=== PATIENT | female | born 1955 | race Caucasian/White ===

== ENCOUNTER → 2019-11-25 13:03 | Outpatient (BNVA) | payer MEDICARE, MEDICAID, SELFPAY | PROVIDERS: PCP Family Medicine; Visit Provider Nurse Practitioner | DX: F20.9 Schizophrenia, unspecified (principal) | CPT/HCPCS: 99214 ==

== ENCOUNTER → 2019-12-22 11:47 | Outpatient (BNVA) | payer MEDICARE, MEDICAID, SELFPAY | PROVIDERS: PCP Family Medicine; Visit Provider Nurse Practitioner | DX: F20.9 Schizophrenia, unspecified (principal) | CPT/HCPCS: 99214 ==

== ENCOUNTER → 2020-05-04 07:47 | Outpatient (BNVA) | payer MEDICARE, MEDICAID, SELFPAY | PROVIDERS: PCP Family Medicine; Visit Provider Psychiatry & Neurology Psychiatry | DX: F20.9 Schizophrenia, unspecified (principal); F43.12 Post-traumatic stress disorder, chronic | CPT/HCPCS: 96372; 99214 ==

== ENCOUNTER → 2020-06-23 14:30 | Outpatient (BNVA) | payer MEDICARE, MEDICAID, SELFPAY | PROVIDERS: PCP Family Medicine; Visit Provider Psychiatry & Neurology Psychiatry | DX: F20.9 Schizophrenia, unspecified (principal) | CPT/HCPCS: 99213 ==

== ENCOUNTER → 2020-08-15 14:02 | Outpatient (BNVA) | payer MEDICARE, MEDICAID, SELFPAY | PROVIDERS: PCP Family Medicine; Visit Provider Nurse Practitioner Psychiatric/Mental Health | DX: F20.9 Schizophrenia, unspecified (principal) | CPT/HCPCS: 99212 ==

== ENCOUNTER → 2020-09-21 11:12 | Outpatient (BNVA) | payer MEDICARE, MEDICAID, SELFPAY | PROVIDERS: PCP Family Medicine; Visit Provider Nurse Practitioner Psychiatric/Mental Health | DX: F20.9 Schizophrenia, unspecified (principal) | CPT/HCPCS: 99213 ==

== ENCOUNTER → 2020-10-23 10:49 | Outpatient (BNVA) | payer MEDICARE, MEDICAID, SELFPAY | PROVIDERS: PCP Family Medicine; Visit Provider Nurse Practitioner Psychiatric/Mental Health | DX: F20.9 Schizophrenia, unspecified (principal) | CPT/HCPCS: 99213 ==

== ENCOUNTER 2020-10-23 12:21 | Inpatient (IN) | payer MEDICARE, MEDICAID, SELFPAY ==
[2020-10-23 12:27] VITALS: RESP 20
--- NOTE | 2020-10-23 12:33 | ECG_ITS ---
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
[2020-10-23] MEDS: haloperidol inj 5 mg/mL INJ 1 mL IM (12:42)
[2020-10-23 12:53] VITALS: BP 130/85; PULSE 86; RESP 16; O2SAT 96
--- NOTE | 2020-10-23 13:01 | PC.PHAR ---
Addendum entered by Kirsten Jeffries 10/23/20 17:42: pts caregiver states the pt takes the medications entered Original Note: pt unable to verify medications-medications entered are meds that show up on ext med history and medications from previous entered med list
[2020-10-23] MEDS: diphenhydrAMINE 50 mg/mL SDV 1mL IM (13:20)
--- NOTE | 2020-10-23 13:49 | PC.NURSE ---
Patient states that she has no worth in this world. Patient states that she has friends that care about her and they make her feel bad that they want her to live. Patient also states that she does not want to be here, and that she rather be at her friends house.
[2020-10-23 17:03] LABS: Basophils % 0.6 %; Eosinophils # 0.1 10^3/uL (0.0-0.8); Eosinophils % 1.2 %; Hematocrit 38.5 % (37.0-47.0); Hemoglobin 12.3 g/dL (11.5-15.3); Lymphocytes # 1.2 10^3/uL (0.8-4.8); Lymphocytes % 23.2 %; Mean Corpuscular HGB Conc 31.9 g/dL (30.0-36.0); Mean Corpuscular Hemoglobin 28.3 pg (28.0-34.0); Mean Corpuscular Volume 88.5 fL (81-99); Mean Platelet Volume 10.2 fL (7.4-10.4); Monocytes # 0.6 10^3/uL (0.2-0.9); Monocytes % 11.4 %; Neutrophils # 3.19 10^3/uL (1.8-7.7); Neutrophils % 62.8 %; Nucleated Red Blood Cells % 0 %; Platelet Count 140 10^3/cmm (130-400); Red Blood Count 4.35 10^6/uL (4.1-5.3); Red Cell Distribution Width 13.1 % (12.1-15.1); White Blood Count 5.1 10^3/uL (4.0-10.0)
[2020-10-23 17:14] LABS: Add Urine Microscopic? NO
[2020-10-23 17:17] LABS: Bilirubin Urine Neg (Negative); Blood Urine Neg (Negative); Glucose Urine UA Norm (Normal); Ketones Urine Negative (Negative); Leukocyte Esterase Urine Negative (Negative); Nitrate Urine Negative (Negative); Protein Urine Neg (Negative); Urine Appearance Clear (CLEAR); Urine Color Yellow (Yellow); Urobilinogen Urine Norm (Negative); pH Urine 6.5 (5-7)
[2020-10-23 17:25] LABS: Amphetamines Screen Urine Negative (Negative); Barbiturates Screen Urine Negative (Negative); Benzodiazepines Screen Urine Negative (Negative); Cocaine Screen Urine Negative (Negative); Opiate Screen Urine Negative (Negative); PCP Screen Urine Negative (Negative); THC Screen Urine Negative (Negative)
[2020-10-23 17:38] LABS: Troponin(5th) Baseline 9 ng/L (0-10)
--- NOTE | 2020-10-23 17:42 | ED_ITS ---
HPI - Psych General: Chief Complaint: Psychiatric Symptoms Stated Complaint: SI / SCHIZO / SELF HARM Time Seen by Provider: 10/23/20 12:32 History of Present Illness: HPI Narrative: The patient is a 64-year-old female with chronic schizophrenia who comes to the ER brought with a 96-hour hold paperwork after admitting suicidal ideations. In the ER she is very depressed and agitated also admitting that she is suicidal and that if she had a gun she would kill herself. She keeps saying that no one cares for her and that she is ready to end her life. She asks if the mental health symptoms will be better if she is and that may be she is better off that way. MD complaint: suicidal ideation and feels depressed Duration: constant History of same: Yes Associated psychiatric symptoms: depression and suicidal ideation Associated symptoms: Reports suicidal ideation Review of Systems General: Reports: 10 or more systems reviewed and unremarkable except in HPI and below Const: Denies: fatigue Eyes: Denies: change in vision, blurry vision or eye redness ENMT: Denies: throat pain, swelling of lips/tongue, ear or mastoid pain or nasal congestion Card: Denies: chest pain, palpitations, irregular heart rhythm, edema, dyspnea on exertion or orthopnea Resp: Denies: dyspnea, productive cough or non-productive cough GI: Denies: abdominal pain, diarrhea or GI cramping : Denies: flank pain, difficulty voiding, urinary frequency or urinary urgency Musc: Denies: neck pain, back pain, extremity pain, joint pain, joint redness, limited range of motion or muscle weakness Skin/Breast: Denies: rash, pruritus, erythema, skin pain or skin tenderness Neuro: Denies: headache(s), numbness in extremities, weakness in extremities, sensory changes, difficulty walking, dizziness, confusion or Slurred speech present Psych: Reports: suicidal ideation Endo: Denies: polyuria All/Imm: Denies: urticaria, throat swelling or tongue swelling PFSH ED PFSH: Medical History Schizophrenia, chronic condition Social History Smoking and tobacco status: former smoker Second hand smoke exposure: No Physical Exam Const: COMMON NORMALS: no acute distress, average body habitus, patient oriented x3, no limitations, healthy appearing, alert and well nourished GENERAL APPEARANCE: cooperative, comfortable, well kempt and well developed ORIENTATION/CONSCIOUSNESS: Yes awake, Yes oriented to person, Yes oriented to place and Yes oriented to time HENMT: COMMON NORMALS: normocephalic, external ears normal and Normal external nose present HEAD & SCALP: normal to inspection and normocephalic NOSE: Normal external nose present EXTERNAL EAR: Yes external ears normal MOUTH: Normal oral and palatal mucosa present THROAT: posterior oropharynx normal Eye: COMMON NORMALS: Equal, round and reactive pupils present and EOMs intact bilaterally GENERAL EYE: appearance normal, both eyes and all related structures PUPIL: Yes Equal, round and reactive pupils present Neck/C-Spine: COMMON NORMALS: full ROM, no lymphadenopathy, no meningeal signs and no JVD GENERAL: Yes normal visual inspection Lymph: LYMPHATIC: no lymphadenopathy noted Chest: COMMONS NORMALS: normal inspection of the chest and normal palpation of entire chest wall Resp: COMMON NORMALS: normal respiratory effort, No retractions, No use of accessory muscles, clear to auscultation bilaterally and percussion normal EFFORT & INSPECTION: Yes able to speak in complete sentences AUSCULTATION: clear to auscultation bilaterally PERCUSSION: percussion normal Cardio: COMMON NORMALS: no JVD, regular rate, regular rhythm, S1 normal heart sound present, S2 normal heart sound present and Peripheral pulses 2+ throughout RATE: regular rate RHYTHM: regular rhythm HEART SOUNDS: S1 normal heart sound present and S2 normal heart sound present PERIPHERAL PULSES: Peripheral pulses 2+ throughout GI: COMMON NORMALS: Normal to inspection, nondistended, normoactive bowel sounds present, Soft to palpation, non-tender and no masses INSPECTION: Yes normal to inspection PALPATION: Yes Soft to palpation : COMMON NORMALS: Yes no CVA tenderness BLADDER/KIDNEY EXAM: Yes no CVA tenderness Back/Pelvis: COMMON NORMALS: no CVA tenderness, thoracic and lumbar spine normal to inspection, no thoracic nor lumbar tenderness and thoraco-lumbar ROM normal Extremity: COMMON NORMALS: normal to inspection, full ROM, capillary refill normal, no joint enlargement and no pedal edema GENERAL: Yes normal exam except as noted Neuro: COMMON NORMALS: patient oriented x3, CN's II-XII intact bilaterally, moves all extremities, no focal motor deficits, no sensory deficits noted and gait normal SENSORIUM/ORIENTATION: Yes alert, Yes oriented to person, Yes oriented to place and Yes oriented to time MENINGEAL SIGNS: Yes no meningeal signs Psych: COMMON NORMALS: mental status grossly normal, Normal thought process present, cooperative, normal affect and speech normal APPEARANCE: Yes well kempt ATTITUDE: Yes calm SPEECH: Yes normal speech THOUGHT PROCESS: Normal thought process present Skin: COMMON NORMALS: no rashes or lesions noted GENERAL SKIN EXAM: no rashes or lesions noted MDM - Psych Lab Data: Labs: Lab Results 10/23/20 10/23/20 10/23/20 Range/Units 16:42 16:42 16:42 WBC 5.1 (4.0-10.0) 10^3/ uL RBC 4.35 (4.1-5.3) 10^6/u L Hgb 12.3 (11.5-15.3) g/dL Hct 38.5 (37.0-47.0) % MCV 88.5 (81-99) fL MCH 28.3 (28.0-34.0) pg MCHC 31.9 (30.0-36.0) g/dL RDW 13.1 (12.1-15.1) % Plt Count 140 (130-400) 10^3/c mm MPV 10.2 (7.4-10.4) fL Neut % (Auto) 62.8 % Lymph % (Auto) 23.2 % Campbell % (Auto) 11.4 % Eos % (Auto) 1.2 % Baso % (Auto) 0.6 % Neut # (Auto) 3.19 (1.8-7.7) 10^3/u L Lymph # (Auto) 1.2 (0.8-4.8) 10^3/u L Campbell # (Auto) 0.6 (0.2-0.9) 10^3/u L Eos # (Auto) 0.1 (0.0-0.8) 10^3/u L Baso # (Auto) 0.0 (0.0-0.1) 10^3/u L Nucleated RBC % (a uto) 0 % Nucleated RBCs # 0.0 /100WBC Sodium 132 L (136-145) mmol/L Potassium 4.8 (3.5-5.1) mmol/L Chloride 95 L (98-107) mmol/L Carbon Dioxide 28 (22-29) mmol/L Anion Gap 13.8 (5-19) BUN 12 (8-23) mg/dL Creatinine 0.5 (0.5-0.9) mg/dL GFR Calculation 125.0 (90-130) mL/min Glucose 118 H (65-115) mg/dL Calculated Osmolal ity 275 L (285-295) mOsm/k g Calcium 8.8 (8.5-10.5) mg/dL Total Bilirubin 0.5 (0.15-1.2) mg/dL AST 19 (0-32) U/L ALT 14 (0-33) U/L Alkaline Phosphata se 71 (35-105) IU/L Troponin T Baselin e 9 (0-10) ng/L Total Protein 5.7 L (6.6-8.7) g/dL Albumin 3.6 (3.5-5.2) g/dL Globulin 2.1 (1.3-4.6) g/dL TSH 2.02 (0.27-4.20) uIU/ mL Urine Color (Yellow) Urine Appearance (CLEAR) Urine pH (5-7) Ur Specific Gravit y (1.005-1.030) Urine Protein (Negative) Urine Glucose (UA) (Normal) Urine Ketones (Negative) Urine Blood (Negative) Urine Nitrate (Negative) Urine Bilirubin (Negative) Urine Urobilinogen (Negative) mg/dL Ur Leukocyte Shani ase (Negative) Salicylates < 0.3 L (3-10) mg/dL Urine Opiates Scre en (Negative) ng/mL Acetaminophen < 5.0 L (10-30) ug/mL Ur Barbiturates Sc reen (Negative) ng/mL Valproic Acid (50-100) ug/mL Ur Phencyclidine S crn (Negative) ng/mL Ur Amphetamines Sc reen (Negative) ng/mL U Benzodiazepines Scrn (Negative) ng/mL Urine Cocaine Scre en (Negative) ng/mL U Marijuana (THC) Screen (Negative) ng/mL Ethyl Alcohol < 10 (0-10) mg/dL 10/23/20 10/23/20 10/23/20 Range/Units 16:48 16:48 17:49 WBC (4.0-10.0) 10^3/ uL RBC (4.1-5.3) 10^6/u L Hgb (11.5-15.3) g/dL Hct (37.0-47.0) % MCV (81-99) fL MCH (28.0-34.0) pg MCHC (30.0-36.0) g/dL RDW (12.1-15.1) % Plt Count (130-400) 10^3/c mm MPV (7.4-10.4) fL Neut % (Auto) % Lymph % (Auto) % Campbell % (Auto) % Eos % (Auto) % Baso % (Auto) % Neut # (Auto) (1.8-7.7) 10^3/u L Lymph # (Auto) (0.8-4.8) 10^3/u L Campbell # (Auto) (0.2-0.9) 10^3/u L Eos # (Auto) (0.0-0.8) 10^3/u L Baso # (Auto) (0.0-0.1) 10^3/u L Nucleated RBC % (a uto) % Nucleated RBCs # /100WBC Sodium (136-145) mmol/L Potassium (3.5-5.1) mmol/L Chloride (98-107) mmol/L Carbon Dioxide (22-29) mmol/L Anion Gap (5-19) BUN (8-23) mg/dL Creatinine (0.5-0.9) mg/dL GFR Calculation (90-130) mL/min Glucose (65-115) mg/dL Calculated Osmolal ity (285-295) mOsm/k g Calcium (8.5-10.5) mg/dL Total Bilirubin (0.15-1.2) mg/dL AST (0-32) U/L ALT (0-33) U/L Alkaline Phosphata se (35-105) IU/L Troponin T Baselin e (0-10) ng/L Total Protein (6.6-8.7) g/dL Albumin (3.5-5.2) g/dL Globulin (1.3-4.6) g/dL TSH (0.27-4.20) uIU/ mL Urine Color Yellow (Yellow) Urine Appearance Clear (CLEAR) Urine pH 6.5 (5-7) Ur Specific Gravit y 1.010 (1.005-1.030) Urine Protein Neg (Negative) Urine Glucose (UA) Norm (Normal) Urine Ketones Negative (Negative) Urine Blood Neg (Negative) Urine Nitrate Negative (Negative) Urine Bilirubin Neg (Negative) Urine Urobilinogen Norm (Negative) mg/dL Ur Leukocyte Shani ase Negative (Negative) Salicylates (3-10) mg/dL Urine Opiates Scre en Negative (Negative) ng/mL Acetaminophen (10-30) ug/mL Ur Barbiturates Sc reen Negative (Negative) ng/mL Valproic Acid 43.3 L (50-100) ug/mL Ur Phencyclidine S crn Negative (Negative) ng/mL Ur Amphetamines Sc reen Negative (Negative) ng/mL U Benzodiazepines Scrn Negative (Negative) ng/mL Urine Cocaine Scre en Negative (Negative) ng/mL U Marijuana (THC) Screen Negative (Negative) ng/mL Ethyl Alcohol (0-10) mg/dL Discharge Plan Discharge Patient Disposition: Admitted As Inpatient Admit Provider: Edgar Che Condition: Stable Coding Level of Care Code ED Kettle Girl for Germang Fwd Exam Comprehensive
[2020-10-23 17:47] LABS: Alanine Aminotransferase 14 U/L (0-33); Albumin Level 3.6 g/dL (3.5-5.2); Alkaline Phosphatase 71 IU/L (35-105); Blood Urea Nitrogen 12 mg/dL (8-23); Calcium 8.8 mg/dL (8.5-10.5); Carbon Dioxide 28 mmol/L (22-29); Chloride 95 mmol/L (98-107); Globulin 2.1 g/dL (1.3-4.6); Glucose 118 mg/dL (65-115); Osmolality Calculated 275 mOsm/kg (285-295); Sodium 132 mmol/L (136-145); Thyroid Stimulating Hormone 2.02 uIU/mL (0.27-4.20); Total Bilirubin 0.5 mg/dL (0.15-1.2); Total Protein 5.7 g/dL (6.6-8.7)
[2020-10-23 17:53] LABS: Acetaminophen < 5.0 ug/mL (10-30); Alcohol Level < 10 mg/dL (0-10); Salicylate < 0.3 mg/dL (3-10)
[2020-10-23 17:54] LABS: Anion Gap 13.8 (5-19); Aspartate Amino Transferase 19 U/L (0-32); Potassium 4.8 mmol/L (3.5-5.1)
[2020-10-23 18:25] LABS: Valproic Acid Level 43.3 ug/mL (50-100)
--- NOTE | 2020-10-23 18:37 | ECG_ITS ---
[facility] Test Date: 2020-10-23 Pat Name: Erica Buckner Department: Room: 150 Gender: Female Layer Up: : 1955 Requested By: Jose G Dodd Order Number: [id number] Petey MD: Sascha Vaughan M.D. Measurements Intervals [place] Rate: 72 P: PA: QRS: 79 QRSD: 94 T: 59 QT: 373 QTc: 409 Interpretive Statements SINUS RHYTHM WITH PREMATURE VENTRICULAR CONTRACTION LOW QRS VOLTAGE IN PRECORDIAL LEADS [QRS DEFLECTION < 1.0 mV IN CHEST LEADS] NONSPECIFIC T-WAVE ABNORMALITY Compared to ECG 06/25/2019 12:51:55 Low QRS voltage now present T-wave abnormality now present Electronically Signed On 10-25-2020 18:12:03 KENNEL STAFF MEMBER by Sascha Vaughan M.D. [id number]
[2020-10-23 21:37] VITALS: BP 111/75; PULSE 82; RESP 18; TEMP 36.3; O2SAT 92
[2020-10-23 21:57] VITALS: RESP 16
[2020-10-23 22:00] VITALS: RESP 16
[2020-10-23] MEDS: trazodone 50 mg Tablet PO (22:22)
[2020-10-23] MEDS: hyDROXYzine 25 mg Capsule 50 MG PO (22:22)
[2020-10-24] MEDS: LORazepam 0.5 mg Tablet PO ×2 (03:43→23:55)
--- NOTE | 2020-10-24 04:06 | PC.NURSE ---
UP AND DOWN SINCE ARRIVAL TO FLOOR. RAMBLES WITH TALK, SAYS THERE ARE PEOPLE WATCHING HER CAN'T YOU SEE THEM? APPEARS VERY PARANOID, UNABLE TO REDIRECT, SAYS SHE HOPES NO ONE LOCKS HER IN HER ROOM, TRIED TO REASSURE THAT NO ONE WOULD LOCK HER IN. WAS GIVEN ATIVAN 0.5 MG PO PRN TO HELP HER WITH REST. DENIES ANY PAIN.
[2020-10-24 06:22] VITALS: BP 120/63; PULSE 67; RESP 18; TEMP 36.6; O2SAT 95
[2020-10-24] MEDS: paliperidone ER 3 mg Tablet PO (07:31)
[2020-10-24] MEDS: fluoxetine 20 mg Capsule 40 MG PO (07:31)
[2020-10-24] MEDS: divalproex DR 250 mg Tablet PO ×2 (07:31→17:14)
[2020-10-24] MEDS: atenolol 50 mg Tablet PO (07:31)
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
--- NOTE | 2020-10-24 12:20 | PC.NURSE ---
PATIENT REFUSED BLOOD TO BE DRAWN FOR CHEM 7. RELAYED TO PHYSICIAN
[2020-10-24 14:00] VITALS: BP 121/71; PULSE 79; RESP 18; TEMP 36.5; O2SAT 94
[2020-10-24] MEDS: hyDROXYzine 25 mg Capsule 50 MG PO (14:23)
[2020-10-24] MEDS: lisinopril 10 mg Tablet PO (17:14)
[2020-10-24] MEDS: trazodone 150 mg Tablet PO (20:33)
[2020-10-24 20:43] VITALS: BP 98/60; PULSE 81; RESP 16; TEMP 36.6; O2SAT 97
[2020-10-25 06:00] VITALS: BP 110/79; PULSE 67; RESP 15; TEMP 36.6; O2SAT 98
[2020-10-25] MEDS: divalproex DR 250 mg Tablet PO ×2 (08:42→17:16)
[2020-10-25] MEDS: fluoxetine 20 mg Capsule 40 MG PO (08:42)
[2020-10-25] MEDS: paliperidone ER 3 mg Tablet PO (08:42)
[2020-10-25] MEDS: atenolol 50 mg Tablet PO (08:43)
--- NOTE | 2020-10-25 09:37 | PC.NURSE ---
Patient is anxious at this time asking to see physician and case assistant. She was educated on physician rounding and Denilson and case management was notified and patient re-directed. She remains anxious. Offered paper to color, draw or make notes and/or a book. Patient refused. When asked what would help she states push-ups . Encouraged patient to try doing them in her room. Patient calmed and went to room. Will continue to closely monitor. ABRIL, CORBIN
--- NOTE | 2020-10-25 11:06 | PC.NURSE ---
Agitation: Patient is in room hollaring out for the girls to stop talking. When i approached patient she was lying in bed and sat up stating that she heard some girls saying she should just . I informed patient that there is no one here that is saying those things. I also eased patient by stating she was in a safe place and across from the nurses station. I offered patient a medication to help ease her nerves and make her less anxious and she agreed. I will administer med as ordered. ABRIL, CORBIN
--- NOTE | 2020-10-25 11:31 | PM.NPN ---
Subjective NPU Subjective: Interval history: Patient continues to report depressive symptoms, I feel hopeless, I think the only way out is ending my life... I want to in the snow like a woman I heard about in a movie. Continues to be delusional, paranoid Denies any auditory hallucinations, denies any visual hallucinations Reports being compliant with the medication although she currently states that she does not feel like she will follow-up with outpatient medication management appointments No reports of any behavioral disturbances but reportedly appears to be confused often asking the same question multiple times at the nurse station Mental Status Exam MSE Comments: Appropriately groomed and dressed sitting on her bed in her room, calm, cooperative occasionally anxious appearing, fair eye contact Psychomotor activity is neither increased nor decreased, no agitation Speech is normal rate and volume, fair articulation, not pressured I feel depressed, congruent affect, not labile Pleasantly confused, oriented to person, type of place Memory and concentration appear to be fair at best per interview Thought process, occasional delays, circumstantial at times requiring redirection, no flight of ideas, some looseness of association Thought content, delusions, does not appear to be attending to any internal stimuli, passive suicidal ideation with no active intent or plan, no homicidal ideation Insight and judgment appear to be fair at best Vitals/I&O/Wt Last Vital Signs Temp 97.8 F 10/25/20 06:00 Pulse 67 10/25/20 06:00 Resp 15 10/25/20 06:00 BP 110/79 10/25/20 06:00 Pulse Ox 98 10/25/20 06:00 Data NPU : 10/23/20 16:42 10/23/20 16:42 A&P Assessment and plan (1) Suicidal ideation: Status: Acute (2) Depressive disorder: Status: Acute (3) Schizophrenia, chronic condition: Status: Chronic Additional A&P Information Continues to be psychotic, depressed, reports feeling hopeless with ongoing suicidal ideation DISCONTINUE oral Invega START olanzapine 5 mg at bedtime targeting psychotic symptoms, mood CONTINUE other medication, continue to monitor Continue to encourage patient to participate in unit milieu Involuntary Hold Information 96 Hour Hold: 96 Hour Involuntary Admission: Yes 96 Hour Hold Ending Date: 10/30/20 96 Hour Hold Ending Time: 14:15 Attestations NPU Medical Necessity Statement*: Continues require psychiatric hospitalization with ongoing suicidal ideation and need for medication stabilization Coding Level of Care Code Acute Wire Inspector for Chg Fwd Diagnoses Suicidal ideation R45.851 Depressive disorder F32.9 Schizophrenia, chronic condition F20.9
[2020-10-25] MEDS: hyDROXYzine 25 mg Capsule 50 MG PO (11:40)
[2020-10-25 13:36] VITALS: BP 97/72; PULSE 82; RESP 18; TEMP 36.6; O2SAT 93
[2020-10-25] MEDS: ondansetron 4 MG Tablet PO (15:44)
[2020-10-25] MEDS: LORazepam 0.5 mg Tablet PO (17:16)
[2020-10-25] MEDS: lisinopril 10 mg Tablet PO (17:16)
--- NOTE | 2020-10-25 18:07 | PC.NURSE ---
1715: Patient is requesting a medication that will calm her mouth . She is pacing in her room. Offered patient a book or paper and crayons. Patient refused and will administer anxiety medication as ordered PRN. ABRIL, CORBIN
[2020-10-25 19:37] VITALS: BP 93/51; PULSE 82; RESP 16; TEMP 36.6; O2SAT 98
[2020-10-25] MEDS: OLANZapine 5 mg TABLET PO (20:00)
[2020-10-25] MEDS: trazodone 150 mg Tablet PO (20:00)
[2020-10-26 06:00] VITALS: BP 109/71; PULSE 72; RESP 18; TEMP 36.4; O2SAT 95
[2020-10-26] MEDS: fluoxetine 20 mg Capsule 40 MG PO (07:34)
[2020-10-26] MEDS: atenolol 50 mg Tablet PO (07:34)
[2020-10-26] MEDS: divalproex DR 250 mg Tablet PO ×2 (07:34→20:28)
[2020-10-26] MEDS: LORazepam 0.5 mg Tablet PO ×2 (07:35→19:23)
--- NOTE | 2020-10-26 12:17 | P.PN_ITS ---
Subjective NPU Subjective: Interval history: Reports intermittent depressive symptoms, denies any suicidal ideation Patient continues to report delusions that people are saying mean things to her while driving by the road near where she stays Denies any visual hallucinations Reports that her appetite is been good Reports that her sleep is been fair Reports being compliant with her medication, denies any medication side effects Mental Status Exam MSE Comments: Appropriately groomed and dressed sitting on her bed in her room, irritable but cooperative, fair eye contact Psychomotor activity is neither increased nor decreased, no agitation Speech is normal rate and volume, fair articulation, not pressured I'm upset, irritable, congruent affect, not labile Pleasantly confused, oriented to person, type of place Memory and concentration appear to be fair at best per interview Thought process, occasional delays, circumstantial at times requiring redirection, no flight of ideas, some looseness of association Thought content, delusions, does not appear to be attending to any internal stimuli, passive suicidal ideation with no active intent or plan, no homicidal ideation Insight and judgment appear to be fair Vitals/I&O/Wt Last Vital Signs Temp 97.6 F 10/26/20 06:00 Pulse 72 10/26/20 06:00 Resp 18 10/26/20 06:00 BP 109/71 10/26/20 06:00 Pulse Ox 95 10/26/20 06:00 Data NPU : 10/23/20 16:42 10/23/20 16:42 A&P Assessment and plan (1) Suicidal ideation: Status: Acute (2) Depressive disorder: Status: Acute (3) Schizophrenia, chronic condition: Status: Chronic Additional A&P Information Patient continues to report intermittent depressive symptoms, denies any fatimah cidal ideation today, continues to be irritable secondary to delusion that people are making fun of her and calling her names CONTINUE current medication, continue to monitor Involuntary Hold Information 96 Hour Hold: 96 Hour Involuntary Admission: Yes 96 Hour Hold Ending Date: 10/30/20 96 Hour Hold Ending Time: 14:15 Attestations NPU Medical Necessity Statement*: Continues to demonstrate disorganization of behavior, delusions require psychiatric medication stabilization Coding Level of Care Code Acute Identification Printing Machine Setter for German Fwconnor Diagnoses Suicidal ideation R45.851 Depressive disorder F32.9 Schizophrenia, chronic condition F20.9
[2020-10-26 14:00] VITALS: BP 116/73; PULSE 80; RESP 18; TEMP 36.2; O2SAT 96
[2020-10-26] MEDS: ondansetron 4 MG Tablet PO (19:31)
[2020-10-26] MEDS: trazodone 150 mg Tablet PO (20:28)
[2020-10-26] MEDS: OLANZapine 5 mg TABLET PO (20:28)
[2020-10-26] MEDS: hyDROXYzine 25 mg Capsule 50 MG PO (20:29)
[2020-10-26] MEDS: lisinopril 10 mg Tablet PO (20:30)
[2020-10-26] MEDS: alum-mag-hydroxide-sime 30 mL UDC PO (21:21)
[2020-10-26] MEDS: OLANZapine 5 mg ODT PO (21:21)
--- NOTE | 2020-10-26 21:30 | PC.NURSE ---
Patient began the shift very anxious and particularly dis-trustful of males. Patient requested medication for anxiety and was given 0.5mg Ativan at 1923. Patient was given her scheduled medication at 20:28. Shortly there after she was up at the nurses station accusing male Nurse of stealing Her Thoughts . As she began to become increasingly agitated at male staff presents. The decision was made to give her an additional 5mg Zyprexa zydis at 21:21 in hopes of avoiding further escalation. Patient returned to room. However, continues to PEEK out her door looking for mail staff.
[2020-10-26 22:00] VITALS: RESP 18
--- NOTE | 2020-10-26 22:14 | PC.NURSE ---
PM assessment Pt refused to allow DEEP SUBMERGENCE VEHICLE CREWMEMBER to obtain v/s. Pt is irritable, guarded, does not like male staff, she is acting bazaar at the moment. She walks to the door of the room, peeks out, comes back to the bed, and asked, where is that copy chaser at that has been on the unit? He is stealing my thoughts. Pt allowed nurse to listen to her heart and lungs, both are WNL. Pt is anxious, guarded, tearful, and at times verbally profane. Pt is anxious and continues to pace the tsang between the dayroom and her room. Pt came to the nurses desk requesting medication because voices are telling her to become a prostitute, that she is financially to far down to pull out. Pt is very upset at this voice saying, it ain't right to think like this. Pt confirms AH/VH but denies SI/HI at this time. Pt has received PRN medications to help with increased anxiety level. She has received Ativan 0.5mg PO, Visteril 50mg PO, zyprexa zydis 5mg PO, and Mylanta. pt returns to her room and continually closes her door. Staff has educated pt regarding unit expectation of open door. Will continue to monitor patients behavior.
[2020-10-27] MEDS: haloperidol 5 mg Tablet PO (01:55)
--- NOTE | 2020-10-27 01:56 | PC.NURSE ---
Patient continues to be very anxious and agitated. Pacing hallway back and forth from day room, to nurses station , to room then back again. Has been insistent that security can let her go, even after multiple attempts to redirect and explain 96 hour hold protocol.
--- NOTE | 2020-10-27 05:04 | PC.NURSE ---
Behavior Pt is experiencing Auditory hallucinations and acting on what she is hearing. She comes to her doorway, peeks out, and comes to the nurses station asking if staff has changed shifts.She is increasingly confused. Pt is angry and said to staff, you hate me, you think Im retarded, I hear you all talking and saying I am a whore. Just let me in the white snow, Cant you give me something to put me out of my misery? Pt called nurse a bitch because she could not have her headphones out of her belongings. She believes the senior information security consultant is a gyroscope technician and he is going to steal her raj thoughts Pt is evasive and triggered at the site of male staff on the unit. She says, men can not be trusted. They just are mean and use you. Pt defies unit rules, she continues to shut her door, and says we are mistreating her and being mean to her. Pt mumbles profanity under her breath and paces up and down the halls. pt is increasingly irritable, agitated, and evasive.
[2020-10-27 06:00] VITALS: RESP 16
[2020-10-27] MEDS: ondansetron 4 MG Tablet PO (06:41)
[2020-10-27] MEDS: fluoxetine 20 mg Capsule 40 MG PO (07:25)
[2020-10-27] MEDS: divalproex DR 250 mg Tablet PO ×2 (07:26→20:33)
[2020-10-27] MEDS: atenolol 50 mg Tablet PO (07:26)
--- NOTE | 2020-10-27 09:25 | PM.NPTHER ---
NPU Therapy Progress Note Therapy Progress Note Date: 10/27/20 Symptoms Reported: [id number] Mood: dsfgdfg Progress Note: adfgsdfg Intervention: dfgdfg Reported Goals Before Discharge: fgdfg
--- NOTE | 2020-10-27 11:16 | PM.NPTHER ---
NPU Therapy Progress Note Therapy Progress Note Date: 10/25/20 Time In: 17:30 Time Out: 17:55 Symptoms Reported: depression, anger Mood: Began as paranoid, mildly agitated, and suspicious; however, at the end of conversation Erica smiles and is able to be redirected, although momentarily. Progress Note: VOLLEYBALL COMMENTATOR met with Erica who presents with obvious delusions and mild agitated behavior. She tells VOLLEYBALL COMMENTATOR she has been suicidal and has at different times tried to kill herself due to people talking bad about me . SID attempted to educate on positive ways of coping with the belief people are talking bad about her. She was redirected to talk about things she enjoys, which include Eleonora Anuj mystery novels and lifting weights. Her demeanor softens and her mood seems to elevate when redirected. She was encouraged to practice finding positives throughout her day adn VOLLEYBALL COMMENTATOR would be checking on her tomorrow. Intervention: Redirecting, education Reported Goals Before Discharge: find someplace to go
--- NOTE | 2020-10-27 11:29 | P.PN_ITS ---
NPU Therapy Progress Note Therapy Progress Note Date: 10/26/19 Time In: 17:45 Time Out: 18:00 Symptoms Reported: depressed Mood: frustration, mild agitation Progress Note: It was noted that while speaking with another patient, Erica paced back and forth behind [facility]. When OUTPATIENT PROGRAM COORDINATOR was finished speaking, Erica approached [facility] and wanted to talk. When asked if she remembered OUTPATIENT PROGRAM COORDINATOR from conversation yesterday, she reports she does. Erica continues to speak from a delusional/psychotic state; however, is able to be redirected without much agitated response. She reiterated the paranoid delusion that people are speaking bad things about her; however, when redirected to positive conversation, she is able to do this. She discusses in more detail why she enjoys lifting weights and asks [facility] if it is appropriate if she shows OUTPATIENT PROGRAM COORDINATOR an exercise move she enjoys. She does and it is appropriate. [facility] encourages Erica take time to do these small exercises as [facility] reflects to her there is a positive change in her mood when she talks about it. Erica was challenged to name positives throughout her day and she tells [facility] she enjoyed a cheese soup she had at some point in the day. Although she continues to have psychotic and delusional sx, the conversation ended in a positive fashion, with Erica thanking [facility] for speaking with her. Intervention: redirection/education/challenging Reported Goals Before Discharge: find a place to go
--- NOTE | 2020-10-27 11:29 | PM.NPTHER ---
NPU Therapy Progress Note Therapy Progress Note Date: 10/26/19 Time In: 17:45 Time Out: 18:00 Symptoms Reported: depressed Mood: frustration, mild agitation Progress Note: It was noted that while speaking with another patient, Erica paced back and forth behind [facility]. When MANNEQUIN MOLDER was finished speaking, Erica approached [facility] and wanted to talk. When asked if she remembered MANNEQUIN MOLDER from conversation yesterday, she reports she does. Erica continues to speak from a delusional/psychotic state; however, is able to be redirected without much agitated response. She reiterated the paranoid delusion that people are speaking bad things about her; however, when redirected to positive conversation, she is able to do this. She discusses in more detail why she enjoys lifting weights and asks [facility] if it is appropriate if she shows MANNEQUIN MOLDER an exercise move she enjoys. She does and it is appropriate. [facility] encourages Erica take time to do these small exercises as [facility] reflects to her there is a positive change in her mood when she talks about it. Erica was challenged to name positives throughout her day and she tells [facility] she enjoyed a cheese soup she had at some point in the day. Although she continues to have psychotic and delusional sx, the conversation ended in a positive fashion, with Erica thanking [facility] for speaking with her. Intervention: redirection/education/challenging Reported Goals Before Discharge: find a place to go
[2020-10-27] MEDS: OLANZapine 5 mg ODT PO (13:23)
--- NOTE | 2020-10-27 13:23 | PC.NURSE ---
Addendum entered by Olga Blancas LPN 10/27/20 14:51: prn med somewhat effective pt is pacing unit, mood seems more calm Original Note: PRN ZYPREXA ZYDIS 5 MG GIVEN PO PER PT C/O AGITATION. PT YELLING AT THE NURSES STATION, PUSHED A PHONE THROUGH ONTO THE DESK AT THE NURSES STATION. YELLED AT STAFF TOLD STAFF STOP CALLING ME A RETARD! STAFF ATTEMPTS TO EDUCATE PT THAT WE WERE NOT TALKING ABOUT HER, PHYSICIAN STEPPED OUT INTO HALLWAY TO SPEAK WITH PATIENT. PT TOLD PHYSICIAN WHY DON'T YOU JUST PUT ME OUT OF MY MISERY! PRN MED OFFERED & PT AGREED TO TAKE IT.
--- NOTE | 2020-10-27 13:25 | P.PN_ITS ---
Subjective NPU Subjective: Interval history: Continues to report persecutory delusions as well as auditory hallucinations causing significant irritability and occasional behavioral disturbances on the unit with 1 incident of pushing the phone off of the nursing station counter. Continues to report intermittent depressive symptoms, denies any suicidal ideation but reports passive thoughts Patient states that she cannot go back to where she was staying because people are saying mean things about her as they passed by on the road reporting that the only place she could go as a house in the middle of the field where no one else comes around Mental Status Exam MSE Comments: Appears older than stated age, pacing the hallways, irritable, upset, fair eye contact, appropriately dressed Psychomotor activity is somewhat restless, verbal agitation Speech is normal rate and volume, rambling at times, not pressured I am upset, congruent affect, somewhat labile Confused at times, oriented to person, place Memory is fair, concentration is fair at best per interview Thought process, circumstantial, requires redirection, some flight of ideas, no looseness of associations Thought content, paranoid delusions, does not appear to be attending to any internal stimuli but reports hallucinations, passive suicidal thoughts, no active intent or plan, no homicidal ideation Insight and judgment are fair Vitals/I&O/Wt Last Vital Signs Temp 97.1 F L 10/26/20 14:00 Pulse 80 10/26/20 14:00 Resp 16 10/27/20 06:00 BP 116/73 10/26/20 14:00 Pulse Ox 96 10/26/20 14:00 Data NPU : 10/23/20 16:42 10/23/20 16:42 A&P Assessment and plan (1) Suicidal ideation: Status: Acute (2) Schizophrenia, chronic condition: Status: Chronic (3) Depressive disorder: Status: Acute Additional A&P Information Continues to be psychotic, passive suicidal thoughts, paranoid delusions, occasional physical and verbal agitation Continue involuntary INCREASED to Zyprexa Zydis 5 mg twice daily targeting psychotic symptoms CONTINUE other medication Continue to provide behavioral redirection Involuntary Hold Information 96 Hour Hold: 96 Hour Involuntary Admission: Yes 96 Hour Hold Ending Date: 10/30/20 96 Hour Hold Ending Time: 14:15 Attestations NPU Medical Necessity Statement*: Continues to require psychiatric hospitalization for medication stabilization, continues to be psychotic Coding Level of Care Code Acute Rotary Surface Grinder for Chg Fwd Diagnoses Suicidal ideation R45.851 Schizophrenia, chronic condition F20.9 Depressive disorder F32.9
[2020-10-27 14:00] VITALS: BP 98/66; PULSE 74; RESP 18; TEMP 36.7; O2SAT 95
--- NOTE | 2020-10-27 18:23 | P.PN_ITS ---
NPU Therapy Progress Note Therapy Progress Note Date: 10/27/20 Time In: 17:35 Time Out: 18:05 Symptoms Reported: Depressed Mood: continues to be paranoid and delusional; however, as in the other sessions, brightens by the end of the conversation Progress Note: KEYSEATER OPERATOR approached Erica's door and notes that she is sitting on her bed, staring at the floor. SID asks if she would like to talk and initially Erica does not remember KEYSEATER OPERATOR; however, after she does, she brightens and is very eager to speak with SID. She agrees to walk to the dayroom and talk there. She begins, as in other sessions, reporting a paranoid delusion about a man telling her that her lips are ugly. SID is quickly able to redirect the conversation and asks Erica if she remembers the topic of our previous conversations. She admits she easily forgets things but upon being reminded, she tells KEYSEATER OPERATOR she has used some positive coping skills of push-ups in her room (she did 7) and has drawn some pictures. KEYSEATER OPERATOR asks her what she enjoys about herself and Erica is able say she believes she is a good artist and is good at sewing, also she is good at odds and ends jobs but is unable to be more specific. She identifies a positive person in her life who is a leather tacker and who would never believe the negative things she is hearing spoke about her. Erica was encouraged to remind herself of her positive self worth, p articularly when she is concerned people are speaking badly of her. Erica request to draw a picture of this SID, and she does so with a crayon. SID praised Erica and reinforced this as a positive characteristic of her self worth. Erica reports plans to take a hot shower and get a good night's rest. Intervention: Reflective listening, empathy, positive self regard, encouragement Reported Goals Before Discharge: find a place to stay , positive coping skills
[2020-10-27] MEDS: lisinopril 10 mg Tablet PO (20:30)
[2020-10-27] MEDS: OLANZapine 5 mg TABLET 10 MG PO (20:31)
[2020-10-27] MEDS: hyDROXYzine 25 mg Capsule 50 MG PO (20:34)
[2020-10-27] MEDS: trazodone 150 mg Tablet PO (20:34)
--- NOTE | 2020-10-27 20:35 | PC.NURSE ---
PM assessment Pt V/S are normal. Pt accepted a snack and requested a shower. Pt is irritable but cooperative with staff. Pt allowed nurse to listen to her heart and lungs, both are WNL. Pt is anxious, Pt confirms AH saying You are stupid and retarded. Pt denies SI/HI at this time. Pt is pacing between her room and the dayroom with occasional requests from the nurses station for various needs. She is very anxious at this time. Pt has requested medication to help with her increasing AH and agitation. Med nurse notified.
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
[2020-10-27 21:23] VITALS: BP 117/71; PULSE 84; RESP 16; TEMP 36.2; O2SAT 94
[2020-10-28] MEDS: OLANZapine 5 mg ODT PO (01:55)
[2020-10-28] MEDS: trazodone 50 mg Tablet PO (01:55)
--- NOTE | 2020-10-28 01:56 | PC.NURSE ---
Patient at nurses station agitated and anxious, hearing voices again. Asking medication to help go back to sleep. Second Trazodone 50mg and 5mg Zyprexa zydus given.
[2020-10-28] MEDS: haloperidol 5 mg Tablet PO (03:53)
[2020-10-28] MEDS: alum-mag-hydroxide-sime 30 mL UDC PO (03:53)
--- NOTE | 2020-10-28 04:02 | PC.NURSE ---
contacted Dr. Che early in the shift to discuss patients behavior that was reported by day shift and her behavior last night. Doctor ordered an increase in her HS Zyprexa to 10mg and said not to exceed 40 mg ( with PRN's ) in 24hours. Patient has been coming out of her room screaming, make them Stop , I can't stand it , Tell them to shut up . Patient condition has continued to escalate the last two hours. Contacted Dr. Che a second time to advise him of patients escalating condition/behavior. advised to give patient 5mg Haldol. requested that we keep track of the effectiveness of the Haldol for possible medication adjustments.
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
--- NOTE | 2020-10-28 05:48 | PC.NURSE ---
At approximately 0430 ( 35 minutes after administration of Haldol 5mg ) patient came to the nurses station stating that she was feeling better. She was redirected and she went to her room, rested for about 45 minutes, got up and requested medication for upset stomach from med nurse. Pt did not wait and went to the dayroom, on her return from the dayroom nearing the nurses station, pt was tearful and visibly upset. Med Nurse tried to get patient to return to bed and rest but patient is already becoming anxious and increasing in her level of agitation. Pt is quiet and less tearful at the present time but she is pacing inside her room in dark. Will continue to monitor patient behavior, changes to affect, and response to prn medications already administered.
[2020-10-28 06:00] VITALS: RESP 17
[2020-10-28] MEDS: atenolol 50 mg Tablet PO (08:05)
[2020-10-28] MEDS: OLANZapine 5 mg TABLET PO (08:06)
[2020-10-28] MEDS: divalproex DR 250 mg Tablet PO ×2 (08:06→21:55)
[2020-10-28] MEDS: fluoxetine 20 mg Capsule 40 MG PO (08:06)
--- NOTE | 2020-10-28 13:08 | P.PN_ITS ---
Subjective NPU Subjective: Interval history: Continues to report paranoid delusions. States that police outside of her room or calling her names and saying that she is ugly. She also believes that some patients are also calling her names and some staff members are also participating in calling her things too. Patient reports depressive symptoms related to her paranoid delusions, states she has intermittent passive suicidal thoughts but denies any active intent or plan. Additionally, she states that she would tell someone if she was going to hurt herself while in the hospital Reports that her appetite is been good Reports that her sleep has been fair although Per nurse report, patient has not been sleeping well and continues to have intermittent behavioral disturbances through the night related to her delusions. Patient reports being compliant with her medication and denies any medication side effects. Mental Status Exam MSE Comments: Appropriately dressed, sitting on her bed, fair eye contact, appropriately dressed Psychomotor activity is somewhat restless, verbal agitation Speech is normal rate and volume, rambling at times, not pressured Everyone is calling me names, irritable, angry affect, somewhat labile Confused at times, oriented to person, place Memory is fair, concentration is fair at best per interview Thought process, circumstantial, requires redirection, some flight of ideas, no looseness of associations Thought content, paranoid delusions, does not appear to be attending to any internal stimuli but reports hallucinations, passive suicidal thoughts, no active intent or plan, no homicidal ideation Insight and judgment are fair Vitals/I&O/Wt Last Vital Signs Temp 97.1 F L 10/27/20 21:23 Pulse 84 10/27/20 21:23 Resp 17 10/28/20 06:00 BP 117/71 10/27/20 21:23 Pulse Ox 94 10/27/20 21:23 Weight last 48 hrs Weight 74.928 kg Data NPU : 10/23/20 16:42 10/23/20 16:42 A&P Assessment and plan (1) Suicidal ideation: Status: Acute (2) Depressive disorder: Status: Acute (3) Schizophrenia, chronic condition: Status: Chronic Additional A&P Information Continues to have paranoid delusions, reports ongoing depressive symptoms, intermittent suicidal ideation, continues to have behavioral disturbances related to delusions. INCREASE to olanzapine 10 mg twice daily Continue to monitor Involuntary Hold Information 96 Hour Hold: 96 Hour Involuntary Admission: Yes 96 Hour Hold Ending Date: 10/30/20 96 Hour Hold Ending Time: 14:15 Attestations NPU Medical Necessity Statement*: Continues require psychiatric hospitalization, ongoing psychosis, paranoid delusions, behavioral disturbances, requires medication stabilization Coding Level of Care Code Acute Provider Engagement Executive for Shobha Huynh Diagnoses Suicidal ideation R45.851 Depressive disorder F32.9 Schizophrenia, chronic condition F20.9
[2020-10-28 14:00] VITALS: BP 117/80; PULSE 78; RESP 20; TEMP 36.3; O2SAT 94
--- NOTE | 2020-10-28 20:29 | PC.NURSE ---
PM Assessment Pt denies pain, Pt denies SI/HI. Pt confirms AH telling her to choke herself but says that's not right to think like that, is it? Pt told nurse she believed that dayshift nurses are talking about her and says that she is stupid, and ugly. She then said, I don't think they like me at all. Overall, pt is much calmer tonight compared to last night. She asks questions and is answering questions appropriately. She does require redirection often and seems to be forgetful at times of what she is supposed to be doing. Pt v/s are WNL, Heart sounds are WNL, and Lung sounds are clear throughout all aden. Will continue to monitor patient behavior for any s/s of emotional distress and progress.
[2020-10-28 21:01] VITALS: BP 114/77; PULSE 87; RESP 16; TEMP 36.4; O2SAT 97
[2020-10-28] MEDS: OLANZapine 5 mg TABLET 10 MG PO (21:54)
[2020-10-28] MEDS: lisinopril 10 mg Tablet PO (21:55)
[2020-10-28] MEDS: trazodone 150 mg Tablet PO (21:55)
[2020-10-29] MEDS: alum-mag-hydroxide-sime 30 mL UDC PO ×2 (02:04→07:10)
--- NOTE | 2020-10-29 03:56 | PC.NURSE ---
Behavior Pt slept for several hours this evening. She woke up around 0100 this morning. She is irritable, intrusive, and demanding staff to fix her glasses. When staff could not repair them, she became agitated and began name calling. Pt was redirected and de-escalated verbally. Pt requested a snack which was provided. She wanted medication she calls that liquid medication for stomach upset.(Maalox) Pt believes this medication alters her mood regardless of staff education regarding this medication. Her response to taking it is to go lay down and her mood changes as result. Pt is up and down at this point. She is pacing between patient room and dayroom. Pt asks nursing staff to speak to medical personnel, a doctor or nurse. she does not see the staff on this shift as nurses. Pt seems upset by the indication that both of the staff she is working with are registered nursing staff members this evening. Pt was informed that the physician will be back to see patients in the morning. She repeated several times, I want off this [facility]. cant any of you people let me go. Pt is not happy about being in this facility and wants to go home. Yet, she remains psychotic and responsive to the AH she is experiencing. Her explosiveness yesterday is much less today. She is easier to talk to and redirect. Her sleep is much improved. Overall, I see positive changes happening with her behavior. Whether it is the patient accepting her placement on unit or medication adjustments beginning to help, is unclear at this time. Nursing staff will continue to monitor pt progress and behavioral changes.
--- NOTE | 2020-10-29 04:49 | PC.NURSE ---
Yelling/Slamming door Pt is upset, just walked down the tsang from the dayroom. She yelled, Let me out of here. This is stupid. As she entered her room, she yelled, I am not supposed to be here. I'm sick of this shit. She slammed the door. Patient's mood is rapidly cycling between calm/respectful to glaring/yelling in a matter of moments. Patient is in need of medication to decrease agitation. Med nurse notified. Pt being given zyprexa zydis 5mg PO. Will continue to monitor patients behavior for indications of medication effectiveness
[2020-10-29] MEDS: OLANZapine 5 mg ODT PO (05:01)
--- NOTE | 2020-10-29 05:01 | PC.NURSE ---
Zyprexa zydus 5mg given for escalating anger / agitation.
--- NOTE | 2020-10-29 05:09 | PC.NURSE ---
Observation Pt is very childlike in her behavior. Simple communication with minimal choices seem best with her. When patient is belligerent, if staff firmly redirects pt with clear expectations of her behavior and limits are placed on what is acceptable in exchanges, the patient becomes compliant. When she doesn't agree, she storms off but calms quickly. Pt becomes apologetic and then seeks to make up. Pt self-image is badly damaged. She constantly programs her anger with negative self-talk. Response with positive answers or unexpected instant reward seems to temporarily deflect intrusive/hostile behavior. Pt needs constant interaction and benefits from explanation, making it easier to reason with her.
--- NOTE | 2020-10-29 05:16 | PC.NURSE ---
Need Depakote Level? Pt had last valproic acid level on 10/23/20. At that time, it was low at 43.3. Pt refused to have blood drawn on 10/24/20. However, it could be beneficial to have another set of labs on this patient. Patient is currently receiving 250mg po BID.
[2020-10-29 05:33] VITALS: BMI 26.6
[2020-10-29 05:34] VITALS: BP 100/71; PULSE 85; RESP 19; TEMP 37.1; O2SAT 97
--- NOTE | 2020-10-29 05:40 | PC.NURSE ---
Behavior/Zyprexa follow up Pt received Zyprexa Zydis 5 mg PO at 0501. Pt is still agitated and verbally aggressive. She is frustrated, keeps coming out to look at the wall clock, and wants to talk to the doctor right away. She states, I have to get out of the all of this foolishness. I have to get off this unit, the police keep bothering me. They are saying .. look at her ugly face, they are harassing me all the time. Pt is still experiencing auditory hallucinations. Staff asked the patient where the supervisor grips were that were harassing her. Pt responded, right out there, they never leave. Pointing out the window. There is no one outside at this time. Pt is experiencing some visual/ persecutory auditory hallucinations. Medication has lessened her level of agitation and aggression but it has not stopped the hallucinations she is experiencing at this time. Pt consistently states, I have to , it's my only option. Med nurse notified of findings, nursing staff considering additional prn anti-psychotic medications at this time. Staff will continue to monitor patients behavior for progress or decline.
--- NOTE | 2020-10-29 06:07 | PC.NURSE ---
Resting Pt went back to bed. She is resting and staff did not need to administer any additional PRN's at this time
--- NOTE | 2020-10-29 06:21 | PC.NURSE ---
Outburst Pt yelling, stated, Im gonna kill myself right now. She quickly went into her room slamming the door. Nursing staff and security entered the pt room, pt was de-escalated verbally. Med Nurse administered Haldol 5mg PO to decrease agitation. Pt said, I want off this mehta, the voices are telling me I am gruesome. Im ugly and I want to , I am going to kill myself. Pt is pacing the hallway talking to herself at this time. pt instructed to leave her room open for observation of her safety. Pt is fixated on under seal operator harassing her, men saying hateful things to her about her looks, especially her face. Pt is very angry, she wants to feel better. States the doctor feels she is hopeless, he is a smart mansi, I am hopeless, I should just . Pt keeps saying she wants to kill herself. She is frowning, glaring, eyes darting, narrowed, she is pacing, and increasingly irritated. Pt will go sit on her bed, jump up, yell, take a walk down to the dayroom, go the the exit door by the nurses station, look out the window, push the locked door, come back to the nurses station, and say when is the doctor coming, I want out of here, Pt came to the nurses station. Pt asked nursing staff, what would happen if I wrapped my hands around my throat and choked myself, would I ? Would I worry about it? Bad people are everywhere, and I can't get away from them, they are everywhere. Where can I go that they will treat me good? She answered her own question with no where, they are everywhere and we can not make them treat me good. I should just . I need to just kill myself. Pt is sitting on her bed, head propped on her hands, tearful now. Patient is torment by these AH.
[2020-10-29] MEDS: haloperidol 5 mg Tablet PO ×2 (06:26→18:34)
--- NOTE | 2020-10-29 06:29 | PC.NURSE ---
Patient extremely manic stating I'm going to kill myself as she rushed into her room slamming the door closed behind her. Staff immediately followed patient into room for her safety. Patient became more aggressive and agitated. 5mg PO Haldol was given. will continue to monitor patient.
--- NOTE | 2020-10-29 09:28 | PM.NPN ---
Subjective NPU Subjective: Interval history: Continues to be confused at times but cooperative with interview, difficulty recalling recent events but is able to report that she has been here for about 6 days. She denies any depressive symptoms today but states that her depressive symptoms are secondary to this delusion that people are calling her names from the road where she stays, denies any suicidal ideation Reports fair appetite, states they do not want to serve me.... Sometimes I just give me a meat Reports being compliant with her medication, denies any medication side effects Mental Status Exam MSE Comments: Sitting on her bed, calm, cooperative, good eye contact, appropriately dressed Psychomotor activity is somewhat restless, verbal agitation Speech is normal rate and volume, rambling at times, not pressured I feel okay, constricted, not labile Confused at times, oriented to person, place Memory is fair, concentration is fair at best per interview Thought process, circumstantial, requires redirection, some flight of ideas, no looseness of associations Thought content, paranoid delusions, does not appear to be attending to any internal stimuli but reports hallucinations, passive suicidal thoughts, no active intent or plan, no homicidal ideation Insight and judgment are fair Vitals/I&O/Wt Last Vital Signs Temp 98.7 F 10/29/20 05:34 Pulse 85 10/29/20 05:34 Resp 19 H 10/29/20 05:34 BP 100/71 10/29/20 05:34 Pulse Ox 97 10/29/20 05:34 Weight last 48 hrs Weight 74.928 kg Weight 74.928 kg Data NPU : 10/23/20 16:42 10/23/20 16:42 A&P Assessment and plan (1) Suicidal ideation: Status: Acute (2) Depressive disorder: Status: Acute (3) Schizophrenia, chronic condition: Status: Chronic Additional A&P Information Continues to have some confusion but able to communicate her understanding of why she is in the hospital reporting her delusion of believing that people are saying mean things about her, denies any current depressive symptoms, denies any suicidal ideation. CONTINUE current medication, continue to monitor 96-hour hold ends tomorrow Involuntary Hold Information 96 Hour Hold: 96 Hour Involuntary Admission: Yes 96 Hour Hold Ending Date: 10/30/20 96 Hour Hold Ending Time: 14:15 Attestations NPU Medical Necessity Statement*: Continues to require medication stabilization as well as coordination for safe discharge Coding Level of Care Code Acute Web Press Roll Tender for g Fwd Diagnoses Suicidal ideation R45.851 Depressive disorder F32.9 Schizophrenia, chronic condition F20.9
[2020-10-29] MEDS: OLANZapine 5 mg TABLET 10 MG PO ×2 (10:00→19:41)
[2020-10-29] MEDS: fluoxetine 20 mg Capsule 40 MG PO (10:00)
[2020-10-29] MEDS: atenolol 50 mg Tablet PO (10:00)
[2020-10-29] MEDS: divalproex DR 250 mg Tablet PO ×2 (10:00→19:44)
[2020-10-29 14:00] VITALS: RESP 22
--- NOTE | 2020-10-29 14:57 | PC.NURSE ---
PT REFUSED 1400 VITALS
--- NOTE | 2020-10-29 18:35 | PC.NURSE ---
HALDOL PT CAME OUT OF HER ROOM VERY UPSET. PT IN THE HALLWAY YELLING AT A MAN TO LEAVE HER ALONE. AFTER TRYING TO REASSURE PATIENT THAT NOBODY WAS IN HER ROOM OR NEAR HER. ADMINISTERED HALDOL 5MG PO. WILL MONITOR FOR MEDICATION EFFECTIVENESS.
[2020-10-29 19:22] VITALS: BP 149/74; PULSE 81; RESP 17; TEMP 36.6; O2SAT 96
--- NOTE | 2020-10-29 19:34 | PC.NURSE ---
PATIENT SITTING ON EDGE OF BED WITH HEAD PROPPED IN HANDS, LOOKS AT ME AND SAYS AM I RETARDED? PEOPLE SAYS I AM , BUT I DON,T KNOW. BACK AND FORTH TO DAY ROOM FOR SNACKS, SAD APPEARANCE.
[2020-10-29] MEDS: lisinopril 10 mg Tablet PO (19:42)
[2020-10-29] MEDS: trazodone 150 mg Tablet PO (19:43)
[2020-10-30] MEDS: blistex lip oint 7 gm Tube 1 APPLIC TOPICAL ×2 (01:54→17:53)
--- NOTE | 2020-10-30 02:08 | PC.NURSE ---
HAS BEEN AWAKE OFF AND ON, WALKING IN BEST, HAS BEEN OKAY. ALL OF SUDDEN RUN TOWARDS NURSES STATION FROM HER ROOM YELLING YOU ARE A BITCH, JUST A BITCH '. HITTING FIST ON GLASS AROUND NURSES STATION, HAD WILD LOOK ON HER FACE. WAS REDIRECTED BY STAFF, SAYS EVERY ONE IS JUST CRUEL REDIRECTED TO ROOM, APOLOGIZED TO STAFF FOR HER BEHAVIOR. WALKED TO DAY ROOM, SITTING AT TABLE.
[2020-10-30] MEDS: haloperidol 5 mg Tablet PO ×2 (02:24→19:47)
--- NOTE | 2020-10-30 02:27 | PC.NURSE ---
HAD ANOTHER OUTBURST, YELLING ABOUT POLICE IN HER ROOM, REDIRECTED THAT NO ONE IS IN HER ROOM, AGREED WITH THAT. HALDOL 5 MG PO GIVEN FOR AGITATION AND HALLUCINATIONS. COME BACK OUT OF ROOM AGAIN AND STATED THAT [employer] IS NOT THE ONLY BOOKS SHE LIKES TO READ.
[2020-10-30 06:00] VITALS: BP 114/78; PULSE 92; RESP 18; TEMP 36.5; O2SAT 95
[2020-10-30] MEDS: atenolol 50 mg Tablet PO (07:24)
[2020-10-30] MEDS: OLANZapine 5 mg TABLET 10 MG PO ×2 (07:24→19:47)
[2020-10-30] MEDS: fluoxetine 20 mg Capsule 40 MG PO (07:24)
[2020-10-30] MEDS: divalproex DR 250 mg Tablet PO ×2 (07:24→19:46)
--- NOTE | 2020-10-30 12:51 | PM.NPN ---
Subjective NPU Subjective: Interval history: Continues to report delusions that people are making fun of her and her being mean to her. Patient continues to report auditory hallucinations, denies any visual hallucinations Patient reports ongoing irritability and anger secondary to auditory hallucinations but is able to be redirected Patient is compliant with medication, denies any medication side effects Mental Status Exam MSE Comments: Sitting on her bed, irritable but cooperative, good eye contact, appropriately dressed Psychomotor activity is somewhat restless, impulsive actions at times, intermittent verbal agitation requiring redirection Speech is normal rate and volume, rambling at times, not pressured They are still being mean to me, constricted, not labile Confused at times, oriented to person, place Memory is fair, concentration is fair at best per interview Thought process, circumstantial, requires redirection, some flight of ideas, no looseness of associations Thought content, paranoid delusions, does not appear to be attending to any internal stimuli but reports hallucinations, passive suicidal thoughts, no active intent or plan, no homicidal ideation Insight and judgment are fair Vitals/I&O/Wt Last Vital Signs Temp 97.7 F 10/30/20 06:00 Pulse 92 10/30/20 06:00 Resp 18 10/30/20 06:00 BP 114/78 10/30/20 06:00 Pulse Ox 95 10/30/20 06:00 Weight last 48 hrs Weight 74.928 kg Data NPU : 10/23/20 16:42 10/23/20 16:42 A&P Assessment and plan (1) Suicidal ideation: Status: Acute (2) Depressive disorder: Status: Acute (3) Schizophrenia, chronic condition: Status: Chronic Additional A&P Information Continues to report ongoing delusions of persecution with intermittent impulsive actions related to her delusions that people are saying mean things to her, intermittent suicidal ideation as a result of her delusions. Ongoing concerns with regards to safety for herself and others given continued behavior of acting on delusions. CONTINUE involuntary hold, 21-day hold paperwork completed CMP, CBC, valproic acid level INCREASED to Depakote 250 mg daily and 750 mg at bedtime CONTINUE other medication Involuntary Hold Information 96 Hour Hold: 96 Hour Involuntary Admission: Yes 96 Hour Hold Ending Date: 10/30/20 96 Hour Hold Ending Time: 14:15 Attestations NPU Medical Necessity Statement*: Patient continues to require psychiatric hospitalization for medication stabilization, ongoing impulsivity and actions related to delusions concerning for safety Coding Level of Care Code Acute Crystal Flat Grinder for [facility] Fwd Diagnoses Suicidal ideation R45.851 Depressive disorder F32.9 Schizophrenia, chronic condition F20.9
[2020-10-30 13:29] LABS: Basophils % 0.5 %; Eosinophils # 0.1 10^3/uL (0.0-0.8); Eosinophils % 1.4 %; Hematocrit 40.6 % (37.0-47.0); Hemoglobin 12.6 g/dL (11.5-15.3); Lymphocytes # 1.3 10^3/uL (0.8-4.8); Lymphocytes % 21.7 %; Mean Corpuscular Hemoglobin 28.6 pg (28.0-34.0); Mean Corpuscular Volume 92.1 fL (81-99); Mean Platelet Volume 10.4 fL (7.4-10.4); Monocytes # 0.6 10^3/uL (0.2-0.9); Monocytes % 11.1 %; Neutrophils # 3.68 10^3/uL (1.8-7.7); Neutrophils % 63.9 %; Nucleated Red Blood Cells % 0 %; Platelet Count 149 10^3/cmm (130-400); Red Blood Count 4.41 10^6/uL (4.1-5.3); Red Cell Distribution Width 13.2 % (12.1-15.1); White Blood Count 5.8 10^3/uL (4.0-10.0)
[2020-10-30 14:00] VITALS: BP 114/67; PULSE 88; RESP 18; TEMP 36.5; O2SAT 98
[2020-10-30 14:10] LABS: Alanine Aminotransferase 17 U/L (0-33); Albumin Level 3.6 g/dL (3.5-5.2); Alkaline Phosphatase 87 IU/L (35-105); Anion Gap 15.6 (5-19); Aspartate Amino Transferase 14 U/L (0-32); Blood Urea Nitrogen 17 mg/dL (8-23); Calcium 9.1 mg/dL (8.5-10.5); Carbon Dioxide 25 mmol/L (22-29); Chloride 97 mmol/L (98-107); Globulin 2.3 g/dL (1.3-4.6); Glucose 125 mg/dL (65-115); Osmolality Calculated 279 mOsm/kg (285-295); Potassium 4.6 mmol/L (3.5-5.1); Sodium 133 mmol/L (136-145); Total Bilirubin 0.4 mg/dL (0.15-1.2); Total Protein 5.9 g/dL (6.6-8.7)
[2020-10-30 14:11] LABS: Valproic Acid Level 36.4 ug/mL (50-100)
[2020-10-30] MEDS: divalproex DR 250 mg Tablet 500 MG PO (19:46)
[2020-10-30] MEDS: lisinopril 10 mg Tablet PO (19:47)
[2020-10-30] MEDS: trazodone 150 mg Tablet PO (19:48)
[2020-10-30 19:55] VITALS: BP 115/73; PULSE 86; RESP 16; TEMP 36.6; O2SAT 94
[2020-10-30 20:18] VITALS: BP 115/73; PULSE 86; RESP 16; TEMP 36.6; O2SAT 94
[2020-10-31 06:00] VITALS: BP 129/86; PULSE 88; RESP 18; TEMP 37.1; O2SAT 97
[2020-10-31] MEDS: atenolol 50 mg Tablet PO (07:42)
[2020-10-31] MEDS: divalproex DR 250 mg Tablet PO ×2 (07:42→20:45)
[2020-10-31] MEDS: fluoxetine 20 mg Capsule 40 MG PO (07:43)
[2020-10-31] MEDS: OLANZapine 5 mg TABLET 10 MG PO ×2 (07:43→20:46)
[2020-10-31 14:00] VITALS: BP 129/77; PULSE 86; RESP 18; TEMP 36.5; O2SAT 98
--- NOTE | 2020-10-31 14:54 | P.PN_ITS ---
Subjective NPU Subjective: Interval history: Continues to report paranoid delusions Denies any current depressive symptoms, denies any suicidal ideation Reports being compliant with medication, denies any medication side effects Reports having a good appetite Reports that she slept well Per staff report occasional behavioral disturbances which are easily redirected Mental Status Exam MSE Comments: Irritable but cooperative with interview, good eye contact, appropriately dressed Psychomotor activity is neither increased nor decreased, no agitation Speech is normal rate and volume, rambling at times, not pressured I am fine, constricted, not labile Confused at times, oriented to person, place Memory is fair, concentration is fair at best per interview Thought process, circumstantial, requires redirection, some flight of ideas, no looseness of associations Thought content, paranoid delusions, does not appear to be attending to any internal stimuli but reports hallucinations, passive suicidal thoughts, no active intent or plan, no homicidal ideation Insight and judgment are fair Vitals/I&O/Wt Last Vital Signs Temp 97.7 F 10/31/20 14:00 Pulse 86 10/31/20 14:00 Resp 18 10/31/20 14:00 BP 129/77 10/31/20 14:00 Pulse Ox 98 10/31/20 14:00 Data NPU : 10/30/20 12:40 10/30/20 12:40 A&P Assessment and plan (1) Suicidal ideation: Status: Acute (2) Depressive disorder: Status: Acute (3) Schizophrenia, chronic condition: Status: Chronic Additional A&P Information Patient with some stabilization with regards to behavioral disturbances, continues to report paranoid delusions, denies any depressed symptoms, denies any suicidal ideation CONTINUE current medication, continue to monitor Requested that her caregiver visit to gauge current baseline Involuntary Hold Information 96 Hour Hold: 96 Hour Involuntary Admission: Yes 96 Hour Hold Ending Date: 10/30/20 96 Hour Hold Ending Time: 14:15 Attestations NPU Medical Necessity Statement*: Continues to require psychiatric hospitalization for medication stabilization Coding Level of Care Code Acute Equipment Mechanic for Shobha Huynh Diagnoses Suicidal ideation R45.851 Depressive disorder F32.9 Schizophrenia, chronic condition F20.9
[2020-10-31 19:50] VITALS: BP 134/83; PULSE 75; RESP 17; TEMP 36.8; O2SAT 97
--- NOTE | 2020-10-31 20:44 | PC.NURSE ---
PM Assessment Pt is calm and cooperative despite being served her [address] paperwork this evening. Pt accepted the form from the officer and returned to her room. Pt heart/lung sounds are normal, vital signs normal, pt is quieter than usual. Due to the nature of pt delusions regarding police, staff will monitor patient for any s/s od distress.
[2020-10-31] MEDS: lisinopril 10 mg Tablet PO (20:47)
[2020-10-31] MEDS: trazodone 150 mg Tablet PO (20:47)
[2020-10-31] MEDS: divalproex DR 250 mg Tablet 500 MG PO (20:49)
[2020-11-01] MEDS: haloperidol 5 mg Tablet PO (02:13)
[2020-11-01 06:00] VITALS: BP 133/72; PULSE 86; RESP 16; TEMP 36.6; O2SAT 98
[2020-11-01] MEDS: atenolol 50 mg Tablet PO (08:13)
[2020-11-01] MEDS: fluoxetine 20 mg Capsule 40 MG PO (08:13)
[2020-11-01] MEDS: OLANZapine 5 mg TABLET 10 MG PO (08:13)
[2020-11-01] MEDS: divalproex DR 250 mg Tablet PO (08:13)
--- NOTE | 2020-11-01 09:50 | PM.NDC ---
Diagnoses at Discharge Discharge Diagnosis (1) Suicidal ideation: Status: Acute (2) Depressive disorder: Status: Acute (3) Schizophrenia, chronic condition: Status: Chronic Reason for Visit Reason for Visit: Suicidal ideation, auditory hallucinations Hospital Course Hospital Course 64 year old female with longstanding history of schizoaffective disorder presented to [facility] with worsening auditory hallucinations that are mood congruent as well as paranoid delusions. Patient states she hears voices saying mean things to her. Patient also reports ongoing suicidal ideation although she states no active intent or plan to harm herself but does have a history of past self-harm behavior. At patient's outpatient appointment, there were concerns for worsening disorganization as well as passive suicidal thoughts of just wanting to secondary to her worsening auditory hallucinations. Patient continued to have worsening auditory hallucinations that people outside of the hospital and near where she was staying were saying mean things about her. Despite being on Invega Sustenna monthly injection, olanzapine was started and titrated up to olanzapine 10 mg twice daily targeting her disorganized speech and behavior and auditory hallucinations with some improvement although patient continues to have some auditory hallucinations and paranoia. Patient also demonstrated occasional disruptive behavior, impulsively pushing items off the nurse station surface and yelling obscenities at times. Patient's behavior improved and became much more easily redirected. Patient's caregiver visited and reported that she appeared to be at baseline and stated that he would like to have her return home and resume outpatient follow-up. Patient was not suicidal but continued to have some paranoid delusions at the time of discharge. Per above, patient has continued to have refractory psychotic symptoms despite being on maximal dosage of 1 antipsychotic and has required additional antipsychotic treatment. Low to moderate risk of harm to self and others given no current suicidal ideation although patient's risk may be elevated if she is noncompliant with her medication, medication management follow-up leading to unexpected, worsening psychotic behavior. Risk mitigation included psychiatric hospitalization with medication stabilization and coordination for post discharge psychiatric follow-up. Patient had difficulty acknowledging recommendations but understands that she needs to be compliant with her medication medication follow-up in order to further mitigate her risk of harm to self and others. Involuntary Hold Information 96 Hour Hold: 96 Hour Involuntary Admission: Yes 96 Hour Hold Ending Date: 10/30/20 96 Hour Hold Ending Time: 14:15 Mental Status Exam MSE Comments: Sitting on her bed, appropriately groomed and dressed, calm, cooperative, and eye contact Psychomotor activity is neither increased nor decreased, no agitation Speech is normal rate and volume, rambling at times, not pressured I am okay, constricted, not labile Confused at times, oriented to person, place Memory is fair, concentration is fair at best per interview Thought process, circumstantial, requires redirection, some flight of ideas, no looseness of associations Thought content, paranoid delusions, does not appear to be attending to any internal stimuli but reports hallucinations, passive suicidal thoughts, no active intent or plan, no homicidal ideation Insight and judgment are fair Discharge Data Vitals: Last Vital Signs Temp 97.9 F 11/01/20 06:00 Pulse 86 11/01/20 06:00 Resp 16 11/01/20 06:00 BP 133/72 11/01/20 06:00 Pulse Ox 98 11/01/20 06:00 Discharge Plan Discharge Patient Disposition: Home Condition: Stable Prescriptions: New divalproex 250 mg Tablet,Delayed Release (Dr/Ec) 250 mg PO 00,2099 Qty: 60 RF: 0 olanzapine 5 mg Tablet 10 mg PO 0900,2099 Qty: 60 RF: 0 Continued lisinopril 10 mg tablet 10 mg PO QPM RF: 0 atenolol 50 mg tablet 50 mg PO QAM RF: 0 Invega Sustenna 234 mg/1.5 mL syringe 234 mg IM Q30D Qty: 1.5 RF: 2 fluoxetine 40 mg capsule 40 mg PO QAM Qty: 30 RF: 0 lorazepam 0.5 mg tablet 0.5 mg PO BID PRN (Reason: anxiety) Qty: 60 RF: 1 divalproex 250 mg tablet,delayed release (DR/EC) 500 mg PO BEDTIME RF: 0 trazodone 150 mg tablet 150 mg PO BEDTIME RF: 0 Discontinued paliperidone [Invega] 3 mg tablet extended release 24hr 3 mg PO QAM Qty: 30 RF: 0 Discharge Orders: Discharge Order (Routine); Ordered 11/01/20 Ordered By: Edagr Che Referrals: [facility] [[facility]] - 11/02/20 10:30 am (for monthly Invega Sustenna injection) Radha Constantino APRN [Nurse Practitioner] - 02/18/21 10:45 am () Discharge Diet: Usual diet Discharge Activity: Resume usual activity Discharge Attestations NPU Time Spent in Discharge Care*: greater than 30 min Status at Discharge: Cognitive status at discharge: mildly impaired cognition, Behavioral status at discharge: cooperative, Functional status at discharge: independent ambulation Overall status at discharge: patient is back to baseline Coding Level of Care Code Acute Auto Club Travel Counselor for Shobha Fwd Diagnoses Suicidal ideation R45.851 Depressive disorder F32.9 Schizophrenia, chronic condition F20.9
[2020-11-01 14:00] VITALS: BP 134/89; PULSE 84; RESP 18; TEMP 36; O2SAT 95
--- NOTE | 2020-11-01 14:14 | PC.SOCIAL ---
Important Medicare Message Reviewed updated Important Medicare Message with patient. Verbalized understanding. Provided updated copy to patient and in chart. Will review with caregiver Dejon when he calls or comes to pick her up. He is aware from past conversations as he has appealed in the past at [facility].
[2020-11-01 17:10] VITALS: BP 134/89; PULSE 84; RESP 18; TEMP 36; O2SAT 95
== END 2020-11-01 18:16 | disposition home or self-care (01) | DRG 885 ==
LOC: ER 20:35 → NP 20:57
PROVIDERS: Admitting Provider Psychiatry & Neurology Psychiatry; Emergency Provider Family Medicine; PCP Family Medicine; Visit Provider Psychiatry & Neurology Psychiatry
DX: F25.1 Schizoaffective disorder, depressive type (principal); R45.851 Suicidal ideations; F43.12 Post-traumatic stress disorder, chronic; Z62.810 Personal history of physical and sexual abuse in childhood; Z87.891 Personal history of nicotine dependence
CPT/HCPCS: 12345; 36415; 80053; 80164; 80306; 80307; 81003; 84443; 84484; 85025; 93005; 96372; 99213; 99284; J1200; J1630; Q0162

== ENCOUNTER 2020-11-06 00:24 | Inpatient (IN) | payer MEDICARE, MEDICAID, SELFPAY ==
[2020-11-06] VITALS (12 sets, daily range): BP systolic 89–172; BP diastolic 57–87; PULSE 8–102; RESP 16–22; TEMP 36.8–36.9; O2SAT 93–96; BMI 25.8
--- NOTE | 2020-11-06 01:01 | ECG_ITS ---
[facility] Test Date: 2020-11-06 Pat Name: Erica Buckner Department: Room: Gender: Female Log Chipper: : 1955 Requested By: Aaron Alvarez Order Number: [id number] Petey MD: Sascha Vaughan M.D. Measurements Intervals [place] Rate: 94 P: 60 SD: 168 QRS: 82 QRSD: 102 T: 5 QT: 378 QTc: 475 Interpretive Statements SINUS RHYTHM NONSPECIFIC T-WAVE ABNORMALITY Compared to ECG 10/23/2020 20:09:35 Ventricular premature complex(es) no longer present T-wave abnormality still present Electronically Signed On 11-06-2020 17:09:19 INFORMATION SYSTEMS SECURITY MANAGER by Sascha Vaughan M.D. [email or web address]
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
[2020-11-06 01:15] LABS: Add Urine Microscopic? NO
[2020-11-06 01:19] LABS: Basophils % 0.5 %; Eosinophils # 0.1 10^3/uL (0.0-0.8); Hematocrit 41.5 % (37.0-47.0); Hemoglobin 13.3 g/dL (11.5-15.3); Lymphocytes # 2.1 10^3/uL (0.8-4.8); Lymphocytes % 33.4 %; Mean Corpuscular Hemoglobin 28.2 pg (28.0-34.0); Mean Corpuscular Volume 87.9 fL (81-99); Mean Platelet Volume 10.1 fL (7.4-10.4); Monocytes # 0.9 10^3/uL (0.2-0.9); Monocytes % 14.1 %; Neutrophils # 3.14 10^3/uL (1.8-7.7); Neutrophils % 49.2 %; Nucleated Red Blood Cells % 0 %; Platelet Count 181 10^3/cmm (130-400); Red Blood Count 4.72 10^6/uL (4.1-5.3); Red Cell Distribution Width 13.2 % (12.1-15.1); White Blood Count 6.4 10^3/uL (4.0-10.0)
[2020-11-06 01:33] LABS: Bilirubin Urine Neg (Negative); Blood Urine Neg (Negative); Glucose Urine UA Norm (Normal); Ketones Urine Negative (Negative); Leukocyte Esterase Urine Negative (Negative); Nitrate Urine Negative (Negative); Protein Urine Neg (Negative); Specific Gravity, Urine 1.005 (1.005-1.030); Urine Appearance Clear (CLEAR); Urine Color Yellow (Yellow); Urobilinogen Urine Norm (Negative); pH Urine 7 (5-7)
[2020-11-06 01:35] LABS: Amphetamines Screen Urine Negative (Negative); Barbiturates Screen Urine Negative (Negative); Benzodiazepines Screen Urine Negative (Negative); Cocaine Screen Urine Negative (Negative); Opiate Screen Urine Negative (Negative); PCP Screen Urine Negative (Negative); THC Screen Urine Negative (Negative)
[2020-11-06] MEDS: ziprasidone 20 mg/mL SDV IM ×2 (01:54→03:50)
[2020-11-06 01:55] LABS: Alanine Aminotransferase 19 U/L (0-33); Alkaline Phosphatase 91 IU/L (35-105); Aspartate Amino Transferase 15 U/L (0-32); Blood Urea Nitrogen 13 mg/dL (8-23); Calcium 8.9 mg/dL (8.5-10.5); Carbon Dioxide 25 mmol/L (22-29); Chloride 96 mmol/L (98-107); Creatinine Clr Calc Pharmacy 148.7376; Globulin 2.4 g/dL (1.3-4.6); Glomerular Filtration Rate 161.7 mL/min (90-130); Glucose 119 mg/dL (65-115); Osmolality Calculated 277 mOsm/kg (285-295); Sodium 133 mmol/L (136-145); Thyroid Stimulating Hormone 3.04 uIU/mL (0.27-4.20); Total Bilirubin 0.5 mg/dL (0.15-1.2); Total Protein 6.4 g/dL (6.6-8.7)
[2020-11-06 01:59] LABS: Valproic Acid Level 33.3 ug/mL (50-100)
[2020-11-06 02:13] LABS: Acetaminophen < 5.0 ug/mL (10-30); Alcohol Level < 10 mg/dL (0-10); Salicylate < 0.3 mg/dL (3-10)
--- NOTE | 2020-11-06 02:35 | PC.NURSE ---
pt removed from wrist restraints @ 224. notified
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
[2020-11-06] MEDS: blistex lip oint 7 gm Tube 1 APPLIC TOPICAL (05:00)
[2020-11-06] MEDS: atenolol 50 mg Tablet PO (05:28)
[2020-11-06] MEDS: fluoxetine 20 mg Capsule 40 MG PO (05:29)
[2020-11-06] MEDS: OLANZapine 5 mg ODT PO ×2 (05:51→16:24)
[2020-11-06] MEDS: OLANZapine 5 mg TABLET 10 MG PO ×2 (08:19→20:01)
[2020-11-06] MEDS: divalproex DR 250 mg Tablet PO ×2 (08:19→20:01)
[2020-11-06] MEDS: hyDROXYzine 25 mg Capsule 50 MG PO ×2 (08:25→20:01)
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
[2020-11-06] MEDS: lisinopril 10 mg Tablet PO (17:16)
[2020-11-06] MEDS: trazodone 150 mg Tablet PO (20:01)
[2020-11-07] MEDS: haloperidol 5 mg Tablet PO (01:07)
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
[2020-11-07] MEDS: fluoxetine 20 mg Capsule 40 MG PO (05:53)
[2020-11-07] MEDS: atenolol 50 mg Tablet PO (05:53)
[2020-11-07 06:00] VITALS: BP 103/60; PULSE 76; RESP 17; TEMP 36.7; O2SAT 96
[2020-11-07] MEDS: OLANZapine 5 mg TABLET 10 MG PO (07:42)
[2020-11-07] MEDS: divalproex DR 250 mg Tablet PO (07:43)
[2020-11-07] MEDS: hyDROXYzine 25 mg Capsule 50 MG PO (07:45)
--- NOTE | 2020-11-07 10:12 | PC.NURSE ---
AGITATION: Patient at the nurses station this am cursing and demanding to be seen by doctor and to be released from this unit. Gave patient medications and patient threw the cup of medications on the floor. Spoke with patient to help ease patient and she reluctantly took medications. Medication for agitation was offered and patient took it. Will closely monitor. ABRIL, CORBIN
[2020-11-07 11:33] VITALS: BP 103/60; PULSE 76; RESP 17; TEMP 36.7; O2SAT 96
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
== END 2020-11-07 12:22 | disposition home or self-care (01) | DRG 885 ==
LOC: ER 02:50 → NP 06:30
PROVIDERS: Admitting Provider Psychiatry & Neurology Psychiatry; Emergency Provider Emergency Medicine; PCP Family Medicine; Visit Provider Psychiatry & Neurology Psychiatry
DX: F23 Brief psychotic disorder (principal); F20.9 Schizophrenia, unspecified; Z87.891 Personal history of nicotine dependence; F32.9 Major depressive disorder, single episode, unspecified; R41.89 Other symptoms and signs involving cognitive functions and awareness
CPT/HCPCS: 12345; 80053; 80164; 80306; 80307; 81003; 84443; 85025; 93005; 96372; 99285; J3486; J3490

== ENCOUNTER 2020-11-12 02:10 | Emergency (ER) | payer MEDICARE, MEDICAID, SELFPAY ==
[2020-11-12 02:14] VITALS: PULSE 81; RESP 16; TEMP 36.8; O2SAT 98; BMI 26.6
--- NOTE | 2020-11-12 02:22 | XRR_ITS ---
PROCEDURE INFORMATION: Exam: XR Chest, 1 View Exam date and time: 11/12/2020 2:26 AM Age: 64 years old Clinical indication: Dyspnea; Additional info: Clearance TECHNIQUE: Imaging protocol: XR of the chest Views: 1 view. COMPARISON: CR Chest 1 [place] [id number] 06/25/2019 12:45 PM FINDINGS: Lungs: No CHF/pulmonary edema. Poor inspiration somewhat limits evaluation, especially of the lung bases. Mild left lower lung opacities, similar to the prior exam. This may represent atelectasis/parenchymal scarring. Subtle pneumonitis not excluded. Visible lungs otherwise appear essentially clear. Pleural spaces: No visible pneumothorax. No definite pleural fluid. Heart/Mediastinum: Heart size is within normal limits. Bones/joints: No significant acute finding. XR/XR chest 1V portable [id number] IMPRESSION: 1. Mild left lower lung opacities, similar to the prior exam. This may represent atelectasis/parenchymal scarring. Subtle pneumonitis not excluded. 2. Other findings discussed above.
[2020-11-12 02:30] LABS: Basophils % 0.6 %; Eosinophils # 0.1 10^3/uL (0.0-0.8); Eosinophils % 1.6 %; Hematocrit 45.6 % (37.0-47.0); Hemoglobin 14.2 g/dL (11.5-15.3); Lymphocytes # 1.7 10^3/uL (0.8-4.8); Lymphocytes % 33.7 %; Mean Corpuscular HGB Conc 31.1 g/dL (30.0-36.0); Mean Corpuscular Hemoglobin 28.3 pg (28.0-34.0); Mean Platelet Volume 9.9 fL (7.4-10.4); Monocytes # 0.9 10^3/uL (0.2-0.9); Monocytes % 17.2 %; Neutrophils # 2.27 10^3/uL (1.8-7.7); Neutrophils % 45.9 %; Nucleated Red Blood Cells % 0 %; Platelet Count 189 10^3/cmm (130-400); Red Blood Count 5.01 10^6/uL (4.1-5.3); Red Cell Distribution Width 13.6 % (12.1-15.1)
[2020-11-12 02:38] VITALS: BP 135/84
[2020-11-12] MEDS: LORazepam 2 mg/mL INJ 1 mL IM (02:47)
[2020-11-12] MEDS: ziprasidone 20 mg/mL SDV IM (02:47)
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
[2020-11-12 02:49] LABS: Valproic Acid Level 30.4 ug/mL (50-100)
[2020-11-12 03:01] LABS: Alanine Aminotransferase 20 U/L (0-33); Albumin Level 4.2 g/dL (3.5-5.2); Alkaline Phosphatase 98 IU/L (35-105); Anion Gap 15.5 (5-19); Aspartate Amino Transferase 18 U/L (0-32); Blood Urea Nitrogen 15 mg/dL (8-23); Carbon Dioxide 26 mmol/L (22-29); Chloride 100 mmol/L (98-107); Globulin 2.7 g/dL (1.3-4.6); Glucose 101 mg/dL (65-115); Osmolality Calculated 285 mOsm/kg (285-295); Potassium 4.5 mmol/L (3.5-5.1); Sodium 137 mmol/L (136-145); Thyroid Stimulating Hormone 4.39 uIU/mL (0.27-4.20); Total Bilirubin 0.4 mg/dL (0.15-1.2); Total Protein 6.9 g/dL (6.6-8.7)
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
[2020-11-12 03:10] LABS: Acetaminophen < 5.0 ug/mL (10-30); Alcohol Level < 10 mg/dL (0-10); Salicylate < 0.3 mg/dL (3-10)
--- NOTE | 2020-11-12 03:20 | PC.NURSE ---
Patient brought into facility by [facility] in handcuffs
[2020-11-12 03:32] LABS: Add Urine Microscopic? NO
[2020-11-12 03:43] LABS: Amphetamines Screen Urine Negative (Negative); Barbiturates Screen Urine Negative (Negative); Benzodiazepines Screen Urine Negative (Negative); Cocaine Screen Urine Negative (Negative); Opiate Screen Urine Negative (Negative); PCP Screen Urine Negative (Negative); THC Screen Urine Negative (Negative)
[2020-11-12 03:47] LABS: Bilirubin Urine Neg (Negative); Blood Urine Neg (Negative); Glucose Urine UA Norm (Normal); Ketones Urine Negative (Negative); Leukocyte Esterase Urine Negative (Negative); Nitrate Urine Negative (Negative); Protein Urine Neg (Negative); Sulfosalicylic Acid Urine Negative (Negative); Urine Appearance Clear (CLEAR); Urine Color Yellow (Yellow); Urobilinogen Urine Norm (Negative); pH Urine 8 (5-7)
[2020-11-12 05:12] VITALS: PULSE 64; RESP 18; O2SAT 96
[2020-11-12 05:33] LABS: SARS Covid-2 Antigen Negative (Negative)
[2020-11-12 05:37] LABS: Free T4 Free Thyroxine 1.31 ng/dL (0.82-1.77); Thyroid Stimulating Hormone 4.41 uIU/mL (0.27-4.20)
--- NOTE | 2020-11-12 06:46 | PC.NURSE ---
This nurse received report from previous nurse. Patient resting in bed sitter at bedside.
--- NOTE | 2020-11-12 10:45 | CTR_ITS ---
PROCEDURE INFORMATION: Exam: CT Head Without Contrast Exam date and time: 11/12/2020 10:53 AM Age: 64 years old Clinical indication: Other: Psychosis TECHNIQUE: Imaging protocol: Computed tomography of the head without contrast. Radiation optimization: All CT scans at this facility use at least one of these dose optimization techniques: automated exposure control; mA and/or kV adjustment per patient size (includes targeted exams where dose is matched to clinical indication); or iterative reconstruction. COMPARISON: CT head wo con* [id number] 06/25/2019 2:41 PM RADIATION DOSE METRICS: Total DLP (mGy-cm): 833.97 FINDINGS: Brain: Mild to moderate cerebral atrophy and ischemic leukoencephalopathy. Mildly prominent optic nerve sheaths measuring up to the 6.3 mm in diameter suggesting possible intracranial hypertension. Cerebral ventricles: No ventriculomegaly. Bones/joints: Unremarkable. No acute fracture. Paranasal sinuses: Visualized sinuses are unremarkable. No fluid levels. Mastoid air cells: Visualized mastoid air cells are well aerated. Vasculature: Moderate calcified intracranial atherosclerotic vessel disease. Soft tissues: Unremarkable. Submandibular/Parotid glands: The sella is again largely filled with CSF and the pituitary gland is flattened against the inferior wall of the sella consistent with stable empty sella syndrome. This nonacute finding is usually asymptomatic, although it can be associated with idiopathic intracranial hypertension. CT/CT head wo con* [id number] IMPRESSION: 1. The sella is again largely filled with CSF and the pituitary gland is flattened against the inferior wall of the sella consistent with stable empty sella syndrome. This nonacute finding is usually asymptomatic, although it can be associated with idiopathic intracranial hypertension. 2. Mildly prominent optic nerve sheaths measuring up to the 6.3 mm in diameter suggesting possible intracranial hypertension. Radiation Dose CTDIVOL = (mGy): DLP = 833.97 (mGy-cm)
[2020-11-12 12:00] VITALS: BP 103/75; PULSE 76; RESP 18; O2SAT 94
[2020-11-12 13:35] VITALS: BP 112/80; PULSE 87; RESP 18; TEMP 37.1; O2SAT 98
[2020-11-12] MEDS: ziprasidone 20 mg/mL SDV 10 MG IM (14:18)
== END 2020-11-12 14:18 | disposition other institution (70) ==
PROVIDERS: Emergency Provider Emergency Medicine; PCP Family Medicine
DX: R45.851 Suicidal ideations (principal); F20.9 Schizophrenia, unspecified; Z87.891 Personal history of nicotine dependence; Z79.899 Other long term (current) drug therapy
CPT/HCPCS: 12345; 70450; 71045; 80053; 80164; 80306; 80307; 81003; 84439; 84443; 85025; 87426; 96372; 99284; 99285; J2060; J3486; J3490

== ENCOUNTER → 2021-02-06 11:01 | Outpatient (BNVA) | payer MEDICARE, MEDICAID, SELFPAY | PROVIDERS: PCP Family Medicine; Visit Provider Psychiatry & Neurology Psychiatry | DX: Z03.89 Encounter for observation for other suspected diseases and conditions ruled out (principal); Z79.899 Other long term (current) drug therapy | CPT/HCPCS: 80053; 80164; 99214 ==

== ENCOUNTER → 2021-03-29 10:52 | Outpatient (BNVA) | payer MEDICARE, MEDICAID, SELFPAY | PROVIDERS: PCP Family Medicine; Visit Provider Psychiatry & Neurology Psychiatry | DX: F20.9 Schizophrenia, unspecified (principal); Z79.899 Other long term (current) drug therapy | CPT/HCPCS: 99214; 84439; 84443 ==

== ENCOUNTER → 2021-05-28 10:45 | Outpatient (BNVA) | payer MEDICARE, MEDICAID, SELFPAY | PROVIDERS: PCP Family Medicine; Visit Provider Psychiatry & Neurology Psychiatry | DX: F20.9 Schizophrenia, unspecified (principal); R29.818 Other symptoms and signs involving the nervous system; R41.89 Other symptoms and signs involving cognitive functions and awareness; Z79.899 Other long term (current) drug therapy | CPT/HCPCS: 99214 ==

== ENCOUNTER → 2021-10-25 14:10 | Outpatient (BNVA) | payer MEDICARE, MEDICAID, SELFPAY | PROVIDERS: PCP Family Medicine; Visit Provider Psychiatry & Neurology Psychiatry | DX: F32.9 Major depressive disorder, single episode, unspecified (principal); F20.9 Schizophrenia, unspecified; R29.818 Other symptoms and signs involving the nervous system; R41.89 Other symptoms and signs involving cognitive functions and awareness; Z79.899 Other long term (current) drug therapy; Z03.89 Encounter for observation for other suspected diseases and conditions ruled out | CPT/HCPCS: 80053; 80061; 80164; 83036; 84443; 85025; 99214 ==

== ENCOUNTER 2021-12-25 11:21 | Inpatient (IN) | payer MEDICARE, MEDICAID, SELFPAY ==
[2021-12-25 11:26] VITALS: BP 135/76; PULSE 86; RESP 18; TEMP 36.6; O2SAT 96; BMI 30.2
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
--- NOTE | 2021-12-25 11:27 | ECG_ITS ---
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 Measurements Intervals [place] Rate: 82 P: 65 [place]: 183 QRS: 82 QRSD: 93 T: 84 QT: 359 QTc: 422 Interpretive Statements SINUS RHYTHM MODERATE T-WAVE ABNORMALITY, CONSIDER ANTEROLATERAL ISCHEMIA MODERATE T-WAVE ABNORMALITY, CONSIDER INFERIOR ISCHEMIA Compared to ECG 11/12/2020 02:35:49 Possible ischemia now present T-wave abnormality still present Electronically Signed On 12-25-2021 16:40:23 CDT by Candice Brunson M.D. [id number]
--- NOTE | 2021-12-25 11:45 | XRR_ITS ---
PROCEDURE INFORMATION: Exam: XR Chest Exam date and time: 12/25/2021 10:57 AM Age: 66 years old Clinical indication: Cough TECHNIQUE: Imaging protocol: XR of the chest. Views: 1 view. COMPARISON: CR XR chest 1V portable [id number] 11/12/2020 4:03 AM FINDINGS: Lungs: No pulmonary consolidation. Pleural spaces: No pleural effusion. No pneumothorax. Heart/Mediastinum: The cardiac silhouette is grossly unchanged given differences in patient positioning. No gross evidence of pneumomediastinum. Bones/joints: No gross fracture. XR/XR chest 1V portable [id number] IMPRESSION: No acute cardiopulmonary abnormality identified.
[2021-12-25 12:09] LABS: Basophils % 0.5 %; Eosinophils # 0.1 10^3/uL (0.0-0.8); Hematocrit 42.6 % (37.0-47.0); Hemoglobin 14.2 g/dL (11.5-15.3); Lymphocytes # 2.5 10^3/uL (0.8-4.8); Lymphocytes % 40.3 %; Mean Corpuscular HGB Conc 33.3 g/dL (30.0-36.0); Mean Corpuscular Hemoglobin 28.5 pg (28.0-34.0); Mean Corpuscular Volume 85.4 fl (81-99); Mean Platelet Volume 10.3 fL (7.4-10.4); Monocytes # 0.7 10^3/uL (0.2-0.9); Monocytes % 10.9 %; Neutrophils # 2.95 10^3/uL (1.8-7.7); Neutrophils % 46.7 %; Nucleated Red Blood Cells % 0 %; Platelet Count 202 10^3/cmm (130-400); Red Blood Count 4.99 10^6/uL (4.1-5.3); Red Cell Distribution Width 13.7 % (12.1-15.1); White Blood Count 6.3 10^3/uL (4.0-10.0)
[2021-12-25 12:53] LABS: Alanine Aminotransferase 17 U/L (0-33); Albumin Level 4.3 g/dL (3.5-5.2); Alcohol Level 13 mg/dL (0-10); Alkaline Phosphatase 79 IU/L (35-105); Aspartate Amino Transferase 17 U/L (0-32); Blood Urea Nitrogen 10 mg/dL (8-23); Calcium 9.4 mg/dL (8.5-10.5); Carbon Dioxide 23 mmol/L (22-29); Chloride 98 mmol/L (98-107); Globulin 2.7 g/dL (1.3-4.6); Glomerular Filtration Rate 124.2 mL/min (90-130); Glucose 143 mg/dL (65-115); Osmolality Calculated 284 mOsm/kg (285-295); Salicylate < 0.3 mg/dL (3-10); Sodium 136 mmol/L (136-145); Total Bilirubin 0.6 mg/dL (0.15-1.2)
[2021-12-25 12:54] LABS: Acetaminophen < 5.0 ug/mL (10-30)
[2021-12-25 13:02] LABS: Troponin(5th) Baseline 10 ng/L (0-10)
[2021-12-25 13:24] LABS: Add Urine Culture? No; Add Urine Microscopic? YES; Amphetamines Screen Urine Negative (Negative); Bacteria Urine 1+ /hpf; Barbiturates Screen Urine Negative (Negative); Benzodiazepines Screen Urine Negative (Negative); Bilirubin Urine Neg (Negative); Blood Urine Neg (Negative); Cocaine Screen Urine Negative (Negative); Glucose Urine UA Norm (Normal); Ketones Urine 1+ (Negative); Leukocyte Esterase Urine 1+ (Negative); Mucus Urine TRACE /hpf; Nitrate Urine Negative (Negative); Opiate Screen Urine Negative (Negative); PCP Screen Urine Negative (Negative); Protein Urine Neg (Negative); THC Screen Urine Negative (Negative); Urine Appearance Clear (CLEAR); Urine Color Yellow (Yellow); Urobilinogen Urine Norm (Negative); WBC Urine 0-4 /hpf (0-5); pH Urine 7 (5-7)
[2021-12-25] MEDS: LORazepam 2 mg/mL INJ 1 mL IM (14:11)
--- NOTE | 2021-12-25 14:23 | ECG_ITS ---
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 Measurements Intervals [place] Rate: 84 P: 56 [place]: 183 QRS: 71 QRSD: 102 T: -23 QT: 351 QTc: 417 Interpretive Statements SINUS RHYTHM MODERATE T-WAVE ABNORMALITY, CONSIDER ANTEROLATERAL ISCHEMIA MODERATE T-WAVE ABNORMALITY, CONSIDER INFERIOR ISCHEMIA Compared to ECG 12/25/2021 11:38:03 No significant changes Electronically Signed On 12-25-2021 16:44:56 CDT by Candice Brunson M.D. [id number]
[2021-12-25 15:01] VITALS: BP 130/71; PULSE 74; RESP 14; O2SAT 95
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
[2021-12-25 16:04] VITALS: BP 127/73; PULSE 73; RESP 16; TEMP 36.6; O2SAT 95
[2021-12-25 22:00] VITALS: BP 127/73; PULSE 73; RESP 16; TEMP 36.6; O2SAT 95
[2021-12-25] MEDS: nicotine 2 mg Gum BUCCAL (22:12)
[2021-12-25] MEDS: OLANZapine 5 mg ODT PO (22:34)
[2021-12-26] MEDS: nicotine 2 mg Gum BUCCAL ×5 (03:23→17:44)
[2021-12-26] MEDS: hyDROXYzine 25 mg Capsule 50 MG PO ×2 (03:59→20:26)
--- NOTE | 2021-12-26 04:09 | PC.NURSE ---
0359 c/o anxiety vistaril given po
[2021-12-26 06:00] VITALS: RESP 18
[2021-12-26] MEDS: fluoxetine 20 mg Capsule 40 MG PO (09:10)
--- NOTE | 2021-12-26 11:42 | NPU.GN ---
[facility] Unit Group Topic:Positive Thoughts/ Negative Thoughts General Mood of Group: Erica did not attend group.
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
[2021-12-26 14:00] VITALS: BP 137/76; PULSE 100; RESP 18; TEMP 36.3; O2SAT 96
[2021-12-26] MEDS: haloperidol 5 mg Tablet 15 MG PO (20:25)
[2021-12-26] MEDS: divalproex ER 500 mg Tablet (24H) 1000 MG PO (20:26)
[2021-12-26] MEDS: trazodone 50 mg Tablet PO ×2 (20:26→22:55)
[2021-12-26 21:37] VITALS: BP 150/79; PULSE 74; RESP 18; TEMP 36.8; O2SAT 98
[2021-12-26] MEDS: OLANZapine 5 mg ODT PO (22:55)
[2021-12-27] MEDS: nicotine 2 mg Gum BUCCAL ×2 (00:43→09:09)
[2021-12-27] MEDS: LORazepam 2 mg/mL INJ 1 mL IM (02:34)
[2021-12-27] MEDS: diphenhydrAMINE 50 mg/mL SDV 1mL IM (02:34)
[2021-12-27 06:00] VITALS: RESP 20
[2021-12-27] MEDS: fluoxetine 20 mg Capsule 40 MG PO (09:09)
[2021-12-27] MEDS: fluoxetine 20 mg Capsule PO (09:09)
[2021-12-27] MEDS: atenolol 50 mg Tablet PO (09:09)
--- NOTE | 2021-12-27 12:14 | NPU.GN ---
[facility] Unit Group Topic:Whine Barrel Activity General Mood of Group: Erica did not attend group today.
[2021-12-27 14:00] VITALS: BP 139/81; PULSE 84; RESP 17; TEMP 36.4; O2SAT 96
--- NOTE | 2021-12-27 15:45 | W.PM.NPUPNS ---
Subjective NPU Subjective: Patient known to this production underwriter from previous hospitalization though it seemed more recent. She presented with similar circumstances of some level of limited functional ability but depending on a significant other of questionable reliably. Treatment team is working with the possibility of an alternative living arrangement given her limited independence and concern for recidivism. Mental Status Exam MSE Comments: This is a well-nourished, well-developed white female looking older than her stated age with hospital scrubs on with limited grooming and eye contact.? No abnormal movements except for mild psychomotor retardation.? Cooperative with exam in mild distress.? Speech was normal rate and volume.? Mood described as a little anxious, affect flat.? Thought process organized at times but disorganized at others.? Thought content: Patient denied any suicidal or homicidal ideations, there were no delusions reported, but she does have some persecutory thinking, she denied auditory or visual hallucinations and did not appear to be attending to internal stimuli.? Attention and concentration was intact and memory was mostly reliable but none were formally tested.? She is alert and oriented x3.? Insight and judgment are limited and impulse control is limited. Vitals/I&O/Wt Last Vital Signs Temp 97.5 F L 12/27/21 14:00 Pulse 84 12/27/21 14:00 Resp 17 12/27/21 14:00 BP 139/81 12/27/21 14:00 Pulse Ox 96 12/27/21 14:00 Data NPU : 12/25/21 11:55 12/25/21 11:55 A&P Assessment and plan (1) Acute psychosis: Status: Acute (2) Schizophrenia, chronic condition: Status: Chronic (3) Neurocognitive deficits: Status: Acute (4) Depressive disorder: Status: Acute Plan This is a 66-year-old female with a diagnosis of schizophrenia with increased auditory and visual hallucinations as well as some bizarre activities. Plan:s 1.Continue current medication.? Increased Haldol to 15 mg QHS. 2.? Continue every 15 minute checks for safety. 3.? Encourage individual, group and milieu therapies. 4.? Encourage sober living treatment after discharge at the highest level of care to which he is willing to commit.. Involuntary Hold Information 96 Hour Hold: 96 Hour Involuntary Admission: No Attestations NPU Medical Necessity Statement*: Inpatient hospitalization is medically necessary and the clinically appropriate intervention at this time.? We will monitor medications and make changes as indicated.? Likely length of stay 1-4 days. Coding Level of Care Code Acute Wire Wrapper Machine Operator for Chg Fwd Diagnoses Acute psychosis F23 Schizophrenia, chronic condition F20.9 Neurocognitive deficits R29.818; R41.89 Depressive disorder F32.9
[2021-12-27] MEDS: trazodone 50 mg Tablet PO (20:16)
[2021-12-27] MEDS: haloperidol 5 mg Tablet 15 MG PO (20:16)
[2021-12-27] MEDS: OLANZapine 5 mg ODT PO (20:16)
[2021-12-27] MEDS: hyDROXYzine 25 mg Capsule 50 MG PO (20:16)
[2021-12-27] MEDS: divalproex ER 500 mg Tablet (24H) 1000 MG PO (20:16)
[2021-12-27 20:30] VITALS: BP 148/83; PULSE 83; RESP 17; O2SAT 98
[2021-12-28] MEDS: haloperidol 5 mg Tablet PO (01:52)
--- NOTE | 2021-12-28 03:40 | PC.NURSE ---
patient came to nurses station, asked for two shots she got last night for anxiety, agitation, and sleep
[2021-12-28] MEDS: diphenhydrAMINE 50 mg/mL SDV 1mL IM (03:44)
[2021-12-28] MEDS: LORazepam 2 mg/mL INJ 1 mL IM (03:44)
[2021-12-28 08:22] VITALS: BP 136/85; PULSE 104; RESP 22; TEMP 36.6; O2SAT 96
[2021-12-28] MEDS: fluoxetine 20 mg Capsule 40 MG PO (09:40)
[2021-12-28] MEDS: fluoxetine 20 mg Capsule PO (09:40)
[2021-12-28] MEDS: atenolol 50 mg Tablet PO (09:41)
[2021-12-28 14:00] VITALS: BP 102/68; PULSE 76; RESP 18; TEMP 36.8; O2SAT 96
--- NOTE | 2021-12-28 16:17 | P.NPUPN_ITS ---
Subjective NPU Subjective: Patient presents today reporting that she did talk to the child welfare social worker and is hopeful that there is going to be a program for her based on some of the returns today received. She reports that she does realize that it would be helpful for her to be in that setting versus what has been the case for the last several years which has been anxiety provoking and unstable at least from an emotional standpoint and has made her give up a lot of her control. She reports that she is eating and sleeping okay and reports that she is fine with the plan of hopefully getting out of here at the beginning of the week. Mental Status Exam MSE Comments: This is a well-nourished, well-developed white female looking older than her stated age with hospital scrubs on with limited grooming and eye contact.? No abnormal movements except for mild psychomotor retardation.? Cooperative with exam in mild distress.? Speech was normal rate and volume.? Mood described as ok, affect flat.? Thought process organized at times but disorganized at others.? Thought content: Patient denied any suicidal or homicidal ideations, there were no delusions reported, but she does have some persecutory thinking, she denied auditory or visual hallucinations and did not appear to be attending to internal stimuli.? Attention and concentration was intact and memory was mostly reliable but none were formally tested.? She is alert and oriented x3.? Insight and judgment are limited and impulse control is limited. Vitals/I&O/Wt Last Vital Signs Temp 98.3 F 12/28/21 14:00 Pulse 76 12/28/21 14:00 Resp 18 12/28/21 14:00 BP 102/68 12/28/21 14:00 Pulse Ox 96 12/28/21 14:00 Data NPU : 12/25/21 11:55 12/25/21 11:55 A&P Assessment and plan (1) Schizophrenia, chronic condition: Status: Chronic (2) Hallucinations: Status: Acute (3) Violent behavior: Status: Acute (4) Disturbance of sleep: Status: Acute (5) Other nursing home (current) drug therapy: Status: Acute (6) Neurocognitive deficits: Status: Acute (7) Schizophrenia in partial remission with history of multiple episodes: Status: Acute (8) Acute psychosis: Status: Acute (9) Depressive disorder: Status: Acute Plan This is a 66-year-old female with a diagnosis of schizophrenia with increased auditory and visual hallucinations as well as some bizarre activities. Plan:s 1.Continue current medication.? Increased Haldol to 15 mg QHS. 2.? Continue every 15 minute checks for safety. 3.? Encourage individual, group and milieu therapies. 4.? Encourage sober living treatment after discharge at the highest level of care to which he is willing to commit. Involuntary Hold Information 96 Hour Hold: 96 Hour Involuntary Admission: No Attestations NPU Medical Necessity Statement*: Inpatient hospitalization is medically necessary and the clinically appropriate intervention at this time.? We will monitor med ications and make changes as indicated.? Likely length of stay 2-4 days. Coding Level of Care Code Acute Steward/Stewardess for Shobha Huynh Diagnoses Schizophrenia, chronic condition F20.9 Hallucinations R44.3 Violent behavior R45.6 Disturbance of sleep G47.9 Other nursing home (current) drug therapy Z79.899 Neurocognitive deficits R29.818; R41.89 Schizophrenia in partial remission with history of multiple episodes F20.9 Acute psychosis F23 Depressive disorder F32.9
[2021-12-28] MEDS: docusate sodium 100 mg Capsule PO (20:34)
[2021-12-28] MEDS: trazodone 50 mg Tablet PO ×2 (20:34→21:37)
[2021-12-28] MEDS: haloperidol 5 mg Tablet 15 MG PO (20:34)
[2021-12-28] MEDS: divalproex ER 500 mg Tablet (24H) 1000 MG PO (20:34)
[2021-12-28 20:49] VITALS: BP 116/76; PULSE 85; RESP 17; TEMP 36.6; O2SAT 95
[2021-12-28] MEDS: OLANZapine 5 mg ODT PO (21:37)
[2021-12-28] MEDS: nicotine 2 mg Gum BUCCAL (22:10)
--- NOTE | 2021-12-28 23:58 | PC.NURSE ---
2133 Patient received her scheduled meds, Haldol 15 mg and Trazadone 50mg, at 2031. At 2133 the patient still could not sleep. She requested 2 shots like she received last night. This nurse on assessment saw no agitation, only anxiety and insomnia. Another Trazadone 50mg and Zyprexa 5 mg were administered. The patient layed down around 2214 and slept until this note at 0001. She is now reading in the dayroom, calm and cooperative.
--- NOTE | 2021-12-29 01:16 | PC.NURSE ---
0100 Patient is in bed resting quietly at this time.
[2021-12-29 06:00] VITALS: BP 120/78; PULSE 76; RESP 15; TEMP 36.7; O2SAT 92
[2021-12-29] MEDS: atenolol 50 mg Tablet PO (09:32)
[2021-12-29] MEDS: fluoxetine 20 mg Capsule 40 MG PO (09:32)
[2021-12-29] MEDS: fluoxetine 20 mg Capsule PO (09:34)
--- NOTE | 2021-12-29 12:47 | W.PM.NPUPNS ---
Subjective NPU Subjective: Patient presents today still with some confusion but stabilizing. She still demonstrates the need for assistance from someone when she is discharged and we have had limited success when she has returned to the living arrangement with her significant other. She endorses a willingness to go to the program that we have identified and is excited about that and we discussed the fact that we would speak to the medical staff services coordinator for that program on Friday and have a greater sense of what is going to occur and she understood and agreed to proceed in that fashion. Mental Status Exam MSE Comments: This is a well-nourished, well-developed white female looking older than her stated age with hospital scrubs on with limited grooming and eye contact.? No abnormal movements except for mild psychomotor retardation.? Cooperative with exam in no acute distress.? Speech was normal rate and volume.? Mood described as all right, affect flat.? Thought process organized at times but disorganized at others.? Thought content: Patient denied any suicidal or homicidal ideations, there were no delusions reported, but she does have some persecutory thinking, she denied auditory or visual hallucinations and did not appear to be attending to internal stimuli.? Attention and concentration was intact and memory was mostly reliable but none were formally tested.? She is alert and oriented x3.? Insight and judgment are limited and impulse control is limited. Vitals/I&O/Wt Last Vital Signs Temp 98.0 F 12/29/21 06:00 Pulse 76 12/29/21 06:00 Resp 15 12/29/21 06:00 BP 120/78 12/29/21 06:00 Pulse Ox 92 12/29/21 06:00 Data NPU : 12/25/21 11:55 12/25/21 11:55 A&P Assessment and plan (1) Schizophrenia, chronic condition: Status: Chronic (2) Hallucinations: Status: Acute (3) Disturbance of sleep: Status: Acute (4) Other exterminator termite (current) drug therapy: Status: Acute (5) Neurocognitive deficits: Status: Acute (6) Acute psychosis: Status: Acute (7) Depressive disorder: Status: Acute Plan This is a 66-year-old female with a diagnosis of schizophrenia with increased auditory and visual hallucinations as well as some bizarre activities. Plan: 1.Continue current medication.? Increased Haldol to 15 mg QHS. 2.? Continue every 15 minute checks for safety. 3.? Encourage individual, group and milieu therapies. 4.? Encourage sober living treatment after discharge at the highest level of care to which he is willing to commit. Involuntary Hold Information 96 Hour Hold: 96 Hour Involuntary Admission: No Attestations NPU Medical Necessity Statement*: Inpatient hospitalization is medically necessary and the clinically appropriate intervention at this time.? We will monitor medications and make changes as indicated.? Likely length of stay 2-4 days. Coding Level of Care Code Acute Consumer Loan Specialist for Shobha Huynh Diagnoses Schizophrenia, chronic condition F20.9 Hallucinations R44.3 Disturbance of sleep G47.9 Other exterminator termite (current) drug therapy Z79.899 Neurocognitive deficits R29.818; R41.89 Acute psychosis F23 Depressive disorder F32.9
[2021-12-29 14:00] VITALS: BP 109/71; PULSE 75; RESP 18; TEMP 36.4; O2SAT 96
[2021-12-29] MEDS: nicotine 2 mg Gum BUCCAL (19:09)
[2021-12-29] MEDS: haloperidol 5 mg Tablet 15 MG PO (20:31)
[2021-12-29] MEDS: divalproex ER 500 mg Tablet (24H) 1000 MG PO (20:31)
[2021-12-29] MEDS: trazodone 50 mg Tablet PO (20:31)
[2021-12-29 22:00] VITALS: BP 120/77; PULSE 79; RESP 18; TEMP 36.8; O2SAT 96
[2021-12-30] MEDS: trazodone 50 mg Tablet PO ×2 (00:10→20:23)
[2021-12-30] MEDS: OLANZapine 5 mg ODT PO ×2 (00:10→18:33)
[2021-12-30 06:00] VITALS: BP 151/89; PULSE 92; RESP 18; TEMP 36.6; O2SAT 97; BMI 31.2
[2021-12-30] MEDS: atenolol 50 mg Tablet PO (08:49)
[2021-12-30] MEDS: fluoxetine 20 mg Capsule 40 MG PO (08:49)
[2021-12-30] MEDS: fluoxetine 20 mg Capsule PO (08:50)
--- NOTE | 2021-12-30 09:16 | P.NPUPN_ITS ---
Subjective NPU Subjective: Patient presents today starting to get a little antsy with being here. Most of her questions were surrounding discharge and where she might go. She had talked about going back where she was before we discussed we have the feelers out and have one location that is likely but the person to make a decision would not be there to Friday morning we discussed that we would get her out soon because we could and that information will make a big difference as to the timeline. Otherwise she denies any issues. Mental Status Exam MSE Comments: This is a well-nourished, well-developed white female looking older than her stated age with hospital scrubs on with limited grooming and eye contact.? No abnormal movements except for mild psychomotor retardation.? Cooperative with exam in no acute distress.? Speech was normal rate and volume.? Mood described as all right, affect flat.? Thought process organized at times but disorganized at others.? Thought content: Patient denied any suicidal or homicidal ideations, there were no delusions reported, but she does have some persecutory thinking, she denied auditory or visual hallucinations and did not appear to be attending to internal stimuli.? Attention and concentration was intact and memory was mostly reliable but none were formally tested.? She is alert and oriented x3.? Insight and judgment are limited and impulse control is limited. Vitals/I&O/Wt Last Vital Signs Temp 97.8 F 12/30/21 06:00 Pulse 92 12/30/21 06:00 Resp 18 12/30/21 06:00 BP 151/89 12/30/21 06:00 Pulse Ox 97 12/30/21 06:00 Weight last 48 hrs Weight 87.906 kg Data NPU : 12/25/21 11:55 12/25/21 11:55 A&P Assessment and plan (1) Schizophrenia, chronic condition: Status: Chronic (2) Hallucinations: Status: Acute (3) Disturbance of sleep: Status: Acute (4) Other half-way (current) drug therapy: Status: Acute (5) Neurocognitive deficits: Status: Acute (6) Acute psychosis: Status: Acute (7) Depressive disorder: Status: Acute Plan This is a 66-year-old female with a diagnosis of schizophrenia with increased auditory and visual hallucinations as well as some bizarre activities. Plan: 1.Continue current medication.? Increased Haldol to 15 mg QHS. 2.? Continue every 15 minute checks for safety. 3.? Encourage individual, group and milieu therapies. 4.? Encourage sober living treatment after discharge at the highest level of care to which he is willing to commit. Involuntary Hold Information 96 Hour Hold: 96 Hour Involuntary Admission: No Attestations NPU Medical Necessity Statement*: Inpatient hospitalization is medically necessary and the clinically appropriate intervention at this time.? We will monitor medications and make changes as indicated.? Likely length of stay 1-3 days. Coding Level of Care Code Acute Litigation Docket Manager for g Fwd Diagnoses Schizophrenia, chronic condition F20.9 Hallucinations R44.3 Disturbance of sleep G47.9 Other longshore equipment operator (current) drug therapy Z79.899 Neurocognitive deficits R29.818; R41.89 Acute psychosis F23 Depressive disorder F32.9
--- NOTE | 2021-12-30 11:29 | PC.NURSE ---
Denies pain. Smoke myself to . Smoke too many cigarettes and get lung cancer. Thank God I'm in here and can't smoke. Pt states she has been smoking since she was 18.
[2021-12-30 14:00] VITALS: BP 110/75; PULSE 79; RESP 20; TEMP 36.6; O2SAT 97
[2021-12-30] MEDS: nicotine 2 mg Gum BUCCAL (14:22)
[2021-12-30] MEDS: hyDROXYzine 25 mg Capsule 50 MG PO (18:34)
--- NOTE | 2021-12-30 18:34 | PC.NURSE ---
PRN VISTARIL & ZYPREXA ZYDIS VISTARIL 50 MG GIVEN PO WITH ZYPREXA ZYDIS 5 MG PO PER PT C/O ANXIETY/PSYCHOSIS. PT TOLD DOCTOR SHE FEELS LIKE PEOPLE ARE OUTSIDE HER ROOM WATCHING HER AND THAT PEOPLE ARE ALL LAUGHING AT HER. TOOK MEDS WILLINGLY
[2021-12-30 20:23] VITALS: RESP 18
[2021-12-30] MEDS: divalproex ER 500 mg Tablet (24H) 1000 MG PO (20:23)
[2021-12-30] MEDS: haloperidol 5 mg Tablet 15 MG PO (20:24)
[2021-12-31] MEDS: calcium carbonate 500 mg Chew Tablet 1000 MG PO (05:03)
[2021-12-31 06:00] VITALS: RESP 18
[2021-12-31] MEDS: fluoxetine 20 mg Capsule 40 MG PO (08:32)
[2021-12-31] MEDS: fluoxetine 20 mg Capsule PO (08:32)
[2021-12-31] MEDS: atenolol 50 mg Tablet PO (08:32)
[2021-12-31] MEDS: OLANZapine 5 mg ODT PO (10:32)
--- NOTE | 2021-12-31 10:32 | PC.NURSE ---
PRN ZYPREXA ZYDIS 5 MG GIVEN PO PER PT C/O PSYCHOSIS. PT PARANOID, THINKING PEOPLE ARE LAUGHING AND TALKING ABOUT HER
[2021-12-31 13:56] VITALS: BP 122/79; PULSE 69; RESP 16; TEMP 36.6; O2SAT 97
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
[2021-12-31 20:25] VITALS: BP 107/71; PULSE 78; RESP 18; TEMP 36.7; O2SAT 95
[2021-12-31] MEDS: divalproex ER 500 mg Tablet (24H) 1000 MG PO (20:30)
[2021-12-31] MEDS: haloperidol 5 mg Tablet 15 MG PO (20:31)
[2022-01-01] MEDS: trazodone 50 mg Tablet PO ×2 (00:19→21:26)
--- NOTE | 2022-01-01 00:30 | PC.NURSE ---
Pt sitting in dayroom reading. States she can't sleep. Trazodone 50mg given around 0015.
[2022-01-01 06:00] VITALS: BP 111/75; PULSE 70; RESP 18; TEMP 36.8; O2SAT 95
[2022-01-01] MEDS: atenolol 50 mg Tablet PO (08:36)
[2022-01-01] MEDS: fluoxetine 20 mg Capsule PO (08:37)
[2022-01-01] MEDS: fluoxetine 20 mg Capsule 40 MG PO (08:37)
[2022-01-01 14:00] VITALS: BP 115/76; PULSE 77; RESP 18; TEMP 36.3; O2SAT 97
[2022-01-01] MEDS: diphenhydrAMINE 50 mg/mL SDV 1mL IM (17:04)
[2022-01-01] MEDS: LORazepam 2 mg/mL INJ 1 mL IM (17:04)
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
[2022-01-01] MEDS: divalproex ER 500 mg Tablet (24H) 1000 MG PO (21:25)
[2022-01-01] MEDS: haloperidol 5 mg Tablet 15 MG PO (21:26)
[2022-01-01] MEDS: hyDROXYzine 25 mg Capsule 50 MG PO (21:26)
[2022-01-01] MEDS: OLANZapine 5 mg ODT PO (21:26)
[2022-01-01 22:00] VITALS: BP 122/76; PULSE 79; RESP 18; TEMP 36.4; O2SAT 97
[2022-01-02 06:00] VITALS: BP 103/70; PULSE 74; RESP 16; TEMP 36.5; O2SAT 94
[2022-01-02] MEDS: atenolol 50 mg Tablet PO (09:15)
[2022-01-02] MEDS: nicotine 2 mg Gum BUCCAL (09:15)
[2022-01-02] MEDS: acetaminophen 325 mg Tablet 650 MG PO (09:15)
[2022-01-02] MEDS: fluoxetine 20 mg Capsule PO (09:16)
[2022-01-02] MEDS: fluoxetine 20 mg Capsule 40 MG PO (09:16)
--- NOTE | 2022-01-02 11:46 | NPU.GN ---
[facility] Topic:Jose Huang General Mood of Group: Patient did not attend group today.
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
[2022-01-02 14:00] VITALS: BP 137/74; PULSE 84; RESP 16; TEMP 36.4; O2SAT 94
[2022-01-02] MEDS: hyDROXYzine 25 mg Capsule 50 MG PO (15:28)
[2022-01-02] MEDS: OLANZapine 5 mg ODT PO (15:28)
--- NOTE | 2022-01-02 15:31 | PC.NURSE ---
Patient at nurses station tearful and anxious affect. Patient request for medication. States that voices are telling her she is retarded. Zyprexia 5 mg sl and hydroxyzine 50 mg po given for this.
[2022-01-02 19:29] VITALS: BP 115/71; PULSE 77; RESP 18; O2SAT 96
[2022-01-02] MEDS: divalproex ER 500 mg Tablet (24H) 1000 MG PO (21:26)
[2022-01-02] MEDS: trazodone 50 mg Tablet PO (21:26)
[2022-01-02] MEDS: haloperidol 5 mg Tablet 15 MG PO (21:26)
[2022-01-03] MEDS: hyDROXYzine 25 mg Capsule 50 MG PO (04:05)
[2022-01-03 05:01] VITALS: BP 131/82; PULSE 78; RESP 17; TEMP 36.3; O2SAT 95
--- NOTE | 2022-01-03 08:31 | PC.NURSE ---
PT UP THIS MORNING. DID EAT BREAKFAST. DIFFICULT TO DETERMINE MENTAL STATE DUE TO DISORGANIZED THOUGHT PROCESS. WHEN ASKED ABOUT AVH DENIES BUT THEN STATES BAD THOUGHTS, THAT USED TO BE MEAN BUT NOW ARE BAD. STATES THAT SHE SEES THEM WHEN SHE CLOSES HER EYES. WOULD NOT ELABORATE FURTHER WHAT THEY WERE ABOUT. WHEN ASKED ABOUT SI OR HI STATES NO BUT THEN STATES THAT SHE ENJOYS BEING OUTSIDE AWAY FROM OTHERS AND COULD WALK IN THE WOOD AND JUST FREEZE TO . PT THEN WALKED AWAY AND STARTED SPEAKING TO OTHER STAFF. STAFF TO CONTINUE MONITOR.
[2022-01-03] MEDS: docusate sodium 100 mg Capsule PO (08:50)
[2022-01-03] MEDS: fluoxetine 20 mg Capsule PO (08:50)
[2022-01-03] MEDS: fluoxetine 20 mg Capsule 40 MG PO (08:50)
[2022-01-03] MEDS: atenolol 50 mg Tablet PO (08:50)
--- NOTE | 2022-01-03 12:38 | NPU.GN ---
[facility] Group Topic:Dice Breaker General Mood of Group Patient did not attend group today. Patient was sleeping.
[2022-01-03 14:00] VITALS: BP 114/75; PULSE 76; RESP 18; TEMP 36.3; O2SAT 97
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
--- NOTE | 2022-01-03 14:30 | DCPLANNER ---
IMM completed with pt on 01/03/22 @ 6108. Pt was given a copy of her rights.
[2022-01-03 14:40] VITALS: BP 114/75; PULSE 76; RESP 18; TEMP 36.3; O2SAT 97
== END 2022-01-03 15:15 | disposition home or self-care (01) | DRG 885 ==
LOC: ER 14:05 → NP 15:41
PROVIDERS: Admitting Provider Psychiatry & Neurology Psychiatry; Emergency Provider Emergency Medicine; PCP Family Medicine; Visit Provider Psychiatry & Neurology Psychiatry
DX: F20.9 Schizophrenia, unspecified (principal); G47.9 Sleep disorder, unspecified; R41.9 Unspecified symptoms and signs involving cognitive functions and awareness
CPT/HCPCS: 71045; 80053; 80306; 80307; 81001; 84443; 84484; 85025; 93005; 96372; 97150; 99285; J1200; J2060

== ENCOUNTER 2022-04-12 15:46 | Inpatient (IN) | payer MEDICARE, MEDICAID, SELFPAY ==
[2022-04-12 16:01] VITALS: BP 122/82; PULSE 73; RESP 14; TEMP 36.6; O2SAT 97; BMI 30.7
--- NOTE | 2022-04-12 16:19 | ED.C_ITS ---
HPI - Psych General: Chief Complaint: Psychiatric Symptoms Stated Complaint: MHE Time Seen by Provider: 04/12/22 15:52 Source: patient Mode of arrival: ambulatory Limitations: no limitations History of Present Illness: 66-year-old female presents emergency room via EMS from local clinic. She is at the clinic and began becoming agitated. She made several comments about harming herself. On arrival here she is quite agitated but able to redirect her without using any medications. Talking to her she admits to having paranoid who auditory hallucinations she thinks everybody is calling her names when she is out in public. She has other various random psychotic like thoughts about and how other people perceive her. She also did admit to me she was considering harming herself due to all of the symptoms. She did not have a specific plan. Initially on arrival she denied any suicidal ideation MD complaint: suicidal ideation Onset (ago): minute(s) Duration: constant History of same: Yes Relieving factors: none Exacerbating factors: none Associated psychiatric symptoms: none Treatments prior to arrival: none Review of Systems Const: Denies: fever(s), chills, body aches, change in appetite, fatigue or malaise ENMT: Denies: throat pain, ear or mastoid pain, nasal discharge or nasal congestion Card: Reports: palpitations; Denies: chest pain, edema, dyspnea on exertion or orthopnea Resp: Denies: dyspnea, productive cough or non-productive cough GI: Reports: melena; Denies: abdominal pain, nausea, vomiting, diarrhea or constipation : Denies: flank pain, difficulty voiding, dysuria, urinary frequency or urinary urgency Skin/Breast: Denies: rash or pruritus [facility] PFSH: Medical History 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 Psychiatric care Schizophrenia, chronic condition Violent behavior Family History Denies family history of Colon cancer Ovarian cancer Diabetes Heart disease Hypercholesteremia Breast cancer Hypertension Uterine cancer Thyroid disease Stroke Physical Exam Const: GENERAL APPEARANCE: cooperative and comfortable ORIENTATION/CONSCIOUSNESS: Yes awake HENMT: COMMON NORMALS: normocephalic, atraumatic and hearing grossly normal bilaterally HEAD & SCALP: normocephalic and atraumatic Lymph: LYMPHATIC: no lymphadenopathy noted and no lymphedema noted Resp: COMMON NORMALS: normal respiratory effort, No retractions, No use of accessory muscles and clear to auscultation bilaterally AUSCULTATION: clear to auscultation bilaterally Cardio: COMMON NORMALS: regular rate, regular rhythm and No murmurs present (Cardio) RATE: regular rate RHYTHM: regular rhythm GI: COMMON NORMALS: Soft to palpation and No hepatosplenomegaly present AUSCULTATION: Yes normoactive bowel sounds PALPATION: Yes Soft to palpation, No Tenderness to palpation present (GI), No Guarding due to palpation present (GI) and Yes No hepatosplenomegaly present Extremity: COMMON NORMALS: normal to inspection, capillary refill normal, no clubbing, cyanosis or edema, no calf tenderness and no pedal edema Psych: APPEARANCE: Yes disheveled ATTITUDE: Yes paranoid, Yes evasive and Yes agitated ACTIVITY/MOTOR BEHAVIOR: Yes fidgeting and Yes Avoids eye contact (attititude/behavior) MOOD & AFFECT: Yes anxious THOUGHT PROCESS: Flight of ideas present and Illogical thought process present THOUGHT CONTENT: Yes Suicidality present and Yes Hallucination(s) present auditory and visual Skin: COMMON NORMALS: no rashes or lesions noted GENERAL SKIN EXAM: no rashes or lesions noted Course Vital Signs: Vital signs: Vital Signs Temperature 97.9 F 04/13/22 06:00 Pulse Rate 93 04/13/22 06:00 Respiratory Rate 18 04/13/22 06:00 Blood Pressure 126/83 04/13/22 06:00 Pulse Oximetry 95 04/13/22 06:00 [facility] - Psych Medical Decision Making Acute psychosis with auditory and visual hallucinations paranoia as well. Patient placed on 48-hour hold discussed with psychiatry orders written Medical Records I reviewed the patient's medical records. Lab Data I reviewed the patient's lab results. : 04/12/22 17:17 04/12/22 17:17 Laboratory Results WBC 7.7 10^3/uL (4.0-10.0) 04/12/22 17:17 RBC 5.16 10^6/uL (4.1-5.3) 04/12/22 17:17 Hgb 14.3 g/dL (11.5-15.3) 04/12/22 17:17 Hct 46.7 % (37.0-47.0) 04/12/22 17:17 MCV 90.5 fl (81-99) 04/12/22 17:17 MCH 27.7 pg (28.0-34.0) L 04/12/22 17:17 MCHC 30.6 g/dL (30.0-36.0) 04/12/22 17:17 RDW 14.7 % (12.1-15.1) 04/12/22 17:17 Plt Count 226 10^3/cmm (130-400) 04/12/22 17:17 MPV 10.1 fL (7.4-10.4) 04/12/22 17:17 Neut % (Auto) 56.9 % 04/12/22 17:17 Lymph % (Auto) 28.9 % 04/12/22 17:17 [place] % (Auto) 11.8 % 04/12/22 17:17 Eos % (Auto) 0.9 % 04/12/22 17:17 Baso % (Auto) 0.5 % 04/12/22 17:17 Neut # (Auto) 4.40 10^3/uL (1.8-7.7) 04/12/22 17:17 Lymph # (Auto) 2.2 10^3/uL (0.8-4.8) 04/12/22 17:17 [place] # (Auto) 0.9 10^3/uL (0.2-0.9) 04/12/22 17:17 Eos # (Auto) 0.1 10^3/uL (0.0-0.8) 04/12/22 17:17 Baso # (Auto) 0.0 10^3/uL (0.0-0.1) 04/12/22 17:17 Nucleated RBC % (auto) 0 % 04/12/22 17:17 Nucleated RBCs # 0.0 /100WBC 04/12/22 17:17 Sodium 137 mmol/L (136-145) 04/12/22 17:17 Potassium 4.1 mmol/L (3.5-5.1) 04/12/22 17:17 Chloride 98 mmol/L (98-107) 04/12/22 17:17 Carbon Dioxide 24 mmol/L (22-29) 04/12/22 17:17 Anion Gap 19.1 (5-19) H 04/12/22 17:17 BUN 10 mg/dL (8-23) 04/12/22 17:17 Creatinine 0.4 mg/dL (0.5-0.9) L 04/12/22 17:17 GFR Calculation 160.7 mL/min (90-130) H 04/12/22 17:17 Glucose 98 mg/dL (65-115) 04/12/22 17:17 Calculated Osmolality 283 mOsm/kg (285-295) L 04/12/22 17:17 Calcium 9.7 mg/dL (8.5-10.5) 04/12/22 17:17 Total Bilirubin 0.6 mg/dL (0.15-1.2) 04/12/22 17:17 AST 19 U/L (0-32) 04/12/22 17:17 ALT 19 U/L (0-33) 04/12/22 17:17 Alkaline Phosphatase 101 IU/L (35-105) 04/12/22 17:17 Total Protein 7.1 g/dL (6.6-8.7) 04/12/22 17:17 Albumin 4.6 g/dL (3.5-5.2) 04/12/22 17:17 Globulin 2.5 g/dL (1.3-4.6) 04/12/22 17:17 Urine Color Yellow (Yellow) 04/12/22 16:10 Urine Appearance Clear (CLEAR) 04/12/22 16:10 Urine pH 7 (5-7) 04/12/22 16:10 Ur Specific [place] 1.005 (1.005-1.030) 04/12/22 16:10 Urine Protein Neg (Negative) 04/12/22 16:10 Urine Glucose (UA) Norm (Normal) 04/12/22 16:10 Urine Ketones Negative (Negative) 04/12/22 16:10 Urine Blood Neg (Negative) 04/12/22 16:10 Urine Nitrate Negative (Negative) 04/12/22 16:10 Urine Bilirubin Neg (Negative) 04/12/22 16:10 Urine Urobilinogen Norm mg/dL (Negative) 04/12/22 16:10 Ur Leukocyte Esterase Negative (Negative) 04/12/22 16:10 Salicylates < 0.3 mg/dL (3-10) L 04/12/22 17:17 Urine Opiates Screen Negative ng/mL (Negative) 04/12/22 16:10 Acetaminophen < 5.0 ug/mL (10-30) L 04/12/22 17:17 Ur Barbiturates Screen Negative ng/mL (Negative) 04/12/22 16:10 Ur Phencyclidine Scrn Negative ng/mL (Negative) 04/12/22 16:10 Ur Amphetamines Screen Negative ng/mL (Negative) 04/12/22 16:10 U Benzodiazepines Scrn Negative ng/mL (Negative) 04/12/22 16:10 Urine Cocaine Screen Negative ng/mL (Negative) 04/12/22 16:10 U Marijuana (THC) Screen Negative ng/mL (Negative) 04/12/22 16:10 Ethyl Alcohol < 10 mg/dL (0-10) 04/12/22 17:17 Discharge Plan Discharge Patient Disposition: Admitted As Inpatient Admit Provider: Darion Palomino Clinical Impression: Acute psychosis, Schizophrenia, chronic condition, Suicidal ideation Condition: Stable Coding Level of Care Code ED Wire Stockkeeper for Shobha Fwd Exam Comprehensive
[2022-04-12 16:27] LABS: Add Urine Microscopic? NO; Charge for UA Resulting for Rev
[2022-04-12 16:34] LABS: Bilirubin Urine Neg (Negative); Blood Urine Neg (Negative); Glucose Urine UA Norm (Normal); Ketones Urine Negative (Negative); Leukocyte Esterase Urine Negative (Negative); Nitrate Urine Negative (Negative); Protein Urine Neg (Negative); Specific Gravity, Urine 1.005 (1.005-1.030); Urine Appearance Clear (CLEAR); Urine Color Yellow (Yellow); Urobilinogen Urine Norm (Negative); pH Urine 7 (5-7)
[2022-04-12 16:59] LABS: Amphetamines Screen Urine Negative (Negative); Barbiturates Screen Urine Negative (Negative); Benzodiazepines Screen Urine Negative (Negative); Cocaine Screen Urine Negative (Negative); Opiate Screen Urine Negative (Negative); PCP Screen Urine Negative (Negative); THC Screen Urine Negative (Negative)
--- NOTE | 2022-04-12 17:01 | PC.PHAR ---
PT UNABLE TO VERIFY MEDICATIONS - MEDS VERIFIED BY CALLING [facility], AND [facility]- CONFIRMED THAT MEDICATIONS WERE FILLED AND MAILED OUT TO PT
[2022-04-12 17:22] LABS: Basophils % 0.5 %; Eosinophils # 0.1 10^3/uL (0.0-0.8); Eosinophils % 0.9 %; Hematocrit 46.7 % (37.0-47.0); Hemoglobin 14.3 g/dL (11.5-15.3); Lymphocytes # 2.2 10^3/uL (0.8-4.8); Lymphocytes % 28.9 %; Mean Corpuscular HGB Conc 30.6 g/dL (30.0-36.0); Mean Corpuscular Hemoglobin 27.7 pg (28.0-34.0); Mean Corpuscular Volume 90.5 fl (81-99); Mean Platelet Volume 10.1 fL (7.4-10.4); Monocytes # 0.9 10^3/uL (0.2-0.9); Monocytes % 11.8 %; Neutrophils % 56.9 %; Nucleated Red Blood Cells % 0 %; Platelet Count 226 10^3/cmm (130-400); Red Blood Count 5.16 10^6/uL (4.1-5.3); Red Cell Distribution Width 14.7 % (12.1-15.1); White Blood Count 7.7 10^3/uL (4.0-10.0)
[2022-04-12 17:34] LABS: Alanine Aminotransferase 19 U/L (0-33); Albumin Level 4.6 g/dL (3.5-5.2); Alkaline Phosphatase 101 IU/L (35-105); Anion Gap 19.1 (5-19); Aspartate Amino Transferase 19 U/L (0-32); Blood Urea Nitrogen 10 mg/dL (8-23); Calcium 9.7 mg/dL (8.5-10.5); Carbon Dioxide 24 mmol/L (22-29); Chloride 98 mmol/L (98-107); Creatinine Clr Calc Pharmacy 157.1332; Globulin 2.5 g/dL (1.3-4.6); Glomerular Filtration Rate 160.7 mL/min (90-130); Glucose 98 mg/dL (65-115); Osmolality Calculated 283 mOsm/kg (285-295); Potassium 4.1 mmol/L (3.5-5.1); Sodium 137 mmol/L (136-145); Total Bilirubin 0.6 mg/dL (0.15-1.2); Total Protein 7.1 g/dL (6.6-8.7)
[2022-04-12 17:38] LABS: Acetaminophen < 5.0 ug/mL (10-30); Alcohol Level < 10 mg/dL (0-10); Salicylate < 0.3 mg/dL (3-10)
[2022-04-12] MEDS: OLANZapine 10 mg TABLET PO (20:21)
[2022-04-12 22:00] VITALS: BP 110/72; PULSE 80; RESP 16; O2SAT 95
[2022-04-13 06:00] VITALS: BP 126/83; PULSE 93; RESP 18; TEMP 36.6; O2SAT 95
[2022-04-13] MEDS: atenolol 50 mg Tablet PO (08:55)
[2022-04-13] MEDS: lisinopril 10 mg Tablet PO (08:56)
[2022-04-13 13:09] VITALS: BP 120/78; PULSE 75; RESP 18; TEMP 36.8; O2SAT 95
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
[2022-04-13 19:26] VITALS: BP 113/72; PULSE 83; RESP 16; TEMP 36.6; O2SAT 96
[2022-04-13] MEDS: hyDROXYzine 25 mg Capsule 50 MG PO (20:47)
[2022-04-13] MEDS: trazodone 50 mg Tablet PO ×2 (20:47→23:43)
[2022-04-13] MEDS: OLANZapine 10 mg TABLET PO (20:47)
[2022-04-13] MEDS: nicotine 2 mg Gum BUCCAL (21:29)
--- NOTE | 2022-04-13 21:50 | NUR.SHIFT ---
Trazodone 50 mg PO and Vistaril 50 mg PO given for sleep and anxiety @ 22:47 with minimal results.
--- NOTE | 2022-04-13 23:49 | PC.NURSE ---
Patient at nurses station with request for medication to help her sleep. Trazadone 60 mg po given.
[2022-04-14 06:00] VITALS: RESP 16; BMI 30.7
[2022-04-14] MEDS: atenolol 50 mg Tablet PO (08:05)
[2022-04-14] MEDS: lisinopril 10 mg Tablet PO (08:05)
[2022-04-14] MEDS: calcium carbonate 500 mg Chew Tablet PO ×2 (11:04→16:08)
--- NOTE | 2022-04-14 11:04 | PC.NURSE ---
PRN TUMS 500 MG CHEWABLE TALBET GIVEN PO PER PT C/O HEARTBURN
[2022-04-14 14:00] VITALS: BP 113/70; PULSE 78; RESP 17; TEMP 36.6; O2SAT 95
--- NOTE | 2022-04-14 14:22 | P.NPUPN_ITS ---
Subjective NPU Subjective: Patient is 66 year old female with schizophrenia admitted on with disorganized behavior and suicidal ideation. The patient reports that she wishes to try a different medication to manage her thoughts. She reports that she has stopped medications to treat her schizophrenia due to side effects such as weight gain. She had reviewed the medications previously used with the public relations writer of this note today and reports that she would be agreeable to trying Latuda. The patient had reported some difficulties with falling asleep. She had used to struggle with completion of activities of daily living on the unit Mental Status Exam MSE Comments: She was seen outside of her room today. She had poor hygiene and a disheveled appearance poor eye contact mood was described as all right her affect appeared mood improved in congruent and blunted thought process appeared to show evidence of derailment and was nonlinear at times with evidence of thought broadcasting and thought insertion reported her attention appeared poor her insight appeared impaired judgment was poor. She did not actively appear to be responding to internal stimuli and clear delusions delusions were present Vitals/I&O/Wt Last Vital Signs Temp 97.8 F 04/14/22 14:00 Pulse 78 04/14/22 14:00 Resp 17 04/14/22 14:00 BP 113/70 04/14/22 14:00 Pulse Ox 95 04/14/22 14:00 Weight last 48 hrs Weight 86.183 kg Data NPU : 04/12/22 17:17 04/12/22 17:17 A&P Assessment and plan (1) Schizophrenia, chronic condition: Status: Chronic (2) Suicidal ideation: Status: Acute Plan 1. reduce zyprexa to 5mg at night and begin Latuda 40mg at night with food. Will attempt to simplify medication regimen due to hx of noncompliance with medication 2. Encourage individual, group and milieu therapy 3. Continue q-15 minute check for safety 4. Recommend sober living treatment at the highest level of care to which the patient is willing to commit. Involuntary Hold Information 96 Hour Hold: 96 Hour Involuntary Admission: Yes Attestations NPU Medical Necessity Statement*: Inpatient hospitalization is medically necessary and the clinically appropriate intervention at this time. Patient will be in the hospital for 6-8 days. Coding Level of Care Code Established Pt Acute Senior Python Developer for Shobha Fwconnor Patient Type Established History Problem Focused Exam Problem Focused Medical Decision Making Straight Forward Diagnoses Schizophrenia, chronic condition F20.9 Suicidal ideation R45.468
--- NOTE | 2022-04-14 16:09 | PC.NURSE ---
PRN TUMS 500 MG GIVEN PO PER PT C/O HEARTBURN
[2022-04-14] MEDS: lurasidone 80 mg Tablet 40 MG PO (20:41)
[2022-04-14] MEDS: OLANZapine 5 mg TABLET PO (20:41)
[2022-04-14 20:59] VITALS: BP 101/63; PULSE 82; RESP 16; TEMP 36.8; O2SAT 97
[2022-04-14] MEDS: OLANZapine 5 mg ODT PO (23:20)
[2022-04-15 06:00] VITALS: BP 94/62; PULSE 74; RESP 15; TEMP 36.6; O2SAT 92
[2022-04-15] MEDS: haloperidol 5 mg Tablet PO (08:02)
[2022-04-15] MEDS: atenolol 50 mg Tablet PO (08:02)
[2022-04-15] MEDS: lisinopril 10 mg Tablet PO (08:02)
[2022-04-15] MEDS: hyDROXYzine 25 mg Capsule 50 MG PO (08:03)
--- NOTE | 2022-04-15 08:06 | PC.NURSE ---
PRN VISTARIL AND HALDOL VISTARIL 50 MG GIVEN PO WITH HALDOL 5 MG PO PER PT C/O ANXIETY/AGITATION. PT PARANOID, YELLING AND CURSING AT OTHERS, SAYING PEOPLE CALLING HER [place]!
--- NOTE | 2022-04-15 10:00 | PC.NURSE ---
BEHAVIORS PT VERY UPSET THIS AM. APPEARS TO BE RESPONDING TO INTERNAL STIMULI. PT BELIEVES OTHERS ARE TALKING ABOUT HER AND STATES I'M GOING TO HIT SOMEONE NEXT TIME I HEAR SOMEONE CALLING ME A BITTY. THIS RN SAT WITH PT AND TALKED THROUGH HER THOUGHTS, FEELINGS AND PARANOIA. PT WAS CONTRACTED FOR SAFETY DUE TO HAVING PASSING SUICIDAL THOUGHTS AND WANTING TO HIT OTHERS. PT STATES SHE WILL COME AND SPEAK TO STAFF IF SHE FEELS MORE SUICIDAL OR IF SHE IS FEELING LIKE HITTING SOMEONE. PT BELIEVES ANYONE THAT IS AROUND IS HER IS TALKING ABOUT HER. WHEN SHE HEARS THIS SHE WILL HAVE LOUD SCREAMING OUTBURST AND THREATEN THOSE AROUND HER. PT IS ABLE TO BE VERBALLY REDIRECTED. MED NURSE ADMINISTERED PRN MEDICATIONS THIS AM. SEE MAR FOR DETAILS AND TIMES. ALL QUESTIONS ANSWERED AND SUPPORT VOICED.
--- NOTE | 2022-04-15 13:36 | P.NPUPN_ITS ---
Subjective NPU Subjective: Patient is 66 year old female with schizophrenia admitted on 96 hour hold with disorganized behavior and suicidal ideation.? The patient was seen on rounds this morning. She continues to behave bizarrely on the unit. She reports that she was walking on the streets and asked if she could go home soon although she admitted that the voices are still bothering her and distracting. She did not endorse thoughts of hurting herself or others. She reports that she has been noncompliant with antipsychotics before secondary to concern that she was gaining weight on the medications and they were too sedating for her. She expressed desire to continue latuda although she did report difficulties with sleep initiation with the zyprexa reduction. Mental Status Exam MSE Comments: she was lying in bed, She had poor hygiene, disheveled appearance, poor eye contact. mood described as good. Affect: blunted, mood incongruent. Her thought process showed looseness of associations. There was also evidence of derailment. Furthermore there was evidence of thought blocking. Thought process showed evidence of somatic delusions along with overvalued ideas. She did at times appear to be responding to internal stimuli, Her attention was poor, Her insight and judgment remained impaired. She denies si/hi today. Vitals/I&O/Wt Last Vital Signs Temp 98 F 04/15/22 06:00 Pulse 74 04/15/22 06:00 Resp 15 04/15/22 06:00 BP 94/62 04/15/22 06:00 Pulse Ox 92 04/15/22 06:00 Weight last 48 hrs Weight 86.183 kg Data NPU : 04/12/22 17:17 04/12/22 17:17 A&P Assessment and plan (1) Schizophrenia, chronic condition: Status: Chronic (2) Disturbance of sleep: Status: Acute (3) Suicidal ideation: Status: Acute (4) Acute psychosis: Status: Acute Plan Plan 1. reduce zyprexa to 2.5mg at night and continue Latuda 40mg at night with food to target schizophrenia. 2. Encourage individual, group and milieu therapy 3. Continue q-15 minute check for safety 4. Recommend sober living treatment at the highest level of care to which the patient is willing to commit. 5. Consider clozaril?, consider abilify? Involuntary Hold Information 96 Hour Hold: 96 Hour Involuntary Admission: Yes Attestations NPU Medical Necessity Statement*: Inpatient hospitalization is medically necessary and the clinically appropriate intervention at this time. Patient will be in the hospital for? 6-8 days. Coding Level of Care Code Established Pt Acute Ultimate Hoops Trainer for Chg Fwd Patient Type Established History Problem Focused Exam Problem Focused Medical Decision Making Straight Forward Diagnoses Schizophrenia, chronic condition F20.9 Disturbance of sleep G47.9 Suicidal ideation R45.851 Acute psychosis F23
[2022-04-15 14:00] VITALS: BP 139/73; PULSE 81; RESP 17; TEMP 36.4; O2SAT 94
[2022-04-15 20:14] VITALS: BP 120/78; PULSE 110; RESP 18; O2SAT 97
[2022-04-15] MEDS: lurasidone 80 mg Tablet 40 MG PO (20:37)
[2022-04-15] MEDS: OLANZapine 5 mg TABLET 2.5 MG PO (20:37)
[2022-04-16 06:00] VITALS: BP 110/65; PULSE 93; RESP 17; TEMP 36.8; O2SAT 92
[2022-04-16] MEDS: atenolol 50 mg Tablet PO (08:33)
[2022-04-16] MEDS: lisinopril 10 mg Tablet PO (08:33)
--- NOTE | 2022-04-16 10:46 | PC.NURSE ---
IN ROOM. PT SPEAKING ABOUT UFO'S AND BUDDHISM. PT DENIES SI/HI AND AVH AT THIS TIME. DENIES PAIN. PT IS CALMER THIS AM AND IS NOT WANTING TO HURT OTHERS TODAY. SUPPORT VOICED.
[2022-04-16] MEDS: nicotine 2 mg Gum BUCCAL (12:06)
[2022-04-16 14:00] VITALS: BP 143/100; PULSE 117; RESP 20; TEMP 37.1; O2SAT 95
--- NOTE | 2022-04-16 14:24 | W.PM.NPUPNS ---
Subjective NPU Subjective: jemal is 66 year old female with schizophrenia admitted on 96 hour hold? with disorganized behavior and suicidal ideation.? The patient was seen on rounds this morning.? She continues to behave bizarrely on the unit.? 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 She continues to endorse auditory hallucinations and reports that she wishes to try a different medicine to help with her she reported no current side effects from the Latuda. She reported no feelings of hopelessness. She reports that she will not go walking on the road for miles next time. She continue to minimize the seriousness of her actions and continued to report feeling trapped while being in here. Mental Status Exam MSE Comments: she was sitting up in bed. , She had poor hygiene, disheveled appearance, poor eye contact. ? mood described as okay.? Affect: blunted, mood incongruent. ? Her thought process showed looseness of associations and derailment. ? ? Furthermore there was evidence of thought blocking with broad delusions noted on interview. ? She did at times appear to be responding to internal stimuli, Her attention was poor; Her insight and judgment remained impaired.? She denies si/hi today. ? Vitals/I&O/Wt Last Vital Signs Temp 98.7 F 04/16/22 14:00 Pulse 117 H 04/16/22 14:00 Resp 20 H 04/16/22 14:00 BP 143/100 04/16/22 14:00 Pulse Ox 95 04/16/22 14:00 Data NPU : 04/12/22 17:17 04/12/22 17:17 A&P Assessment and plan (1) Suicidal ideation: Plan 1. discontinue zyprexa with planned titration of Latuda 40mg at night with food to target schizophrenia. ? 2. Encourage individual, group and milieu therapy 3. Continue q-15 minute check for safety 4. Recommend sober living treatment at the highest level of care to which the patient is willing to commit. 5.? Consider clozaril?, consider abilify? Status: Acute (2) Schizophrenia, chronic condition: Status: Chronic (3) Disturbance of sleep: Status: Acute (4) Psychiatric care: Status: Acute (5) Other prison (current) drug therapy: Status: Acute (6) Neurocognitive deficits: Status: Acute (7) Acute psychosis: Status: Acute (8) Depressive disorder: Status: Acute Involuntary Hold Information 96 Hour Hold: 96 Hour Involuntary Admission: Yes Attestations NPU Medical Necessity Statement*: Inpatient hospitalization is medically necessary and the clinically appropriate intervention at this time. Patient will be in the hospital for? 3-5 days. Coding Level of Care Code Established Pt Acute Round Cutter Operator for Shobha Huynh Patient Type Established History Problem Focused Exam Problem Focused Medical Decision Making Straight Forward Diagnoses Suicidal ideation R45.851 Schizophrenia, chronic condition F20.9 Disturbance of sleep G47.9 Psychiatric care Other watcher automat long goods (current) drug therapy Z79.899 Neurocognitive deficits R29.818; R41.89 Acute psychosis F23 Depressive disorder F32.9
[2022-04-16 19:50] VITALS: BP 97/67; PULSE 83; RESP 22; TEMP 37.1; O2SAT 96
[2022-04-16] MEDS: lurasidone 80 mg Tablet 40 MG PO (21:03)
[2022-04-17 06:00] VITALS: BP 112/72; PULSE 81; RESP 17; TEMP 36.6; O2SAT 97
[2022-04-17] MEDS: nicotine 2 mg Gum BUCCAL ×2 (09:01→19:42)
[2022-04-17] MEDS: lisinopril 10 mg Tablet PO (09:02)
[2022-04-17] MEDS: atenolol 50 mg Tablet PO (09:02)
--- NOTE | 2022-04-17 10:41 | P.NPUPN_ITS ---
Subjective NPU Subjective: Patient is 66 year old female with schizophrenia admitted on voluntarily with disorganized behavior and suicidal ideation.? The patient was seen on rounds this morning.? She continues to behave bizarrely on the unit.? She reports that she is ready to go home stating that she needs to go home to black pickler a CD of the [employer] music. She reports that she has learned not to go on any walks during the daytime in the heat. Staff reports patient continues to appear confused on the unit. She reports no side effects from latuda. She reports feeling like a trapped sardine in a can while at NPU. She reports adequate sleep. She reports no depressed mood at this time. Mental Status Exam MSE Comments: She was sitting up in bed.? , She had poor hygiene, disheveled appearance, poor eye contact. ? mood described as okay. .? Affect: blunted, mood incongruent. ? Her thought process showed looseness of associations and derailment. Odd delusional thinking noted. ? ? ? Furthermore there was evidence of thought blocking on interview. ? ? She did at times appear to be responding to internal stimuli, Her attention was poor; Her insight and judgment remained impaired.? She denies si/hi today. ? Vitals/I&O/Wt Last Vital Signs Temp 97.5 F L 04/17/22 14:00 Pulse 75 04/17/22 14:00 Resp 20 H 04/17/22 14:00 BP 113/74 04/17/22 14:00 Pulse Ox 94 04/17/22 14:00 Data NPU : 04/12/22 17:17 04/12/22 17:17 A&P Assessment and plan (1) Suicidal ideation: Status: Acute (2) Schizophrenia, chronic condition: Status: Chronic (3) Disturbance of sleep: Status: Acute (4) Psychiatric care: Status: Acute (5) Acute psychosis: Status: Acute Plan 1. increase latuda to 60mg? at night with food to target schizophrenia. ? 2. Encourage individual, group and milieu therapy 3. Continue q-15 minute check for safety 4. Recommend sober living treatment at the highest level of care to which the patient is willing to commit. 5.? Consider clozaril? Guardianship? Involuntary Hold Information 96 Hour Hold: 96 Hour Involuntary Admission: Yes Attestations NPU Medical Necessity Statement*: Inpatient hospitalization is medically necessary and the clinically appropriate intervention at this time. Patient will be in the hospital for? 3-5 days. Coding Level of Care Code Established Pt Acute Retail Merchandising Coordinator for Germang Fwd Patient Type Established History Problem Focused Exam Problem Focused Medical Decision Making Straight Forward Diagnoses Suicidal ideation R45.851 Schizophrenia, chronic condition F20.9 Disturbance of sleep G47.9 Psychiatric care Acute psychosis F23
[2022-04-17 14:00] VITALS: BP 113/74; PULSE 75; RESP 20; TEMP 36.4; O2SAT 94
[2022-04-17] MEDS: trazodone 100 mg Tablet PO (19:42)
[2022-04-17] MEDS: lurasidone 20 mg Tablet 60 MG PO (19:43)
[2022-04-17 20:27] VITALS: BP 109/72; PULSE 74; RESP 18; TEMP 36.4; O2SAT 99
[2022-04-17] MEDS: OLANZapine 5 mg ODT PO (23:02)
[2022-04-18] MEDS: haloperidol 5 mg Tablet PO (00:15)
[2022-04-18 06:00] VITALS: BP 122/73; PULSE 85; RESP 18; TEMP 36.9; O2SAT 97
[2022-04-18] MEDS: atenolol 50 mg Tablet PO (08:40)
[2022-04-18] MEDS: nicotine 2 mg Gum BUCCAL (08:40)
[2022-04-18] MEDS: lisinopril 10 mg Tablet PO (08:40)
--- NOTE | 2022-04-18 11:37 | DCPLANNER ---
Imm was given to pt and a copy placed in her file.
[2022-04-18 14:00] VITALS: BP 105/70; PULSE 73; RESP 20; TEMP 36.6; O2SAT 97
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
[2022-04-18 15:24] VITALS: BP 105/70; PULSE 73; RESP 20; TEMP 36.6; O2SAT 97
--- NOTE | 2022-04-18 15:47 | PC.NURSE ---
A 3 day supply of patient's new discharge medication was called into [facility] at [facility] in [place], [place]
--- NOTE | 2022-04-22 10:33 | PC.NURSE ---
Rhett (Erica's caregiver) called to inform us that they have not received her newly prescribed medications in the mail. He requested a call back at [phone] with an update as she is now out of the 3-day supply she was sent home with. I called [facility] ( ) & spoke with Enedelia & Cristy. The trazadone should arrived between Friday & Friday of this week. They said that insurance denied the Latuda since they will only fill one Latuda pill a day, so the script was not filled. The e-script they received was for (3) 20mg pills 3xday. I verbally transmitted the correct order of 60 mg Latuda orally once a day at 2100 to Imtiaz. He said it was now approved by insurance and that it would be sent morin delivery. The patient can expect the order to arrive in 3-5 business days. I had requested that he then transfer the order to [facility] per the patient's request. Imtiaz said he was unable to transfer the prescription and suggested that we submit a 7-day order to the local pharmacy.
--- NOTE | 2022-04-22 13:20 | PC.NURSE ---
Phoned patient with news that the insurance problem with the Latuda has been taken care of. It will be filled & morin delivered later this week. In the meantime a few days supply was phoned into [facility].
== END 2022-04-18 16:56 | disposition home or self-care (01) | DRG 885 ==
LOC: ER 17:17 → NP 17:25
PROVIDERS: Admitting Provider Psychiatry & Neurology Psychiatry; Emergency Provider Family Medicine; PCP Family Medicine; Visit Provider Psychiatry & Neurology Psychiatry
DX: F20.9 Schizophrenia, unspecified (principal); R45.851 Suicidal ideations; F17.210 Nicotine dependence, cigarettes, uncomplicated; G47.9 Sleep disorder, unspecified
CPT/HCPCS: 80053; 80306; 80307; 81003; 85025; 97150; 97165; 99285

== ENCOUNTER 2022-06-07 13:24 | Inpatient (IN) | payer MEDICARE, MEDICAID, SELFPAY ==
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
[2022-06-07 13:29] VITALS: BP 137/75; PULSE 83; RESP 18; TEMP 36.8; O2SAT 97; BMI 29.2
[2022-06-07 13:50] LABS: Basophils # 0.1 10^3/uL (0.0-0.1); Basophils % 0.5 %; Eosinophils # 0.1 10^3/uL (0.0-0.8); Eosinophils % 0.8 %; Hematocrit 45.9 % (37.0-47.0); Hemoglobin 15.1 g/dL (11.5-15.3); Lymphocytes # 2.3 10^3/uL (0.8-4.8); Lymphocytes % 19.5 %; Mean Corpuscular HGB Conc 32.9 g/dL (30.0-36.0); Mean Corpuscular Hemoglobin 27.2 pg (28.0-34.0); Mean Corpuscular Volume 82.6 fl (81-99); Mean Platelet Volume 10.2 fL (7.4-10.4); Monocytes # 1.1 10^3/uL (0.2-0.9); Neutrophils # 8.33 10^3/uL (1.8-7.7); Neutrophils % 69.8 %; Nucleated Red Blood Cells % 0 %; Platelet Count 243 10^3/cmm (130-400); Red Blood Count 5.56 10^6/uL (4.1-5.3); Red Cell Distribution Width 13.4 % (12.1-15.1); White Blood Count 11.9 10^3/uL (4.0-10.0)
[2022-06-07 14:06] LABS: Amphetamines Screen Urine Negative (Negative); Barbiturates Screen Urine Negative (Negative); Benzodiazepines Screen Urine Negative (Negative); Cocaine Screen Urine Negative (Negative); Opiate Screen Urine Negative (Negative); PCP Screen Urine Negative (Negative); THC Screen Urine Negative (Negative)
[2022-06-07 14:28] LABS: Alanine Aminotransferase 26 U/L (0-33); Albumin Level 4.5 g/dL (3.5-5.2); Alkaline Phosphatase 109 U/L (35-105); Anion Gap 18.9 (5-19); Aspartate Amino Transferase 40 U/L (0-32); Blood Urea Nitrogen 13 mg/dL (8-23); Calcium 9.3 mg/dL (8.5-10.5); Carbon Dioxide 22 mmol/L (22-29); Chloride 98 mmol/L (98-107); Creatinine Clr Calc Pharmacy 95.2019; Globulin 2.5 g/dL (1.3-4.6); Glomerular Filtration Rate 100.6 mL/min (90-130); Glucose 129 mg/dL (65-115); Osmolality Calculated 282 mOsm/kg (285-295); Potassium 3.9 mmol/L (3.5-5.1); Sodium 135 mmol/L (136-145); Thyroid Stimulating Hormone 1.65 uIU/mL (0.27-4.20); Total Bilirubin 0.7 mg/dL (0.15-1.2)
[2022-06-07 14:32] LABS: Acetaminophen < 5.0 ug/mL (10-30); Alcohol Level < 10 mg/dL (0-10); Salicylate < 0.3 mg/dL (3-10)
--- NOTE | 2022-06-07 14:40 | PC.PHAR ---
PT UNABLE TO VERIFY MEDS DO TO AMS- VERIFIED USING EXTERNAL MED LIST AND LAST FILLED- PT HAS SCRIPTS FOR FLUOXETINE 20MG AND 40MG NOT SURE IF PT IS TAKING ONE OR BOTH
[2022-06-07] MEDS: LORazepam 1 mg Tablet PO (15:23)
[2022-06-07] MEDS: haloperidol inj 5 mg/mL INJ 1 mL IM (15:23)
[2022-06-07 15:36] VITALS: BP 136/78; PULSE 77; RESP 18; TEMP 36.7; O2SAT 95
--- NOTE | 2022-06-07 15:39 | PC.NURSE ---
Report called to Rosalie on NPU, patient adm inpatient to 152.1, patient has scrub top on but no bottoms in the ED, per Rosalie she will place in bottoms on arrival
[2022-06-07 15:46] VITALS: BP 144/71; PULSE 85; RESP 17; O2SAT 92
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
--- NOTE | 2022-06-07 17:18 | PC.NURSE ---
Medications reconciled and home meds started. See MAR for details.
[2022-06-07] MEDS: OLANZapine 5 mg ODT PO (18:31)
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
[2022-06-07 20:22] VITALS: BP 118/75; PULSE 81; RESP 17; O2SAT 95
[2022-06-07] MEDS: lurasidone 20 mg Tablet 60 MG PO (20:46)
[2022-06-07] MEDS: guaiFENesin-dextromethorphan UDC 10 mL PO (22:35)
[2022-06-07] MEDS: trazodone 100 mg Tablet PO (23:15)
[2022-06-08] MEDS: OLANZapine 5 mg ODT PO (01:40)
[2022-06-08 06:00] VITALS: BP 155/89; PULSE 113; RESP 18; O2SAT 98
[2022-06-08] MEDS: guaiFENesin-dextromethorphan UDC 10 mL PO (06:36)
[2022-06-08] MEDS: fluoxetine 20 mg Capsule 40 MG PO (08:47)
[2022-06-08] MEDS: atenolol 50 mg Tablet PO (08:47)
[2022-06-08] MEDS: haloperidol 5 mg Tablet 10 MG PO (08:47)
[2022-06-08] MEDS: lisinopril 10 mg Tablet PO (08:47)
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
[2022-06-08] MEDS: haloperidol 5 mg Tablet PO ×2 (14:06→21:23)
--- NOTE | 2022-06-08 14:45 | PC.NURSE ---
PRN Medication and Behavior Patient yelling at staff that we don't care about what happens to her, states why don't you let me go and . Patient states the voices are mocking her and are loud. Haldol 5mg given at 1403. At 1440, patient somewhat calmer, no longer yelling; but still hearing voices. Will continue to monitor.
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
[2022-06-08] MEDS: ziprasidone 20 mg/mL SDV IM (17:58)
--- NOTE | 2022-06-08 18:04 | PC.NURSE ---
PRN Follow Up Patient lying in bed with eyes closed.
[2022-06-08 19:50] VITALS: BP 166/87; PULSE 99; RESP 17; TEMP 36.9; O2SAT 96
[2022-06-08] MEDS: lurasidone 80 mg Tablet PO (20:59)
[2022-06-08] MEDS: trazodone 100 mg Tablet PO (21:23)
[2022-06-08] MEDS: hyDROXYzine 25 mg Capsule 50 MG PO (22:44)
[2022-06-08] MEDS: trazodone 50 mg Tablet PO (22:44)
--- NOTE | 2022-06-09 00:26 | PC.NURSE ---
PT VERY UPSET WITH THE FACT THAT SHE DOES NOT KNOW WHERE HER PURSE IS. PT INSISTENT THAT SHE HAD IT AT THE POLICE STATION. PURSE IS NOT IN PATIENT BELONGINGS AND WHEN THIS NURSE CALLED [facility] TO FIND OUT WHERE IT WAS, OFFICE HAD NOT BEEN ABLE TO FIND IT AND SAID TO CALL BACK AND SPEAK WITH DEPUTY PHILIPPE ON FRIDAY. PT FIXED UPON THE SITUATION. THIS NURSE TOLD HER WE COULD FOLLOWUP WITHE DEPUTY PHILIPPE ON FRIDAY.
[2022-06-09] MEDS: haloperidol inj 5 mg/mL INJ 1 mL IM ×2 (02:53→11:35)
[2022-06-09] MEDS: LORazepam 2 mg/mL INJ 1 mL IM ×2 (02:54→11:35)
[2022-06-09] MEDS: diphenhydrAMINE 50 mg/mL SDV 1mL IM ×2 (02:55→11:35)
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
[2022-06-09 06:00] VITALS: BP 124/79; PULSE 104; RESP 16; TEMP 36.8; O2SAT 97
[2022-06-09] MEDS: lisinopril 10 mg Tablet PO (08:47)
[2022-06-09] MEDS: fluoxetine 20 mg Capsule PO (08:47)
[2022-06-09] MEDS: atenolol 50 mg Tablet PO (08:47)
[2022-06-09] MEDS: haloperidol 5 mg Tablet PO (08:47)
[2022-06-09] MEDS: OLANZapine 5 mg ODT PO (10:40)
--- NOTE | 2022-06-09 10:51 | PC.NURSE ---
PT REQUESTED MEDICATION TO HELP HER CALM DOWN. PT RECEIVED OLANZAPINE.
[2022-06-09] MEDS: guaiFENesin-dextromethorphan UDC 10 mL PO (11:09)
--- NOTE | 2022-06-09 11:09 | PC.NURSE ---
PT CAME TO NURSES STATION REQUESTING COUGH MEDICINE. RANDAL DM WAS GIVEN.
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
[2022-06-09 13:42] VITALS: BP 122/72; PULSE 76; RESP 18; TEMP 36.8; O2SAT 96
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
[2022-06-09 20:15] VITALS: RESP 18
[2022-06-09] MEDS: trazodone 100 mg Tablet PO (20:47)
[2022-06-09] MEDS: hyDROXYzine 25 mg Capsule 50 MG PO (20:47)
[2022-06-09] MEDS: lurasidone 80 mg Tablet PO (20:47)
[2022-06-09] MEDS: trazodone 50 mg Tablet PO (22:13)
[2022-06-10] MEDS: guaiFENesin-dextromethorphan UDC 10 mL PO ×3 (01:39→14:59)
[2022-06-10] MEDS: haloperidol 5 mg Tablet PO ×3 (01:48→18:03)
--- NOTE | 2022-06-10 01:49 | PC.NURSE ---
PT CAME TO NURSING STATION AND STATED I'M HEARING VOICES AND DELUSIONS WHEN THIS NURSE ASKED WHAT THE VOICES WERE SAYING PT STATED, I'D RATHER NOT SAY, I GUESS I JUST WON'T TAKE ANYTHING FOR IT. THIS NURSE ADMINISTERED HALDOL FOR SYMPTOM RELIEF.
--- NOTE | 2022-06-10 05:54 | PC.NURSE ---
STAFF HAS BEEN KEEPING AN EYE ON PATIENT BECAUSE SHE HAS NOT SLEPT. IT WAS NOTED THAT SHE WALKED INTO THE DAYROOM. STAFF WATCHED SHE LAID ON THE FLOOR. STAFF WALKED AND CHECKED ON PT TO MAKE SURE SHE WAS OK. PT TOLD STAFF DON'T WORRY ABOUT IT. STAFF STATED, I WANTED TO MAKE SURE YOU WERE OK AND DIDN'T FALL. PT RESPONDED, YES, i'M COMFORTABLE. PT REMAINED ON DAYROOM FLOOR AND SEEN RESPONDING TO INTERNAL STIMULI. Q15 MIN ROUNDS CONTINUED WITHIN MILIEU.
--- NOTE | 2022-06-10 06:28 | PC.NURSE ---
REFUSED VITALS THIS AM
--- NOTE | 2022-06-10 07:44 | PC.NURSE ---
called [facility] office at [phone] and spoke with officer Sol. There is no purse at the [facility]. pt only had her clothing and a whistle which are what is in her belongings already. notified pt of this information. pt calm and cooperative although sad it was not there.
[2022-06-10] MEDS: atenolol 50 mg Tablet PO (07:56)
[2022-06-10] MEDS: lisinopril 10 mg Tablet PO (07:56)
[2022-06-10] MEDS: cetylpyridinium Lozenge 1 EACH MUCOUS MEM ×2 (10:32→15:02)
[2022-06-10 14:00] VITALS: BP 107/70; PULSE 85; RESP 16; TEMP 36.7; O2SAT 95
--- NOTE | 2022-06-10 15:28 | PC.OT ---
OT attempted to evaluate pt. for groups. Pt. states, You don't need to be asking me questions. Evaluation to be attempted at another time when/if pt. is appropriate and willing to be evaluated.
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
[2022-06-10] MEDS: haloperidol inj 5 mg/mL INJ 1 mL IM (18:45)
[2022-06-10] MEDS: diphenhydrAMINE 50 mg/mL SDV 1mL IM (18:45)
[2022-06-10] MEDS: LORazepam 2 mg/mL INJ 1 mL IM (18:45)
[2022-06-10] MEDS: trazodone 100 mg Tablet PO (20:52)
[2022-06-10] MEDS: lurasidone 80 mg Tablet PO (20:52)
[2022-06-10 22:00] VITALS: RESP 18
--- NOTE | 2022-06-10 22:05 | NUR.SHIFT ---
UPON INITIAL ASSESSMENT AT BEDSIDE, PT WAS VERY GROGGY. DENIED ALL GOMEZ OF PSYCH. ASKED WHAT TIME IT WAS THEN WENT BACK TO BED. PT THEN CAME UP TO THE NURSING STATION AT APPX 2130 AND ASKED IF SHE COULD HAVE COFFEE. EXPLAINED THAT IT WAS STILL NIGHT TIME AND WE WOULDN'T HAVE COFFEE UNTIL 0600. PT SAID OK AND WENT BACK TO BED.
--- NOTE | 2022-06-11 06:30 | PC.NURSE ---
pt refused vitals this am
[2022-06-11 06:36] VITALS: RESP 20
[2022-06-11] MEDS: lisinopril 10 mg Tablet PO (08:33)
[2022-06-11] MEDS: atenolol 50 mg Tablet PO (08:33)
[2022-06-11] MEDS: haloperidol 5 mg Tablet PO ×2 (08:34→17:40)
[2022-06-11] MEDS: guaiFENesin-dextromethorphan UDC 10 mL PO ×4 (08:35→22:15)
[2022-06-11] MEDS: cetylpyridinium Lozenge 1 EACH MUCOUS MEM ×5 (08:35→23:55)
[2022-06-11] MEDS: OLANZapine 5 mg ODT PO (08:38)
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
[2022-06-11] MEDS: fluticasone nasal spray 16gm Btl 1 SPRAY NASAL ×2 (09:08→17:40)
[2022-06-11 13:48] VITALS: BP 108/75; PULSE 81; RESP 18; TEMP 36.6; O2SAT 96
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
[2022-06-11] MEDS: trazodone 100 mg Tablet PO (20:10)
[2022-06-11] MEDS: lurasidone 80 mg Tablet PO (20:10)
[2022-06-11 22:00] VITALS: RESP 18
[2022-06-11] MEDS: calcium carbonate 500 mg Chew Tablet PO (23:28)
[2022-06-12] MEDS: haloperidol 5 mg Tablet PO ×4 (01:28→18:19)
--- NOTE | 2022-06-12 01:29 | PC.NURSE ---
5mg Haldol PO given for anxiety, agitation, psychosis.
[2022-06-12] MEDS: guaiFENesin-dextromethorphan UDC 10 mL PO ×4 (02:38→15:47)
[2022-06-12] MEDS: ibuprofen 600 mg Tablet PO (02:38)
[2022-06-12] MEDS: cetylpyridinium Lozenge 1 EACH MUCOUS MEM ×6 (02:38→21:48)
[2022-06-12 06:00] VITALS: BP 119/77; PULSE 75; RESP 18; TEMP 36.4; O2SAT 95
[2022-06-12] MEDS: OLANZapine 5 mg ODT PO ×3 (06:26→21:46)
[2022-06-12] MEDS: hyDROXYzine 25 mg Capsule 50 MG PO (07:32)
[2022-06-12] MEDS: atenolol 50 mg Tablet PO (08:17)
[2022-06-12] MEDS: lisinopril 10 mg Tablet PO (08:17)
[2022-06-12] MEDS: fluticasone nasal spray 16gm Btl 1 SPRAY NASAL ×2 (08:18→18:20)
[2022-06-12] MEDS: benztropine 1 mg Tablet PO (10:06)
[2022-06-12 12:06] LABS: Adenovirus Not Detected (NOT DETECT); Chlamydia Pneumoniae Not Detected (NOT DETECT); Coronavirus 229E,HKU1,NL63,OC4 Not Detected (NOT DETECT); Human Metapneumovirus Not Detected (NOT DETECT); Human Rhinovirus/Enterovirus Not Detected (NOT DETECT); Influenza A Not Detected (NOT DETECT); Influenza A H1 Not Detected (NOT DETECT); Influenza A H1-2009 Not Detected (NOT DETECT); Influenza A H3 Not Detected (NOT DETECT); Influenza B Not Detected (NOT DETECT); Mycoplasma Pneumoniae Not Detected (NOT DETECT); Parainfluenza Virus Type 1 Not Detected (NOT DETECT); Parainfluenza Virus Type 2 Not Detected (NOT DETECT); Parainfluenza Virus Type 3 Not Detected (NOT DETECT); Parainfluenza Virus Type 4 Not Detected (NOT DETECT); Respiratory Syncytial Virus A Not Detected (NOT DETECT); Respiratory Syncytial Virus B Not Detected (NOT DETECT); SARS-COV-2 Not Detected (NOT DETECT)
[2022-06-12 14:00] VITALS: BP 160/82; PULSE 78; RESP 18; TEMP 36.7; O2SAT 96
[2022-06-12] MEDS: diphenhydrAMINE 50 mg Capsule PO (15:48)
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
[2022-06-12] MEDS: paliperidone ER 3 mg Tablet PO (18:19)
[2022-06-12] MEDS: trazodone 100 mg Tablet PO (21:46)
[2022-06-12 22:00] VITALS: RESP 18
[2022-06-13] MEDS: ibuprofen 600 mg Tablet PO (00:52)
[2022-06-13] MEDS: ziprasidone hcl 40 mg Capsule PO ×2 (00:53→20:07)
[2022-06-13] MEDS: OLANZapine 5 mg ODT PO ×2 (00:53→20:08)
[2022-06-13] MEDS: guaiFENesin-dextromethorphan UDC 10 mL PO ×2 (01:18→17:15)
[2022-06-13] MEDS: cetylpyridinium Lozenge 1 EACH MUCOUS MEM ×3 (04:10→20:08)
[2022-06-13 06:00] VITALS: PULSE 17
[2022-06-13] MEDS: ziprasidone 20 mg/mL SDV IM (08:04)
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
[2022-06-13] MEDS: fluticasone nasal spray 16gm Btl 1 SPRAY NASAL ×2 (08:07→18:21)
[2022-06-13] MEDS: lisinopril 10 mg Tablet PO (08:08)
[2022-06-13] MEDS: haloperidol 5 mg Tablet PO ×2 (08:08→17:15)
[2022-06-13] MEDS: atenolol 50 mg Tablet PO (08:08)
[2022-06-13] MEDS: calcium carbonate 500 mg Chew Tablet PO (08:08)
[2022-06-13] MEDS: benztropine 1 mg Tablet PO (08:08)
--- NOTE | 2022-06-13 08:09 | PC.NURSE ---
PRN TUMS 500 MG GIVEN PO PER PT C/O INDIGESTION
--- NOTE | 2022-06-13 11:20 | P.NPUPN_ITS ---
Subjective NPU Subjective: Patient is in today reporting that she is going to talk to this communications writer. When asked why she reported because she does not like black people. Then she asked what that was needed. This involves saying that. She has a desire to [address] We did discuss the guardianship concerns and however still there. Additionally we talked about some of her behaviors today that were elevated on the other people and they will continue to work on stabilizing her medications. Mental Status Exam MSE Comments: This is a well-nourished, well-developed white female looking older than her stated age with hospital scrubs on with disheveled appearance and poor eye contact. Her hygiene was poor. No abnormal movements except for mild psychomotor retardation noted. She was paranoid during the exam.? Speech was normal rate and volume.? Mood described as I do not want to talk to you, affect was irritable. ? Thought process nonlinear and at times disorganized. ? Thought content: Patient denied any suicidal ideation or homicidal ideation but appeared defensive and threatened. Clear ideas of reference noted. She did appear to be responding to internal stimuli. Attention and concentration was poor today. Recent and remote memory appeared at baseline. She is alert and oriented to person place and time, but not necessarily purpose. ? Insight and judgment are impaired and impulse control is poor. Vitals/I&O/Wt Last Vital Signs Temp 98.0 F 06/12/22 14:00 Pulse 17 L 06/13/22 06:00 Resp 18 06/12/22 22:00 BP 160/82 06/12/22 14:00 Pulse Ox 96 06/12/22 14:00 O2 Del Method 06/12/22 14:00 Data NPU : 06/07/22 13:45 06/07/22 13:45 A&P Assessment and plan (1) Schizophrenia, chronic condition: Status: Chronic (2) Suicidal ideation: Status: Resolved (3) Disturbance of sleep: Status: Acute (4) Psychiatric care: (5) Acute psychosis: Status: Acute Plan 66-year-old white female currently receiving intensive services through [facility] with continued problems with compliance of with medications admitted on a 96-hour hold with active psychotic symptoms. 1. Discontinue latuda at night, simply not effective at all. Started invega 3mg at night with plan for IM monthly. Continue haldol as prescribed. ? 2. Encourage individual, group and milieu therapy 3. Continue q-15 minute check for safety 4. Recommend sober living treatment at the highest level of care to which the patient is willing to commit. 5.? Applied for guardianship with Residential home placement. Involuntary Hold Information 96 Hour Hold: 96 Hour Involuntary Admission: Yes 96 Hour Hold Ending Date: 06/14/22 96 Hour Hold Ending Time: 15:36 Attestations NPU Medical Necessity Statement*: Inpatient hospitalization is medically necessary and the clinically appropriate intervention at this time. We will evaluate medications and make changes as indicated. Likely length of stay 7-10 days. Coding Level of Care Code Acute Health Information Technologist for g Fwd Diagnoses Schizophrenia, chronic condition F20.9 Suicidal ideation R45.851 Disturbance of sleep G47.9 Psychiatric care Acute psychosis F23
--- NOTE | 2022-06-13 11:49 | PC.NURSE ---
AM ASSESSMENT PT ENDORSES SUICIDAL THOUGHTS WITH NO PLAN. CONTRACTED FOR SAFETY. PT WAS VERY AGGRESSIVE THIS AM PER REPORT. MED NURSE DID GIVE GEODON 1M ORDERED. WHEN ASKED ABOUT VISUAL OR AUDITORY HALLUCINATION PT STATES I DON'T WANT TO TALK ABOUT IT PT CONTINUES TO COME TO NURSES STATION REQUESTING PENS, FLEXIE PEN WAS GIVEN, PT THREW IT BACK AT THIS RN AND STATES SHE WANTS A REAL PEN. EDUCATION GIVEN ON SAFETY. ALL QUESTIONS ANSWERED AND SUPPORT VOICED.
[2022-06-13 14:00] VITALS: BP 145/86; PULSE 76; RESP 18; TEMP 36.6; O2SAT 95
[2022-06-13] MEDS: paliperidone ER 3 mg Tablet PO (17:15)
[2022-06-13] MEDS: acetaminophen 325 mg Tablet 650 MG PO (18:15)
[2022-06-13] MEDS: trazodone 100 mg Tablet PO (20:08)
[2022-06-13 21:47] VITALS: BP 121/76; PULSE 76; RESP 18; TEMP 37; O2SAT 97
[2022-06-14 06:00] VITALS: RESP 18
[2022-06-14] MEDS: atenolol 50 mg Tablet PO (08:16)
[2022-06-14] MEDS: haloperidol 5 mg Tablet PO ×2 (08:16→17:45)
[2022-06-14] MEDS: lisinopril 10 mg Tablet PO (08:16)
--- NOTE | 2022-06-14 08:38 | PC.NURSE ---
Nursing Assessment Patient standing in bedroom pacing and when asked if she wanted to talk she said, just leave me alone. Attempted to assess a minute or so later and she was able to tell me she slept okay last night and wasn't in any pain. Patient stated she wasn't experiencing any auditory or visual hallucinations. Patient stated she had no suicidal ideations. She then stated she did have homicidal ideations, but when asked who they were directed towards/why she stated, leave me alone. I'm not talking to you. At this time patient began to be completely uncooperative saying, I'm not talking to you people, just go away, and would not answer any further questions. Will attempt to conversate with her at a later time.
[2022-06-14] MEDS: acetaminophen 325 mg Tablet 650 MG PO (09:02)
[2022-06-14 14:00] VITALS: BP 134/82; PULSE 86; RESP 20; TEMP 36.6; O2SAT 98
--- NOTE | 2022-06-14 16:24 | W.PM.NPUPNS ---
Subjective NPU Subjective: Patient presents today showing due to patient is of her daily presentation. In the morning she was cursing incessantly yelling at people calling them out of their names, and not wanting to speak to this clinical writer. Later she was very happy and pleasant and saying how much better things were. Reporting she was glad to be in the hospital so she had discontinued her smoking and saying that she was never going to smoke again. We discussed our plan to increase her Invega. Mental Status Exam MSE Comments: This is a well-nourished, well-developed white female looking older than her stated age with hospital scrubs on with disheveled appearance and poor eye contact. Her hygiene was poor. No abnormal movements except for mild psychomotor retardation noted while other times significant psychomotor agitation. She was paranoid during the exam.? Speech was normal rate and volume.? Mood described as happy, affect was congruent at that time that his other times irritable. ? Thought process nonlinear and at times disorganized. ? Thought content: Patient denied any suicidal ideation or homicidal ideation but appeared defensive and threatened. Clear ideas of reference noted. She did appear to be responding to internal stimuli. Attention and concentration was poor today. Recent and remote memory appeared at baseline. She is alert and oriented to person place and time, but not necessarily purpose. ? Insight and judgment are impaired and impulse control is poor. Vitals/I&O/Wt Last Vital Signs Temp 98 F 06/14/22 14:00 Pulse 86 06/14/22 14:00 Resp 20 H 06/14/22 14:00 BP 134/82 06/14/22 14:00 Pulse Ox 98 06/14/22 14:00 O2 Del Method 06/13/22 21:47 Data NPU : 06/07/22 13:45 06/07/22 13:45 A&P Assessment and plan (1) Schizophrenia, chronic condition: Status: Chronic (2) Suicidal ideation: Status: Resolved (3) Disturbance of sleep: Status: Acute (4) Psychiatric care: (5) Acute psychosis: Status: Acute Plan 66-year-old white female currently receiving intensive services through [facility] with continued problems with compliance of with medications admitted on a 96-hour hold with active psychotic symptoms. 1. Discontinued latuda at night, simply not effective at all. Started invega 3mg at night, will increase to 6 mg with plan for IM monthly. Continue haldol as prescribed. ? 2. Encourage individual, group and milieu therapy 3. Continue q-15 minute check for safety 4. Recommend sober living treatment at the highest level of care to which the patient is willing to commit. 5.? Applied for guardianship with Residential home placement. Involuntary Hold Information 96 Hour Hold: 96 Hour Involuntary Admission: Yes 96 Hour Hold Ending Date: 06/14/22 96 Hour Hold Ending Time: 15:36 Attestations NPU Medical Necessity Statement*: Inpatient hospitalization is medically necessary and the clinically appropriate intervention at this time. We will evaluate medications and make changes as indicated. Likely length of stay 7-10 days. But will be mostly driven by guardianship process. Coding Level of Care Code Acute Director Project Management for Shobha Huynh Diagnoses Schizophrenia, chronic condition F20.9 Suicidal ideation R45.851 Disturbance of sleep G47.9 Psychiatric care Acute psychosis F23
[2022-06-14] MEDS: paliperidone ER 3 mg Tablet PO (17:45)
[2022-06-14] MEDS: fluticasone nasal spray 16gm Btl 1 SPRAY NASAL (17:45)
--- NOTE | 2022-06-14 18:35 | PC.NURSE ---
PRN MEDS Patient approached nursing station stating she hurt all over and rated her pain at a 7 on a 1-10 scale. Administered tylenol at 0902.
[2022-06-14] MEDS: guaiFENesin-dextromethorphan UDC 10 mL PO (18:58)
--- NOTE | 2022-06-14 19:01 | PC.NURSE ---
PRN MED Patient has a continuous cough and requested Robitussin. Administered 185.
[2022-06-14] MEDS: ziprasidone hcl 40 mg Capsule PO (22:34)
--- NOTE | 2022-06-14 22:36 | PC.NURSE ---
PRN MED PT GIVEN 40MG GEODON FOR INCREASING AGITATION WILL CONTINUE TO MONITOR.
[2022-06-15] MEDS: haloperidol 5 mg Tablet PO ×3 (01:24→16:57)
[2022-06-15] MEDS: haloperidol inj 5 mg/mL INJ 1 mL IM (02:52)
[2022-06-15] MEDS: diphenhydrAMINE 50 mg/mL SDV 1mL IM (02:54)
[2022-06-15] MEDS: LORazepam 2 mg/mL INJ 1 mL IM (02:54)
--- NOTE | 2022-06-15 02:56 | PC.NURSE ---
Patient was very agitated, intrusive and aggressive, Yelling and screaming at patients and staff. Dr. Schmid was notified of behavior and ordered 5mg Haldol IM, 2mg Ativan IM and 50mg Benadryl IM. Patient was restive and ran from room 170 to the day room, trying to hide/escape. Patient was coerced into setting on the bench outside the nursing station where she was talked into taking the injections (02:45)without incident. supervisor hardboard as well as security were called to be at stand by if needed.
[2022-06-15] MEDS: lisinopril 10 mg Tablet PO (08:35)
[2022-06-15] MEDS: atenolol 50 mg Tablet PO (08:35)
[2022-06-15] MEDS: fluticasone nasal spray 16gm Btl 1 SPRAY NASAL (08:36)
--- NOTE | 2022-06-15 12:32 | P.NPUPN_ITS ---
Subjective NPU Subjective: Patient presents today still having very material activity. At times being calm but other times being quite volatile. When I met her in the group room today she nearly turned her head towards the window and would not leave a and said she did not want to talk to me. Shortly after that however while still facing her face to the window she picked up one her pictures and showed to this underwriter mortgage loan and asked if I thought it was a nice picture. We continue this conversation the whole time her never looking my direction with her neck fully twisted towards the window but holding up the picture in the opposite direction so that I could see it. Mental Status Exam MSE Comments: This is a well-nourished, well-developed white female looking older than her stated age with hospital scrubs on with disheveled appearance and poor eye contact. Her hygiene was poor. No abnormal movements except for mild psychomotor retardation noted while other times significant psychomotor agitation. She was paranoid during the exam.? Speech was normal rate and volume.? Mood described as okay, affect was odd at that time that his other times irritable. ? Thought process nonlinear and at times disorganized. ? Thought content: Patient denied any suicidal ideation or homicidal ideation but appeared defensive and threatened. Clear ideas of reference noted. She did appear to be responding to internal stimuli. Attention and concentration was poor today. Recent and remote memory appeared at baseline. She is alert and oriented to person place and time, but not necessarily purpose. ? Insight and judgment are impaired and impulse control is poor. Vitals/I&O/Wt Last Vital Signs Temp 98 F 06/14/22 14:00 Pulse 86 06/14/22 14:00 Resp 20 H 06/14/22 14:00 BP 134/82 06/14/22 14:00 Pulse Ox 98 06/14/22 14:00 O2 Del Method 06/13/22 21:47 Data NPU : 06/07/22 13:45 06/07/22 13:45 A&P Assessment and plan (1) Schizophrenia, chronic condition: Status: Chronic (2) Suicidal ideation: Status: Resolved (3) Disturbance of sleep: Status: Acute (4) Psychiatric care: (5) Acute psychosis: Status: Acute Plan 66-year-old white female currently receiving intensive services through [facility] with continued problems with compliance of with medications admitted on a 96-hour hold with active psychotic symptoms. 1. Discontinued latuda at night, simply not effective at all. Started invega 3mg at night, with current increase to 6 mg with plan for IM monthly. Continue haldol as prescribed. ? 2. Encourage individual, group and milieu therapy 3. Continue q-15 minute check for safety 4. Recommend sober living treatment at the highest level of care to which the patient is willing to commit. 5.? Applied for guardianship with Residential home placement. Involuntary Hold Information 96 Hour Hold: 96 Hour Involuntary Admission: Yes 96 Hour Hold Ending Date: 06/14/22 96 Hour Hold Ending Time: 15:36 Attestations NPU Medical Necessity Statement*: Inpatient hospitalization is medically necessary and the clinically appropriate intervention at this time. We will evaluate medications and make changes as indicated. Likely length of stay 7-10 days. But will be mostly driven by guardianship process. Coding Level of Care Code Acute Chassis Wirer for Shobha Fwd Diagnoses Schizophrenia, chronic condition F20.9 Suicidal ideation R45.851 Disturbance of sleep G47.9 Psychiatric care Acute psychosis F23
[2022-06-15 14:00] VITALS: BP 129/91; PULSE 94; RESP 18; TEMP 36.6; O2SAT 96
[2022-06-15] MEDS: calcium carbonate 500 mg Chew Tablet PO (15:00)
[2022-06-15] MEDS: paliperidone ER 3 mg Tablet 6 MG PO (16:56)
[2022-06-15 19:45] VITALS: BP 105/67; PULSE 90; RESP 16; TEMP 36.7; O2SAT 95
[2022-06-15] MEDS: ziprasidone hcl 40 mg Capsule PO (20:13)
[2022-06-15] MEDS: cetylpyridinium Lozenge 1 EACH MUCOUS MEM (21:30)
[2022-06-15 22:00] VITALS: BP 105/67; PULSE 90; RESP 16; TEMP 36.7; O2SAT 95
[2022-06-16] MEDS: cetylpyridinium Lozenge 1 EACH MUCOUS MEM ×3 (01:31→08:52)
[2022-06-16] MEDS: hyDROXYzine 25 mg Capsule 50 MG PO ×2 (02:32→04:22)
[2022-06-16] MEDS: haloperidol 5 mg Tablet PO ×3 (02:32→17:26)
[2022-06-16] MEDS: OLANZapine 5 mg ODT PO ×2 (04:22→23:10)
[2022-06-16 06:00] VITALS: BMI 28.8
[2022-06-16 06:08] VITALS: BP 105/71; PULSE 91; RESP 16; TEMP 36.6; O2SAT 96
--- NOTE | 2022-06-16 08:35 | PC.NURSE ---
PT IS VERY PARANOID AND ANXIOUS THIS AM. STATES SHE IS STILL HEARING VOICES NON COMMANDING BUT NEGATIVE IN NATURE. PT STATES THE VOICES ARE ALWAYS NEGATIVE AND TELLS HER SHE IS NOT GOOD ENOUGH AND SHE IS UGLY. POSITIVE REINFORCEMENT WAS GIVEN AND ENCOURAGEMENT. EDUCATED PT ON POSITIVE THINKING AND VOICING TO STAFF WHEN THE VOICES ARE NEGATIVE SO STAFF CAN ENCOURAGE HER IN POSITIVE WAYS. PT STATES SHE WILL LET STAFF KNOW. PT WOULD NOT ALLOW STUDENT TO COME IN FOR ASSESSMENT DUE TO PARANOIA AND BEING UNTRUSTING OF OTHERS. DENIES PAIN. DENIES SI/HI AND VH AT THIS TIME. PT WAS EDUCATED ON HER FREQUENT OUTBURSTS AND TO LET STAFF KNOW WHEN SHE IS GETTING ANGRY AND WHY SHE IS ANGRY. PT STATES SHE WILL TRY AND LET STAFF KNOW BUT MOST THE TIME SHE DOESNT KNOW WHY SHE IS MAD, SHE JUST GETS MAD . ALL QUESTIONS ANSWERED AND SUPPORT VOICED.
[2022-06-16] MEDS: lisinopril 10 mg Tablet PO (08:52)
[2022-06-16] MEDS: ondansetron 4 MG Tablet PO (08:52)
[2022-06-16] MEDS: ziprasidone hcl 40 mg Capsule PO (08:52)
[2022-06-16] MEDS: atenolol 50 mg Tablet PO (08:52)
--- NOTE | 2022-06-16 10:00 | PC.NURSE ---
PRN MEDICATION PT WAS VERY ANXIOUS AND HEARING VOICES THIS AM, YELLING AT STAFF AND BEING VERY DEMANDING. GEODON 40 MG WAS GIVEN ORDERED AND WAS EFFECTIVE. PT ALSO C/O STOMACH HURTING WITH MILD NAUSEA. ZOFRAN WAS GIVEN ORDERED.
[2022-06-16 14:00] VITALS: BP 138/67; PULSE 80; RESP 18; TEMP 36.3; O2SAT 94
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
[2022-06-16] MEDS: haloperidol inj 5 mg/mL INJ 1 mL IM (16:56)
[2022-06-16] MEDS: LORazepam 2 mg/mL INJ 1 mL IM (16:56)
[2022-06-16] MEDS: diphenhydrAMINE 50 mg/mL SDV 1mL IM (16:57)
--- NOTE | 2022-06-16 17:06 | PC.NURSE ---
BEHAVIOR RN WAS SITTING AT DESK COMPLETING PAPER WORK AT APPROXIMATELY 1635. RN OBSERVED PT WALKING UP THE BEST BRISKLY FROM ROOM/DAY AREA DIRECTION. PT THEN WAS OBSERVED TO GO INTO ANOTHER PTS ROOM. THIS RN GOT UP STARTED TELLING PT TO STOP GOING INTO THE ROOM, LOUDLY SO PT COULD HEAR. PT IGNORED VERBAL REDIRECTION. THIS RN RAN OUT OF NURSES STATION AND ARRIVED TO DOORWAY AND WITNESSED PTS HANDS AROUND ANOTHER PTS NECK MOVING THE OTHER PTS HEAD UP AND DOWN OFF THE BED TWICE. THIS RN YELLED STOP AND RAN TO THE OTHER PTS AID, PT ABRUPTLY STOPPED SAID OKAY AND WALKED OUT THE ROOM. PT WAS DIRECTED TO STAY AWAY FROM THE OTHER PTS ROOM. PT WALKED AROUND NURSES STATION AND SAT ON BENCH. PT WAS THEN MOVED TO THE OTHER SIDE OF THE UNIT AWAY FROM OTHER PT INTO ROOM 131/1. CLINICAL PRACTICE CONSULTANT AND THIS RN ADMINISTER HALDOL 5 MG, ATIVAN 2 MG AND BENADRYL 50 MG, SEE MAR FOR TIMES AND DETAILS. DR. MAYBERRY WAS NOTIFIED. NEW ORDERS RECEIVED AT [address] PT ON ONE TO ONE FOR SAFETY/AGGRESSION/IMPULSIVENESS. PT WAS CALM AND COOPERATIVE WHILE RECEIVING INJECTION AND LAID ON BED AND WAS RESTING WHEN THIS RN EXITED ROOM.
[2022-06-16] MEDS: paliperidone ER 3 mg Tablet 6 MG PO (17:26)
[2022-06-16] MEDS: fluticasone nasal spray 16gm Btl 1 SPRAY NASAL (17:28)
--- NOTE | 2022-06-16 18:37 | PC.NURSE ---
1656 administered B52 for pt experiencing outlandish behaviors.
[2022-06-16 20:08] VITALS: BP 122/74; PULSE 91; RESP 18; TEMP 36.7; O2SAT 97
[2022-06-16] MEDS: acetaminophen 325 mg Tablet 650 MG PO (23:10)
[2022-06-17] MEDS: hyDROXYzine 25 mg Capsule 50 MG PO ×2 (04:46→23:23)
--- NOTE | 2022-06-17 05:43 | PC.NURSE ---
PT CAME TO DESK REQUESTING HER HYGIENE BOX, PT WAS ASKED IF SHE NEEDED A TOOTH BRUSH AND TOOTHPASTE. PT GOT ANGRY AND STATED, JUST GIVE ME A TOOTH BRUSH AND SOAP AND SOME SHAMPOO. I DON'T WANT THE BOX. ATTEMPT MADE TO EXPLAIN TO PT THAT SHE CANNOT KEEP SAID ITEMS IN HER ROOM AND THAT HER BOX IS WHERE SAID ITEMS ARE KEPT WHILE NOT BEING USE. RN HANDED PT HER BOX AND PT DUMPED THE BOX AT THE NURSES STATION DOOR AND THREW THE BOX BACK AT THE RN.
[2022-06-17 06:00] VITALS: BP 128/85; PULSE 89; RESP 22; TEMP 36.8; O2SAT 94
[2022-06-17] MEDS: fluticasone nasal spray 16gm Btl 1 SPRAY NASAL (08:36)
[2022-06-17] MEDS: atenolol 50 mg Tablet PO (08:36)
[2022-06-17] MEDS: haloperidol 5 mg Tablet PO ×3 (08:36→21:59)
[2022-06-17] MEDS: lisinopril 10 mg Tablet PO (08:36)
--- NOTE | 2022-06-17 11:01 | W.PM.NPUPNS ---
Subjective NPU Subjective: Patient presents today continuing to focus on when she might be discharged. We discussed her clear and slow improvement. She continues on one-to-one given her aggression yesterday. However there is no other episodes she continues to show improvement in her spontaneous conversation and cognitive clarity. Mental Status Exam MSE Comments: This is a well-nourished, well-developed white female looking older than her stated age with hospital scrubs on with disheveled appearance and improving eye contact. Her hygiene was poor. No abnormal movements except for mild psychomotor retardation. She was less paranoid during the exam.? Speech was normal rate and volume.? Mood described as better, can I go home, affect was odd but less labile today. ? Thought process nonlinear and at times disorganized. ? Thought content: Patient denied any suicidal ideation or homicidal ideation but appeared defensive and threatened. Clear ideas of reference noted. She did appear to be responding to internal stimuli. Attention and concentration was improving today. Recent and remote memory appeared at baseline. She is alert and oriented to person place and time, but not necessarily purpose. ? Insight and judgment are impaired and impulse control is poor. Vitals/I&O/Wt Last Vital Signs Temp 98.3 F 06/17/22 06:00 Pulse 89 06/17/22 06:00 Resp 22 H 06/17/22 06:00 BP 128/85 06/17/22 06:00 Pulse Ox 94 06/17/22 06:00 O2 Del Method 06/17/22 06:00 Weight last 48 hrs Weight 76.294 kg Data NPU : 06/07/22 13:45 06/07/22 13:45 A&P Assessment and plan (1) Schizophrenia, chronic condition: Status: Chronic (2) Suicidal ideation: Status: Resolved (3) Disturbance of sleep: Status: Acute (4) Psychiatric care: (5) Acute psychosis: Status: Acute Plan 66-year-old white female currently receiving intensive services through [facility] with continued problems with compliance of with medications admitted on a 96-hour hold with active psychotic symptoms. 1. Discontinued latuda at night, simply not effective at all. Started invega 3mg at night, with current increase to 6 mg with plan for IM monthly. Continue haldol as prescribed. ? 2. Encourage individual, group and milieu therapy 3. Continue one-to-one for safety. 4. Recommend sober living treatment at the highest level of care to which the patient is willing to commit. 5.? Applied for guardianship with Residential home placement. Involuntary Hold Information 96 Hour Hold: 96 Hour Involuntary Admission: Yes 96 Hour Hold Ending Date: 06/14/22 96 Hour Hold Ending Time: 15:36 Attestations NPU Medical Necessity Statement*: Inpatient hospitalization is medically necessary and the clinically appropriate intervention at this time. We will evaluate medications and make changes as indicated. Likely length of stay 7-10 days. But will be mostly driven by guardianship process. Coding Level of Care Code Acute Doctor Of Naprapathy for Shobha Ramírezd Diagnoses Schizophrenia, chronic condition F20.9 Suicidal ideation R45.851 Disturbance of sleep G47.9 Psychiatric care Acute psychosis F23
[2022-06-17] MEDS: calcium carbonate 500 mg Chew Tablet PO (11:45)
--- NOTE | 2022-06-17 11:45 | PC.NURSE ---
PRN TUMS 500 MG GIVEN PO PER PT C/O INDIGESTION
[2022-06-17] MEDS: ziprasidone hcl 40 mg Capsule PO (12:19)
--- NOTE | 2022-06-17 12:19 | PC.NURSE ---
PRN GEODON 40 MG GIVEN PO PER PT C/O INCREASED ANXIETY/AGITATION. PT UPSET SHE HAS A SITTER FOLLOWING HER, VOICE RAMBLING AND PRESSURED. TOOK MED WILLINGLY BUT PT IS VERY COMPULSIVE WITH HER ACTIONS HERE...WILL CONT TO MONITOR
[2022-06-17 14:00] VITALS: BP 135/72; PULSE 93; RESP 18; TEMP 36.7; O2SAT 97
[2022-06-17] MEDS: ondansetron 4 MG Tablet PO (14:22)
--- NOTE | 2022-06-17 14:23 | PC.NURSE ---
PRN ZOFRAN 4 MG GIVEN PO PER PT C/O STATED NAUSEA WILL CONT TO MONITOR
[2022-06-17] MEDS: cetylpyridinium Lozenge 1 EACH MUCOUS MEM (15:14)
[2022-06-17] MEDS: paliperidone ER 3 mg Tablet 6 MG PO (17:50)
[2022-06-17] MEDS: nicotine 4 mg lozenge MUCOUS MEM (17:58)
[2022-06-17 20:12] VITALS: BP 138/81; PULSE 94; RESP 18; TEMP 36.6; O2SAT 96
[2022-06-17] MEDS: OLANZapine 5 mg ODT PO (21:22)
[2022-06-17] MEDS: trazodone 100 mg Tablet PO (21:59)
[2022-06-17] MEDS: diphenhydrAMINE 50 mg Capsule PO (23:23)
[2022-06-18] MEDS: haloperidol inj 5 mg/mL INJ 1 mL IM (01:10)
[2022-06-18] MEDS: diphenhydrAMINE 50 mg/mL SDV 1mL IM (01:11)
[2022-06-18] MEDS: LORazepam 2 mg/mL INJ 1 mL IM (01:11)
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
[2022-06-18 06:00] VITALS: BP 117/77; PULSE 94; RESP 18; O2SAT 96
[2022-06-18] MEDS: magnesium hydroxide 30 mL UDC PO (06:30)
[2022-06-18] MEDS: atenolol 50 mg Tablet PO (08:11)
[2022-06-18] MEDS: fluticasone nasal spray 16gm Btl 1 SPRAY NASAL ×2 (08:12→17:36)
[2022-06-18] MEDS: lisinopril 10 mg Tablet PO (08:12)
[2022-06-18] MEDS: haloperidol 5 mg Tablet PO ×2 (08:12→17:36)
[2022-06-18] MEDS: cetylpyridinium Lozenge 1 EACH MUCOUS MEM ×3 (10:45→18:04)
[2022-06-18 14:00] VITALS: BP 112/74; PULSE 90; RESP 18; TEMP 37; O2SAT 97
--- NOTE | 2022-06-18 15:51 | W.PM.NPUPNS ---
Subjective NPU Subjective: Patient presents today reporting that she is wanting to leave. We discussed the guardianship process and also the fact this continues to be on a one-to-one secondary to her recent aggression. We discussed that she would not be discharging until she was able to be off the one-to-one but also that her patterns over the past couple of years identify the need for a guardian. She forwarded her friend as a possible guardian and a desire to leave today. We discussed that she would not be leaving today or tomorrow and we would be following his guardianship process. We identified by family to the she will only read about how everyone on the unit was talking about her and calling her a whore even though she did not do any whorish things. Mental Status Exam MSE Comments: This is a well-nourished, well-developed white female looking older than her stated age with hospital scrubs on with disheveled but improving appearance and improving eye contact. Her hygiene was poor, but starting to improve. No abnormal movements except for mild psychomotor retardation. She was less paranoid during the exam.? Speech was normal rate and volume.? Mood described as better, can I go home, affect was odd but less labile today. ? Thought process nonlinear and at times disorganized. ? Thought content: Patient denied any suicidal ideation or homicidal ideation but appeared defensive and threatened. Clear ideas of reference noted. She did appear to be responding to internal stimuli. Attention and concentration was improving today. Recent and remote memory appeared at baseline. She is alert and oriented to person place and time, but not necessarily purpose. ? Insight and judgment are impaired and impulse control is poor. Vitals/I&O/Wt Last Vital Signs Temp 98.6 F 06/18/22 14:00 Pulse 90 06/18/22 14:00 Resp 18 06/18/22 14:00 BP 112/74 06/18/22 14:00 Pulse Ox 97 06/18/22 14:00 O2 Del Method 06/18/22 14:00 Data NPU : 06/07/22 13:45 06/07/22 13:45 A&P Assessment and plan (1) Schizophrenia, chronic condition: Status: Chronic (2) Suicidal ideation: Status: Resolved (3) Disturbance of sleep: Status: Acute (4) Psychiatric care: (5) Acute psychosis: Status: Acute Plan 66-year-old white female currently receiving intensive services through [facility] with continued problems with compliance of with medications admitted on a 96-hour hold with active psychotic symptoms. 1. Discontinued latuda at night, simply not effective at all. Started invega 3mg at night, and increase to 9 mg with plan for IM monthly. Continue haldol as prescribed. ? 2. Encourage individual, group and milieu therapy 3. Continue one-to-one for safety. 4. Recommend sober living treatment at the highest level of care to which the patient is willing to commit. 5.? Applied for guardianship with Residential home placement. Involuntary Hold Information 96 Hour Hold: 96 Hour Involuntary Admission: Yes 96 Hour Hold Ending Date: 06/14/22 96 Hour Hold Ending Time: 15:36 Attestations NPU Medical Necessity Statement*: Inpatient hospitalization is medically necessary and the clinically appropriate intervention at this time. We will evaluate medications and make changes as indicated. Likely length of stay 7-10 days. But will be mostly driven by guardianship process. Coding Level of Care Code Acute Entry Level Business Analyst for Shobha Huynh Diagnoses Schizophrenia, chronic condition F20.9 Suicidal ideation R45.851 Disturbance of sleep G47.9 Psychiatric care Acute psychosis F23
[2022-06-18] MEDS: paliperidone ER 3 mg Tablet 6 MG PO (17:34)
[2022-06-18 21:10] VITALS: BP 125/78; PULSE 98; RESP 22; O2SAT 97
[2022-06-18] MEDS: trazodone 100 mg Tablet PO (21:22)
[2022-06-18] MEDS: hyDROXYzine 25 mg Capsule 50 MG PO (21:22)
[2022-06-19] MEDS: acetaminophen 325 mg Tablet 650 MG PO ×2 (05:03→21:17)
[2022-06-19 06:00] VITALS: BP 122/62; PULSE 87; RESP 22; O2SAT 95
[2022-06-19] MEDS: fluticasone nasal spray 16gm Btl 1 SPRAY NASAL ×2 (08:02→17:43)
[2022-06-19] MEDS: haloperidol 5 mg Tablet PO ×3 (08:03→21:17)
[2022-06-19] MEDS: lisinopril 10 mg Tablet PO (08:03)
[2022-06-19] MEDS: atenolol 50 mg Tablet PO (08:03)
--- NOTE | 2022-06-19 08:12 | PC.NURSE ---
shift assessment pt denies SI/HI/AVH upon assessment, but states she thinks she might have colon cancer ....mood irritable, lack of judgment, cont to be 1:1 for patient safety
[2022-06-19] MEDS: diphenhydrAMINE 50 mg Capsule PO (08:48)
--- NOTE | 2022-06-19 08:48 | PC.NURSE ---
PRN BENADRYL 50 MG GIVEN PO PER PT C/O ALLERGIES/RUNNY NOSE.
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
[2022-06-19] MEDS: nicotine 4 mg lozenge MUCOUS MEM (09:41)
[2022-06-19] MEDS: calcium carbonate 500 mg Chew Tablet PO (11:13)
[2022-06-19 14:00] VITALS: BP 135/74; PULSE 88; RESP 18; TEMP 36.9; O2SAT 98
--- NOTE | 2022-06-19 15:54 | W.PM.NPUPNS ---
Subjective NPU Subjective: Patient presents today continuing to struggle with impulse control but at times seeming more like her regular self. She continues to focus on wanting to be discharged to her significant other who she refers to as her guardian. We discussed the need for her to manage her behaviors to get off the one-to-one. We discussed the guardianship process as well. Mental Status Exam MSE Comments: This is a well-nourished, well-developed white female looking older than her stated age with hospital scrubs on with disheveled but improving appearance and improving eye contact. Her hygiene was poor, but starting to improve. No abnormal movements except for mild psychomotor retardation. She was less paranoid during the exam.? Speech was normal rate and volume.? Mood described as I promised I would be good if you let me go home, affect was odd but less labile today. ? Thought process nonlinear and at times more organized. ? Thought content: Patient denied any suicidal ideation or homicidal ideation. Clear ideas of reference noted. She did appear to be responding to internal stimuli. Attention and concentration was improving today. Recent and remote memory appeared at baseline. She is alert and oriented to person place and time, but not necessarily purpose. ? Insight and judgment are impaired and impulse control is poor. Vitals/I&O/Wt Last Vital Signs Temp 98.6 F 06/19/22 22:00 Pulse 88 06/19/22 22:00 Resp 17 06/19/22 22:00 BP 115/78 06/19/22 22:00 Pulse Ox 97 06/19/22 22:00 O2 Del Method 06/19/22 22:00 Data NPU : 06/07/22 13:45 06/07/22 13:45 A&P Assessment and plan (1) Schizophrenia, chronic condition: Status: Chronic (2) Suicidal ideation: Status: Resolved (3) Disturbance of sleep: Status: Acute (4) Psychiatric care: (5) Acute psychosis: Status: Acute Plan 66-year-old white female currently receiving intensive services through [facility] with continued problems with compliance of with medications admitted on a 96-hour hold with active psychotic symptoms. 1. Discontinued latuda at night, simply not effective at all. Started invega 3mg at night, and increase to 9 mg with plan for IM monthly. Continue haldol as prescribed. ? 2. Encourage individual, group and milieu therapy 3. Continue one-to-one for safety. 4. Recommend sober living treatment at the highest level of care to which the patient is willing to commit. 5.? Applied for guardianship with Residential home placement. Involuntary Hold Information 96 Hour Hold: 96 Hour Involuntary Admission: Yes 96 Hour Hold Ending Date: 06/14/22 96 Hour Hold Ending Time: 15:36 Attestations NPU Medical Necessity Statement*: Inpatient hospitalization is medically necessary and the clinically appropriate intervention at this time. We will evaluate medications and make changes as indicated. Likely length of stay 7-10 days. But will be mostly driven by guardianship process. Coding Level of Care Code Acute Cream Dipper for Shohba Fwd Diagnoses Schizophrenia, chronic condition F20.9 Suicidal ideation R45.851 Disturbance of sleep G47.9 Psychiatric care Acute psychosis F23
[2022-06-19] MEDS: cetylpyridinium Lozenge 1 EACH MUCOUS MEM (16:13)
[2022-06-19] MEDS: paliperidone ER 3 mg Tablet 6 MG PO (17:43)
[2022-06-19] MEDS: trazodone 100 mg Tablet PO (20:24)
[2022-06-19] MEDS: ibuprofen 600 mg Tablet PO (20:24)
[2022-06-19] MEDS: hyDROXYzine 25 mg Capsule 50 MG PO (20:25)
[2022-06-19] MEDS: ziprasidone hcl 40 mg Capsule PO (20:25)
[2022-06-19 22:00] VITALS: BP 115/78; PULSE 88; RESP 17; TEMP 37; O2SAT 97
[2022-06-20] MEDS: cetylpyridinium Lozenge 1 EACH MUCOUS MEM ×4 (04:20→20:26)
[2022-06-20] MEDS: guaiFENesin-dextromethorphan UDC 10 mL PO (05:39)
[2022-06-20 06:00] VITALS: BP 135/86; PULSE 83; RESP 17; TEMP 36.7; O2SAT 94
--- NOTE | 2022-06-20 06:56 | PC.NURSE ---
PT HAD NO OUTBURSTS TOWARD ANYONE DURING GREENHOUSE ASSISTANT, BUT WAS NOTED BY ROBERT TO HAVE MOMENTS OF TALKING TO HERSELF SAYING, I'M GOING TO KILL THAT BITCH. STILL QUITE LABILE, BUT COOPERATIVE ALL SHIFT.
[2022-06-20] MEDS: haloperidol 5 mg Tablet PO ×3 (08:19→17:24)
[2022-06-20] MEDS: magnesium hydroxide 30 mL UDC PO (08:19)
[2022-06-20] MEDS: lisinopril 10 mg Tablet PO (08:19)
[2022-06-20] MEDS: fluticasone nasal spray 16gm Btl 1 SPRAY NASAL ×2 (08:19→17:46)
[2022-06-20] MEDS: OLANZapine 5 mg ODT PO (08:19)
[2022-06-20] MEDS: atenolol 50 mg Tablet PO (08:19)
[2022-06-20] MEDS: acetaminophen 325 mg Tablet 650 MG PO (10:13)
[2022-06-20] MEDS: hyDROXYzine 25 mg Capsule 50 MG PO ×2 (13:38→23:13)
[2022-06-20 14:00] VITALS: BP 103/65; PULSE 88; RESP 18; TEMP 36.6; O2SAT 95
--- NOTE | 2022-06-20 15:23 | W.PM.NPUPNS ---
Subjective NPU Subjective: Patient presents today continuing to struggle with the reality that she is staying in the hospital for some period of time. We continue to discuss the guardianship process and concerns about her current functioning. She continues to be more cogent and when she was first admitted to still having moments of volatility per reports. She continued to be on one-to-one and continue to discuss the process of getting off of one-to-one. Otherwise she denies any new issues and is taking medication as prescribed. She ultimately identified a willingness to stay and have us assist her in finding a suitable living arrangement but at times these agreements are mercurial. Mental Status Exam MSE Comments: This is a well-nourished, well-developed white female looking older than her stated age with hospital scrubs on with disheveled but improving appearance and improving eye contact. Her hygiene is starting to improve. No abnormal movements except for mild psychomotor retardation. She was less paranoid during the exam.? Speech was normal rate and volume.? Mood described as okay, affect was odd but less labile today. ? Thought process nonlinear and at times more organized. ? Thought content: Patient denied any suicidal ideation or homicidal ideation. Clear ideas of reference noted. She did not appear to be responding to internal stimuli. Attention and concentration was improving today. Recent and remote memory appeared at baseline. She is alert and oriented to person place and time, but not necessarily purpose. ? Insight and judgment are impaired and impulse control is poor. Vitals/I&O/Wt Last Vital Signs Temp 97.6 F 06/20/22 20:54 Pulse 88 06/20/22 20:54 Resp 16 06/20/22 20:54 BP 119/78 06/20/22 20:54 Pulse Ox 96 06/20/22 20:54 O2 Del Method 06/20/22 20:54 Data NPU : 06/07/22 13:45 06/07/22 13:45 A&P Assessment and plan (1) Schizophrenia, chronic condition: Status: Chronic (2) Suicidal ideation: Status: Resolved (3) Disturbance of sleep: Status: Acute (4) Psychiatric care: (5) Acute psychosis: Status: Acute Plan 66-year-old white female currently receiving intensive services through [facility] with continued problems with compliance of with medications admitted on a 96-hour hold with active psychotic symptoms. 1. Discontinued latuda at night, simply not effective at all. Started invega 3mg at night, and increased to 9 mg with plan for IM monthly. Continue haldol as prescribed. ? 2. Encourage individual, group and milieu therapy 3. Continue one-to-one for safety. 4. Recommend sober living treatment at the highest level of care to which the patient is willing to commit. 5.? Applied for guardianship with Residential home placement. Involuntary Hold Information 96 Hour Hold: 96 Hour Involuntary Admission: Yes 96 Hour Hold Ending Date: 06/14/22 96 Hour Hold Ending Time: 15:36 Attestations NPU Medical Necessity Statement*: Inpatient hospitalization is medically necessary and the clinically appropriate intervention at this time. We will evaluate medications and make changes as indicated. Likely length of stay 7-10 days. But will be mostly driven by guardianship process. Coding Level of Care Code Acute Meat And Seafood Clerk for Shobha Ramírezd Diagnoses Schizophrenia, chronic condition F20.9 Suicidal ideation R45.851 Disturbance of sleep G47.9 Psychiatric care Acute psychosis F23
[2022-06-20] MEDS: paliperidone ER 3 mg Tablet 6 MG PO (17:24)
[2022-06-20 20:54] VITALS: BP 119/78; PULSE 88; RESP 16; TEMP 36.4; O2SAT 96
[2022-06-20] MEDS: trazodone 100 mg Tablet PO (23:13)
[2022-06-21] MEDS: ziprasidone hcl 40 mg Capsule PO ×3 (00:12→18:19)
[2022-06-21] MEDS: cetylpyridinium Lozenge 1 EACH MUCOUS MEM ×3 (01:18→21:10)
[2022-06-21] MEDS: OLANZapine 5 mg ODT PO ×2 (03:17→13:21)
[2022-06-21] MEDS: nicotine 2 mg Gum BUCCAL (06:47)
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
[2022-06-21] MEDS: diphenhydrAMINE 50 mg/mL SDV 1mL IM (06:59)
[2022-06-21] MEDS: LORazepam 2 mg/mL INJ 1 mL IM (07:00)
[2022-06-21] MEDS: haloperidol inj 5 mg/mL INJ 1 mL IM (07:00)
[2022-06-21] MEDS: benztropine 1 mg Tablet PO (10:05)
[2022-06-21] MEDS: ibuprofen 600 mg Tablet PO (10:05)
[2022-06-21] MEDS: haloperidol 5 mg Tablet PO ×3 (10:05→17:30)
[2022-06-21] MEDS: atenolol 50 mg Tablet PO (10:06)
[2022-06-21] MEDS: lisinopril 10 mg Tablet PO (10:06)
[2022-06-21] MEDS: hyDROXYzine 25 mg Capsule 50 MG PO (13:21)
[2022-06-21] MEDS: ondansetron 4 MG Tablet PO (13:21)
--- NOTE | 2022-06-21 13:50 | W.PM.NPUPNS ---
Subjective NPU Subjective: Patient presents today denying anything other than some mild somatic complaints. He continues to be on the one-to-one without major concerns today. We discussed if she could continue avoiding trouble taking her off one-to-one possibly this weekend. She was not hyperfocused about discharge today. In general a fairly positive day. Mental Status Exam MSE Comments: This is a well-nourished, well-developed white female looking older than her stated age with hospital scrubs on with disheveled but improving appearance and improving eye contact. Her hygiene is starting to improve. No abnormal movements except for mild psychomotor retardation. She was less paranoid during the exam.? Speech was normal rate and volume.? Mood described as fine, affect was odd but less labile today. ? Thought process nonlinear and at times more organized. ? Thought content: Patient denied any suicidal ideation or homicidal ideation. Clear ideas of reference noted. She did not appear to be responding to internal stimuli. Attention and concentration was improving today. Recent and remote memory appeared at baseline. She is alert and oriented to person place and time, but not necessarily purpose. ? Insight and judgment are impaired and impulse control is poor. Intellectual ability limited Vitals/I&O/Wt Last Vital Signs Temp 97.6 F 06/20/22 20:54 Pulse 88 06/20/22 20:54 Resp 16 06/20/22 20:54 BP 119/78 06/20/22 20:54 Pulse Ox 96 06/20/22 20:54 O2 Del Method 06/20/22 20:54 Data NPU : 06/07/22 13:45 06/07/22 13:45 A&P Assessment and plan (1) Schizophrenia, chronic condition: Status: Chronic (2) Suicidal ideation: Status: Resolved (3) Disturbance of sleep: Status: Acute (4) Psychiatric care: (5) Acute psychosis: Status: Acute Plan 66-year-old white female currently receiving intensive services through [facility] with continued problems with compliance of with medications admitted on a 96-hour hold with active psychotic symptoms. 1. Discontinued latuda at night, simply not effective at all. Started invega 3mg at night, and increased to 9 mg with plan for IM monthly. Continue haldol as prescribed. ? 2. Encourage individual, group and milieu therapy 3. Continue one-to-one for safety. 4. Recommend sober living treatment at the highest level of care to which the patient is willing to commit. 5.? Applied for guardianship with Residential home placement. Involuntary Hold Information 96 Hour Hold: 96 Hour Involuntary Admission: Yes 96 Hour Hold Ending Date: 06/14/22 96 Hour Hold Ending Time: 15:36 Attestations NPU Medical Necessity Statement*: Inpatient hospitalization is medically necessary and the clinically appropriate intervention at this time. We will evaluate medications and make changes as indicated. Likely length of stay 7-10 days. But will be mostly driven by guardianship process. Coding Level of Care Code Acute Bat Carrier for Shobha Ramírezd Diagnoses Schizophrenia, chronic condition F20.9 Suicidal ideation R45.851 Disturbance of sleep G47.9 Psychiatric care Acute psychosis F23
[2022-06-21 14:00] VITALS: BP 98/60; PULSE 83; RESP 18; TEMP 36.6; O2SAT 96
[2022-06-21] MEDS: diphenhydrAMINE 50 mg Capsule PO (15:27)
[2022-06-21] MEDS: paliperidone ER 3 mg Tablet 6 MG PO (17:29)
[2022-06-21 19:59] VITALS: BP 109/74; PULSE 92; RESP 16; O2SAT 97
[2022-06-22] MEDS: cetylpyridinium Lozenge 1 EACH MUCOUS MEM ×3 (03:24→09:39)
[2022-06-22] MEDS: OLANZapine 5 mg ODT PO ×3 (03:45→21:02)
[2022-06-22] MEDS: hyDROXYzine 25 mg Capsule 50 MG PO ×2 (03:45→21:02)
[2022-06-22] MEDS: haloperidol 5 mg Tablet PO ×3 (09:07→17:02)
[2022-06-22] MEDS: atenolol 50 mg Tablet PO (09:07)
[2022-06-22] MEDS: lisinopril 10 mg Tablet PO (09:07)
[2022-06-22] MEDS: ziprasidone hcl 40 mg Capsule PO ×2 (09:07→20:18)
[2022-06-22] MEDS: magnesium hydroxide 30 mL UDC PO (10:16)
[2022-06-22] MEDS: calcium carbonate 500 mg Chew Tablet PO (11:30)
--- NOTE | 2022-06-22 15:42 | P.NPUPN_ITS ---
Subjective NPU Subjective: Patient presents denying any significant changes. We continue to discuss the behaviors necessary to take her off of one-to-one as well as increasing her Invega to 12 mg daily. Otherwise to be talked to her about the guardianship process from a time standpoint. Mental Status Exam MSE Comments: This is a well-nourished, well-developed white female looking older than her stated age with hospital scrubs on with disheveled but improving appearance and improving eye contact. Her hygiene is starting to improve. No abnormal movements except for mild psychomotor retardation. She was less paranoid during the exam.? Speech was normal rate and volume.? Mood described as fine, affect was odd. ? Thought process nonlinear and at times more organized. ? Thought content: Patient denied any suicidal ideation or homicidal ideation. Clear ideas of reference noted. She did not appear to be responding to internal stimuli. Attention and concentration was improving today. Recent and remote memory appeared at baseline. She is alert and oriented to person place and time, but not necessarily purpose. ? Insight and judgment are impaired and impulse control is poor. Intellectual ability limited Vitals/I&O/Wt Last Vital Signs Temp 98 F 06/21/22 14:00 Pulse 92 06/21/22 19:59 Resp 16 06/21/22 19:59 BP 109/74 06/21/22 19:59 Pulse Ox 97 06/21/22 19:59 O2 Del Method 06/21/22 19:59 Weight last 48 hrs Weight 76.294 kg Data NPU : 06/07/22 13:45 06/07/22 13:45 A&P Assessment and plan (1) Schizophrenia, chronic condition: Status: Chronic (2) Suicidal ideation: Status: Resolved (3) Disturbance of sleep: Status: Acute (4) Psychiatric care: (5) Acute psychosis: Status: Acute Plan 66-year-old white female currently receiving intensive services through [facility] with continued problems with compliance of with medications admitted on a 96-hour hold with active psychotic symptoms. 1. Discontinued latuda at night, simply not effective at all. Started invega 3mg at night, and increase to 12 mg with plan for IM monthly. Continue haldol as prescribed. ? 2. Encourage individual, group and milieu therapy 3. Continue one-to-one for safety. 4. Recommend sober living treatment at the highest level of care to which the patient is willing to commit. 5.? Applied for guardianship with Residential home placement. Involuntary Hold Information 96 Hour Hold: 96 Hour Involuntary Admission: Yes 96 Hour Hold Ending Date: 06/14/22 96 Hour Hold Ending Time: 15:36 Attestations NPU Medical Necessity Statement*: Inpatient hospitalization is medically necessary and the clinically appropriate intervention at this time. We will evaluate medications and make changes as indicated. Likely length of stay 6-9 days. But will be mostly driven by guardianship process. Coding Level of Care Code Acute Banquet Pilot for Shobha Fwd Diagnoses Schizophrenia, chronic condition F20.9 Suicidal ideation R45.851 Disturbance of sleep G47.9 Psychiatric care Acute psychosis F23
[2022-06-22] MEDS: paliperidone ER 3 mg Tablet 6 MG PO (17:02)
[2022-06-22] MEDS: trazodone 100 mg Tablet PO (21:02)
[2022-06-22] MEDS: nicotine 2 mg Gum BUCCAL (23:39)
[2022-06-23] MEDS: haloperidol 5 mg Tablet PO ×3 (00:41→17:00)
[2022-06-23] MEDS: OLANZapine 5 mg ODT PO (02:13)
[2022-06-23] MEDS: diphenhydrAMINE 50 mg Capsule PO ×2 (02:13→17:00)
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
[2022-06-23] MEDS: LORazepam 2 mg/mL INJ 1 mL IVP (02:30)
[2022-06-23] MEDS: haloperidol inj 5 mg/mL INJ 1 mL IM (02:30)
--- NOTE | 2022-06-23 04:45 | PC.NURSE ---
@0230 administered lorazepam 2mg Intermuscular injection in right deltoid.
[2022-06-23 06:00] VITALS: BMI 28.8
[2022-06-23] MEDS: benztropine 1 mg Tablet PO ×2 (08:11→17:01)
[2022-06-23] MEDS: lisinopril 10 mg Tablet PO (08:11)
[2022-06-23] MEDS: LORazepam 2 mg Tablet PO (08:11)
[2022-06-23] MEDS: ziprasidone hcl 40 mg Capsule PO (08:11)
[2022-06-23] MEDS: atenolol 50 mg Tablet PO (08:11)
[2022-06-23] MEDS: fluticasone nasal spray 16gm Btl 1 SPRAY NASAL ×2 (08:14→17:01)
[2022-06-23] MEDS: acetaminophen 325 mg Tablet 650 MG PO (08:21)
[2022-06-23] MEDS: nicotine 4 mg lozenge MUCOUS MEM ×2 (09:47→17:00)
[2022-06-23] MEDS: cetylpyridinium Lozenge 1 EACH MUCOUS MEM ×2 (11:27→17:23)
[2022-06-23] MEDS: guaiFENesin-dextromethorphan UDC 10 mL PO ×2 (11:27→17:23)
[2022-06-23 14:00] VITALS: RESP 16
--- NOTE | 2022-06-23 16:52 | P.NPUPN_ITS ---
Subjective NPU Subjective: Patient presents today reporting that she is going to leave. We discussed her episode of aggression. She had nothing to add to the conversation other than she will try not to do it in the future. We discussed making some changes including adding Depakote after we get the laboratory studies and she understood. Mental Status Exam MSE Comments: This is a well-nourished, well-developed white female looking older than her stated age with hospital scrubs on with disheveled but improving appearance and improving eye contact. Her hygiene is starting to improve. No abnormal movements except for mild psychomotor retardation. She was less paranoid during the exam.? Speech was normal rate and volume.? Mood described as okay, affect was odd and slightly subdued. ? Thought process nonlinear and at times more organized. ? Thought content: Patient denied any suicidal ideation or homicidal ideation. Clear ideas of reference noted. She did not appear to be responding to internal stimuli. Attention and concentration was improving today. Recent and remote memory appeared at baseline. She is alert and oriented to person place and time, but not necessarily purpose. ? Insight and judgment are impaired and impulse control is poor. Intellectual ability limited Vitals/I&O/Wt Last Vital Signs Temp 98 F 06/21/22 14:00 Pulse 92 06/21/22 19:59 Resp 16 06/23/22 14:00 BP 109/74 06/21/22 19:59 Pulse Ox 97 06/21/22 19:59 O2 Del Method 06/23/22 06:00 Weight last 48 hrs Weight 76.294 kg Data NPU : 06/07/22 13:45 06/07/22 13:45 A&P Assessment and plan (1) Schizophrenia, chronic condition: Status: Chronic (2) Suicidal ideation: Status: Resolved (3) Disturbance of sleep: Status: Acute (4) Psychiatric care: (5) Acute psychosis: Status: Acute Plan 66-year-old white female currently receiving intensive services through [facility] with continued problems with compliance of with medications admitted on a 96-hour hold with active psychotic symptoms. 1. Discontinued latuda at night, simply not effective at all. Started invega 3mg at night, and increase to 9 mg with plan for IM monthly. Continue haldol as prescribed. We will start Depakote ER 500 mg at night once labs are obtained 2. Encourage individual, group and milieu therapy 3. Continue one-to-one for safety. 4. Recommend sober living treatment at the highest level of care to which the patient is willing to commit. 5.? Applied for guardianship with Residential home placement. Involuntary Hold Information 96 Hour Hold: 96 Hour Involuntary Admission: Yes 96 Hour Hold Ending Date: 06/14/22 96 Hour Hold Ending Time: 15:36 Attestations NPU Medical Necessity Statement*: Inpatient hospitalization is medically necessary and the clinically appropriate intervention at this time. We will evaluate medications and make changes as indicated. Likely length of stay 6-9 days. But will be mostly driven by guardianship process. Coding Level of Care Code Acute Tutor Coordinator for Germang Fwd Diagnoses Schizophrenia, chronic condition F20.9 Suicidal ideation R45.851 Disturbance of sleep G47.9 Psychiatric care Acute psychosis F23
[2022-06-23] MEDS: paliperidone ER 3 mg Tablet 6 MG PO (17:01)
[2022-06-24] MEDS: ziprasidone hcl 40 mg Capsule PO ×2 (02:04→20:41)
--- NOTE | 2022-06-24 02:18 | PC.NURSE ---
PT IS NOTED UP IN HER ROOM WITH INCREASED ANXIETY. GEODON PO GIVEN.
[2022-06-24] MEDS: diphenhydrAMINE 50 mg Capsule PO ×3 (02:35→15:15)
[2022-06-24] MEDS: haloperidol 5 mg Tablet PO ×5 (02:35→16:55)
[2022-06-24] MEDS: LORazepam 2 mg Tablet PO ×3 (02:35→15:15)
--- NOTE | 2022-06-24 02:39 | PC.NURSE ---
PT CAME TO THE NURSES DESK STATING SHE WAS STARTING TO GET UPSET. PT REQUESTED A PILL , I'M GETTING UPSET . ORAL B52 GIVEN OF BENADRYL 50MG, HALDOL 5MG AND ATIVAN 2 MG.
[2022-06-24] MEDS: cetylpyridinium Lozenge 1 EACH MUCOUS MEM ×2 (03:27→15:15)
[2022-06-24 07:45] LABS: Basophils % 0.5 %; Eosinophils # 0.1 10^3/uL (0.0-0.8); Eosinophils % 1.2 %; Hematocrit 40.7 % (37.0-47.0); Hemoglobin 13.2 g/dL (11.5-15.3); Lymphocytes # 2.1 10^3/uL (0.8-4.8); Lymphocytes % 28.4 %; Mean Corpuscular HGB Conc 32.4 g/dL (30.0-36.0); Mean Corpuscular Hemoglobin 27.4 pg (28.0-34.0); Mean Corpuscular Volume 84.4 fl (81-99); Mean Platelet Volume 9.4 fL (7.4-10.4); Monocytes # 0.7 10^3/uL (0.2-0.9); Monocytes % 9.6 %; Neutrophils # 4.33 10^3/uL (1.8-7.7); Neutrophils % 58.9 %; Nucleated Red Blood Cells % 0 %; Platelet Count 201 10^3/cmm (130-400); Red Blood Count 4.82 10^6/uL (4.1-5.3); Red Cell Distribution Width 13.7 % (12.1-15.1); White Blood Count 7.4 10^3/uL (4.0-10.0)
[2022-06-24] MEDS: lisinopril 10 mg Tablet PO (08:05)
[2022-06-24] MEDS: OLANZapine 5 mg ODT PO (08:05)
[2022-06-24] MEDS: fluticasone nasal spray 16gm Btl 1 SPRAY NASAL ×2 (08:06→16:55)
[2022-06-24] MEDS: atenolol 50 mg Tablet PO (08:06)
[2022-06-24] MEDS: benztropine 1 mg Tablet PO ×2 (08:06→16:54)
[2022-06-24 08:11] LABS: Lithium < 0.1 mmol/L (0.6-1.2)
[2022-06-24 08:14] LABS: Alanine Aminotransferase 19 U/L (0-33); Albumin Level 3.8 g/dL (3.5-5.2); Alkaline Phosphatase 113 U/L (35-105); Anion Gap 14.3 (5-19); Aspartate Amino Transferase 16 U/L (0-32); Blood Urea Nitrogen 14 mg/dL (8-23); Carbon Dioxide 25 mmol/L (22-29); Chloride 94 mmol/L (98-107); Globulin 2.6 g/dL (1.3-4.6); Glomerular Filtration Rate 124.2 mL/min (90-130); Glucose 107 mg/dL (65-115); Osmolality Calculated 269 mOsm/kg (285-295); Potassium 4.3 mmol/L (3.5-5.1); Sodium 129 mmol/L (136-145); Thyroid Stimulating Hormone 2.55 uIU/mL (0.27-4.20); Total Bilirubin 0.7 mg/dL (0.15-1.2); Total Protein 6.4 g/dL (6.6-8.7)
[2022-06-24] MEDS: guaiFENesin-dextromethorphan UDC 10 mL PO (15:15)
--- NOTE | 2022-06-24 16:12 | W.PM.NPUPNS ---
Subjective NPU Subjective: Patient presents today continuing to have poor insight into her situation. She has not had any aggression since yesterday in the morning. We continue to discuss the process marriage seeking of one-to-one and hopefully after the guardianship process find a reasonable place to go. Otherwise she had no new concerns and denied any issues with medication changes. Mental Status Exam MSE Comments: This is a well-nourished, well-developed white female looking older than her stated age with hospital scrubs on with disheveled but improving appearance and improving eye contact. Her hygiene is starting to improve. No abnormal movements except for mild psychomotor retardation. She was less paranoid during the exam.? Speech was normal rate and volume.? Mood described as better, affect was odd and slightly subdued. ? Thought process nonlinear and at times more organized. ? Thought content: Patient denied any suicidal ideation or homicidal ideation. Clear ideas of reference noted. She did not appear to be responding to internal stimuli. Attention and concentration was intact. Recent and remote memory appeared at baseline. She is alert and oriented to person place and time, but not necessarily purpose. ? Insight and judgment are impaired and impulse control is poor. Intellectual ability limited Vitals/I&O/Wt Last Vital Signs Temp 98 F 06/21/22 14:00 Pulse 92 06/21/22 19:59 Resp 16 06/23/22 14:00 BP 109/74 06/21/22 19:59 Pulse Ox 97 06/21/22 19:59 O2 Del Method 06/23/22 06:00 Weight last 48 hrs Weight 76.294 kg Data NPU : 06/24/22 07:35 06/24/22 07:35 A&P Assessment and plan (1) Schizophrenia, chronic condition: Status: Chronic (2) Suicidal ideation: Status: Resolved (3) Disturbance of sleep: Status: Acute (4) Psychiatric care: (5) Acute psychosis: Status: Acute Plan 66-year-old white female currently receiving intensive services through [facility] with continued problems with compliance of with medications admitted on a 96-hour hold with active psychotic symptoms. 1. Discontinued latuda at night, simply not effective at all. Started invega 3mg at night, and increased to 9 mg with plan for IM monthly. Continue haldol as prescribed. We will start Depakote ER 500 mg at night once labs are obtained 2. Encourage individual, group and milieu therapy 3. Continue one-to-one for safety. 4. Recommend sober living treatment at the highest level of care to which the patient is willing to commit. 5.? Applied for guardianship with Residential home placement. Involuntary Hold Information 96 Hour Hold: 96 Hour Involuntary Admission: Yes 96 Hour Hold Ending Date: 06/14/22 96 Hour Hold Ending Time: 15:36 Attestations NPU Medical Necessity Statement*: Inpatient hospitalization is medically necessary and the clinically appropriate intervention at this time. We will evaluate medications and make changes as indicated. Likely length of stay 6-9 days. But will be mostly driven by guardianship process. Coding Level of Care Code Acute Applications Development Consultant for Shobha Huynh Diagnoses Schizophrenia, chronic condition F20.9 Suicidal ideation R45.851 Disturbance of sleep G47.9 Psychiatric care Acute psychosis F23
[2022-06-24] MEDS: paliperidone ER 3 mg Tablet 9 MG PO (16:55)
[2022-06-24] MEDS: divalproex ER 500 mg Tablet (24H) PO (20:11)
[2022-06-25] MEDS: trazodone 100 mg Tablet PO ×2 (01:19→20:35)
[2022-06-25] MEDS: diphenhydrAMINE 50 mg Capsule PO ×3 (03:23→13:52)
[2022-06-25] MEDS: LORazepam 2 mg Tablet PO ×4 (03:23→22:31)
[2022-06-25] MEDS: haloperidol 5 mg Tablet PO ×4 (03:23→17:00)
[2022-06-25] MEDS: cetylpyridinium Lozenge 1 EACH MUCOUS MEM ×3 (04:24→22:31)
[2022-06-25] MEDS: nicotine 4 mg lozenge MUCOUS MEM (07:53)
[2022-06-25] MEDS: benztropine 1 mg Tablet PO (07:53)
[2022-06-25] MEDS: lisinopril 10 mg Tablet PO (07:53)
[2022-06-25] MEDS: atenolol 50 mg Tablet PO (07:53)
[2022-06-25] MEDS: fluticasone nasal spray 16gm Btl 1 SPRAY NASAL (07:54)
[2022-06-25] MEDS: guaiFENesin-dextromethorphan UDC 10 mL PO (13:51)
[2022-06-25] MEDS: ondansetron 4 MG Tablet PO (13:52)
[2022-06-25 14:00] VITALS: BP 122/63; PULSE 102; RESP 18; TEMP 36.7; O2SAT 96
[2022-06-25] MEDS: paliperidone ER 3 mg Tablet 9 MG PO (16:59)
[2022-06-25] MEDS: calcium carbonate 500 mg Chew Tablet PO (17:07)
--- NOTE | 2022-06-25 18:19 | P.NPUPN_ITS ---
Subjective NPU Subjective: Patient presents today reporting that this is possible. We had multiple conversations throughout the day. Some conversation was focused on some somatic focus she has on possibly having cancer and . We described her age-appropriate follow-up and screening for colorectal cancer. Later though she was having some issues with struggling in the evening reporting that she is to this race and sports book writer if she was not discharged immediately. Otherwise she is taking her medication and tolerating the changes and increases without issue. Mental Status Exam MSE Comments: This is a well-nourished, well-developed white female looking older than her stated age with hospital scrubs on with adequate grooming and improving eye contact. No abnormal movements except for mild psychomotor retardation. She was less paranoid during the exam.? Speech was normal rate and volume.? Mood described as I do not understand why I cannot leave, affect was odd and slightly subdued. ? Thought process at times more organized. ? Thought content: Patient denied any suicidal ideation or homicidal ideation. Clear ideas of reference noted. She did not appear to be responding to internal stimuli. Attention and concentration was intact. Recent and remote memory appeared at baseline. She is alert and oriented to person place and time, but not necessarily purpose. ? Insight and judgment are impaired and impulse control is poor. Intellectual ability limited Vitals/I&O/Wt Last Vital Signs Temp 97.9 F 06/25/22 21:33 Pulse 100 06/25/22 21:33 Resp 22 H 06/25/22 21:33 BP 142/78 06/25/22 21:33 Pulse Ox 95 06/25/22 21:33 O2 Del Method 06/25/22 21:33 Data NPU : 06/24/22 07:35 06/24/22 07:35 A&P Assessment and plan (1) Schizophrenia, chronic condition: Status: Chronic (2) Suicidal ideation: Status: Resolved (3) Disturbance of sleep: Status: Acute (4) Psychiatric care: (5) Acute psychosis: Status: Acute Plan 66-year-old white female currently receiving intensive services through [facility] with continued problems with compliance of with medications admitted on a 96-hour hold with active psychotic symptoms. 1. Discontinued latuda at night, simply not effective at all. Started invega 3mg at night, and increased to 9 mg with plan for IM monthly. Continue haldol as prescribed. We will start Depakote ER 500 mg at night once labs are obtained 2. Encourage individual, group and milieu therapy 3. Continue one-to-one for safety. 4. Recommend sober living treatment at the highest level of care to which the patient is willing to commit. 5.? Applied for guardianship with Residential home placement. Involuntary Hold Information 96 Hour Hold: 96 Hour Involuntary Admission: Yes 96 Hour Hold Ending Date: 06/14/22 96 Hour Hold Ending Time: 15:36 Attestations NPU Medical Necessity Statement*: Inpatient hospitalization is medically necessary and the clinically appropriate intervention at this time. We will evaluate medications and make changes as indicated. Likely length of stay 6-9 days. B ut will be mostly driven by guardianship process. Coding Level of Care Code Acute Product Development Specialist for Shobha Huynh Diagnoses Schizophrenia, chronic condition F20.9 Suicidal ideation R45.851 Disturbance of sleep G47.9 Psychiatric care Acute psychosis F23
[2022-06-25] MEDS: hyDROXYzine 25 mg Capsule 50 MG PO (20:34)
[2022-06-25] MEDS: divalproex ER 500 mg Tablet (24H) PO (20:35)
[2022-06-25 21:33] VITALS: BP 142/78; PULSE 100; RESP 22; TEMP 36.6; O2SAT 95
[2022-06-25] MEDS: ziprasidone hcl 40 mg Capsule PO (22:31)
[2022-06-26] MEDS: LORazepam 2 mg Tablet PO ×2 (05:10→20:44)
[2022-06-26] MEDS: diphenhydrAMINE 50 mg Capsule PO ×2 (05:10→20:44)
[2022-06-26] MEDS: calcium carbonate 500 mg Chew Tablet PO (05:11)
[2022-06-26] MEDS: haloperidol 5 mg Tablet PO ×4 (05:11→20:45)
[2022-06-26 06:00] VITALS: PULSE 18
[2022-06-26] MEDS: atenolol 50 mg Tablet PO (09:25)
[2022-06-26] MEDS: lisinopril 10 mg Tablet PO (09:25)
[2022-06-26] MEDS: ibuprofen 600 mg Tablet PO ×2 (10:49→20:45)
[2022-06-26 14:00] VITALS: BP 102/78; PULSE 68; RESP 18; TEMP 36.6; O2SAT 97
[2022-06-26] MEDS: ziprasidone hcl 40 mg Capsule PO (14:26)
[2022-06-26] MEDS: OLANZapine 5 mg ODT PO (14:26)
[2022-06-26] MEDS: cetylpyridinium Lozenge 1 EACH MUCOUS MEM ×3 (14:26→18:28)
[2022-06-26] MEDS: ondansetron 4 MG Tablet PO (14:26)
--- NOTE | 2022-06-26 17:56 | P.NPUPN_ITS ---
Subjective NPU Subjective: Patient presents today reporting that she is doing okay. She has become somewhat focused and perseverating on the possibility that she could have cancer as well as the possibility that she has coronary. To continue to focus on what is needed she did and how long to take before she would . We discussed the appropriate screening for coronary versus colorectal which she interchanges and we will make sure she has appropriate medical follow-up so these types of physical conditions are evaluated for as appropriate. Otherwise she continues without one-to-one and has not had a physical aggressive behavior with Friday senior security analyst. We discussed that and encouraged her to continue ta susannah that choices. She denies any problems with the medication changes. Mental Status Exam MSE Comments: This is a well-nourished, well-developed white female looking older than her stated age with hospital scrubs on with adequate grooming and improving eye contact. No abnormal movements except for mild psychomotor retardation. She was less paranoid during the exam.? Speech was normal rate and occasionally slightly decreased volume.? Mood described as okay, affect was odd and slightly subdued. ? Thought process at times more organized. ? Thought content: Patient denied any suicidal ideation or homicidal ideation. Clear ideas of reference noted. She did not appear to be responding to internal stimuli. Attention and concentration was intact. Recent and remote memory appeared at baseline. She is alert and oriented to person place and time, but not necessarily purpose. ? Insight and judgment are impaired and impulse control is limited but improving. Intellectual ability limited Vitals/I&O/Wt Last Vital Signs Temp 98 F 06/26/22 14:00 Pulse 68 06/26/22 14:00 Resp 18 06/26/22 14:00 BP 102/78 06/26/22 14:00 Pulse Ox 97 06/26/22 14:00 O2 Del Method 06/26/22 14:00 Data NPU : 06/24/22 07:35 06/24/22 07:35 A&P Assessment and plan (1) Schizophrenia, chronic condition: Status: Chronic (2) Suicidal ideation: Status: Resolved (3) Disturbance of sleep: Status: Acute (4) Psychiatric care: (5) Acute psychosis: Status: Acute Plan 66-year-old white female currently receiving intensive services through [facility] with continued problems with compliance of with medications admitted on a 96-hour hold with active psychotic symptoms. 1. Discontinued latuda at night, simply not effective at all. Started invega 3mg at night, and increased to 9 mg with plan for IM monthly. Continue haldol as prescribed. We started Depakote ER 500 mg at night once labs are obtained 2. Encourage individual, group and milieu therapy 3. Continue every 15 minute checks for safety. Has been off of one-to-one effectively since yesterday morning 4. Recommend sober living treatment at the highest level of care to which the patient is willing to commit. 5.? Applied for guardianship with Residential home placement. Involuntary Hold Information 96 Hour Hold: 96 Hour Involuntary Admission: Yes 96 Hour Hold Ending Date: 06/14/22 96 Hour Hold Ending Time: 15:36 Attestations NPU Medical Necessity Statement*: Inpatient hospitalization is medically necessary and the clinically appropriate intervention at this time. We will evaluate medications and make changes as indicated. Likely length of stay 6-9 days. But will be mostly driven by guardianship process. Coding Level of Care Code Acute Cook House Laborer for Shobha Fwd Diagnoses Schizophrenia, chronic condition F20.9 Suicidal ideation R45.851 Disturbance of sleep G47.9 Psychiatric care Acute psychosis F23
[2022-06-26] MEDS: paliperidone ER 3 mg Tablet 9 MG PO (18:26)
[2022-06-26] MEDS: guaiFENesin-dextromethorphan UDC 10 mL PO (18:27)
[2022-06-26 20:25] VITALS: BP 101/66; PULSE 87; RESP 18; TEMP 36.6; O2SAT 94
[2022-06-26] MEDS: divalproex ER 500 mg Tablet (24H) PO (20:41)
[2022-06-26] MEDS: trazodone 100 mg Tablet PO (20:42)
[2022-06-27] MEDS: OLANZapine 5 mg ODT PO ×2 (00:13→20:23)
[2022-06-27] MEDS: LORazepam 2 mg Tablet PO ×2 (04:00→20:23)
[2022-06-27] MEDS: ziprasidone hcl 40 mg Capsule PO ×2 (04:00→14:59)
--- NOTE | 2022-06-27 04:13 | PC.NURSE ---
PT CAME TO NURSE'S STATION REQUESTING A TRAZODONE. THIS NURSE TOLD HER I COULDN'T GIVE HER ONE OF THOSE BECAUSE THEN SHE WOULD HAVE A HARD TIME STAYING UP IN THE DAYTIME BUT TOLD HER SHE COULD GET HER SOMETHING FOR HER SYMPTOMS. PT STATED, I KEEP HEARING THESE MEN TELL ME HOW I'M GRUESOME AND TALKING BAD ABOUT ME. THIS NURSE ASKED PT IF SHE WAS HEARING VOICES. PT STATED, NO, THEY TELL ME THIS ALL THE TIME EVERY MINUTE OF EVERY DAY. PT GIVEN PRN ATIVAN AND GEODON FOR SYMPTOM RELIEF.
[2022-06-27 06:00] VITALS: BP 131/81; PULSE 84; RESP 18; TEMP 36.4; O2SAT 94
[2022-06-27] MEDS: fluticasone nasal spray 16gm Btl 1 SPRAY NASAL (08:45)
[2022-06-27] MEDS: haloperidol 5 mg Tablet PO ×2 (08:46→17:44)
[2022-06-27] MEDS: lisinopril 10 mg Tablet PO (08:46)
[2022-06-27] MEDS: atenolol 50 mg Tablet PO (08:46)
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
[2022-06-27] MEDS: blistex lip oint 7 gm Tube 1 APPLIC TOPICAL (10:07)
[2022-06-27] MEDS: ibuprofen 600 mg Tablet PO ×2 (10:59→23:05)
[2022-06-27] MEDS: cetylpyridinium Lozenge 1 EACH MUCOUS MEM (11:21)
--- NOTE | 2022-06-27 11:54 | P.NPUPN_ITS ---
Subjective NPU Subjective: Patient presents today reporting that she is willing to go home. We explained that the guardianship hearing date has been set though I do not have the exact date to share with her. He continues to be somatically preoccupied but has now been 4 days without any physical aggression and has been off the one-to-one for a couple of days. She denies any specific side effects to medications. We discussed we continue to look for proper and appropriate placement. Mental Status Exam MSE Comments: This is a well-nourished, well-developed white female looking older than her stated age with hospital scrubs on with adequate grooming and improving eye contact. No abnormal movements except for mild psychomotor retardation. She was less paranoid during the exam.? Speech was normal rate and occasionally slightly decreased volume.? Mood described as okay, affect was odd and slightly subdued. ? Thought process at times more organized. ? Thought content: Patient denied any suicidal ideation or homicidal ideation. Clear ideas of reference noted. She did not appear to be responding to internal st imuli. Attention and concentration was intact. Recent and remote memory appeared at baseline. She is alert and oriented to person place and time, but not necessarily purpose. ? Insight and judgment are impaired and impulse control is limited but improving. Intellectual ability limited Vitals/I&O/Wt Last Vital Signs Temp 97.6 F 06/27/22 06:00 Pulse 84 06/27/22 06:00 Resp 18 06/27/22 06:00 BP 131/81 06/27/22 06:00 Pulse Ox 94 06/27/22 06:00 O2 Del Method 06/27/22 06:00 Data NPU : 06/24/22 07:35 06/24/22 07:35 A&P Assessment and plan (1) Schizophrenia, chronic condition: Status: Chronic (2) Suicidal ideation: Status: Resolved (3) Disturbance of sleep: Status: Acute (4) Psychiatric care: (5) Acute psychosis: Status: Acute Plan 66-year-old white female currently receiving intensive services through [facility] with continued problems with compliance of with medications admitted on a 96-hour hold with active psychotic symptoms. 1. Discontinued latuda at night, simply not effective at all. Started invega 3mg at night, and increased to 9 mg with plan for IM monthly. Continue haldol as prescribed. We started Depakote ER 500 mg at night. 2. Encourage individual, group and milieu therapy 3. Continue every 15 minute checks for safety. Has been off of one-to-one effectively since yesterday morning 4. Recommend sober living treatment at the highest level of care to which the patient is willing to commit. 5.? Guardianship hearing set and we will obtain a from [facility]. Continuing to identify possible residential settings for discharge. Involuntary Hold Information 96 Hour Hold: 96 Hour Involuntary Admission: Yes 96 Hour Hold Ending Date: 06/14/22 96 Hour Hold Ending Time: 15:36 Attestations NPU Medical Necessity Statement*: Inpatient hospitalization is medically necessary and the clinically appropriate intervention at this time. We will evaluate medications and make changes as indicated. Likely length of stay 6-8 days. But will be mostly driven by guardianship process. Coding Level of Care Code Acute Client Server Programmer for Shobha Fwd Diagnoses Schizophrenia, chronic condition F20.9 Suicidal ideation R45.851 Disturbance of sleep G47.9 Psychiatric care Acute psychosis F23
[2022-06-27 14:00] VITALS: RESP 18
[2022-06-27] MEDS: paliperidone ER 3 mg Tablet 9 MG PO (17:44)
[2022-06-27] MEDS: trazodone 100 mg Tablet PO (20:23)
[2022-06-27] MEDS: divalproex ER 500 mg Tablet (24H) PO (20:23)
[2022-06-27] MEDS: diphenhydrAMINE 50 mg Capsule PO (20:23)
[2022-06-27 20:45] VITALS: RESP 20
--- NOTE | 2022-06-27 22:24 | PC.NURSE ---
pt reporting painful bm stating, it's hard and round and won't come out. i need something. MOM given for symptom relief.
[2022-06-27] MEDS: magnesium hydroxide 30 mL UDC PO (22:26)
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
[2022-06-27] MEDS: hyDROXYzine 25 mg Capsule 50 MG PO (23:05)
[2022-06-28] MEDS: cetylpyridinium Lozenge 1 EACH MUCOUS MEM ×3 (05:19→17:21)
[2022-06-28 06:00] VITALS: TEMP 36.5
[2022-06-28] MEDS: atenolol 50 mg Tablet PO (08:23)
[2022-06-28] MEDS: hyDROXYzine 25 mg Capsule 50 MG PO ×2 (08:23→20:36)
[2022-06-28] MEDS: LORazepam 2 mg Tablet PO ×2 (08:24→17:21)
[2022-06-28] MEDS: nicotine 4 mg lozenge MUCOUS MEM (08:24)
[2022-06-28] MEDS: ziprasidone hcl 40 mg Capsule PO (08:24)
[2022-06-28] MEDS: diphenhydrAMINE 50 mg Capsule PO ×2 (08:24→17:21)
[2022-06-28] MEDS: lisinopril 10 mg Tablet PO (08:24)
[2022-06-28] MEDS: benztropine 1 mg Tablet PO (08:25)
[2022-06-28] MEDS: haloperidol 5 mg Tablet PO ×2 (08:25→17:21)
[2022-06-28] MEDS: magnesium hydroxide 30 mL UDC PO (08:59)
--- NOTE | 2022-06-28 09:28 | PC.NURSE ---
PRN MEDICATION PT IS OBSERVED TO BE VERY ANXIOUS AND DEMANDING THIS AM. PT IS PACING AND PARANOID, BELIEVING PEOPLE ARE TALKING ABOUT ME EDUCATED PT AND REASSURED THAT NO ONE WAS TALKING ABOUT HER. PT BECAME INCREASINGLY AGITATED, CUSSING AT STAFF AND ACTING LIKE SHE WAS GOING TO BEAT ON THE WINDOW. PT WAS GIVEN BENADRYL, GEODON AND ATIVAN ORDERED FOR ANXIETY AND AGITATION.
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
[2022-06-28] MEDS: nicotine 2 mg Gum BUCCAL ×2 (10:55→15:35)
[2022-06-28 14:00] VITALS: BP 116/76; PULSE 80; RESP 20; TEMP 36.6; O2SAT 95
--- NOTE | 2022-06-28 14:24 | W.PM.NPUPNS ---
Subjective NPU Subjective: Patient presents today continuing to be at what appears to be her new baseline. There continues to be perseveration over somatic concerns and repeat questioning about whether she go to this place or doing some other thing. But otherwise she is adjusted to medication changes without any problems or reports of side effects or observations of any problems with medication. There has been no aggression since Friday pharmaceutical detailer and she has been off one-to-one for days now. We discussed the likely changes over the weekend but that is beginning of the week we will be able to have a pattern that allows for re-referrals as well as the referral. We discussed her having her hearing into cue for guardianship but we are unaware of the date. Mental Status Exam MSE Comments: This is a well-nourished, well-developed white female looking older than her stated age with hospital scrubs on with adequate grooming and improving eye contact. No abnormal movements except for mild psychomotor retardation.? Speech was normal rate and occasionally slightly decreased volume.? Mood described as okay and I want to go home/leave here, affect was odd and slightly subdued. ? Thought process more organized. ? Thought content: Patient denied any suicidal ideation or homicidal ideation. No delusions reported and none noted except possibility for some somatic delusions of illness, she denied auditory or visual hallucinations and she did not appear to be responding to internal stimuli. Attention and concentration was intact. Recent and remote memory appeared at baseline. She is alert and oriented to person place and time, but not necessarily purpose. ? Insight and judgment are impaired and impulse control is improving. Intellectual ability limited Vitals/I&O/Wt Last Vital Signs Temp 98 F 06/28/22 14:00 Pulse 80 06/28/22 14:00 Resp 20 H 06/28/22 14:00 BP 116/76 06/28/22 14:00 Pulse Ox 95 06/28/22 14:00 O2 Del Method 06/28/22 14:00 Data NPU : 06/24/22 07:35 06/24/22 07:35 A&P Assessment and plan (1) Schizophrenia, chronic condition: (2) Suicidal ideation: (3) Disturbance of sleep: (4) Psychiatric care: (5) Acute psychosis: Plan 66-year-old white female currently receiving intensive services through [facility] with continued problems with compliance of with medications admitted on a 96-hour hold with active psychotic symptoms. 1. Discontinued latuda at night, simply not effective at all. Started invega 3mg at night, and increased to 9 mg with plan for IM monthly. Continue haldol as prescribed. We started Depakote ER 500 mg at night. 2. Encourage individual, group and milieu therapy 3. Continue every 15 minute checks for safety. Has been off of one-to-one effectively since yesterday morning 4. Recommend sober living treatment at the highest level of care to which the patient is willing to commit. 5.? Guardianship hearing set and we will obtain a date from [facility]. Continuing to identify possible residential settings for discharge. Involuntary Hold Information 96 Hour Hold: 96 Hour Involuntary Admission: Yes 96 Hour Hold Ending Date: 06/14/22 96 Hour Hold Ending Time: 15:36 Attestations U Medical Necessity Statement*: Inpatient hospitalization is medically necessary and the clinically appropriate intervention at this time. We will evaluate medications and make changes as indicated. Likely length of stay 6-8 days. But will be mostly driven by guardianship process. Coding Level of Care Code Acute Road Passenger Firer for Shobha Huynh Diagnoses Schizophrenia, chronic condition F20.9 Suicidal ideation R45.851 Disturbance of sleep G47.9 Psychiatric care Acute psychosis F23
[2022-06-28] MEDS: paliperidone ER 3 mg Tablet 9 MG PO (17:21)
[2022-06-28] MEDS: bisacodyl 5 mg Tablet PO (18:57)
[2022-06-28 19:35] VITALS: BP 115/76; PULSE 80; RESP 16; TEMP 36.6; O2SAT 95
[2022-06-28] MEDS: divalproex ER 500 mg Tablet (24H) PO (20:36)
[2022-06-29] MEDS: ibuprofen 600 mg Tablet PO (04:00)
[2022-06-29 06:00] VITALS: BP 120/70; PULSE 81; RESP 18; TEMP 36.5; O2SAT 94
[2022-06-29] MEDS: cetylpyridinium Lozenge 1 EACH MUCOUS MEM ×2 (07:56→22:33)
[2022-06-29] MEDS: hyDROXYzine 25 mg Capsule 50 MG PO (08:13)
[2022-06-29] MEDS: haloperidol 5 mg Tablet PO ×3 (08:13→17:49)
[2022-06-29] MEDS: ziprasidone hcl 40 mg Capsule PO (08:13)
[2022-06-29] MEDS: atenolol 50 mg Tablet PO (08:14)
[2022-06-29] MEDS: lisinopril 10 mg Tablet PO (08:14)
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
--- NOTE | 2022-06-29 10:00 | PC.NURSE ---
PRN CHIEF MEDICAL DIRECTOR Patient approached nurse's station telling everyone to be quiet and threatening to dump the trash in the floor if the ACQUISITIONS ANALYST didn't give her every book behind the nurse's station. Administered vistaril 50 mg for anxiety and geodon 40 mg for agitation at 0813.
[2022-06-29] MEDS: nicotine 2 mg Gum BUCCAL (10:16)
[2022-06-29] MEDS: calcium carbonate 500 mg Chew Tablet PO (11:56)
[2022-06-29] MEDS: diphenhydrAMINE 50 mg Capsule PO (13:02)
[2022-06-29] MEDS: LORazepam 2 mg Tablet PO (13:02)
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
[2022-06-29 14:00] VITALS: BP 146/78; PULSE 86; RESP 18; TEMP 36.3; O2SAT 97
--- NOTE | 2022-06-29 17:37 | PC.NURSE ---
PT HAS BEEN CALM AND COOPERATIVE SINCE 1344. PT HAS BEEN RESTING IN ROOM, READING AND WATCHING TV. PT HAS BEEN EASY TO REDIRECT VERBALLY. SUPPORT VOICED.
[2022-06-29] MEDS: paliperidone ER 3 mg Tablet 9 MG PO (17:49)
--- NOTE | 2022-06-29 18:21 | P.NPUPN_ITS ---
Subjective NPU Subjective: Patient was in today reporting that she does not really want talk to this typewriters functional tester. Ultimately was the first day since last Friday but she had in the issues of irritability or aggression. We discussed the risks, benefits and alternatives of increasing her Depakote at night and she reported that that was fine but she really did not want to talk. Mental Status Exam MSE Comments: This is a well-nourished, well-developed white female looking older than her stated age with hospital scrubs on with adequate grooming and improving eye contact. No abnormal movements except for mild psychomotor retar dation.? Speech was limited and normal rate but occasionally slightly decreased volume.? Mood described as okay but I do not really want to talk to you, affect was odd and slightly irritable. ? Thought process more organized. ? Thought content: Patient denied any suicidal ideation or homicidal ideation. No delusions reported and none noted except possibility for some somatic delusions of illness, she denied auditory or visual hallucinations and she did not appear to be responding to internal stimuli. Attention and concentration was intact. Recent and remote memory appeared at baseline. She is alert and oriented to person place and time, but not necessarily purpose. ? Insight and judgment are impaired and impulse control is improving. Intellectual ability limited Vitals/I&O/Wt Last Vital Signs Temp 97.9 F 06/29/22 19:56 Pulse 87 06/29/22 19:56 Resp 18 06/29/22 19:56 BP 109/77 06/29/22 19:56 Pulse Ox 97 06/29/22 19:56 O2 Del Method 06/29/22 19:56 Data NPU : 06/24/22 07:35 06/24/22 07:35 A&P Assessment and plan (1) Schizophrenia, chronic condition: (2) Suicidal ideation: (3) Disturbance of sleep: (4) Psychiatric care: (5) Acute psychosis: Plan 66-year-old white female currently receiving intensive services through [facility] with continued problems with compliance of with medications admitted on a 96-hour hold with active psychotic symptoms. 1. Discontinued latuda at night, simply not effective at all. Started invega 3mg at night, and increased to 9 mg with plan for IM monthly. Continue haldol as prescribed. We started Depakote ER 500 mg at night and will increase to 1000 mg at night. 2. Encourage individual, group and milieu therapy 3. Continue every 15 minute checks for safety. Has been off of one-to-one effectively since yesterday morning 4. Recommend sober living treatment at the highest level of care to which the patient is willing to commit. 5.? Guardianship hearing set and we will obtain a date from [facility] [place]. Continuing to identify possible residential settings for discharge. Involuntary Hold Information 96 Hour Hold: 96 Hour Involuntary Admission: Yes 96 Hour Hold Ending Date: 06/14/22 96 Hour Hold Ending Time: 15:36 Attestations NPU Medical Necessity Statement*: Inpatient hospitalization is medically necessary and the clinically appropriate intervention at this time. We will evaluate medications and make changes as indicated. Likely length of stay 6-8 days. But will be mostly driven by guardianship process. Coding Level of Care Code Acute Vocational Nursing Instructor for Shobha Ramírezd Diagnoses Schizophrenia, chronic condition F20.9 Suicidal ideation R45.851 Disturbance of sleep G47.9 Psychiatric care Acute psychosis F23
[2022-06-29 19:56] VITALS: BP 109/77; PULSE 87; RESP 18; TEMP 36.6; O2SAT 97
[2022-06-29] MEDS: divalproex ER 500 mg Tablet (24H) 1000 MG PO (23:10)
[2022-06-29] MEDS: OLANZapine 5 mg ODT PO (23:18)
[2022-06-29] MEDS: trazodone 100 mg Tablet PO (23:26)
[2022-06-30] MEDS: OLANZapine 5 mg ODT PO ×2 (03:06→23:49)
[2022-06-30] MEDS: hyDROXYzine 25 mg Capsule 50 MG PO ×2 (03:06→22:43)
[2022-06-30] MEDS: magnesium hydroxide 30 mL UDC PO (04:26)
[2022-06-30 06:00] VITALS: BP 120/74; PULSE 87; RESP 20; TEMP 36.5; O2SAT 93
--- NOTE | 2022-06-30 08:25 | W.PM.NPUPNS ---
Subjective NPU Subjective: Patient presents today reporting that things are going okay. We discussed that Dr. Palomino will be here tomorrow. She reports that she tolerated the increase of Depakote ER to 1000 mg p.o. nightly without any issues. She had no aggressive issues or difficulties in the last 24 hours. Mental Status Exam MSE Comments: This is a well-nourished, well-developed white female looking older than her stated age with hospital scrubs on with adequate grooming and improving eye contact. No abnormal movements except for mild psychomotor retardation.? Speech was limited and normal rate but occasionally slightly decreased volume.? Mood described as okay, affect was odd and less irritable. ? Thought process more organized. ? Thought content: Patient denied any suicidal ideation or homicidal ideation. No delusions reported and none noted except possibility for some somatic delusions of illness, she denied auditory or visual hallucinations and she did not appear to be responding to internal stimuli. Attention and concentration was intact. Recent and remote memory appeared at baseline. She is alert and oriented to person place and time, but not necessarily purpose. ? Insight and judgment are impaired and impulse control is improving. Intellectual ability limited Vitals/I&O/Wt Last Vital Signs Temp 97.9 F 06/29/22 19:56 Pulse 87 06/29/22 19:56 Resp 18 06/29/22 19:56 BP 109/77 06/29/22 19:56 Pulse Ox 97 06/29/22 19:56 O2 Del Method 06/29/22 19:56 Data NPU : 06/24/22 07:35 06/24/22 07:35 A&P Assessment and plan (1) Schizophrenia, chronic condition: (2) Suicidal ideation: (3) Disturbance of sleep: (4) Psychiatric care: (5) Acute psychosis: Plan 66-year-old white female currently receiving intensive services through [facility] with continued problems with compliance of with medications admitted on a 96-hour hold with active psychotic symptoms. 1. Discontinued latuda at night, simply not effective at all. Started invega 3mg at night, and increased to 9 mg with plan for IM monthly. Continue haldol as prescribed. We started Depakote ER 500 mg at night and will increased to 1000 mg at night. 2. Encourage individual, group and milieu therapy 3. Continue every 15 minute checks for safety. Has been off of one-to-one effectively since yesterday morning 4. Recommend sober living treatment at the highest level of care to which the patient is willing to commit. 5.? Guardianship hearing set and we will obtain a date from court [facility]. Continuing to identify possible residential settings for discharge. Involuntary Hold Information 96 Hour Hold: 96 Hour Involuntary Admission: Yes 96 Hour Hold Ending Date: 06/14/22 96 Hour Hold Ending Time: 15:36 Attestations NPU Medical Necessity Statement*: Inpatient hospitalization is medically necessary and the clinically appropriate intervention at this time. We will evaluate medications and make changes as indicated. Likely length of stay 6-8 days. But will be mostly driven by guardianship process. Coding Level of Care Code Acute Industrial Economics Teacher for Shobha Fwd Diagnoses Schizophrenia, chronic condition F20.9 Suicidal ideation R45.851 Disturbance of sleep G47.9 Psychiatric care Acute psychosis F23
[2022-06-30] MEDS: lisinopril 10 mg Tablet PO (08:44)
[2022-06-30] MEDS: atenolol 50 mg Tablet PO (08:44)
[2022-06-30] MEDS: nicotine 2 mg Gum BUCCAL (08:44)
[2022-06-30] MEDS: LORazepam 2 mg Tablet PO (08:44)
[2022-06-30] MEDS: haloperidol 5 mg Tablet PO ×2 (08:44→17:56)
[2022-06-30] MEDS: diphenhydrAMINE 50 mg Capsule PO (08:44)
[2022-06-30] MEDS: cetylpyridinium Lozenge 1 EACH MUCOUS MEM ×2 (08:46→21:57)
[2022-06-30] MEDS: calcium carbonate 500 mg Chew Tablet PO (09:50)
[2022-06-30 14:00] VITALS: BP 90/59; PULSE 82; RESP 15; TEMP 36.9; O2SAT 97
[2022-06-30] MEDS: paliperidone ER 3 mg Tablet 9 MG PO (17:56)
[2022-06-30] MEDS: divalproex ER 500 mg Tablet (24H) 1000 MG PO (20:51)
[2022-06-30] MEDS: trazodone 100 mg Tablet PO (22:43)
[2022-07-01] MEDS: cetylpyridinium Lozenge 1 EACH MUCOUS MEM ×3 (01:14→16:32)
[2022-07-01] MEDS: diphenhydrAMINE 50 mg Capsule PO ×2 (01:14→23:55)
[2022-07-01] MEDS: LORazepam 2 mg Tablet PO ×2 (01:15→23:55)
[2022-07-01 06:00] VITALS: BP 107/73; PULSE 97; RESP 17; TEMP 37; O2SAT 97
[2022-07-01] MEDS: OLANZapine 5 mg ODT PO ×2 (07:02→23:14)
[2022-07-01] MEDS: hyDROXYzine 25 mg Capsule 50 MG PO ×2 (07:02→23:14)
[2022-07-01] MEDS: fluticasone nasal spray 16gm Btl 1 SPRAY NASAL (08:52)
[2022-07-01] MEDS: haloperidol 5 mg Tablet PO ×3 (08:52→21:15)
[2022-07-01] MEDS: atenolol 50 mg Tablet PO (08:52)
[2022-07-01] MEDS: lisinopril 10 mg Tablet PO (08:52)
[2022-07-01 14:00] VITALS: BP 116/75; PULSE 86; RESP 16; TEMP 36.6; O2SAT 94
[2022-07-01] MEDS: nicotine 4 mg lozenge MUCOUS MEM (15:48)
[2022-07-01] MEDS: paliperidone ER 3 mg Tablet 9 MG PO (18:52)
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
[2022-07-01 20:28] VITALS: BP 113/72; PULSE 87; RESP 17; O2SAT 95
[2022-07-01] MEDS: divalproex ER 500 mg Tablet (24H) 1000 MG PO (21:15)
[2022-07-01] MEDS: trazodone 100 mg Tablet PO (21:16)
[2022-07-02] MEDS: haloperidol 5 mg Tablet PO ×4 (01:12→20:48)
[2022-07-02] MEDS: OLANZapine 5 mg ODT PO ×2 (05:55→11:42)
[2022-07-02 06:00] VITALS: BP 136/81; PULSE 94; RESP 18; O2SAT 97
[2022-07-02] MEDS: lisinopril 10 mg Tablet PO (07:39)
[2022-07-02] MEDS: diphenhydrAMINE 50 mg Capsule PO ×2 (07:39→20:48)
[2022-07-02] MEDS: LORazepam 2 mg Tablet PO ×2 (07:39→20:49)
[2022-07-02] MEDS: fluticasone nasal spray 16gm Btl 1 SPRAY NASAL (07:40)
[2022-07-02] MEDS: atenolol 50 mg Tablet PO (07:40)
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
[2022-07-02 14:00] VITALS: BP 118/78; PULSE 97; RESP 18; TEMP 36.6; O2SAT 98
[2022-07-02] MEDS: bisacodyl 5 mg Tablet PO (16:51)
[2022-07-02] MEDS: paliperidone ER 3 mg Tablet 9 MG PO (16:51)
[2022-07-02] MEDS: nicotine 2 mg Gum BUCCAL (18:29)
[2022-07-02] MEDS: hyDROXYzine 25 mg Capsule 50 MG PO (18:29)
--- NOTE | 2022-07-02 18:57 | W.PM.NPUPNS ---
Subjective NPU Subjective: Patient is a 66-year-old white female with chronic schizophrenia currently on Prozac, Haldol, Invega and Depakote. She continues to show evidence of disorganized thinking and disorganized behavior on the unit. She reports limited interest in self-care as she reports that she wishes to go home home to Joseph. Patient had no aggressive behavior towards staff members today. She continued to have minimal engagement on the milieu or in group therapy. Patient appeared at times confused and reported feeling sad that she may not be able to live with Mr. Ruiz currently. Mental Status Exam MSE Comments: Patient was alert and oriented to person and place but not date today. She had a disheveled appearance. her hygiene was poor. her hair was unkempt. Her thought process was superficial and at times disorganized. Her thought content showed evidence of active paranoia and delusional thinking. Her insight was poor. her judgment is poor. her impulse control appeared poor. her mood was described as okay Her affect was blunted and mood incongruent. Vitals/I&O/Wt Last Vital Signs Temp 97.8 F 07/02/22 14:00 Pulse 97 07/02/22 14:00 Resp 18 07/02/22 14:00 BP 118/78 07/02/22 14:00 Pulse Ox 98 07/02/22 14:00 O2 Del Method 07/01/22 06:00 Data NPU : 06/24/22 07:35 06/24/22 07:35 A&P Assessment and plan (1) Schizophrenia, chronic condition: (2) Suicidal ideation: (3) Disturbance of sleep: (4) Psychiatric care: (5) Acute psychosis: Plan 66-year-old white female currently receiving intensive services through [facility] with continued problems with compliance of with medications admitted on a 96-hour hold with active psychotic symptoms. 1. Continue Invega 9mg daily, continue haldol daily, and depakote er at 1000mg daily. 2. Encourage individual, group and milieu therapy 3. Continue every 15 minute checks for safety. Has been off of one-to-one effectively since yesterday morning 4. Recommend sober living treatment at the highest level of care to which the patient is willing to commit. 5.? Guardianship hearing set and we will obtain a date from [facility]. Continuing to identify possible residential settings for discharge. Involuntary Hold Information 96 Hour Hold: 96 Hour Involuntary Admission: Yes 96 Hour Hold Ending Date: 06/14/22 96 Hour Hold Ending Time: 15:36 Attestations NPU Medical Necessity Statement*: Inpatient hospitalization is medically necessary and the clinically appropriate intervention at this time. We will evaluate medications and make changes as indicated. Likely length of stay 6-8 days. But will be mostly driven by guardianship process. Coding Level of Care Code Established Pt Acute Charger Operator for Chg Fwd Patient Type Established History Problem Focused Exam Problem Focused Medical Decision Making Straight Forward Diagnoses Schizophrenia, chronic condition F20.9 Suicidal ideation R45.851 Disturbance of sleep G47.9 Psychiatric care Acute psychosis F23
[2022-07-02] MEDS: divalproex ER 500 mg Tablet (24H) 1000 MG PO (20:05)
[2022-07-02] MEDS: trazodone 100 mg Tablet PO (20:05)
[2022-07-02] MEDS: ziprasidone hcl 40 mg Capsule PO (20:05)
[2022-07-02 22:00] VITALS: RESP 18
[2022-07-03] MEDS: OLANZapine 5 mg ODT PO ×2 (02:41→06:56)
[2022-07-03] MEDS: ondansetron 4 MG Tablet PO (02:41)
[2022-07-03] MEDS: calcium carbonate 500 mg Chew Tablet PO (02:41)
[2022-07-03] MEDS: nicotine 2 mg Gum BUCCAL (03:13)
[2022-07-03] MEDS: cetylpyridinium Lozenge 1 EACH MUCOUS MEM (03:28)
[2022-07-03] MEDS: diphenhydrAMINE 50 mg Capsule PO ×4 (03:48→21:15)
[2022-07-03] MEDS: LORazepam 2 mg Tablet PO ×4 (03:48→21:14)
[2022-07-03 06:00] VITALS: RESP 18
[2022-07-03] MEDS: ziprasidone hcl 40 mg Capsule PO ×2 (06:56→20:12)
[2022-07-03] MEDS: atenolol 50 mg Tablet PO (07:46)
[2022-07-03] MEDS: lisinopril 10 mg Tablet PO (07:47)
[2022-07-03] MEDS: haloperidol 5 mg Tablet PO ×4 (08:41→21:14)
[2022-07-03] MEDS: guaiFENesin-codeine UDC 10 mL 5 ML PO ×2 (08:41→17:30)
[2022-07-03] MEDS: acetaminophen 325 mg Tablet PO (09:24)
[2022-07-03] MEDS: fluticasone nasal spray 16gm Btl 1 SPRAY NASAL (09:25)
[2022-07-03] MEDS: hyDROXYzine 25 mg Capsule 50 MG PO ×2 (09:25→17:30)
--- NOTE | 2022-07-03 09:46 | PC.NURSE ---
Pt is upset that the TV is on and has turned over a 200lb table in the dayroom area.
--- NOTE | 2022-07-03 09:47 | PC.NURSE ---
Pt turned over another table in the dayroom, pt is upset that the TV is on, the tv remote was broken and isn't working.
[2022-07-03] MEDS: benztropine 1 mg Tablet PO (13:33)
[2022-07-03 14:00] VITALS: BP 115/72; PULSE 117; RESP 18; TEMP 36.6; O2SAT 95
[2022-07-03] MEDS: paliperidone ER 3 mg Tablet 9 MG PO (17:30)
--- NOTE | 2022-07-03 18:44 | P.NPUPN_ITS ---
Subjective NPU Subjective: Patient is a 66-year-old white female with chronic schizophrenia currently on Prozac, Haldol, Invega and Depakote. Patient had appeared agitated earlier this morning and had turned over tables and continued to appear paranoid and appeared to be acutely paranoid of the intentions of certain people on the unit. She continued to state that she had been worried about what she was going to do with her medications when she dies. She had continue to struggle with completion of routine activities of daily living on the milieu. The patient's friend Joseph had visited her today and attempted to give forbidden objects to the patient on the unit. Patient had expressed being upset that she could not return to live with Mr. Ruiz despite her having previously accused thing Joseph's friends of ousting her from the home. Mental Status Exam MSE Comments: Patient was alert and oriented to person and place but not date, or day of week. She had a disheveled appearance. Her hygiene was poor. Her hair was unkempt. Her thought process was superficial and at times disorganized. Her thought content showed evidence of active paranoia and delusional thinking. Her insight was poor. Her judgment is poor. Her impulse control appeared poor. Her mood was described as okay. Her affect was blunted and mood incongruent. Vitals/I&O/Wt Last Vital Signs Temp 97.9 F 07/03/22 14:00 Pulse 117 H 07/03/22 14:00 Resp 18 07/03/22 14:00 BP 115/72 07/03/22 14:00 Pulse Ox 95 07/03/22 14:00 O2 Del Method 07/01/22 06:00 Data NPU : 06/24/22 07:35 06/24/22 07:35 A&P Assessment and plan (1) Schizophrenia, chronic condition: (2) Suicidal ideation: (3) Disturbance of sleep: (4) Psychiatric care: (5) Acute psychosis: Plan 66-year-old white female currently receiving intensive services through [facility] with continued problems with compliance of with medications admitted on a 96-hour hold with active psychotic symptoms. 1. Continue Invega 9mg daily, continue haldol daily, and depakote er at 1000mg daily. Will begin consideration of clozaril. 2. Encourage individual, group and milieu therapy 3. Continue every 15 minute checks for safety. Has been off of one-to-one effectively since yesterday morning 4. Recommend sober living treatment at the highest level of care to which the patient is willing to commit. 5.? Guardianship hearing set and we will obtain a date from [facility]. Continuing to identify possible residential settings for discharge. Involuntary Hold Information 96 Hour Hold: 96 Hour Involuntary Admission: Yes 96 Hour Hold Ending Date: 06/14/22 96 Hour Hold Ending Time: 15:36 Attestations NPU Medical Necessity Statement*: Inpatient hospitalization is medically necessary and the clinically appropriate intervention at this time. We will evaluate medications and make changes as indicated. Likely length of stay 6-8 days. But will be mostly driven by guardianship process. Coding Level of Care Code Established Pt Acute Landscape Architecture Professor for Shobha Huynh Patient Type Established History Problem Focused Exam Problem Focused Medical Decision Making Straight Forward Diagnoses Schizophrenia, chronic condition F20.9 Suicidal ideation R45.851 Disturbance of sleep G47.9 Psychiatric care Acute psychosis F23
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
[2022-07-03] MEDS: divalproex ER 500 mg Tablet (24H) 1000 MG PO (20:11)
[2022-07-03] MEDS: zolpidem 5 mg Tablet PO (20:12)
[2022-07-03] MEDS: trazodone 100 mg Tablet PO (20:12)
[2022-07-03 20:35] VITALS: BP 124/79; PULSE 110; RESP 16; TEMP 36.4; O2SAT 97
[2022-07-04 06:00] VITALS: BP 121/74; PULSE 101; RESP 18; O2SAT 94
[2022-07-04] MEDS: OLANZapine 5 mg ODT PO (06:11)
[2022-07-04] MEDS: guaiFENesin-codeine UDC 10 mL 5 ML PO (08:23)
[2022-07-04] MEDS: saline nasal spray 44mL Btl 1 SPRAY NASAL ×2 (08:24→17:58)
[2022-07-04] MEDS: haloperidol 5 mg Tablet PO ×3 (08:24→20:59)
[2022-07-04] MEDS: lisinopril 10 mg Tablet PO (08:24)
[2022-07-04] MEDS: hyDROXYzine 25 mg Capsule 50 MG PO ×2 (08:24→21:45)
[2022-07-04] MEDS: atenolol 50 mg Tablet PO (08:24)
[2022-07-04 14:00] VITALS: BP 107/70; PULSE 83; RESP 20; TEMP 36.6; O2SAT 96
[2022-07-04] MEDS: cetylpyridinium Lozenge 1 EACH MUCOUS MEM ×2 (16:55→20:59)
[2022-07-04] MEDS: LORazepam 2 mg Tablet PO ×2 (17:59→21:45)
[2022-07-04] MEDS: benztropine 1 mg Tablet PO (17:59)
[2022-07-04] MEDS: ziprasidone hcl 40 mg Capsule PO (17:59)
[2022-07-04] MEDS: paliperidone ER 3 mg Tablet 9 MG PO (17:59)
[2022-07-04] MEDS: diphenhydrAMINE 50 mg Capsule PO ×2 (18:00→21:45)
--- NOTE | 2022-07-04 18:06 | P.NPUPN_ITS ---
Subjective NPU Subjective: Patient is a 66-year-old white female with chronic schizophrenia currently on Prozac, Haldol, Invega and Depakote. Patient continues to appear agitated on the milieu. She reports that she wishes to live with Mr. Ruiz and does not wish to go to a care home. She continued to report active paranoia and remained somewhat isolative on the milieu. She required significant prompting for engagement in showering and other self-care. The patient had reported some concerns about what her fate will be when she leaves the hospital. Patient did require some redirection. She had endorsed having problems with engaging in relationships with other people stating that I do not trust anyone . Mental Status Exam MSE Comments: Patient was alert and oriented to person and place but not date, or day of week. She had a disheveled appearance. Her hygiene was poor. Her hair was unkempt. Her thought process was superficial and remained disorganized. Her thought content showed evidence of active paranoia and delusional thinking. Her insight was poor. Her judgment is poor. Her impulse control appeared poor. Her mood was described as allright. Her affect was blunted and mood incongruent. Vitals/I&O/Wt Last Vital Signs Temp 98 F 07/04/22 14:00 Pulse 83 07/04/22 14:00 Resp 20 H 07/04/22 14:00 BP 107/70 07/04/22 14:00 Pulse Ox 96 07/04/22 14:00 O2 Del Method 07/04/22 06:00 Data NPU : 06/24/22 07:35 06/24/22 07:35 A&P Assessment and plan (1) Schizophrenia, chronic condition: (2) Suicidal ideation: (3) Disturbance of sleep: (4) Psychiatric care: (5) Acute psychosis: Plan 66-year-old white female currently receiving intensive services through [facility] with continued problems with compliance of with medications admitted on a 96-hour hold with active psychotic symptoms. 1. Continue Invega 9mg daily, continue haldol daily, and increase depakote er to 1250mg daily. Will begin consideration of clozaril. Continue ambien 5mg at night for sleep. 2. Encourage individual, group and milieu therapy 3. Continue every 15 minute checks for safety. Has been off of one-to-one effectively since yesterday morning 4. Recommend sober living treatment at the highest level of care to which the patient is willing to commit. 5.? Guardianship hearing set and we will [facility] a [facility]. Continuing to identify possible residential settings for discharge. Involuntary Hold Information 96 Hour Hold: 96 Hour Involuntary Admission: Yes 96 Hour Hold Ending Date: 06/14/22 96 Hour Hold Ending Time: 15:36 Attestations NPU Medical Necessity Statement*: Inpatient hospitalization is medically necessary and the clinically appropriate intervention at this time. We will evaluate medications and make changes as indicated. Likely length of stay 6-8 days. But will be mostly driven by guardianship process. Coding Level of Care Code Established Pt Acute Chemical Etch Operator for Germang Fwd Patient Type Established History Problem Focused Exam Problem Focused Medical Decision Making Straight Forward Diagnoses Schizophrenia, chronic condition F20.9 Suicidal ideation R45.851 Disturbance of sleep G47.9 Psychiatric care Acute psychosis F23
[2022-07-04] MEDS: magnesium hydroxide 30 mL UDC PO (20:59)
[2022-07-04] MEDS: trazodone 100 mg Tablet PO (20:59)
[2022-07-04] MEDS: divalproex ER 500 mg Tablet (24H) 1000 MG PO (20:59)
[2022-07-04] MEDS: zolpidem 5 mg Tablet PO (20:59)
[2022-07-05] MEDS: cetylpyridinium Lozenge 1 EACH MUCOUS MEM ×2 (06:33→23:29)
[2022-07-05] MEDS: OLANZapine 5 mg ODT PO (06:33)
--- NOTE | 2022-07-05 08:30 | PC.NURSE ---
Behavioral Assessment Patient sitting down on her bed as I brushed her hair. She stated she wasn't having any homicidal ideations, but that she sometimes thought that she might, walk out in October or November in the snow and just . Patient denies any visual hallucinations. However, she states she hears people talking about her all the time about how she's just an old hag and not good for nothing. Patient denies being anxious this morning and is calmly asking if she can have her hair brushed. This GN brushed her hair and patient was calm and cooperative throughout.
[2022-07-05] MEDS: hyDROXYzine 25 mg Capsule 50 MG PO (08:50)
[2022-07-05] MEDS: lisinopril 10 mg Tablet PO (08:50)
[2022-07-05] MEDS: atenolol 50 mg Tablet PO (08:50)
[2022-07-05] MEDS: fluticasone nasal spray 16gm Btl 1 SPRAY NASAL (08:51)
[2022-07-05 14:00] VITALS: BP 100/63; PULSE 82; RESP 18; TEMP 36.5; O2SAT 92
[2022-07-05] MEDS: acetaminophen 325 mg Tablet PO (14:11)
[2022-07-05] MEDS: paliperidone ER 3 mg Tablet 9 MG PO (17:01)
--- NOTE | 2022-07-05 19:19 | W.PM.NPUPNS ---
Subjective NPU Subjective: Patient is a 66-year-old white female with chronic schizophrenia currently on Prozac, Haldol, Invega and Depakote. Patient continues to show evidence of disorganized thinking and disorganized behavior at times on the unit. There was no evidence of any odd posturing. She continued to have intense paranoia and continue to report that she wished to not live in a [place] [facility]. She reported that she would place a white blanket over her head so that people would not have to see her face if that meant that she could live with Mr. Ruiz. She had been minimally cooperative on the milieu and struggled without prompting for completion of activities of daily living. The patient had reported some improved sleep with the Ambien at night with no noted increase in aggression with the reduction in Haldol. Mental Status Exam MSE Comments: Patient was alert and oriented to person and place but not date, or day of week. She had a disheveled appearance. Her hygiene was poor. Her hair was unkempt. Her thought process was superficial and remained disorganized. Her thought content showed evidence of active paranoia and delusional thinking. Clear evidence of thought broadcasting noted. Her insight was poor. Her judgment is poor. Her impulse control appeared poor. Her mood was described as allright. Her affect was blunted and mood incongruent. Vitals/I&O/Wt Last Vital Signs Temp 97.7 F 07/05/22 14:00 Pulse 82 07/05/22 14:00 Resp 18 07/05/22 14:00 BP 100/63 07/05/22 14:00 Pulse Ox 92 07/05/22 14:00 O2 Del Method 07/04/22 06:00 Data NPU : 06/24/22 07:35 06/24/22 07:35 A&P Assessment and plan (1) Schizophrenia, chronic condition: (2) Suicidal ideation: (3) Disturbance of sleep: (4) Psychiatric care: (5) Acute psychosis: Plan 66-year-old white female currently receiving intensive services through [facility] with continued problems with compliance of with medications admitted on a 96-hour hold with active psychotic symptoms. 1. Continue Invega 9mg daily, continue haldol daily, and increase depakote er to 1250mg daily. Will begin consideration of clozaril. Continue ambien 5mg at night for sleep. 2. Encourage individual, group and milieu therapy 3. Continue every 15 minute checks for safety. Has been off of one-to-one effectively since yesterday morning 4. Recommend sober living treatment at the highest level of care to which the patient is willing to commit. 5.? Guardianship hearing set and we will obtain a date from [facility]. Continuing to identify possible residential settings for discharge. Involuntary Hold Information 96 Hour Hold: 96 Hour Involuntary Admission: Yes 96 Hour Hold Ending Date: 06/14/22 96 Hour Hold Ending Time: 15:36 Attestations NPU Medical Necessity Statement*: Inpatient hospitalization is medically necessary and the clinically appropriate intervention at this time. We will evaluate medications and make changes as indicated. Likely length of stay 8-12 days. But will be mostly driven by guardianship process. Coding Level of Care Code Established Pt Acute Structural Iron Erector for Germang Fwd Patient Type Established History Problem Focused Exam Problem Focused Medical Decision Making Straight Forward Diagnoses Schizophrenia, chronic condition F20.9 Suicidal ideation R45.851 Disturbance of sleep G47.9 Psychiatric care Acute psychosis F23
[2022-07-05] MEDS: ziprasidone hcl 40 mg Capsule PO (19:32)
[2022-07-05] MEDS: divalproex ER 500 mg Tablet (24H) 1000 MG PO (19:32)
[2022-07-05] MEDS: haloperidol 5 mg Tablet PO (19:33)
[2022-07-05] MEDS: zolpidem 5 mg Tablet PO (19:33)
[2022-07-05] MEDS: divalproex ER 250 mg Tablet (24H) PO (19:35)
[2022-07-05] MEDS: ibuprofen 600 mg Tablet PO (20:02)
[2022-07-06] MEDS: cetylpyridinium Lozenge 1 EACH MUCOUS MEM ×3 (00:56→19:44)
[2022-07-06] MEDS: ibuprofen 600 mg Tablet PO (01:47)
[2022-07-06] MEDS: guaiFENesin-codeine UDC 10 mL 5 ML PO ×3 (04:08→17:25)
[2022-07-06] MEDS: hyDROXYzine 25 mg Capsule 50 MG PO ×2 (04:08→17:25)
[2022-07-06] MEDS: diphenhydrAMINE 50 mg Capsule PO (09:31)
[2022-07-06] MEDS: LORazepam 2 mg Tablet PO (09:31)
[2022-07-06] MEDS: haloperidol 5 mg Tablet PO ×3 (09:31→20:28)
[2022-07-06] MEDS: lisinopril 10 mg Tablet PO (09:31)
[2022-07-06] MEDS: benztropine 1 mg Tablet PO ×2 (09:31→18:09)
[2022-07-06] MEDS: atenolol 50 mg Tablet PO (09:31)
[2022-07-06 14:00] VITALS: BP 130/64; PULSE 75; RESP 18; TEMP 36.1; O2SAT 97
[2022-07-06] MEDS: paliperidone ER 3 mg Tablet 9 MG PO (17:26)
[2022-07-06] MEDS: fluticasone nasal spray 16gm Btl 1 SPRAY NASAL (17:26)
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
[2022-07-06] MEDS: divalproex ER 500 mg Tablet (24H) 1000 MG PO (20:27)
[2022-07-06] MEDS: divalproex ER 250 mg Tablet (24H) PO (20:28)
[2022-07-06] MEDS: zolpidem 5 mg Tablet PO (20:28)
[2022-07-07 06:00] VITALS: BP 123/81; PULSE 93; RESP 18; TEMP 37; O2SAT 95
[2022-07-07] MEDS: ziprasidone hcl 40 mg Capsule PO ×2 (07:54→17:39)
[2022-07-07] MEDS: atenolol 50 mg Tablet PO (07:55)
[2022-07-07] MEDS: lisinopril 10 mg Tablet PO (07:55)
[2022-07-07] MEDS: guaiFENesin-codeine UDC 10 mL 5 ML PO ×2 (07:55→21:03)
[2022-07-07] MEDS: LORazepam 2 mg Tablet PO ×2 (07:55→16:55)
[2022-07-07] MEDS: diphenhydrAMINE 50 mg Capsule PO ×2 (07:55→16:55)
[2022-07-07] MEDS: fluticasone nasal spray 16gm Btl 1 SPRAY NASAL ×2 (08:58→17:40)
[2022-07-07] MEDS: nicotine 4 mg lozenge MUCOUS MEM ×2 (09:36→17:45)
[2022-07-07 14:00] VITALS: BP 98/58; PULSE 76; RESP 16; TEMP 36.5; O2SAT 94
--- NOTE | 2022-07-07 14:25 | P.NPUPN_ITS ---
Subjective NPU Subjective: Patient is a 66-year-old white female with chronic schizophrenia currently on Prozac, Haldol, Invega, ambien and Depakote. She continued to endorse that others were spying on her. She reports that she has continued to have evidence that people outside of here can hear her thoughts. She had reported that she also felt that others were trying to put thoughts in her head. Patient had continue to show evidence of requiring prompting for active to 50s of daily living completion. She had remained isolative on the milieu but had not been aggressive. She reported some improvement in sleep on Ambien. Mental Status Exam MSE Comments: Patient was alert and oriented to person and place but not date, or day of week. She had a disheveled appearance. Her hygiene was poor. Her hair was unkempt. Her thought process was superficial and remained disorganized. Her thought content showed evidence of active paranoia and delusional thinking. Clear evidence of thought broadcasting noted. Her insight was poor. Her judgment is poor. Her impulse control appeared poor. Her mood was described as okay. Her affect was blunted and mood incongruent. Vitals/I&O/Wt Last Vital Signs Temp 98.6 F 07/07/22 06:00 Pulse 93 07/07/22 06:00 Resp 18 07/07/22 06:00 BP 123/81 07/07/22 06:00 Pulse Ox 95 07/07/22 06:00 O2 Del Method 07/07/22 06:00 Weight last 48 hrs Weight 90.945 kg Data NPU : 06/24/22 07:35 06/24/22 07:35 Involuntary Hold Information 96 Hour Hold: 96 Hour Involuntary Admission: Yes 96 Hour Hold Ending Date: 06/14/22 96 Hour Hold Ending Time: 15:36 Attestations NPU Medical Necessity Statement*: Inpatient hospitalization is medically necessary and the clinically appropriate intervention at this time. We will evaluate medications and make changes as indicated. Likely length of stay 8-12 days. But will be mostly driven by guardianship process. Coding Level of Care Code Established Pt Acute Psychologist Research Assistant for Shobha Fwd Patient Type Established History Problem Focused Exam Problem Focused Medical Decision Making Straight Forward
[2022-07-07] MEDS: cetylpyridinium Lozenge 1 EACH MUCOUS MEM ×2 (16:55→21:03)
[2022-07-07] MEDS: haloperidol 5 mg Tablet PO ×2 (16:55→20:56)
[2022-07-07] MEDS: ibuprofen 600 mg Tablet PO (17:39)
[2022-07-07] MEDS: paliperidone ER 3 mg Tablet 9 MG PO (17:39)
[2022-07-07] MEDS: divalproex ER 500 mg Tablet (24H) 1000 MG PO (20:55)
[2022-07-07] MEDS: divalproex ER 250 mg Tablet (24H) PO (20:56)
[2022-07-07] MEDS: zolpidem 5 mg Tablet PO (20:56)
[2022-07-08] MEDS: OLANZapine 5 mg ODT PO ×2 (04:21→23:38)
[2022-07-08] MEDS: ziprasidone hcl 40 mg Capsule PO ×2 (04:21→17:19)
--- NOTE | 2022-07-08 04:34 | PC.NURSE ---
Patient was medicated with Zyprexa and Geodon for escalating anxiety.
[2022-07-08 06:00] VITALS: BP 120/76; PULSE 88; RESP 18; TEMP 36.4; O2SAT 95
--- NOTE | 2022-07-08 07:55 | PC.NURSE ---
Behavioral Assessment Patient reading and coloring in day room. Patient denies any SI/HI. Also denies AH/VH. Patient states she slept well last night and would like a picture of Leonardo and his disciples this morning to color. Patient was calm and cooperative.
[2022-07-08] MEDS: benztropine 1 mg Tablet PO (08:20)
[2022-07-08] MEDS: lisinopril 10 mg Tablet PO (08:20)
[2022-07-08] MEDS: guaiFENesin-codeine UDC 10 mL 5 ML PO (08:20)
[2022-07-08] MEDS: atenolol 50 mg Tablet PO (08:20)
[2022-07-08] MEDS: diphenhydrAMINE 50 mg Capsule PO (08:20)
[2022-07-08] MEDS: LORazepam 2 mg Tablet PO (08:20)
[2022-07-08 14:00] VITALS: BP 115/75; PULSE 83; RESP 18; TEMP 36.4; O2SAT 97
[2022-07-08] MEDS: pneumococcal (23 valent) SDV 0.5 mL IM (14:01)
[2022-07-08] MEDS: ibuprofen 600 mg Tablet PO (17:19)
[2022-07-08] MEDS: paliperidone ER 3 mg Tablet 9 MG PO (17:21)
[2022-07-08] MEDS: cetylpyridinium Lozenge 1 EACH MUCOUS MEM (17:23)
--- NOTE | 2022-07-08 18:34 | P.NPUPN_ITS ---
Subjective NPU Subjective: Patient is a 66-year-old white female with chronic schizophrenia currently on Prozac, Haldol, Invega, ambien and Depakote. She continued to report wishing to have Mr. Ruiz has her guardian. She continued to show evidence of active paranoia. There were prominent complaints of others somehow being able to recognize her and reports that others were saying negative comments about the patient. Patient had continued to report that others somehow were able to get access to her thoughts. Patient struggled with completion of activities of daily living with cry requiring prompting for showering. Mental Status Exam MSE Comments: Patient was alert and oriented to person and place but not date, or day of week. She had a disheveled appearance. Her hygiene was poor. Her hair was unkempt. Her thought process was superficial and remained disorganized. Her mood was described as good. Her affect was blunted and mood incongruent. Her thought content showed evidence of active paranoia and de lusional thinking. Clear evidence of thought broadcasting noted. Her insight was poor. Her judgment is poor. Her impulse control appeared poor. Vitals/I&O/Wt Last Vital Signs Temp 97.5 F L 07/08/22 14:00 Pulse 83 07/08/22 14:00 Resp 18 07/08/22 14:00 BP 115/75 07/08/22 14:00 Pulse Ox 97 07/08/22 14:00 O2 Del Method 07/08/22 06:00 Weight last 48 hrs Weight 90.945 kg Data NPU : 06/24/22 07:35 06/24/22 07:35 A&P Assessment and plan (1) Schizophrenia, chronic condition: (2) Suicidal ideation: (3) Disturbance of sleep: (4) Psychiatric care: (5) Acute psychosis: Plan 66-year-old white female currently receiving intensive services through [facility] with continued problems with compliance of with medications admitted on a 96-hour hold with active psychotic symptoms. 1. Continue Invega 9mg daily, continue haldol daily, and continue depakote er to 1250mg daily. Will begin consideration of clozaril. Continue ambien 5mg at night for sleep. 2. Encourage individual, group and milieu therapy 3. Continue every 15 minute checks for safety. Has been off of one-to-one effectively since yesterday morning 4. Recommend sober living treatment at the highest level of care to which the patient is willing to commit. 5.? Guardianship hearing set and [facility] will [facility]. Continuing to identify possible residential settings for discharge. Involuntary Hold Information 96 Hour Hold: 96 Hour Involuntary Admission: Yes 96 Hour Hold Ending Date: 06/14/22 96 Hour Hold Ending Time: 15:36 Attestations NPU Medical Necessity Statement*: Inpatient hospitalization is medically necessary and the clinically appropriate intervention at this time. We will evaluate medications and make changes as indicated. Likely length of stay 8-12 days. But will be mostly driven by guardianship process. Coding Level of Care Code Established Pt Acute Dip Tube Assembler Machine for Germang Fwd Patient Type Established History Problem Focused Exam Problem Focused Medical Decision Making Straight Forward Diagnoses Schizophrenia, chronic condition F20.9 Suicidal ideation R45.851 Disturbance of sleep G47.9 Psychiatric care Acute psychosis F23
[2022-07-08] MEDS: divalproex ER 500 mg Tablet (24H) 1000 MG PO (20:20)
[2022-07-08] MEDS: divalproex ER 250 mg Tablet (24H) PO (20:22)
[2022-07-08] MEDS: zolpidem 5 mg Tablet PO (20:22)
[2022-07-08] MEDS: haloperidol 5 mg Tablet PO (20:22)
[2022-07-08] MEDS: trazodone 100 mg Tablet PO (23:38)
[2022-07-09] MEDS: calcium carbonate 500 mg Chew Tablet PO (01:45)
[2022-07-09] MEDS: guaiFENesin-codeine UDC 10 mL 5 ML PO ×3 (02:50→18:16)
[2022-07-09] MEDS: cetylpyridinium Lozenge 1 EACH MUCOUS MEM ×3 (02:50→18:17)
[2022-07-09] MEDS: nicotine 2 mg Gum BUCCAL (04:59)
[2022-07-09] MEDS: ibuprofen 600 mg Tablet PO (08:52)
[2022-07-09] MEDS: benztropine 1 mg Tablet PO (08:52)
[2022-07-09] MEDS: ziprasidone hcl 40 mg Capsule PO (08:52)
[2022-07-09] MEDS: lisinopril 10 mg Tablet PO (08:52)
[2022-07-09] MEDS: atenolol 50 mg Tablet PO (08:53)
[2022-07-09 14:00] VITALS: RESP 16
--- NOTE | 2022-07-09 17:06 | W.PM.NPUPNS ---
Subjective NPU Subjective: Patient is a 66-year-old white female with chronic schizophrenia currently on Prozac, Haldol, Invega, ambien and Depakote. Patient remains withdrawn and odd on the unit. Patient repeatedly asking if she cannot go home. She continued to report wishing to have Mr. Ruiz has her guardian. She continued to show evidence of active paranoia. She continued to show evidence of poor self care, inability to provide care for self without prompting. Mental Status Exam MSE Comments: Patient was alert and oriented to person and place but not date, or day of week. She had a disheveled appearance. Her hygiene was poor. Her hair was unkempt. Her thought process was superficial and remained disorganized. Her mood was described as good. Her affect was blunted and mood incongruent. Her thought content showed evidence of active paranoia and delusional thinking. Clear evidence of thought broadcasting noted. Her insight was poor. Her judgment is poor. Her impulse control appeared poor. Vitals/I&O/Wt Last Vital Signs Temp 97.5 F L 07/08/22 14:00 Pulse 83 07/08/22 14:00 Resp 18 07/08/22 14:00 BP 115/75 07/08/22 14:00 Pulse Ox 97 07/08/22 14:00 O2 Del Method 07/08/22 06:00 Data NPU : 06/24/22 07:35 06/24/22 07:35 A&P Assessment and plan (1) Schizophrenia, chronic condition: (2) Suicidal ideation: (3) Disturbance of sleep: (4) Psychiatric care: (5) Acute psychosis: Plan 66-year-old white female currently receiving intensive services through [facility] with continued problems with compliance of with medications admitted on a 96-hour hold with active psychotic symptoms. 1. Continue Invega 9mg daily, continue haldol daily, and continue depakote er to 1250mg daily. Will begin consideration of clozaril. Continue ambien 5mg at night for sleep. 2. Encourage individual, group and milieu therapy 3. Continue every 15 minute checks for safety. Has been off of one-to-one effectively since yesterday morning 4. Recommend sober living treatment at the highest level of care to which the patient is willing to commit. 5.? Guardianship hearing set and we will obtain a date from [facility]. Continuing to identify possible residential settings for discharge. Involuntary Hold Information 96 Hour Hold: 96 Hour Involuntary Admission: Yes 96 Hour Hold Ending Date: 06/14/22 96 Hour Hold Ending Time: 15:36 Attestations NPU Medical Necessity Statement*: Inpatient hospitalization is medically necessary and the clinically appropriate intervention at this time. We will evaluate medications and make changes as indicated. Likely length of stay 8-12 days. But will be mostly driven by guardianship process. 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
[2022-07-09] MEDS: paliperidone ER 3 mg Tablet 9 MG PO (17:11)
[2022-07-09] MEDS: LORazepam 2 mg Tablet PO (17:11)
[2022-07-09] MEDS: haloperidol 5 mg Tablet PO ×2 (17:12→20:14)
[2022-07-09] MEDS: diphenhydrAMINE 50 mg Capsule PO (17:12)
[2022-07-09] MEDS: bisacodyl 5 mg Tablet PO (17:34)
--- NOTE | 2022-07-09 17:34 | PC.NURSE ---
Administered oral B52 of haldol, ativan and benadryl for the pt experiencing agitation. Dr. Palomino ordered the medication.
--- NOTE | 2022-07-09 17:36 | PC.NURSE ---
Pt requested a stool softner to help her with a Bowel movement.
[2022-07-09] MEDS: divalproex ER 250 mg Tablet (24H) PO (20:14)
[2022-07-09] MEDS: zolpidem 5 mg Tablet PO (20:14)
[2022-07-09] MEDS: divalproex ER 500 mg Tablet (24H) 1000 MG PO (20:14)
[2022-07-10] MEDS: cetylpyridinium Lozenge 1 EACH MUCOUS MEM ×5 (01:52→18:25)
[2022-07-10] MEDS: guaiFENesin-codeine UDC 10 mL 5 ML PO ×2 (01:52→15:46)
[2022-07-10 06:00] VITALS: BP 122/78; PULSE 104; RESP 17; TEMP 37; O2SAT 94
[2022-07-10] MEDS: ziprasidone hcl 40 mg Capsule PO ×2 (08:45→19:53)
[2022-07-10] MEDS: atenolol 50 mg Tablet PO (08:45)
[2022-07-10] MEDS: benztropine 1 mg Tablet PO ×2 (08:45→18:25)
[2022-07-10] MEDS: lisinopril 10 mg Tablet PO (08:45)
[2022-07-10] MEDS: ibuprofen 600 mg Tablet PO (10:46)
[2022-07-10] MEDS: calcium carbonate 500 mg Chew Tablet PO (12:39)
[2022-07-10] MEDS: magnesium hydroxide 30 mL UDC PO (13:58)
[2022-07-10 14:00] VITALS: BP 129/79; PULSE 78; RESP 19; O2SAT 98
--- NOTE | 2022-07-10 15:26 | P.NPUPN_ITS ---
Subjective NPU Subjective: Patient is a 66-year-old white female with chronic schizophrenia currently on Prozac, Haldol, Invega, ambien and Depakote. Patient remains withdrawn and odd on the unit. She spent most of the afternoon sleeping. She had reported adequate energy but continue to show evidence of apathy, amoti vation and anergia. Patient repeatedly asking if she cannot go home. She continued again to request to have Mr. Ruiz has her guardian. She continued to show evidence of active paranoia. She continued to show evidence of poor self care, inability to provide care for self without prompting. She has had less explosive outbursts and improved sleep on ambien with no worsening aggression with reduction of haldol. She continues to require prn medication. Mental Status Exam MSE Comments: Patient was alert and oriented to person and place but not date, or day of week. She had a disheveled appearance. Her hygiene was poor. Her hair was unkempt. Her thought process was superficial and remained disorganized. Her mood was described as good. Her affect was blunted and mood incongruent. Her thought content showed evidence of active paranoia and delusional thinking. Clear evidence of thought broadcasting noted. Her insight was poor. Her judgment is poor. Her impulse control appeared poor. Vitals/I&O/Wt Last Vital Signs Temp 98.6 F 07/10/22 06:00 Pulse 78 07/10/22 14:00 Resp 19 H 07/10/22 14:00 BP 129/79 07/10/22 14:00 Pulse Ox 98 07/10/22 14:00 O2 Del Method 07/10/22 06:00 Data NPU : 06/24/22 07:35 06/24/22 07:35 A&P Assessment and plan (1) Schizophrenia, chronic condition: (2) Suicidal ideation: (3) Disturbance of sleep: (4) Psychiatric care: (5) Acute psychosis: Plan 66-year-old white female currently receiving intensive services through [facility] with continued problems with compliance of with medications admitted on a 96-hour hold with active psychotic symptoms. 1. Continue Invega 9mg daily, continue haldol daily, and continue depakote er to 1250mg daily, will switch to am dose versus pm dose as patient appears overly sedated in am. Will begin consideration of clozaril. Continue ambien 5mg at night for sleep. 2. Encourage individual, group and milieu therapy 3. Continue every 15 minute checks for safety. Has been off of one-to-one effectively since yesterday morning 4. Recommend sober living treatment at the highest level of care to which the p atient is willing to commit. 5.? Guardianship hearing set and we will obtain a date from [facility]. Continuing to identify possible residential settings for discharge. Involuntary Hold Information 96 Hour Hold: 96 Hour Involuntary Admission: Yes 96 Hour Hold Ending Date: 06/14/22 96 Hour Hold Ending Time: 15:36 Attestations NPU Medical Necessity Statement*: Inpatient hospitalization is medically necessary and the clinically appropriate intervention at this time. We will evaluate medications and make changes as indicated. Likely length of stay 8-12 days. But will be mostly driven by guardianship process. 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
[2022-07-10] MEDS: divalproex ER 500 mg Tablet (24H) 1000 MG PO (15:46)
[2022-07-10] MEDS: LORazepam 2 mg Tablet PO (18:25)
[2022-07-10] MEDS: paliperidone ER 3 mg Tablet 9 MG PO (18:25)
[2022-07-10] MEDS: diphenhydrAMINE 50 mg Capsule PO (18:25)
[2022-07-10] MEDS: haloperidol 5 mg Tablet PO ×2 (18:25→19:53)
[2022-07-10] MEDS: zolpidem 5 mg Tablet PO (19:53)
[2022-07-10 21:04] VITALS: BP 132/75; PULSE 87; RESP 17; O2SAT 97
[2022-07-11 06:00] VITALS: BP 179/73; PULSE 88; RESP 16; O2SAT 98
[2022-07-11] MEDS: atenolol 50 mg Tablet PO (08:13)
[2022-07-11] MEDS: lisinopril 10 mg Tablet PO (08:13)
[2022-07-11] MEDS: divalproex ER 250 mg Tablet (24H) PO (08:14)
[2022-07-11] MEDS: divalproex ER 500 mg Tablet (24H) 1000 MG PO (08:14)
--- NOTE | 2022-07-11 09:42 | P.NPUPN_ITS ---
Subjective NPU Subjective: Patient presents today reporting.She says being stuck here makes her feel somewhat frustrated and like she does not have any power. We discussed the likely hearing date 07/23/2022 and that hopefully things will move her quickly from there. She denied any side effect of the medication and reports that she is eating and sleeping fine. Staff reports she has not been a problem recently Mental Status Exam MSE Comments: This is a well-nourished, well-developed white female looking older than her stated age with hospital scrubs on with adequate grooming and improving eye contact. No abnormal movements except for mild psychomotor retardation.? Speech was limited and normal rate but occasionally slightly decreased volume.? Mood described as fine but tired of being here, affect was odd and somewhat irritable. ? Thought process more organized. ? Thought content: Patient denied any suicidal ideation or homicidal ideation. No delusions reported and none noted except possibility for some paranoid delusions, she denied auditory or visual hallucinations and she did not appear to be responding to internal stimuli. Attention and concentration was intact. Recent and remote memory appeared at baseline. She is alert and oriented to person place, but not time or necessarily purpose. ? Insight and judgment are impaired and impulse control is improving. Intellectual ability limited Vitals/I&O/Wt Last Vital Signs Temp 98.6 F 07/10/22 06:00 Pulse 88 07/11/22 06:00 Resp 16 07/11/22 06:00 BP 179/73 07/11/22 06:00 Pulse Ox 98 07/11/22 06:00 O2 Del Method 07/11/22 06:00 Data NPU : 06/24/22 07:35 06/24/22 07:35 A&P Assessment and plan (1) Schizophrenia, chronic condition: (2) Suicidal ideation: (3) Disturbance of sleep: (4) Psychiatric care: (5) Acute psychosis: Plan 66-year-old white female currently receiving intensive services through [facility] with continued problems with compliance of with medications admitted on a 96-hour hold with active psychotic symptoms. 1. Continue Invega 9mg daily, continue haldol daily, and continue depakote er to 1250mg daily, will switch to am dose versus pm dose as patient appears overly sedated in am. Will begin consideration of clozaril. Continue ambien 5mg at night for sleep. 2. Encourage individual, group and milieu therapy 3. Continue every 15 minute checks for safety. 4. Recommend sober living treatment at the highest level of care to which the patient is willing to commit. 5.? Guardianship hearing set for 07/23/2022. Continuing to identify possible residential settings for discharge. Involuntary Hold Information 96 Hour Hold: 96 Hour Involuntary Admission: Yes 96 Hour Hold Ending Date: 06/14/22 96 Hour Hold Ending Time: 15:36 Attestations NPU Medical Necessity Statement*: Inpatient hospitalization is medically necessary and the clinically appropriate intervention at this time. We will evaluate medications and make changes as indicated. Likely length of stay 12 days. Locally have placement determined by date of hearing. Coding Level of Care Code Acute Compensation And Hris Analyst for Shobha Ramírezd Diagnoses Schizophrenia, chronic condition F20.9 Suicidal ideation R45.851 Disturbance of sleep G47.9 Psychiatric care Acute psychosis F23
[2022-07-11] MEDS: saline nasal spray 44mL Btl 1 SPRAY NASAL (11:00)
[2022-07-11 14:00] VITALS: BP 149/72; PULSE 75; RESP 18; TEMP 36.3; O2SAT 97
[2022-07-11] MEDS: calcium carbonate 500 mg Chew Tablet PO (16:37)
[2022-07-11] MEDS: paliperidone ER 3 mg Tablet 9 MG PO (17:37)
[2022-07-11] MEDS: guaiFENesin-codeine UDC 10 mL 5 ML PO (20:07)
[2022-07-11] MEDS: haloperidol 5 mg Tablet PO (20:08)
[2022-07-11] MEDS: zolpidem 5 mg Tablet PO (20:08)
[2022-07-11 20:39] VITALS: BP 151/77; PULSE 81; RESP 18; TEMP 36.6; O2SAT 96
[2022-07-12] MEDS: calcium carbonate 500 mg Chew Tablet PO ×2 (04:54→15:06)
[2022-07-12] MEDS: guaiFENesin-codeine UDC 10 mL 5 ML PO ×2 (05:41→20:15)
[2022-07-12] MEDS: divalproex ER 250 mg Tablet (24H) PO (05:43)
[2022-07-12] MEDS: divalproex ER 500 mg Tablet (24H) 1000 MG PO (05:43)
[2022-07-12 06:00] VITALS: BP 133/81; PULSE 86; RESP 16; TEMP 36.6; O2SAT 96
[2022-07-12] MEDS: atenolol 50 mg Tablet PO (08:32)
[2022-07-12] MEDS: lisinopril 10 mg Tablet PO (08:32)
--- NOTE | 2022-07-12 09:31 | PC.NURSE ---
Behavioral Assessment Patient lying in bed. Denies SI/HI and AH/VH. Patient is calm and cooperative.
[2022-07-12 14:00] VITALS: BP 130/78; PULSE 88; RESP 18; TEMP 36.6; O2SAT 93
--- NOTE | 2022-07-12 17:51 | W.PM.NPUPNS ---
Subjective NPU Subjective: Patient is today reporting that she is worried that her Medicaid is going to run out in 3 weeks and she is wanting to discharge before she creates a deal that she cannot pay. We discussed the fact that her hearing is mostly in 11 days and our hope is that we cannot get a facility prior to that so she can discharge on that day or the next day. Otherwise she denies any new issues or concerns. No issues of aggression. Mental Status Exam MSE Comments: This is a well-nourished, well-developed white female looking older than her stated age with hospital scrubs on with adequate grooming and improving eye contact. No abnormal movements except for mild psychomotor retardation.? Speech was limited and normal rate but occasionally slightly decreased volume.? Mood described as okay but I just do not want to be here more, affect was odd and somewhat irritable. ? Thought process more organized. ? Thought content: Patient denied any suicidal ideation or homicidal ideation. No delusions reported and none noted except possibility for some paranoid delusions, she denied auditory or visual hallucinations and she did not appear to be responding to internal stimuli. Attention and concentration was intact. Recent and remote memory appeared at baseline. She is alert and oriented to person place, but not time or necessarily purpose. ? Insight and judgment are impaired and impulse control is improving. Intellectual ability limited Vitals/I&O/Wt Last Vital Signs Temp 98 F 07/12/22 14:00 Pulse 88 07/12/22 14:00 Resp 18 07/12/22 14:00 BP 130/78 07/12/22 14:00 Pulse Ox 93 07/12/22 14:00 O2 Del Method 07/12/22 14:00 Data NPU : 06/24/22 07:35 06/24/22 07:35 A&P Assessment and plan (1) Schizophrenia, chronic condition: (2) Suicidal ideation: (3) Disturbance of sleep: (4) Psychiatric care: (5) Acute psychosis: Plan 66-year-old white female currently receiving intensive services through [facility] with continued problems with compliance of with medications admitted on a 96-hour hold with active psychotic symptoms. 1. Continue Invega 9mg daily, continue haldol daily, and continue depakote er to 1250mg daily, will switch to am dose versus pm dose as patient appears overly sedated in am. Will begin consideration of clozaril. Continue ambien 5mg at night for sleep. 2. Encourage individual, group and milieu therapy 3. Continue every 15 minute checks for safety. 4. Recommend sober living treatment at the highest level of care to which the patient is willing to commit. 5.? Guardianship hearing set for 07/23/2022. Continuing to identify possible residential settings for discharge. Involuntary Hold Information 96 Hour Hold: 96 Hour Involuntary Admission: Yes 96 Hour Hold Ending Date: 06/14/22 96 Hour Hold Ending Time: 15:36 Attestations NPU Medical Necessity Statement*: Inpatient hospitalization is medically necessary and the clinically appropriate intervention at this time. We will evaluate medications and make changes as indicated. Likely length of stay 11 days. Need to try to have placement determined by date of hearing. 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
[2022-07-12] MEDS: paliperidone ER 3 mg Tablet 9 MG PO (18:13)
[2022-07-12] MEDS: nicotine 2 mg Gum BUCCAL (18:14)
[2022-07-12] MEDS: cetylpyridinium Lozenge 1 EACH MUCOUS MEM (19:22)
[2022-07-12] MEDS: trazodone 100 mg Tablet PO (20:15)
[2022-07-12] MEDS: zolpidem 5 mg Tablet PO (20:15)
[2022-07-12] MEDS: haloperidol 5 mg Tablet PO (20:15)
[2022-07-12 20:21] VITALS: RESP 18
[2022-07-13] MEDS: ziprasidone hcl 40 mg Capsule PO ×2 (02:13→20:22)
[2022-07-13] MEDS: guaiFENesin-codeine UDC 10 mL 5 ML PO ×2 (02:14→07:48)
--- NOTE | 2022-07-13 02:21 | PC.NURSE ---
upon new admission arrival to unit I was showing the new patient the showers, the day room then as we walked towards her room 131 , Erica came out of her room 124 walking briskly down the tsang yelling that you are not to use my name while talking about me to that woman at that time Erica turned around and went into her room. the 2nd time Erica came out of her room stomping down the tsang abrasively yelling and gesturing towards the new patient but neither I nor Reid Reynoso could make out the words before Erica turned around and went to her room.
[2022-07-13 04:49] VITALS: BP 113/75; PULSE 93; RESP 20; O2SAT 95
[2022-07-13] MEDS: divalproex ER 250 mg Tablet (24H) PO (06:21)
[2022-07-13] MEDS: divalproex ER 500 mg Tablet (24H) 1000 MG PO (06:21)
[2022-07-13] MEDS: haloperidol 5 mg Tablet PO ×2 (06:33→20:22)
[2022-07-13] MEDS: LORazepam 2 mg Tablet PO ×2 (06:33→18:35)
--- NOTE | 2022-07-13 07:20 | PC.NURSE ---
administered prn po ativan and po haldol for patient yelling, slamming doors, anxiety and agitation. patient put medication in her mouth when i asked her to raise her tongue to make sure patient swallowed medication pt barely raised her tongue pt then immediately got up from her sitting position on the the side of her bed stating she had to poop an started walking to her restroom i ask patient if she would stop and raise her tongue so I knew she swallowed her medication patient ignored my request went into her bathroom slamming the door. at that time I was by the doorway and tsang an heard her commode flush. patient then came out of the bathroom. I can not confirm or deny if patient actually recieved her po medication that I adminsitered.
[2022-07-13] MEDS: OLANZapine 5 mg ODT PO ×2 (07:48→18:35)
[2022-07-13] MEDS: atenolol 50 mg Tablet PO (09:27)
[2022-07-13] MEDS: lisinopril 10 mg Tablet PO (09:27)
--- NOTE | 2022-07-13 13:14 | W.PM.NPUPNS ---
Subjective NPU Subjective: Patient presented today fairly calm and seeming to have some peace in the treatment team plan of having her discharge around the time of her hearing. This account underwriter was clear that that is our desire and a plan we are working towards. But she was very concrete in the discussion. Otherwise she denies any other issues and had no problematic interactions with anyone on the unit. Mental Status Exam MSE Comments: This is a well-nourished, well-developed white female looking older than her stated age with hospital scrubs on with adequate grooming and improving eye contact. No abnormal movements except for mild psychomotor retardation.? Speech was limited and normal rate but occasionally slightly decreased volume.? Mood described as okay and I am leaving in 11 days right, affect was odd and less irritable. ? Thought process more organized. ? Thought content: Patient denied any suicidal ideation or homicidal ideation. No delusions reported and none noted except possibility for some paranoid delusions, she denied auditory or visual hallucinations and she did not appear to be responding to internal stimuli. Attention and concentration was intact. Recent and remote memory appeared at baseline. She is alert and oriented to person place, but not time or necessarily purpose. ? Insight and judgment are impaired and impulse control is improving. Intellectual ability limited Vitals/I&O/Wt Last Vital Signs Temp 97.7 F 07/13/22 20:13 Pulse 115 H 07/13/22 20:13 Resp 18 07/13/22 20:13 BP 137/84 07/13/22 20:13 Pulse Ox 97 07/13/22 20:13 O2 Del Method 07/13/22 14:00 Weight last 48 hrs Weight 92.17 kg Data NPU : 06/24/22 07:35 06/24/22 07:35 A&P Assessment and plan (1) Schizophrenia, chronic condition: (2) Suicidal ideation: (3) Disturbance of sleep: (4) Psychiatric care: (5) Acute psychosis: Plan 66-year-old white female currently receiving intensive services through [facility] with continued problems with compliance of with medications admitted on a 96-hour hold with active psychotic symptoms. 1. Continue Invega 9mg daily, continue haldol daily, and continue depakote er to 1250mg daily, will switch to am dose versus pm dose as patient appears overly sedated in am. Will begin consideration of clozaril. Continue ambien 5mg at night for sleep. 2. Encourage individual, group and milieu therapy 3. Continue every 15 minute checks for safety. 4. Recommend sober living treatment at the highest level of care to which the patient is willing to commit. 5.? Guardianship hearing set for 07/23/2022. Continuing to identify possible residential settings for discharge. Involuntary Hold Information 96 Hour Hold: 96 Hour Involuntary Admission: Yes 96 Hour Hold Ending Date: 06/14/22 96 Hour Hold Ending Time: 15:36 Attestations NPU Medical Necessity Statement*: Inpatient hospitalization is medically necessary and the clinically appropriate intervention at this time. We will evaluate medications and make changes as indicated. Likely length of stay 10 days. Need to try to have placement determined by date of hearing. Coding Level of Care Code Acute Master Sonar Technician for Shobha Huynh Diagnoses Schizophrenia, chronic condition F20.9 Suicidal ideation R45.851 Disturbance of sleep G47.9 Psychiatric care Acute psychosis F23
[2022-07-13 14:00] VITALS: BP 131/74; PULSE 116; RESP 20; TEMP 36.6; O2SAT 95
[2022-07-13] MEDS: benzocaine 20% 7 gm 1 APPLIC MUCOUS MEM (14:25)
[2022-07-13 20:13] VITALS: BP 137/84; PULSE 115; RESP 18; TEMP 36.5; O2SAT 97
[2022-07-13] MEDS: paliperidone ER 3 mg Tablet 9 MG PO (20:21)
[2022-07-13] MEDS: trazodone 100 mg Tablet PO (20:22)
[2022-07-13] MEDS: zolpidem 5 mg Tablet PO (20:22)
[2022-07-14 05:54] VITALS: BMI 34.9
[2022-07-14 06:00] VITALS: RESP 18
[2022-07-14] MEDS: divalproex ER 500 mg Tablet (24H) 1000 MG PO (06:43)
[2022-07-14] MEDS: divalproex ER 250 mg Tablet (24H) PO (06:44)
--- NOTE | 2022-07-14 08:31 | PC.NURSE ---
Behavioral Assessment Patient is irritable this morning. Patient denies HI/SI. Patient states she is hearing people being cruel and can hear animals. She stated the women were being cruel to her. When asked what they were saying she stated, I'm not sure. Patient stated, it's like my friend said, how people are acting can make you enjoy steak or not. Redirected patient and now she is eating breakfast calmly.
[2022-07-14] MEDS: atenolol 50 mg Tablet PO (09:26)
[2022-07-14] MEDS: lisinopril 10 mg Tablet PO (09:26)
[2022-07-14] MEDS: nicotine 4 mg lozenge MUCOUS MEM (13:04)
--- NOTE | 2022-07-14 13:13 | W.PM.NPUPNS ---
Subjective NPU Subjective: Patient returns today reporting that things are going fine. She had a calendar that she went to [facility] to have some symptoms and her hearing was and she might be discharged. We worked to create clarification on accounting. Otherwise she denies any issues and had no aggressive outbursts or any concerning behavior. Mental Status Exam MSE Comments: This is a well-nourished, well-developed white female looking older than her stated age with hospital scrubs on with adequate grooming and improving eye contact. No abnormal movements except for mild psychomotor retardation.? Speech was limited and normal rate but occasionally slightly decreased volume.? Mood described as okay, affect was odd and less irritable. ? Thought process more organized. ? Thought content: Patient denied any suicidal ideation or homicidal ideation. No delusions reported and none noted except possibility for some paranoid delusions, she denied auditory or visual hallucinations and she did not appear to be responding to internal stimuli. Attention and concentration was intact. Recent and remote memory appeared at baseline. She is alert and oriented to person place, but not time or necessarily purpose. ? Insight and judgment are impaired and impulse control is improving. Intellectual ability limited Vitals/I&O/Wt Last Vital Signs Temp 97.7 F 07/13/22 20:13 Pulse 115 H 07/13/22 20:13 Resp 18 07/14/22 06:00 BP 137/84 07/13/22 20:13 Pulse Ox 97 07/13/22 20:13 O2 Del Method 07/13/22 14:00 Weight last 48 hrs Weight 92.17 kg Data NPU : 06/24/22 07:35 06/24/22 07:35 A&P Assessment and plan (1) Schizophrenia, chronic condition: (2) Suicidal ideation: (3) Disturbance of sleep: (4) Psychiatric care: (5) Acute psychosis: Plan 66-year-old white female currently receiving intensive services through [facility] with continued problems with compliance of with medications admitted on a 96-hour hold with active psychotic symptoms. 1. Continue Invega 9mg daily, continue haldol daily, and continue depakote er to 1250mg daily, will switch to am dose versus pm dose as patient appears overly sedated in am. Will begin consideration of clozaril. Continue ambien 5mg at night for sleep. 2. Encourage individual, group and milieu therapy 3. Continue every 15 minute checks for safety. 4. Recommend sober living treatment at the highest level of care to which the patient is willing to commit. 5.? Guardianship hearing set for 07/23/2022. Continuing to identify possible residential settings for discharge. Involuntary Hold Information 96 Hour Hold: 96 Hour Involuntary Admission: Yes 96 Hour Hold Ending Date: 06/14/22 96 Hour Hold Ending Time: 15:36 Attestations NPU Medical Necessity Statement*: Inpatient hospitalization is medically necessary and the clinically appropriate intervention at this time. We will evaluate medications and make changes as indicated. Likely length of stay 9 days. Need to try to have placement determined by date of hearing. 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
[2022-07-14 14:00] VITALS: BP 100/69; PULSE 88; RESP 20; TEMP 36.6; O2SAT 96
[2022-07-14] MEDS: cetylpyridinium Lozenge 1 EACH MUCOUS MEM (15:35)
[2022-07-14] MEDS: paliperidone ER 3 mg Tablet 9 MG PO (18:29)
[2022-07-14] MEDS: ziprasidone hcl 40 mg Capsule PO (20:35)
[2022-07-14] MEDS: zolpidem 5 mg Tablet PO (20:35)
[2022-07-14] MEDS: haloperidol 5 mg Tablet PO (20:35)
[2022-07-14] MEDS: trazodone 100 mg Tablet PO (20:35)
[2022-07-14 20:44] VITALS: BP 105/69; PULSE 102; RESP 22; TEMP 36.6; O2SAT 95
[2022-07-14] MEDS: acetaminophen 325 mg Tablet PO (21:33)
--- NOTE | 2022-07-14 22:22 | PC.NURSE ---
At 2132, pt came to desk requesting tylenol for pain in her gums rating 9/10. at this time, pt is in bed resting quietly. pain flacc at 0/10.
[2022-07-15] MEDS: OLANZapine 5 mg ODT PO ×2 (01:22→20:38)
[2022-07-15] MEDS: diphenhydrAMINE 50 mg Capsule PO (02:19)
[2022-07-15 06:00] VITALS: BP 126/72; PULSE 80; RESP 18; TEMP 36.4; O2SAT 96
[2022-07-15] MEDS: divalproex ER 250 mg Tablet (24H) PO (06:31)
[2022-07-15] MEDS: divalproex ER 500 mg Tablet (24H) 1000 MG PO (06:31)
[2022-07-15] MEDS: cetylpyridinium Lozenge 1 EACH MUCOUS MEM ×2 (06:56→10:13)
[2022-07-15] MEDS: atenolol 50 mg Tablet PO (08:28)
[2022-07-15] MEDS: lisinopril 10 mg Tablet PO (08:28)
[2022-07-15] MEDS: ziprasidone hcl 40 mg Capsule PO (12:35)
[2022-07-15] MEDS: guaiFENesin-codeine UDC 10 mL 5 ML PO (13:34)
[2022-07-15 14:00] VITALS: BP 111/72; PULSE 93; RESP 18; TEMP 36.4; O2SAT 97
[2022-07-15 16:20] LABS: Add Urine Microscopic? NO; Charge for UA Resulting for Rev
[2022-07-15 16:36] LABS: Bilirubin Urine Neg (Negative); Blood Urine Neg (Negative); Glucose Urine UA Norm (Normal); Ketones Urine Negative (Negative); Leukocyte Esterase Urine Negative (Negative); Nitrate Urine Negative (Negative); Protein Urine Neg (Negative); Urine Appearance Clear (CLEAR); Urine Color Yellow (Yellow); Urobilinogen Urine Norm (Negative); pH Urine 6.5 (5-7)
[2022-07-15] MEDS: paliperidone ER 3 mg Tablet 9 MG PO (17:52)
--- NOTE | 2022-07-15 17:55 | P.NPUPN_ITS ---
Subjective NPU Subjective: Patient presents today continuing to be very focused on her hearing. Today asking questions about who would be her guardian and how the process goes. This health technical writer answered a question that she had and continued to explain how the hearing date should go and our desire to have her discharged as soon as possible currently working options. She continued to express a desire to have her older friend be her guardian we discussed the counter helper's discretion on who carries out that role. No acts of aggression for some time. Mental Status Exam MSE Comments: This is a well-nourished, well-developed white female looking older than her stated age with hospital scrubs on with adequate grooming and improving eye contact. No abnormal movements except for mild psychomotor retardation.? Speech was limited and normal rate but occasionally slightly decreased volume.? Mood described as all right but ready to go, affect was odd and less irritable. ? Thought process more organized. ? Thought content: Patient denied any suicidal ideation or homicidal ideation. No delusions reported and none noted except possibility for some paranoid delusions, she denied auditory or visual hallucinations and she did not appear to be responding to internal stimuli. Attention and concentration was intact. Recent and remote memory appeared at baseline. She is alert and oriented to person place, but not time or necessarily purpose. ? Insight and judgment are limited but improving and impulse control is improving. Intellectual ability limited Vitals/I&O/Wt Last Vital Signs Temp 97.8 F 07/15/22 21:12 Pulse 72 07/15/22 21:12 Resp 18 07/15/22 21:12 BP 117/73 07/15/22 21:12 Pulse Ox 98 07/15/22 21:12 O2 Del Method 07/15/22 14:00 Weight last 48 hrs Weight 92.17 kg Data NPU : 06/24/22 07:35 06/24/22 07:35 A&P Assessment and plan (1) Schizophrenia, chronic condition: (2) Suicidal ideation: (3) Disturbance of sleep: (4) Psychiatric care: (5) Acute psychosis: Plan 66-year-old white female currently receiving intensive services through [facility] with continued problems with compliance of with medications admitted on a 96-hour hold with active psychotic symptoms. 1. Continue Invega 9mg daily, continue haldol daily, and continue depakote er to 1250mg daily, will switch to am dose versus pm dose as patient appears overly sedated in am. Will begin consideration of clozaril. Continue ambien 5mg at night for sleep. 2. Encourage individual, group and milieu therapy 3. Continue every 15 minute checks for safety. 4. Recommend sober living treatment at the highest level of care to which the patient is willing to commit. 5.? Guardianship hearing set for 07/23/2022. Continuing to identify possible residential settings for discharge. Involuntary Hold Information 96 Hour Hold: 96 Hour Involuntary Admission: Yes 96 Hour Hold Ending Date: 06/14/22 96 Hour Hold Ending Time: 15:36 Attestations NPU Medical Necessity Statement*: Inpatient hospitalization is medically necessary and the clinically appropriate intervention at this time. We will evaluate medications and make changes as indicated. Likely length of stay 8 days. Need to try to have placement determined by date of hearing. Coding Level of Care Code Acute Director Medical Surgical for [place] Fwd Diagnoses Schizophrenia, chronic condition F20.9 Suicidal ideation R45.851 Disturbance of sleep G47.9 Psychiatric care Acute psychosis F23
[2022-07-15] MEDS: ibuprofen 600 mg Tablet PO (20:37)
[2022-07-15] MEDS: zolpidem 5 mg Tablet PO (20:37)
[2022-07-15] MEDS: trazodone 100 mg Tablet PO (20:37)
[2022-07-15] MEDS: haloperidol 5 mg Tablet PO (20:37)
[2022-07-15 21:12] VITALS: BP 117/73; PULSE 72; RESP 18; TEMP 36.6; O2SAT 98
[2022-07-16] MEDS: divalproex ER 500 mg Tablet (24H) 1000 MG PO (05:48)
[2022-07-16] MEDS: divalproex ER 250 mg Tablet (24H) PO (05:48)
[2022-07-16 06:00] VITALS: BP 131/62; PULSE 94; RESP 16; TEMP 36.7; O2SAT 97
[2022-07-16] MEDS: atenolol 50 mg Tablet PO (08:50)
[2022-07-16] MEDS: lisinopril 10 mg Tablet PO (08:50)
[2022-07-16] MEDS: cetylpyridinium Lozenge 1 EACH MUCOUS MEM ×6 (08:51→21:55)
--- NOTE | 2022-07-16 08:52 | PC.NURSE ---
refused scheduled Flonase nasal spray
--- NOTE | 2022-07-16 09:28 | PC.NURSE ---
shift assessment pt denies SI/HI/AVH currently, pleasant with staff interaction. took a bath and combed hair independently, asking staff for something to do. says she's bored staff gave her some wash cloths & said she could wipe down the tables in day area, pt cooperative & wanted to participate in wiping tables down. mood appears stable, med compliant
--- NOTE | 2022-07-16 11:22 | W.CSC.PSA ---
CSC Psychosocial Assessment Substance Use History Alcohol or Other Drug Used past 6 months Prior use? (lifetime) Route of Use Frequency (past 6 months) Duration (of use) Date of last use Alcohol Amphetamines (meth, ice, crank) Cocaine Heroin Opioid /Opiates (misuse or w/out prescription) Marijuana (cbd, dabs) Sedatives (Benzo, sleep meds) (misuse or w/out prescription) Hallucinogens Inhalants Over the Counter (Cough syrup, Diet) Nicotine (cigarettes, chew, vape) Other
[2022-07-16] MEDS: guaiFENesin-codeine UDC 10 mL 5 ML PO (11:27)
--- NOTE | 2022-07-16 11:27 | PC.NURSE ---
PRN CEPACOL LOZENGE & GUAIFENESIN SOLUTION 1 LOZENGE GIVEN PO PER PT C/O COUGH & 5 ML GUAIFENESIN GIVEN PO PER PT C/O COUGH/SORE THROAT
[2022-07-16 14:00] VITALS: BP 119/79; PULSE 84; RESP 18; TEMP 36.6; O2SAT 99
--- NOTE | 2022-07-16 16:02 | P.NPUPN_ITS ---
Subjective NPU Subjective: Patient presents today reporting that she is focused on her hearing and trying to understand what all means. She reports that she is been talking to her longtime friend and wonders if he can be involved in her guardianship in any way. She denies any issues with medications and has not had any problems with aggression verbally or otherwise for some time. Mental Status Exam MSE Comments: This is a well-nourished, well-developed white female looking older than her stated age with hospital scrubs on with adequate grooming and improving eye contact. No abnormal movements except for mild psychomotor retardation.? Speech was more spontaneous and normal rate but occasionally slightly decreased volume.? Mood described as okay, affect was odd. ? Thought process more organized. ? Thought content: Patient denied any suicidal ideation or homicidal ideation. No delusions reported and none noted except possibility for some paranoid delusions, she denied auditory or visual hallucinations and sh e did not appear to be responding to internal stimuli. Attention and concentration was intact. Recent and remote memory appeared at baseline. She is alert and oriented to person place, but not time or necessarily purpose. ? Insight and judgment are limited but improving and impulse control is improving. Intellectual ability limited Vitals/I&O/Wt Last Vital Signs Temp 98.0 F 07/16/22 20:31 Pulse 87 07/16/22 20:31 Resp 18 07/16/22 20:31 BP 117/74 07/16/22 20:31 Pulse Ox 98 07/16/22 20:31 O2 Del Method 07/16/22 14:00 Data NPU : 06/24/22 07:35 06/24/22 07:35 A&P Assessment and plan (1) Schizophrenia, chronic condition: (2) Suicidal ideation: (3) Disturbance of sleep: (4) Psychiatric care: (5) Acute psychosis: Plan 66-year-old white female currently receiving intensive services through [facility] with continued problems with compliance of with medications admitted on a 96-hour hold with active psychotic symptoms. 1. Continue Invega 9mg daily, continue haldol daily, and continue depakote er to 1250mg daily, will switch to am dose versus pm dose as patient appears overly sedated in am. Will begin consideration of clozaril. Continue ambien 5mg at night for sleep. 2. Encourage individual, group and milieu therapy 3. Continue every 15 minute checks for safety. 4. Recommend sober living treatment at the highest level of care to which the patient is willing to commit. 5.? Guardianship hearing set for 07/23/2022. Continuing to identify possible residential settings for discharge. Involuntary Hold Information 96 Hour Hold: 96 Hour Involuntary Admission: Yes 96 Hour Hold Ending Date: 06/14/22 96 Hour Hold Ending Time: 15:36 Attestations NPU Medical Necessity Statement*: Inpatient hospitalization is medically necessary and the clinically appropriate intervention at this time. We will evaluate medications and make changes as indicated. Likely length of stay 7 days. Need to try to have placement determined by date of hearing. Coding Level of Care Code Acute Glazier Helper for [facility] Fwd Diagnoses Schizophrenia, chronic condition F20.9 Suicidal ideation R45.851 Disturbance of sleep G47.9 Psychiatric care Acute psychosis F23
[2022-07-16] MEDS: paliperidone ER 3 mg Tablet 9 MG PO (16:58)
[2022-07-16] MEDS: OLANZapine 5 mg ODT PO (20:01)
[2022-07-16] MEDS: trazodone 100 mg Tablet PO (20:02)
[2022-07-16] MEDS: haloperidol 5 mg Tablet PO (20:02)
[2022-07-16] MEDS: zolpidem 5 mg Tablet PO (20:04)
[2022-07-16] MEDS: ibuprofen 600 mg Tablet PO (20:04)
[2022-07-16 20:31] VITALS: BP 117/74; PULSE 87; RESP 18; TEMP 36.7; O2SAT 98
[2022-07-17] MEDS: divalproex ER 500 mg Tablet (24H) 1000 MG PO (05:19)
[2022-07-17] MEDS: divalproex ER 250 mg Tablet (24H) PO (05:19)
[2022-07-17] MEDS: cetylpyridinium Lozenge 1 EACH MUCOUS MEM ×6 (05:23→20:13)
[2022-07-17 06:00] VITALS: BP 95/61; PULSE 88; RESP 20; TEMP 37.2; O2SAT 94
[2022-07-17] MEDS: guaiFENesin-codeine UDC 10 mL 5 ML PO ×3 (07:02→17:56)
[2022-07-17] MEDS: lisinopril 10 mg Tablet PO (08:32)
[2022-07-17] MEDS: atenolol 50 mg Tablet PO (08:32)
--- NOTE | 2022-07-17 08:47 | PC.NURSE ---
Nursing Behavioral Assessment Patient calmly reading newspaper. Patient denies HI/SI and VH. Patient states last night she heard people singing at a chapel and a preacher named Haresh persecuting people. She said when she placed earplugs in her ears the singing went away so she thought they were real. 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 Patient was calm and cooperative throughout assessment.
--- NOTE | 2022-07-17 08:52 | P.NPUPN_ITS ---
Subjective NPU Subjective: Patient presented today reporting that she is feeling okay. She continues to focus on the hearing and its implications. She continues to wonder if her older friend might be involved in her guardianship. Otherwise he denied any concerns about her medications and eating and sleeping well. No issues of aggression. Mental Status Exam MSE Comments: This is a well-nourished, well-developed white female looking older than her stated age with hospital scrubs on with adequate grooming and improving eye contact. No abnormal movements except for mild psychomotor retardation.? Speech was more spontaneous and normal rate but occasionally slightly decreased volume.? Mood described as okay, affect was odd. ? Thought process more organized. ? Thought content: Patient denied any suicidal ideation or homicidal ideation. No delusions reported and none noted except possibility for some paranoid delusions, she denied auditory or visual hallucinations and she did not appear to be responding to internal stimuli. Attention and concentration was intact. Recent and remote memory appeared at baseline. She is alert and oriented to person place, but not time or necessarily purpose. ? Insight and judgment are limited but improving and impulse control is improving. Intellectual ability limited Vitals/I&O/Wt Last Vital Signs Temp 98.0 F 07/16/22 20:31 Pulse 87 07/16/22 20:31 Resp 18 07/16/22 20:31 BP 117/74 07/16/22 20:31 Pulse Ox 98 07/16/22 20:31 O2 Del Method 07/16/22 14:00 Data NPU : 06/24/22 07:35 06/24/22 07:35 A&P Assessment and plan (1) Schizophrenia, chronic condition: (2) Suicidal ideation: (3) Disturbance of sleep: (4) Psychiatric care: (5) Acute psychosis: Plan 66-year-old white female currently receiving intensive services through [facility] with continued problems with compliance of with medications admitted on a 96-hour hold with active psychotic symptoms. 1. Continue Invega 9mg daily, continue haldol daily, and continue depakote er to 1250mg daily, will switch to am dose versus pm dose as patient appears overly sedated in am. Will begin consideration of clozaril. Continue ambien 5mg at night for sleep. 2. Encourage individual, group and milieu therapy 3. Continue every 15 minute checks for safety. 4. Recommend sober living treatment at the highest level of care to which the patient is willing to commit. 5.? Guardianship hearing set for 07/23/2022. Continuing to identify possible residential settings for discharge. Involuntary Hold Information 96 Hour Hold: 96 Hour Involuntary Admission: Yes 96 Hour Hold Ending Date: 06/14/22 96 Hour Hold Ending Time: 15:36 Attestations NPU Medical Necessity Statement*: Inpatient hospitalization is medically necessary and the clinically appropriate intervention at this time. We will evaluate medications and make changes as indicated. Likely length of stay 6 days. Need to try to have placement determined by date of hearing. Coding Level of Care Code Acute Journeyman Press Operator for Chg Fwd Diagnoses Schizophrenia, chronic condition F20.9 Suicidal ideation R45.851 Disturbance of sleep G47.9 Psychiatric care Acute psychosis F23
[2022-07-17] MEDS: nicotine 4 mg lozenge MUCOUS MEM ×2 (09:09→20:30)
[2022-07-17] MEDS: calcium carbonate 500 mg Chew Tablet PO (09:09)
[2022-07-17 14:00] VITALS: BP 118/72; PULSE 86; RESP 16; TEMP 36.6; O2SAT 96
[2022-07-17] MEDS: paliperidone ER 3 mg Tablet 9 MG PO (17:55)
[2022-07-17] MEDS: benzocaine 20% 7 gm 1 APPLIC MUCOUS MEM (17:55)
[2022-07-17 19:38] VITALS: BP 115/72; PULSE 87; RESP 18; TEMP 36.4; O2SAT 95
[2022-07-17] MEDS: ziprasidone hcl 40 mg Capsule PO (20:13)
[2022-07-17] MEDS: zolpidem 5 mg Tablet PO (20:13)
[2022-07-17] MEDS: trazodone 100 mg Tablet PO (20:13)
[2022-07-17] MEDS: haloperidol 5 mg Tablet PO (20:27)
[2022-07-18] MEDS: divalproex ER 500 mg Tablet (24H) 1000 MG PO (05:52)
[2022-07-18] MEDS: divalproex ER 250 mg Tablet (24H) PO (05:52)
[2022-07-18 06:00] VITALS: BP 114/76; PULSE 97; RESP 18; TEMP 36.6; O2SAT 94
[2022-07-18] MEDS: guaiFENesin-codeine UDC 10 mL 5 ML PO (07:49)
[2022-07-18] MEDS: ziprasidone hcl 40 mg Capsule PO ×2 (07:49→20:33)
[2022-07-18] MEDS: benztropine 1 mg Tablet PO (07:49)
[2022-07-18] MEDS: atenolol 50 mg Tablet PO (07:49)
[2022-07-18] MEDS: bisacodyl 5 mg Tablet PO (07:49)
[2022-07-18] MEDS: lisinopril 10 mg Tablet PO (07:49)
[2022-07-18] MEDS: hyDROXYzine 25 mg Capsule 50 MG PO (07:49)
[2022-07-18] MEDS: nicotine 4 mg lozenge MUCOUS MEM ×2 (07:51→15:23)
--- NOTE | 2022-07-18 09:44 | W.PM.NPUPNS ---
Subjective NPU Subjective: Patient presents today continuing to be focused on her hearing and how that will go. Questions about where she will live and whether or not it can be a place of her choosing. We continued to explain the process and what she can expect. She denies any side effects and has had no problematic behaviors for some time. Mental Status Exam MSE Comments: This is a well-nourished, well-developed white female looking older than her stated age with hospital scrubs on with adequate grooming and improving eye contact. No abnormal movements except for mild psychomotor retardation.? Speech was more spontaneous and normal rate but occasionally slightly decreased volume.? Mood described as nervous about the hearing, affect was congruent. ? Thought process more organized. ? Thought content: Patient denied any suicidal ideation or homicidal ideation. No delusions reported and none noted except possibility for some paranoid delusions, she denied auditory or visual hallucinations and she did not appear to be responding to internal stimuli. Attention and concentration was intact. Recent and remote memory appeared at baseline. She is alert and oriented to person place, but not time or necessarily purpose. ? Insight and judgment are limited but improving and impulse control is improving. Intellectual ability limited Vitals/I&O/Wt Last Vital Signs Temp 97.9 F 07/18/22 06:00 Pulse 97 07/18/22 06:00 Resp 18 07/18/22 06:00 BP 114/76 07/18/22 06:00 Pulse Ox 94 07/18/22 06:00 O2 Del Method 07/17/22 06:00 Data NPU : 06/24/22 07:35 06/24/22 07:35 A&P Assessment and plan (1) Schizophrenia, chronic condition: (2) Suicidal ideation: (3) Disturbance of sleep: (4) Psychiatric care: (5) Acute psychosis: Plan 66-year-old white female currently receiving intensive services through [facility] with continued problems with compliance of with medications admitted on a 96-hour hold with active psychotic symptoms. 1. Continue Invega 9mg daily, continue haldol daily, and continue depakote er to 1250mg daily, will switch to am dose versus pm dose as patient appears overly sedated in am. Will begin consideration of clozaril. Continue ambien 5mg at night for sleep. 2. Encourage individual, group and milieu therapy 3. Continue every 15 minute checks for safety. 4. Recommend sober living treatment at the highest level of care to which the patient is willing to commit. 5.? Guardianship hearing set for 07/23/2022. Continuing to identify possible residential settings for discharge. Involuntary Hold Information 96 Hour Hold: 96 Hour Involuntary Admission: Yes 96 Hour Hold Ending Date: 06/14/22 96 Hour Hold Ending Time: 15:36 Attestations NPU Medical Necessity Statement*: Inpatient hospitalization is medically necessary and the clinically appropriate intervention at this time. We will evaluate medications and make changes as indicated. Likely length of stay 5 days. Need to try to have placement determined by date of hearing. Coding Level of Care Code Acute Heavy Antiarmor Weapons Infantryman for g Fwd Diagnoses Schizophrenia, chronic condition F20.9 Suicidal ideation R45.851 Disturbance of sleep G47.9 Psychiatric care Acute psychosis F23
[2022-07-18] MEDS: cetylpyridinium Lozenge 1 EACH MUCOUS MEM ×2 (10:48→20:33)
[2022-07-18] MEDS: saline nasal spray 44mL Btl 1 SPRAY NASAL (11:39)
[2022-07-18] MEDS: acetaminophen 325 mg Tablet PO (11:51)
[2022-07-18] MEDS: diphenhydrAMINE 50 mg Capsule PO (12:12)
[2022-07-18] MEDS: haloperidol 5 mg Tablet PO ×2 (12:12→20:33)
[2022-07-18] MEDS: LORazepam 2 mg Tablet PO (12:12)
--- NOTE | 2022-07-18 12:14 | PC.NURSE ---
PT CAME TO NURSES STATION STATING SHE IS HAVING SCHIZOPHRENIA SYMPTOMS. THIS NURSE ASK IF PT WOULD LIKE MEDICATION AND PT AGREED.
[2022-07-18 14:00] VITALS: BP 121/75; PULSE 81; RESP 17; TEMP 36.6; O2SAT 97
[2022-07-18] MEDS: paliperidone ER 3 mg Tablet 9 MG PO (15:23)
[2022-07-18] MEDS: trazodone 100 mg Tablet PO (20:33)
[2022-07-18] MEDS: zolpidem 5 mg Tablet PO (20:33)
[2022-07-19] MEDS: divalproex ER 500 mg Tablet (24H) 1000 MG PO (05:56)
[2022-07-19] MEDS: divalproex ER 250 mg Tablet (24H) PO (05:56)
[2022-07-19 06:00] VITALS: BP 118/76; PULSE 90; RESP 16; TEMP 37; O2SAT 94
[2022-07-19] MEDS: guaiFENesin-codeine UDC 10 mL 5 ML PO (07:51)
[2022-07-19] MEDS: ziprasidone hcl 40 mg Capsule PO ×2 (07:51→20:54)
[2022-07-19] MEDS: atenolol 50 mg Tablet PO (07:51)
[2022-07-19] MEDS: cetylpyridinium Lozenge 1 EACH MUCOUS MEM (07:51)
[2022-07-19] MEDS: hyDROXYzine 25 mg Capsule 50 MG PO (07:51)
[2022-07-19] MEDS: lisinopril 10 mg Tablet PO (07:52)
--- NOTE | 2022-07-19 10:29 | P.NPUPN_ITS ---
Subjective NPU Subjective: Patient was in today with no changes. She continues to be anxious about her hearing and asking questions about different scenarios. We discussed that she would just have to wait until her hearing date on Friday and see what the trial court judge decides. No issues with aggression or any other concerns. Mental Status Exam MSE Comments: This is a well-nourished, well-developed white female looking older than her stated age with hospital scrubs on with adequate grooming and improving eye contact. No abnormal movements except for mild psychomotor retardation.? Speech was more spontaneous and normal rate but occasionally slightly decreased volume.? Mood described as nervous about the hearing, affect was congruent. ? Thought process more organized. ? Thought content: Patient denied any suicidal ideation or homicidal ideation. No delusions reported and none noted except possibility for some paranoid delusions, she denied auditory or visual hallucinations and she did not appear to be responding to internal stimuli. Attention and concentration was intact. Recent and remote memory appeared at baseline. She is alert and oriented to person place, but not time or necessarily purpose. ? Insight and judgment are limited but improving and impulse control is improving. Intellectual ability limited Vitals/I&O/Wt Last Vital Signs Temp 97.8 F 07/18/22 14:00 Pulse 81 07/18/22 14:00 Resp 17 07/18/22 14:00 BP 121/75 07/18/22 14:00 Pulse Ox 97 07/18/22 14:00 O2 Del Method 07/18/22 14:00 Data NPU : 06/24/22 07:35 06/24/22 07:35 A&P Assessment and plan (1) Schizophrenia, chronic condition: (2) Suicidal ideation: (3) Disturbance of sleep: (4) Psychiatric care: (5) Acute psychosis: Plan 66-year-old white female currently receiving intensive services through [facility] with continued problems with compliance of with medications admitted on a 96-hour hold with active psychotic symptoms. 1. Continue Invega 9mg daily, continue haldol daily, and continue depakote er to 1250mg daily, will switch to am dose versus pm dose as patient appears overly sedated in am. Will begin consideration of clozaril. Continue ambien 5mg at night for sleep. 2. Encourage individual, group and milieu therapy 3. Continue every 15 minute checks for safety. 4. Recommend sober living treatment at the highest level of care to which the patient is willing to commit. 5.? Guardianship hearing set for 07/23/2022. Continuing to identify possible residential settings for discharge. Involuntary Hold Information 96 Hour Hold: 96 Hour Involuntary Admission: Yes 96 Hour Hold Ending Date: 06/14/22 96 Hour Hold Ending Time: 15:36 Attestations NPU Medical Necessity Statement*: Inpatient hospitalization is medically necessary and the clinically appropriate intervention at this time. We will evaluate medications and make changes as indicated. Likely length of stay 4 days. Need to try to have placement determined by date of hearing. Coding Level of Care Code Acute Manager Database Administration for g Fwd Diagnoses Schizophrenia, chronic condition F20.9 Suicidal ideation R45.851 Disturbance of sleep G47.9 Psychiatric care Acute psychosis F23
[2022-07-19 14:00] VITALS: BP 114/70; PULSE 80; RESP 17; TEMP 36.4; O2SAT 96
[2022-07-19] MEDS: paliperidone ER 3 mg Tablet 9 MG PO (18:19)
[2022-07-19] MEDS: zolpidem 5 mg Tablet PO (20:54)
[2022-07-19] MEDS: haloperidol 5 mg Tablet PO (20:54)
[2022-07-19] MEDS: trazodone 100 mg Tablet PO (20:54)
[2022-07-19 21:56] VITALS: RESP 18
[2022-07-20] MEDS: divalproex ER 250 mg Tablet (24H) PO (05:54)
[2022-07-20] MEDS: divalproex ER 500 mg Tablet (24H) 1000 MG PO (05:54)
[2022-07-20 06:00] VITALS: RESP 18
[2022-07-20] MEDS: guaiFENesin-codeine UDC 10 mL 5 ML PO ×2 (08:47→18:14)
[2022-07-20] MEDS: hyDROXYzine 25 mg Capsule 50 MG PO (08:48)
[2022-07-20] MEDS: nicotine 4 mg lozenge MUCOUS MEM (08:48)
[2022-07-20] MEDS: lisinopril 10 mg Tablet PO (08:48)
[2022-07-20] MEDS: ziprasidone hcl 40 mg Capsule PO ×2 (08:48→18:14)
[2022-07-20] MEDS: cetylpyridinium Lozenge 1 EACH MUCOUS MEM ×2 (08:48→18:14)
[2022-07-20] MEDS: atenolol 50 mg Tablet PO (08:48)
[2022-07-20 14:00] VITALS: BP 112/74; PULSE 77; RESP 20; TEMP 36.7; O2SAT 95
--- NOTE | 2022-07-20 14:37 | P.NPUPN_ITS ---
Subjective NPU Subjective: Patient presents today with no significant changes. She is getting focused and a little more anxious about her hearing. Wondering about who is likely representing her and what the outcome will be. Otherwise eating and sleeping well and having no issues or aggression. Mental Status Exam MSE Comments: This is a well-nourished, well-developed white female looking older than her stated age with hospital scrubs on with adequate grooming and improving eye contact. No abnormal movements except for mild psychomotor retardation.? Speech was more spontaneous and normal rate but occasionally slightly decreased volume.? Mood described as worried about the hearing, affect was congruent. ? Thought process more organized. ? Thought content: Patient denied any suicidal ideation or homicidal ideation. No delusions reported and none noted except possibility for some paranoid delusions, she denied auditory or visual hallucinations and she did not appear to be responding to internal stimuli. Attention and concentration was intact. Recent and remote memory appeared at baseline. She is alert and oriented to person place, but not time or necessarily purpose. ? Insight and judgment are limited but improving and impulse control is improving. Intellectual ability limited Vitals/I&O/Wt Last Vital Signs Temp 98.0 F 07/20/22 14:00 Pulse 77 07/20/22 14:00 Resp 20 H 07/20/22 14:00 BP 112/74 07/20/22 14:00 Pulse Ox 95 07/20/22 14:00 O2 Del Method 07/20/22 14:00 Data NPU : 06/24/22 07:35 06/24/22 07:35 A&P Assessment and plan (1) Schizophrenia, chronic condition: (2) Suicidal ideation: (3) Disturbance of sleep: (4) Psychiatric care: (5) Acute psychosis: Plan 66-year-old white female currently receiving intensive services through [facility] with continued problems with compliance of with medications admitted on a 96-hour hold with active psychotic symptoms. 1. Continue Invega 9mg daily, continue haldol daily, and continue depakote er to 1250mg daily, will switch to am dose versus pm dose as patient appears overly sedated in am. Will begin consideration of clozaril. Continue ambien 5mg at night for sleep. 2. Encourage individual, group and milieu therapy 3. Continue every 15 minute checks for safety. 4. Recommend sober living treatment at the highest level of care to which the patient is willing to commit. 5.? Guardianship hearing set for 07/23/2022. Continuing to identify possible residential settings for discharge. Involuntary Hold Information 96 Hour Hold: 96 Hour Involuntary Admission: Yes 96 Hour Hold Ending Date: 06/14/22 96 Hour Hold Ending Time: 15:36 Attestations NPU Medical Necessity Statement*: Inpatient hospitalization is medically necessary and the clinically appropriate intervention at this time. We will evaluate medications and make changes as indicated. Likely length of stay 3 days. Need to try to have placement determined by date of hearing, but placement might effect discharge. Coding Level of Care Code Acute Mechanical Sound Technician for Chg Fwd Diagnoses Schizophrenia, chronic condition F20.9 Suicidal ideation R45.851 Disturbance of sleep G47.9 Psychiatric care Acute psychosis F23
[2022-07-20] MEDS: fluticasone nasal spray 16gm Btl 1 SPRAY NASAL (18:14)
[2022-07-20] MEDS: paliperidone ER 3 mg Tablet 9 MG PO (18:14)
[2022-07-20 19:07] VITALS: RESP 18
[2022-07-20] MEDS: haloperidol 5 mg Tablet PO (20:23)
[2022-07-20] MEDS: zolpidem 5 mg Tablet PO (20:23)
[2022-07-21 06:00] VITALS: BMI 33.7
[2022-07-21] MEDS: divalproex ER 250 mg Tablet (24H) PO (06:26)
[2022-07-21] MEDS: divalproex ER 500 mg Tablet (24H) 1000 MG PO (06:27)
[2022-07-21] MEDS: cetylpyridinium Lozenge 1 EACH MUCOUS MEM ×2 (07:49→17:41)
[2022-07-21] MEDS: guaiFENesin-codeine UDC 10 mL 5 ML PO ×2 (09:41→17:41)
[2022-07-21] MEDS: fluticasone nasal spray 16gm Btl 1 SPRAY NASAL ×2 (09:42→17:43)
[2022-07-21] MEDS: lisinopril 10 mg Tablet PO (09:42)
[2022-07-21] MEDS: atenolol 50 mg Tablet PO (09:42)
[2022-07-21] MEDS: ziprasidone hcl 40 mg Capsule PO ×2 (09:42→17:42)
[2022-07-21 14:00] VITALS: BP 112/74; PULSE 77; RESP 18; TEMP 36.7; O2SAT 95
--- NOTE | 2022-07-21 15:17 | W.PM.NPUPNS ---
Subjective NPU Subjective: Patient presented today reporting that she is doing fine. She was very focused on the hearing on Friday and we discussed the fact that she wanted to make sure she had the representation so she wanted to call some [place] guide that she somehow knew tomorrow as she did not get a response the last time she tried. She continues to ask about the outcome for Friday and we continue to discuss that it will be the program development manager's decision. Continues to be appropriate on the unit without any concerns for inappropriate behavior. Mental Status Exam MSE Comments: This is a well-nourished, well-developed white female looking older than her stated age with hospital scrubs on with adequate grooming and improving eye contact. No abnormal movements except for mild psychomotor retardation.? Speech was more spontaneous and normal rate but occasionally slightly decreased volume.? Mood described as okay, affect was congruent. ? Thought process more organized. ? Thought content: Patient denied any suicidal ideation or homicidal ideation. No delusions reported and none noted, she denied auditory or visual hallucinations and she did not appear to be responding to internal stimuli. Attention and concentration was intact. Recent and remote memory appeared at baseline. She is alert and oriented to person place, but not time or necessarily purpose. ? Insight and judgment are limited but improving and impulse control is improving. Intellectual ability limited Vitals/I&O/Wt Last Vital Signs Temp 98.0 F 07/21/22 14:00 Pulse 77 07/21/22 14:00 Resp 18 07/21/22 14:00 BP 112/74 07/21/22 14:00 Pulse Ox 95 07/21/22 14:00 O2 Del Method 07/21/22 14:00 Weight last 48 hrs Weight 91.852 kg Data NPU : 06/24/22 07:35 06/24/22 07:35 A&P Assessment and plan (1) Schizophrenia, chronic condition: (2) Suicidal ideation: (3) Disturbance of sleep: (4) Psychiatric care: (5) Acute psychosis: Plan 66-year-old white female currently receiving intensive services through [facility] with continued problems with compliance of with medications admitted on a 96-hour hold with active psychotic symptoms. 1. Continue Invega 9mg daily, continue haldol daily, and continue depakote er to 1250mg daily, will switch to am dose versus pm dose as patient appears overly sedated in am. Will begin consideration of clozaril. Continue ambien 5mg at night for sleep. 2. Encourage individual, group and milieu therapy 3. Continue every 15 minute checks for safety. 4. Recommend sober living treatment at the highest level of care to which the patient is willing to commit. 5.? Guardianship hearing set for 07/23/2022. Continuing to identify possible residential settings for discharge. Involuntary Hold Information 96 Hour Hold: 96 Hour Involuntary Admission: Yes 96 Hour Hold Ending Date: 06/14/22 96 Hour Hold Ending Time: 15:36 Attestations NPU Medical Necessity Statement*: Inpatient hospitalization is medically necessary and the clinically appropriate intervention at this time. We will evaluate medications and make changes as indicated. Likely length of stay 2 days. Need to try to have placement determined by date of hearing, but placement might effect discharge. Coding Level of Care Code Acute Land Leasing Examiner for Chg Fwd Diagnoses Schizophrenia, chronic condition F20.9 Suicidal ideation R45.851 Disturbance of sleep G47.9 Psychiatric care Acute psychosis F23
[2022-07-21] MEDS: paliperidone ER 3 mg Tablet 9 MG PO (17:41)
[2022-07-21] MEDS: haloperidol 5 mg Tablet PO (20:11)
[2022-07-21] MEDS: trazodone 100 mg Tablet PO (20:11)
[2022-07-21] MEDS: OLANZapine 5 mg ODT PO (20:11)
[2022-07-21] MEDS: zolpidem 5 mg Tablet PO (20:11)
[2022-07-21] MEDS: saline nasal spray 44mL Btl 1 SPRAY NASAL (20:12)
[2022-07-22] MEDS: divalproex ER 250 mg Tablet (24H) PO (05:37)
[2022-07-22] MEDS: divalproex ER 500 mg Tablet (24H) 1000 MG PO (05:37)
[2022-07-22 06:00] VITALS: BP 116/78; PULSE 86; RESP 16; TEMP 36.6; O2SAT 94
[2022-07-22] MEDS: lisinopril 10 mg Tablet PO (08:14)
[2022-07-22] MEDS: atenolol 50 mg Tablet PO (08:14)
--- NOTE | 2022-07-22 10:26 | P.NPUPN_ITS ---
Subjective NPU Subjective: Patient presented today reporting that she wanted to know if she can be discharged to her friend. We discussed the fact that her hearing was just moved today because they had not served her yet, so the plan is for her to be the next day. She should be served tomorrow with a hearing on Friday. Otherwise she continued to talk about who might be there and what the outcome might be. Mental Status Exam MSE Comments: This is a well-nourished, well-developed white female looking older than her stated age with hospital scrubs on with adequate grooming and improving eye contact. No abnormal movements except for mild psychomotor retardation.? Speech was more spontaneous and normal rate but occasionally slightly decreased volume.? Mood described as okay, affect was congruent, but frustrated. ? Thought process more organized. ? Thought content: Patient denied any suicidal ideation or homicidal ideation. No delusions reported and none noted, she denied auditory or visual hallucinations and she did not appear to be responding to internal stimuli. Attention and concentration was intact. Recent and remote memory appeared at baseline. She is alert and oriented to person place, but not time or necessarily purpose. ? Insight and judgment are limited but improving and impulse control is improving. Intellectual ability limited Vitals/I&O/Wt Last Vital Signs Temp 98.0 F 07/21/22 14:00 Pulse 77 07/21/22 14:00 Resp 18 07/21/22 14:00 BP 112/74 07/21/22 14:00 Pulse Ox 95 07/21/22 14:00 O2 Del Method 07/21/22 14:00 Weight last 48 hrs Weight 91.852 kg Data NPU : 06/24/22 07:35 06/24/22 07:35 A&P Assessment and plan (1) Schizophrenia, chronic condition: (2) Suicidal ideation: (3) Disturbance of sleep: (4) Psychiatric care: (5) Acute psychosis: Plan 66-year-old white female currently receiving intensive services through [facility] with continued problems with compliance of with medications admitted on a 96-hour hold with active psychotic symptoms. 1. Continue Invega 9mg daily, continue haldol daily, and continue depakote er to 1250mg daily, will switch to am dose versus pm dose as patient appears overly sedated in am. Will begin consideration of clozaril. Continue ambien 5mg at night for sleep. 2. Encourage individual, group and milieu therapy 3. Continue every 15 minute checks for safety. 4. Recommend sober living treatment at the highest level of care to which the patient is willing to commit. 5.? Guardianship hearing switched to 07/24/2022. Continuing to identify possible residential settings for discharge. Involuntary Hold Information 96 Hour Hold: 96 Hour Involuntary Admission: Yes 96 Hour Hold Ending Date: 06/14/22 96 Hour Hold Ending Time: 15:36 Attestations NPU Medical Necessity Statement*: Inpatient hospitalization is medically necessary and the clinically appropriate intervention at this time. We will evaluate medications and make changes as indicated. Likely length of stay 2 days. Need to try to have placement determined by date of hearing, but placement might effect discharge. Coding Level of Care Code Acute Breaker Machine Tender for Shobha Huynh Diagnoses Schizophrenia, chronic condition F20.9 Suicidal ideation R45.851 Disturbance of sleep G47.9 Psychiatric care Acute psychosis F23
[2022-07-22] MEDS: cetylpyridinium Lozenge 1 EACH MUCOUS MEM (12:00)
[2022-07-22] MEDS: calcium carbonate 500 mg Chew Tablet PO (13:20)
[2022-07-22 14:00] VITALS: BP 111/73; PULSE 75; RESP 15; TEMP 36.6; O2SAT 99
[2022-07-22] MEDS: paliperidone ER 3 mg Tablet 9 MG PO (17:20)
[2022-07-22] MEDS: OLANZapine 5 mg ODT PO (20:08)
[2022-07-22] MEDS: haloperidol 5 mg Tablet PO (20:08)
[2022-07-22] MEDS: zolpidem 5 mg Tablet PO (20:08)
[2022-07-22] MEDS: trazodone 100 mg Tablet PO (20:08)
[2022-07-23] MEDS: diphenhydrAMINE 50 mg Capsule PO (01:44)
[2022-07-23] MEDS: divalproex ER 500 mg Tablet (24H) 1000 MG PO (05:59)
[2022-07-23] MEDS: divalproex ER 250 mg Tablet (24H) PO (05:59)
[2022-07-23 06:00] VITALS: BP 102/70; PULSE 80; RESP 18; TEMP 36.4; O2SAT 99
[2022-07-23] MEDS: cetylpyridinium Lozenge 1 EACH MUCOUS MEM (06:28)
[2022-07-23] MEDS: atenolol 50 mg Tablet PO (08:32)
[2022-07-23] MEDS: lisinopril 10 mg Tablet PO (08:33)
--- NOTE | 2022-07-23 12:53 | P.NPUPN_ITS ---
Subjective NPU Subjective: Patient presents today asking if she can just be discharged to her friend. She was frustrated about her hearing being postponed but did not seem to understand the timeframe that the hearing had been moved to. We discussed the fact that she could not be having a hearing until she has been served and she has not been served as of yet. We discussed working the treatment team to see if a date had been determined. There are no changes reported. The patient reports she is doing fine and is eating and sleeping fine. Mental Status Exam MSE Comments: This is a well-nourished, well-developed white female looking older than her stated age with hospital scrubs on with adequate grooming and improving eye contact. No abnormal movements except for mild psychomotor retardation.? Speech was more spontaneous and normal rate but occasionally slightly decreased volume.? Mood described as okay, can't you just discharge me to my friend, affect was congruent, but frustrated. ? Thought process more o rganized. ? Thought content: Patient denied any suicidal ideation or homicidal ideation. No delusions reported and none noted, she denied auditory or visual hallucinations and she did not appear to be responding to internal stimuli. Attention and concentration was intact. Recent and remote memory appeared at baseline. She is alert and oriented to person place, but not time or necessarily purpose. ? Insight and judgment are limited but improving and impulse control is improving. Intellectual ability limited Vitals/I&O/Wt Last Vital Signs Temp 97.6 F 07/23/22 06:00 Pulse 80 07/23/22 06:00 Resp 18 07/23/22 06:00 BP 102/70 07/23/22 06:00 Pulse Ox 99 07/23/22 06:00 O2 Del Method 07/23/22 06:00 Data NPU : 06/24/22 07:35 06/24/22 07:35 A&P Assessment and plan (1) Schizophrenia, chronic condition: (2) Suicidal ideation: (3) Disturbance of sleep: (4) Psychiatric care: (5) Acute psychosis: Plan 66-year-old white female currently receiving intensive services through [facility] with continued problems with compliance of with medications admitted on a 96-hour hold with active psychotic symptoms. 1. Continue Invega 9mg daily, continue haldol daily, and continue depakote er to 1250mg daily, will switch to am dose versus pm dose as patient appears overly sedated in am. Will begin consideration of clozaril. Continue ambien 5mg at night for sleep. 2. Encourage individual, group and milieu therapy 3. Continue every 15 minute checks for safety. 4. Recommend sober living treatment at the highest level of care to which the patient is willing to commit. 5.? Guardianship hearing switched to a day in the future. Continuing to identify possible residential settings for discharge. Involuntary Hold Information 96 Hour Hold: 96 Hour Involuntary Admission: Yes 96 Hour Hold Ending Date: 06/14/22 96 Hour Hold Ending Time: 15:36 Attestations NPU Medical Necessity Statement*: Inpatient hospitalization is medically necessary and the clinically appropriate intervention at this time. We will evaluate medications and make changes as indicated. Likely length of stay is unknown. Need to try to find placement possibly with someone who would take her prior to the date of the hearing, but placement will determine discharge. Coding Level of Care Code Acute Body And Frame Man for Shobha Ramírezd Diagnoses Schizophrenia, chronic condition F20.9 Suicidal ideation R45.851 Disturbance of sleep G47.9 Psychiatric care Acute psychosis F23
[2022-07-23 14:00] VITALS: BP 117/76; PULSE 79; RESP 16; TEMP 36.6; O2SAT 99
[2022-07-23] MEDS: nicotine 4 mg lozenge MUCOUS MEM ×3 (15:20→20:34)
[2022-07-23] MEDS: paliperidone ER 3 mg Tablet 9 MG PO (17:26)
[2022-07-23] MEDS: nicotine 2 mg Gum BUCCAL (18:32)
[2022-07-23] MEDS: haloperidol 5 mg Tablet PO (19:37)
[2022-07-23] MEDS: OLANZapine 5 mg ODT PO (19:37)
[2022-07-23] MEDS: zolpidem 5 mg Tablet PO (19:38)
[2022-07-23] MEDS: trazodone 100 mg Tablet PO (19:38)
[2022-07-23 19:40] VITALS: BP 119/78; PULSE 85; RESP 18; TEMP 36.8; O2SAT 94
[2022-07-23] MEDS: guaiFENesin-codeine UDC 10 mL 5 ML PO (20:33)
[2022-07-24 06:00] VITALS: BP 134/82; PULSE 77; RESP 18; TEMP 36.6; O2SAT 97
[2022-07-24] MEDS: divalproex ER 500 mg Tablet (24H) 1000 MG PO (06:28)
[2022-07-24] MEDS: divalproex ER 250 mg Tablet (24H) PO (06:28)
[2022-07-24] MEDS: nicotine 2 mg Gum BUCCAL (06:29)
[2022-07-24] MEDS: cetylpyridinium Lozenge 1 EACH MUCOUS MEM ×3 (06:32→15:13)
[2022-07-24] MEDS: lisinopril 10 mg Tablet PO (08:17)
[2022-07-24] MEDS: atenolol 50 mg Tablet PO (08:17)
[2022-07-24] MEDS: nicotine 4 mg lozenge MUCOUS MEM (09:06)
[2022-07-24] MEDS: guaiFENesin-codeine UDC 10 mL 5 ML PO (10:57)
[2022-07-24 14:00] VITALS: BP 119/74; PULSE 82; RESP 18; TEMP 36.6; O2SAT 99
--- NOTE | 2022-07-24 14:24 | W.PM.NPUPNS ---
Subjective NPU Subjective: Patient presents today reporting that she was served for the hearing in her date it until August 23, 2022. She did not have any additional frustration but did ask about if she could just go somewhere without going to the hearing. We discussed that the process has been started and we will have to figure out how to get to that date. Otherwise he denies any new issues. She did well on the unit with no concerns. Mental Status Exam MSE Comments: This is a well-nourished, well-developed white female looking older than her stated age with hospital scrubs on with adequate grooming and improving eye contact. No abnormal movements except for mild psychomotor retardation.? Speech was more spontaneous and normal rate but occasionally slightly decreased volume.? Mood described as okay, affect was congruent, but frustrated. ? Thought process more organized. ? Thought content: Patient denied any suicidal ideation or homicidal ideation. No delusions reported and none noted, she denied auditory or visual hallucinations and she did not appear to be responding to internal stimuli. Attention and concentration was intact. Recent and remote memory appeared at baseline. She is alert and oriented to person place, but not time or necessarily purpose. ? Insight and judgment are limited but improving and impulse control is improving. Intellectual ability limited Vitals/I&O/Wt Last Vital Signs Temp 97.8 F 07/24/22 14:00 Pulse 82 07/24/22 14:00 Resp 18 07/24/22 14:00 BP 119/74 07/24/22 14:00 Pulse Ox 99 07/24/22 14:00 O2 Del Method 07/24/22 14:00 Data NPU : 06/24/22 07:35 06/24/22 07:35 A&P Assessment and plan (1) Schizophrenia, chronic condition: (2) Suicidal ideation: (3) Disturbance of sleep: (4) Psychiatric care: (5) Acute psychosis: Plan 66-year-old white female currently receiving intensive services through [facility] with continued problems with compliance of with medications admitted on a 96-hour hold with active psychotic symptoms. 1. Continue Invega 9mg daily, continue haldol daily, and continue depakote er to 1250mg daily, will switch to am dose versus pm dose as patient appears overly sedated in am. Will begin consideration of clozaril. Continue ambien 5mg at night for sleep. 2. Encourage individual, group and milieu therapy 3. Continue every 15 minute checks for safety. 4. Recommend sober living treatment at the highest level of care to which the patient is willing to commit. 5.? Guardianship hearing switched to 08/23/2022. Continuing to identify possible residential settings for discharge. Involuntary Hold Information 96 Hour Hold: 96 Hour Involuntary Admission: Yes 96 Hour Hold Ending Date: 06/14/22 96 Hour Hold Ending Time: 15:36 Attestations NPU Medical Necessity Statement*: Inpatient hospitalization is medically necessary and the clinically appropriate intervention at this time. We will evaluate medications and make changes as indicated. Likely length of stay is 28 days. Need to try to find placement possibly with someone who would take her prior to the date of the hearing, but placement will determine discharge. Coding Level of Care Code Acute Orthopedically Impaired Teacher for Shobha Huynh Diagnoses Schizophrenia, chronic condition F20.9 Suicidal ideation R45.851 Disturbance of sleep G47.9 Psychiatric care Acute psychosis F23
[2022-07-24] MEDS: calcium carbonate 500 mg Chew Tablet PO (16:31)
[2022-07-24] MEDS: LORazepam 2 mg Tablet PO (16:31)
[2022-07-24] MEDS: paliperidone ER 3 mg Tablet 9 MG PO (17:48)
[2022-07-24] MEDS: haloperidol 5 mg Tablet PO (20:23)
[2022-07-24] MEDS: zolpidem 5 mg Tablet PO (20:23)
[2022-07-24] MEDS: trazodone 100 mg Tablet PO (20:23)
[2022-07-24 20:26] VITALS: BP 137/85; PULSE 82; RESP 18; TEMP 36.4; O2SAT 99
[2022-07-25] MEDS: ziprasidone hcl 40 mg Capsule PO (00:08)
[2022-07-25] MEDS: LORazepam 2 mg Tablet PO (00:10)
[2022-07-25] MEDS: divalproex ER 500 mg Tablet (24H) 1000 MG PO (05:25)
[2022-07-25] MEDS: divalproex ER 250 mg Tablet (24H) PO (05:25)
[2022-07-25 05:30] VITALS: BP 129/73; PULSE 84; RESP 16; TEMP 36.7; O2SAT 97
[2022-07-25] MEDS: lisinopril 10 mg Tablet PO (09:09)
[2022-07-25] MEDS: atenolol 50 mg Tablet PO (09:09)
--- NOTE | 2022-07-25 10:24 | W.PM.NPUPNS ---
Subjective NPU Subjective: Patient presents today reporting that she is doing okay. She is not excited about waiting for the new court date but denies any new issues or problems with her medications. She is eating and sleeping fine. Mental Status Exam MSE Comments: This is a well-nourished, well-developed white female looking older than her stated age with hospital scrubs on with adequate grooming and improving eye contact. No abnormal movements except for mild psychomotor retardation.? Speech was more spontaneous and normal rate but occasionally slightly decreased volume.? Mood described as okay, affect was congruent. ? Thought process more organized. ? Thought content: Patient denied any suicidal ideation or homicidal ideation. No delusions reported and none noted, she denied auditory or visual hallucinations and she did not appear to be responding to internal stimuli. Attention and concentration was intact. Recent and remote memory appeared at baseline. She is alert and oriented to person place, but not time or necessarily purpose. ? Insight and judgment are limited but improving and impulse control is improving. Intellectual ability limited Vitals/I&O/Wt Last Vital Signs Temp 98.0 F 07/25/22 05:30 Pulse 84 07/25/22 05:30 Resp 16 07/25/22 05:30 BP 129/73 07/25/22 05:30 Pulse Ox 97 07/25/22 05:30 O2 Del Method 07/24/22 14:00 Data NPU : 06/24/22 07:35 06/24/22 07:35 A&P Assessment and plan (1) Schizophrenia, chronic condition: (2) Suicidal ideation: (3) Disturbance of sleep: (4) Psychiatric care: (5) Acute psychosis: Plan 66-year-old white female currently receiving intensive services through [facility] with continued problems with compliance of with medications admitted on a 96-hour hold with active psychotic symptoms. 1. Continue Invega 9mg daily, continue haldol daily, and continue depakote er to 1250mg daily, will switch to am dose versus pm dose as patient appears overly sedated in am. Will begin consideration of clozaril. Continue ambien 5mg at night for sleep. 2. Encourage individual, group and milieu therapy 3. Continue every 15 minute checks for safety. 4. Recommend sober living treatment at the highest level of care to which the patient is willing to commit. 5.? Guardianship hearing switched to 08/23/2022. Continuing to identify possible residential settings for discharge. Involuntary Hold Information 96 Hour Hold: 96 Hour Involuntary Admission: Yes 96 Hour Hold Ending Date: 06/14/22 96 Hour Hold Ending Time: 15:36 Attestations NPU Medical Necessity Statement*: Inpatient hospitalization is medically necessary and the clinically appropriate intervention at this time. We will evaluate medications and make changes as indicated. Likely length of stay is 27 days. Need to try to find placement possibly with someone who would take her prior to the date of the hearing, but placement will determine discharge. Coding Level of Care Code Acute Copier Field Service Technician for Shobha Ramírezd Diagnoses Schizophrenia, chronic condition F20.9 Suicidal ideation R45.851 Disturbance of sleep G47.9 Psychiatric care Acute psychosis F23
[2022-07-25 14:00] VITALS: BP 121/76; PULSE 84; RESP 18; TEMP 36.6; O2SAT 98
[2022-07-25] MEDS: guaiFENesin-codeine UDC 10 mL 5 ML PO (18:38)
[2022-07-25] MEDS: cetylpyridinium Lozenge 1 EACH MUCOUS MEM (18:38)
[2022-07-25] MEDS: paliperidone ER 3 mg Tablet 9 MG PO (18:38)
[2022-07-25 20:04] VITALS: BP 100/65; PULSE 86; RESP 16; TEMP 36.6; O2SAT 92
[2022-07-25] MEDS: zolpidem 5 mg Tablet PO (20:55)
[2022-07-25] MEDS: trazodone 100 mg Tablet PO (20:55)
[2022-07-25] MEDS: haloperidol 5 mg Tablet PO (20:55)
[2022-07-26 06:00] VITALS: BP 130/75; PULSE 86; RESP 16; TEMP 36.5; O2SAT 95
[2022-07-26] MEDS: divalproex ER 500 mg Tablet (24H) 1000 MG PO (06:00)
[2022-07-26] MEDS: divalproex ER 250 mg Tablet (24H) PO (06:01)
[2022-07-26] MEDS: cetylpyridinium Lozenge 1 EACH MUCOUS MEM ×4 (06:25→21:27)
[2022-07-26] MEDS: atenolol 50 mg Tablet PO (08:24)
[2022-07-26] MEDS: fluticasone nasal spray 16gm Btl 1 SPRAY NASAL (08:24)
[2022-07-26] MEDS: lisinopril 10 mg Tablet PO (08:24)
--- NOTE | 2022-07-26 13:40 | W.PM.NPUPNS ---
Subjective NPU Subjective: Patient presents today somewhat flustered about the delay in having to stay here. She is mostly focused on whether her friend Dejon could. Be her discharge plan we discussed that her actual discharge/situation is what the guardian will help determine and there is no specific housing option that a person with a guardian has to do. She wondered again about what a product applications engineer will be represented her and we discussed that. No current concerns or aggressive behaviors. Mental Status Exam MSE Comments: This is a well-nourished, well-developed white female looking older than her stated age with hospital scrubs on with adequate grooming and improving eye contact. No abnormal movements except for mild psychomotor retardation.? Speech was more spontaneous and normal rate but occasionally slightly decreased volume.? Mood described as frustrated, affect was congruent. ? Thought process more organized. ? Thought content: Patient denied any suicidal ideation or homicidal ideation. No delusions reported and none noted, she denied auditory or visual hallucinations and she did not appear to be responding to internal stimuli. Attention and concentration was intact. Recent and remote memory appeared at baseline. She is alert and oriented to person place, but not time or necessarily purpose. ? Insight and judgment are limited but improving and impulse control is improving. Intellectual ability limited Vitals/I&O/Wt Last Vital Signs Temp 97.7 F 07/26/22 06:00 Pulse 86 07/26/22 06:00 Resp 16 07/26/22 06:00 BP 130/75 07/26/22 06:00 Pulse Ox 95 07/26/22 06:00 O2 Del Method 07/25/22 14:00 Data NPU : 06/24/22 07:35 06/24/22 07:35 A&P Assessment and plan (1) Schizophrenia, chronic condition: (2) Suicidal ideation: (3) Disturbance of sleep: (4) Psychiatric care: (5) Acute psychosis: Plan 66-year-old white female currently receiving intensive services through [facility] with continued problems with compliance of with medications admitted on a 96-hour hold with active psychotic symptoms. 1. Continue Invega 9mg daily, continue haldol daily, and continue depakote er to 1250mg daily, will switch to am dose versus pm dose as patient appears overly sedated in am. Continue ambien 5mg at night for sleep. 2. Encourage individual, group and milieu therapy 3. Continue every 15 minute checks for safety. 4. Recommend sober living treatment at the highest level of care to which the patient is willing to commit. 5.? Guardianship hearing switched to 08/27/2022. Continuing to identify possible residential settings for discharge. Involuntary Hold Information 96 Hour Hold: 96 Hour Involuntary Admission: Yes 96 Hour Hold Ending Date: 06/14/22 96 Hour Hold Ending Time: 15:36 Attestations NPU Medical Necessity Statement*: Inpatient hospitalization is medically necessary and the clinically appropriate intervention at this time. We will evaluate medications and make changes as indicated. Likely length of stay is 32. Days. Need to try to find placement possibly with someone who would take her prior to the date of the hearing, but placement will determine discharge. Coding Level of Care Code Acute Installer Technician for Shobha Huynh Diagnoses Schizophrenia, chronic condition F20.9 Suicidal ideation R45.851 Disturbance of sleep G47.9 Psychiatric care Acute psychosis F23
[2022-07-26 14:00] VITALS: BP 120/76; PULSE 88; RESP 18; TEMP 36.6; O2SAT 98
[2022-07-26] MEDS: paliperidone ER 3 mg Tablet 9 MG PO (16:38)
[2022-07-26] MEDS: guaiFENesin-codeine UDC 10 mL 5 ML PO (16:38)
[2022-07-26 19:42] VITALS: BP 124/79; PULSE 80; RESP 16; O2SAT 96
[2022-07-26] MEDS: nicotine 4 mg lozenge MUCOUS MEM (20:47)
[2022-07-26] MEDS: zolpidem 5 mg Tablet PO (20:48)
[2022-07-26] MEDS: trazodone 100 mg Tablet PO (20:48)
[2022-07-26] MEDS: haloperidol 5 mg Tablet PO (20:48)
[2022-07-27 06:00] VITALS: RESP 16
[2022-07-27] MEDS: divalproex ER 500 mg Tablet (24H) 1000 MG PO (06:31)
[2022-07-27] MEDS: divalproex ER 250 mg Tablet (24H) PO (06:31)
[2022-07-27] MEDS: cetylpyridinium Lozenge 1 EACH MUCOUS MEM ×3 (08:06→17:14)
[2022-07-27] MEDS: lisinopril 10 mg Tablet PO (08:07)
[2022-07-27] MEDS: atenolol 50 mg Tablet PO (08:07)
--- NOTE | 2022-07-27 08:08 | PC.NURSE ---
refused scheduled nasal spray
--- NOTE | 2022-07-27 08:09 | PC.NURSE ---
shift assessment denies SI/HI/AVH at this time, pleasant and med compliant...did say she had a bad dream about men trying to hurt her and stab her with knives ....assured that she was in a safe place, that staff would continue to monitor her closely.
[2022-07-27 14:00] VITALS: BP 134/78; PULSE 88; RESP 20; TEMP 36.7; O2SAT 96
[2022-07-27] MEDS: paliperidone ER 3 mg Tablet 9 MG PO (17:14)
--- NOTE | 2022-07-27 18:44 | W.PM.NPUPNS ---
Subjective NPU Subjective: Patient presents today continuing to focus on her hearing date. She was fairly sad at 1 point reporting that she is upset with himself because she messed things up and she did better she could have been able to go to her friend's house and not have to have his hearing. We discussed importance of dealing with the current situation and her focusing on continuing her good behavior as she has weeks and plan to work with her guardian to find a safe but reasonable place to live. Mental Status Exam MSE Comments: This is a well-nourished, well-developed white female looking older than her stated age with hospital scrubs on with adequate grooming and improving eye contact. No abnormal movements except for mild psychomotor retardation.? Speech was more spontaneous and normal rate but occasionally slightly decreased volume.? Mood described as a little sad, affect was congruent. ? Thought process more organized. ? Thought content: Patient denied any suicidal ideation or homicidal ideation. No delusions reported and none noted, she denied auditory or visual hallucinations and she did not appear to be responding to internal stimuli. Attention and concentration was intact. Recent and remote memory appeared at baseline. She is alert and oriented to person place, but not time or necessarily purpose. ? Insight and judgment are limited but improving and impulse control is improving. Intellectual ability limited Vitals/I&O/Wt Last Vital Signs Temp 98.0 F 07/27/22 14:00 Pulse 112 H 07/27/22 19:49 Resp 18 07/27/22 19:49 BP 137/91 07/27/22 19:49 Pulse Ox 98 07/27/22 19:49 O2 Del Method 07/27/22 14:00 Weight last 48 hrs Weight 90.446 kg Data NPU : 06/24/22 07:35 06/24/22 07:35 A&P Assessment and plan (1) Schizophrenia, chronic condition: (2) Suicidal ideation: (3) Disturbance of sleep: (4) Psychiatric care: (5) Acute psychosis: Plan 66-year-old white female currently receiving intensive services through [facility] with continued problems with compliance of with medications admitted on a 96-hour hold with active psychotic symptoms. 1. Continue Invega 9mg daily, continue haldol daily, and continue depakote er to 1250mg daily, will switch to am dose versus pm dose as patient appears overly sedated in am. Continue ambien 5mg at night for sleep. 2. Encourage individual, group and milieu therapy 3. Continue every 15 minute checks for safety. 4. Recommend sober living treatment at the highest level of care to which the patient is willing to commit. 5.? Guardianship hearing switched to 08/27/2022. Continuing to identify possible residential settings for discharge. Involuntary Hold Information 96 Hour Hold: 96 Hour Involuntary Admission: Yes 96 Hour Hold Ending Date: 06/14/22 96 Hour Hold Ending Time: 15:36 Attestations NPU Medical Necessity Statement*: Inpatient hospitalization is medically necessary and the clinically appropriate intervention at this time. We will evaluate medications and make changes as indicated. Likely length of stay is 31. Days. Need to try to find placement possibly with someone who would take her prior to the date of the hearing, but placement will determine discharge. Coding Level of Care Code Acute Sports Therapist for Shobha Huynh Diagnoses Schizophrenia, chronic condition F20.9 Suicidal ideation R45.851 Disturbance of sleep G47.9 Psychiatric care Acute psychosis F23
[2022-07-27] MEDS: zolpidem 5 mg Tablet PO (19:37)
[2022-07-27] MEDS: haloperidol 5 mg Tablet PO (19:37)
[2022-07-27] MEDS: trazodone 100 mg Tablet PO (19:37)
[2022-07-27 19:49] VITALS: BP 137/91; PULSE 112; RESP 18; O2SAT 98
[2022-07-27] MEDS: LORazepam 2 mg Tablet PO (21:35)
--- NOTE | 2022-07-27 21:39 | PC.NURSE ---
Patient approached this va underwriter concerned about 2 peers walking the hallway talking about her. Stated They keep walking past my room talking about me and I don't like it. It's making me anxious and my heartbeat is going fast and louder. Explained to patient that peers were walking the floor for exercise and were not talking about patient. Patient continued to express they were making her anxious and she didn't like it and wanted some medication for her heart beating so fast and hard. PRN Ativan po offered as ordered and taken without difficulty. Spoke with patient for several minutes to assure her she was safe. Encouraged patient to try and get some rest and she voiced she thought that was a good idea.
--- NOTE | 2022-07-27 22:18 | PC.NURSE ---
Patient is currently resting in bed. States she is feeling better and is going to try and go to sleep. Ativan given earlier effective.
[2022-07-28] MEDS: cetylpyridinium Lozenge 1 EACH MUCOUS MEM ×5 (04:01→19:34)
[2022-07-28 06:00] VITALS: BP 120/78; PULSE 109; RESP 18; TEMP 36.7; O2SAT 97
[2022-07-28] MEDS: divalproex ER 500 mg Tablet (24H) 1000 MG PO (06:48)
[2022-07-28] MEDS: divalproex ER 250 mg Tablet (24H) PO (06:48)
--- NOTE | 2022-07-28 07:53 | P.NPUPN_ITS ---
Subjective NPU Subjective: The patient presents today reporting she is doing pretty good. She reports she feels she is doing well with everything except for having to wait for the hearing and not knowing how to defend herself. We discussed her getting a list that identified who needed to be at the hearing. We discussed that she needed to have representation and that she was welcome to have people like her good friend, that have an opinion on the matter, present, but she feels overwhelmed to some degree and so wants a list to get it together. Otherwise, she has not had any problems and is eating and sleeping well. Mental Status Exam MSE Comments: This is a well-nourished, well-developed white female looking older than her stated age with hospital scrubs on with adequate grooming and improving eye contact. No abnormal movements except for mild psychomotor retardation.? Speech was more spontaneous and normal rate but occasionally slightly decreased volume.? Mood described as better, affect was congruent. ? Thought process more organized. ? Thought content: Patient denied any suicidal ideation or homicidal ideation. No delusions reported and none noted, she denied auditory or visual hallucinations and she did not appear to be responding to internal stimuli. Attention and concentration was intact. Recent and remote memory appeared at baseline. She is alert and oriented to person place, but not time or necessarily purpose. ? Insight and judgment are limited but improving and impulse control is improving. Intellectual ability limited Vitals/I&O/Wt Last Vital Signs Temp 98.0 F 07/27/22 14:00 Pulse 112 H 07/27/22 19:49 Resp 18 07/27/22 19:49 BP 137/91 07/27/22 19:49 Pulse Ox 98 07/27/22 19:49 O2 Del Method 07/27/22 14:00 Weight last 48 hrs Weight 90.446 kg Data NPU : 06/24/22 07:35 06/24/22 07:35 A&P Assessment and plan (1) Schizophrenia, chronic condition: (2) Suicidal ideation: (3) Disturbance of sleep: (4) Acute psychosis: Plan 66-year-old white female currently receiving intensive services through [facility] with continued problems with compliance of with medications admitted on a 96-hour hold with active psychotic symptoms. 1. Continue Invega 9mg daily, continue haldol daily, and continue depakote er to 1250mg daily, will switch to am dose versus pm dose as patient appears overly sedated in am. Continue ambien 5mg at night for sleep. 2. Encourage individual, group and milieu therapy 3. Continue every 15 minute checks for safety. 4. Recommend sober living treatment at the highest level of care to which the patient is willing to commit. 5.? Guardianship hearing switched to 08/27/2022. Continuing to identify possible residential settings for discharge. Involuntary Hold Information 96 Hour Hold: 96 Hour Involuntary Admission: Yes 96 Hour Hold Ending Date: 06/14/22 96 Hour Hold Ending Time: 15:36 Attestations NPU Medical Necessity Statement*: Inpatient hospitalization is medically necessary and the clinically appropriate intervention at this time. We will evaluate medications and make changes as indicated. Likely length of stay is 31. Days. Need to try to find placement possibly with someone who would take her prior to the date of the hearing, but placement will determine discharge. Coding Level of Care Code Acute Senior Cost Analyst for Shobha Huynh Diagnoses Schizophrenia, chronic condition F20.9 Suicidal ideation R45.851 Disturbance of sleep G47.9 Acute psychosis F23
[2022-07-28] MEDS: lisinopril 10 mg Tablet PO (08:06)
[2022-07-28] MEDS: atenolol 50 mg Tablet PO (08:06)
[2022-07-28 13:31] VITALS: BP 116/77; PULSE 99; RESP 20; TEMP 36.3; O2SAT 96
[2022-07-28] MEDS: guaiFENesin-codeine UDC 10 mL 5 ML PO ×2 (15:24→22:30)
[2022-07-28] MEDS: paliperidone ER 3 mg Tablet 9 MG PO (17:24)
[2022-07-28] MEDS: nicotine 4 mg lozenge MUCOUS MEM (18:00)
[2022-07-28] MEDS: acetaminophen 325 mg Tablet PO (18:00)
[2022-07-28] MEDS: ziprasidone hcl 40 mg Capsule PO (18:00)
--- NOTE | 2022-07-28 18:14 | PC.NURSE ---
This nurse observed pt talking to an imaginary person in her bedroom. Pt was upset and angry, administered 40mg PO Geodon.
[2022-07-28] MEDS: haloperidol 5 mg Tablet PO (19:35)
[2022-07-28] MEDS: hyDROXYzine 25 mg Capsule 50 MG PO (19:35)
[2022-07-28] MEDS: zolpidem 5 mg Tablet PO (19:35)
[2022-07-28] MEDS: trazodone 100 mg Tablet PO (19:35)
[2022-07-28 20:45] VITALS: BP 161/96; PULSE 113; RESP 14; TEMP 36.3; O2SAT 95
[2022-07-28 22:00] VITALS: BP 161/96; PULSE 113; RESP 14; TEMP 36.3; O2SAT 95
[2022-07-28 22:07] VITALS: BP 161/96; PULSE 113; RESP 14; TEMP 36.3; O2SAT 95
[2022-07-28] MEDS: calcium carbonate 500 mg Chew Tablet PO (23:47)
[2022-07-29] MEDS: OLANZapine 5 mg ODT PO ×2 (00:33→08:08)
[2022-07-29] MEDS: haloperidol 5 mg Tablet PO ×3 (00:35→22:04)
[2022-07-29] MEDS: hyDROXYzine 25 mg Capsule 50 MG PO ×2 (01:08→08:08)
[2022-07-29] MEDS: divalproex ER 250 mg Tablet (24H) PO (05:25)
[2022-07-29] MEDS: divalproex ER 500 mg Tablet (24H) 1000 MG PO (05:25)
[2022-07-29 06:00] VITALS: BP 110/79; PULSE 110; RESP 20; TEMP 37; O2SAT 96
[2022-07-29] MEDS: bismuth subsalicylate 240 mL Btl 15 ML PO (06:40)
[2022-07-29] MEDS: ziprasidone hcl 40 mg Capsule PO ×2 (08:08→17:01)
[2022-07-29] MEDS: guaiFENesin-codeine UDC 10 mL 5 ML PO (08:08)
[2022-07-29] MEDS: atenolol 50 mg Tablet PO (08:08)
[2022-07-29] MEDS: lisinopril 10 mg Tablet PO (08:08)
[2022-07-29] MEDS: cetylpyridinium Lozenge 1 EACH MUCOUS MEM (08:09)
[2022-07-29] MEDS: calcium carbonate 500 mg Chew Tablet PO (09:03)
[2022-07-29] MEDS: nicotine 2 mg Gum BUCCAL (11:28)
[2022-07-29 13:53] VITALS: BP 135/92; PULSE 113; RESP 20; TEMP 36.6; O2SAT 96
--- NOTE | 2022-07-29 14:41 | W.PM.NPUPNS ---
Subjective NPU Subjective: Patient 66-year-old white female with schizophrenia admitted and currently involuntarily placed while awaiting a guardianship hearing in August 2022. She continues to isolate herself on the milieu. She states that she is feeling pretty good. She continued to express paranoia and states that she feels like she is having problems with her memory. She states that she does not wish to be in the hospital but appeared to have no clear plans for what to do if she had left the hospital. The patient had reported adequate sleep and continued to have reasonable oral intake on the milieu. Mental Status Exam MSE Comments: This is a well-nourished, well-developed white female looking older than her stated age with hospital scrubs on with adequate grooming and improving eye contact. There was evidence of abnormal buccal facial movements noted.? Speech was monotone in quality with improved quantity of spontaneous speech. Mood described as better; Affect was constricted. ? Thought process more organized. ? Thought content: Patient denied any suicidal ideation or homicidal ideation. Continued evidence of paranoia noted., She denied auditory or visual hallucinations and she did not appear to be responding to internal stimuli. Attention and concentration was intact. Recent and remote memory appeared at baseline. She is alert and oriented to person place, year, month, day of week but not date. ? Insight and judgment are limited but improving and impulse control is improving. Intellectual ability limited Vitals/I&O/Wt Last Vital Signs Temp 98 F 07/29/22 13:53 Pulse 113 H 07/29/22 13:53 Resp 20 H 07/29/22 13:53 BP 135/92 07/29/22 13:53 Pulse Ox 96 07/29/22 13:53 O2 Del Method 07/29/22 13:53 Weight last 48 hrs Weight 90.446 kg Data NPU : 06/24/22 07:35 06/24/22 07:35 A&P Assessment and plan (1) Schizophrenia, chronic condition: (2) Suicidal ideation: (3) Disturbance of sleep: (4) Acute psychosis: Plan 66-year-old white female currently receiving intensive services through [facility] with continued problems with compliance of with medications admitted on a 96-hour hold with active psychotic symptoms. 1. Continue Invega 9mg daily, continue haldol daily, and continue depakote er to 1250mg daily, will switch to am dose versus pm dose as patient appears overly sedated in am. Continue ambien 5mg at night for sleep. 2. Encourage individual, group and milieu therapy 3. Continue every 15 minute checks for safety. 4. Recommend sober living treatment at the highest level of care to which the patient is willing to commit. 5.? Guardianship hearing switched to 08/27/2022. Continuing to identify possible residential settings for discharge. Involuntary Hold Information 96 Hour Hold: 96 Hour Involuntary Admission: Yes 96 Hour Hold Ending Date: 06/14/22 96 Hour Hold Ending Time: 15:36 Attestations NPU Medical Necessity Statement*: Inpatient hospitalization is medically necessary and the clinically appropriate intervention at this time. We will evaluate medications and make changes as indicated. Likely length of stay is 28 Days. Need to try to find placement possibly with someone who would take her prior to the date of the hearing, but placement will determine discharge. Coding Level of Care Code Established Pt Acute Eap Specialist for Germang Fwd Patient Type Established History Problem Focused Exam Problem Focused Medical Decision Making Straight Forward Diagnoses Schizophrenia, chronic condition F20.9 Suicidal ideation R45.851 Disturbance of sleep G47.9 Acute psychosis F23
[2022-07-29] MEDS: paliperidone ER 3 mg Tablet 9 MG PO (17:01)
[2022-07-29] MEDS: benztropine 1 mg Tablet PO (17:01)
[2022-07-29] MEDS: diphenhydrAMINE 50 mg Capsule PO (17:02)
[2022-07-29] MEDS: LORazepam 2 mg Tablet PO (17:02)
[2022-07-29 22:00] VITALS: RESP 22
[2022-07-29] MEDS: zolpidem 5 mg Tablet PO (22:06)
[2022-07-30] MEDS: divalproex ER 250 mg Tablet (24H) PO (05:07)
[2022-07-30] MEDS: divalproex ER 500 mg Tablet (24H) 1000 MG PO (05:07)
[2022-07-30 06:00] VITALS: BP 135/85; PULSE 108; RESP 18; TEMP 36.5; O2SAT 97
[2022-07-30] MEDS: guaiFENesin-codeine UDC 10 mL 5 ML PO ×2 (08:24→19:52)
[2022-07-30] MEDS: atenolol 50 mg Tablet PO (08:24)
[2022-07-30] MEDS: hyDROXYzine 25 mg Capsule 50 MG PO (08:24)
[2022-07-30] MEDS: benztropine 1 mg Tablet PO (08:24)
[2022-07-30] MEDS: cetylpyridinium Lozenge 1 EACH MUCOUS MEM ×2 (08:24→14:59)
[2022-07-30] MEDS: ziprasidone hcl 40 mg Capsule PO ×2 (08:24→19:52)
[2022-07-30] MEDS: lisinopril 10 mg Tablet PO (08:24)
[2022-07-30] MEDS: nicotine 2 mg Gum BUCCAL (08:44)
[2022-07-30 14:00] VITALS: BP 148/82; PULSE 89; RESP 16; TEMP 36.4; O2SAT 96
--- NOTE | 2022-07-30 14:44 | P.NPUPN_ITS ---
Subjective NPU Subjective: Patient 66-year-old white female with schizophrenia admitted and currently involuntarily placed while awaiting a guardianship hearing in August 2022. Patient continued to isolate herself on the milieu with limited interaction in group therapy. She continued to report having problems with her memory. She reports that she continues to feel as if others are looking at her and reports that she feels like people can continue to read her mind and that her thoughts are being broadcast it to everyone. She continues to struggle with activities of daily living including showering and brushing without prompting. Patient had difficulty sleeping per staff having slept broken sleep for approx imately 3 to 4 hours last night. Mental Status Exam MSE Comments: This is a well-nourished, well-developed white female looking older than her stated age with hospital scrubs on with adequate grooming and improving eye contact. There was evidence of abnormal buccal facial movements noted.? Speech was monotone in quality, increased spontaneous speech. Mood described as okay. Affect was constricted. ? Thought process more organized. ? Thought content: Patient denied any suicidal ideation or homicidal ideation. Continued evidence of paranoia noted. She denied auditory or visual hallucinations and she did not appear to be responding to internal stimuli. Attention and concentration was intact. Recent and remote memory appeared at baseline. She is alert and oriented to person place, year, month, day of week but not date. ? Insight and judgment are limited but improving and impulse control is improving. Vitals/I&O/Wt Last Vital Signs Temp 97.7 F 07/30/22 06:00 Pulse 108 H 07/30/22 06:00 Resp 18 07/30/22 06:00 BP 135/85 07/30/22 06:00 Pulse Ox 97 07/30/22 06:00 O2 Del Method 07/30/22 06:00 Data NPU : 06/24/22 07:35 06/24/22 07:35 A&P Assessment and plan (1) Schizophrenia, chronic condition: (2) Suicidal ideation: (3) Disturbance of sleep: (4) Acute psychosis: Plan 66-year-old white female currently receiving intensive services through [facility] with continued problems with compliance of with medications admitted on a 96-hour hold with active psychotic symptoms. 1. Continue Invega 9mg daily, continue haldol daily, and continue depakote er to 1250mg daily, will switch to am dose versus pm dose as patient appears overly sedated in am. Continue ambien 5mg at night for sleep. 2. Encourage individual, group and milieu therapy 3. Continue every 15 minute checks for safety. 4. Recommend sober living treatment at the highest level of care to which the patient is willing to commit. 5.? Guardianship hearing switched to 08/27/2022. Continuing to identify possible residential settings for discharge. 6. Add B6 100 mg bid to target Tardive dyskinesia. Involuntary Hold Information 96 Hour Hold: 96 Hour Involuntary Admission: Yes 96 Hour Hold Ending Date: 06/14/22 96 Hour Hold Ending Time: 15:36 Attestations NPU Medical Necessity Statement*: Inpatient hospitalization is medically necessary and the clinically appropriate intervention at this time. We will evaluate medications and make changes as indicated. Likely length of stay is 28 Days. Need to try to find placement possibly with someone who would take her prior to the date of the hearing, but placement will determine discharge. Coding Level of Care Code Established Pt Acute Production Potter for Germang Fwconnor Patient Type Established History Problem Focused Exam Problem Focused Medical Decision Making Straight Forward Diagnoses Schizophrenia, chronic condition F20.9 Suicidal ideation R45.851 Disturbance of sleep G47.9 Acute psychosis F23
[2022-07-30 15:47] VITALS: BP 148/82; PULSE 89; RESP 16; TEMP 36.4; O2SAT 96
[2022-07-30] MEDS: pyridoxine 50 mg Tablet 100 MG PO (17:51)
[2022-07-30] MEDS: paliperidone ER 3 mg Tablet 9 MG PO (17:51)
[2022-07-30] MEDS: fluticasone nasal spray 16gm Btl 1 SPRAY NASAL (18:10)
[2022-07-30] MEDS: ibuprofen 600 mg Tablet PO (18:10)
[2022-07-30] MEDS: bismuth subsalicylate 240 mL Btl 15 ML PO (19:30)
[2022-07-30] MEDS: zolpidem 5 mg Tablet PO (19:52)
[2022-07-30] MEDS: haloperidol 5 mg Tablet PO (19:52)
[2022-07-30] MEDS: nicotine 4 mg lozenge MUCOUS MEM (20:14)
[2022-07-31] MEDS: hyDROXYzine 25 mg Capsule 50 MG PO ×2 (00:09→20:36)
[2022-07-31] MEDS: trazodone 100 mg Tablet PO (00:09)
[2022-07-31] MEDS: divalproex ER 500 mg Tablet (24H) 1000 MG PO (05:09)
[2022-07-31] MEDS: divalproex ER 250 mg Tablet (24H) PO (05:09)
[2022-07-31 06:00] VITALS: BP 150/91; PULSE 97; RESP 17; TEMP 37; O2SAT 97
[2022-07-31] MEDS: guaiFENesin-codeine UDC 10 mL 5 ML PO ×2 (06:08→18:36)
[2022-07-31] MEDS: atenolol 50 mg Tablet PO (08:16)
[2022-07-31] MEDS: lisinopril 10 mg Tablet PO (08:16)
[2022-07-31] MEDS: pyridoxine 50 mg Tablet 100 MG PO ×2 (08:16→18:11)
[2022-07-31] MEDS: benztropine 1 mg Tablet PO (10:07)
[2022-07-31] MEDS: ziprasidone hcl 40 mg Capsule PO ×2 (10:07→20:36)
[2022-07-31] MEDS: LORazepam 2 mg Tablet PO (10:19)
[2022-07-31] MEDS: diphenhydrAMINE 50 mg Capsule PO (10:19)
[2022-07-31] MEDS: haloperidol 5 mg Tablet PO ×2 (10:19→20:39)
--- NOTE | 2022-07-31 10:20 | PC.NURSE ---
DURING THIS SHIFT PT HAS BEEN ELATED AND LAUGHING FREQUENTLY. WHEN ASK PT DOES NOT KNOW WHY SHE IS LAUGHING. PT QUICKLY BECAME ESCALATED ,THINKING OTHER PTS WERE TALKING ABOUT HER. PT IS AGITATED. PRN MEDICATION WAS GIVEN.
[2022-07-31 13:54] VITALS: RESP 16
--- NOTE | 2022-07-31 13:58 | P.NPUPN_ITS ---
Subjective NPU Subjective: Patient 66-year-old white female with schizophrenia admitted and currently involuntarily placed while awaiting a guardianship hearing in August 2022. Patient continues to remain actively psychotic on the milieu. She had been isolating herself throughout much of the day. She reports not sleeping well. She has had episodes of bursting out in 2 laughter apparently out of nowhere without any cause. The patient had described these events as uncontrollable. She continued to report that she wished to live somewhere else. Patient had reported no side effects from her medication. She reports that she has been feeling a little depressed . She did show evidence of low motivation and continued struggles with maintenance of self-care including an inability to manage hygiene without prompting. Mental Status Exam MSE Comments: This is a well-nourished, well-developed white female looking older than her stated age with hospital scrubs on with adequate grooming and improving eye contact. There was evidence of abnormal buccal facial movements noted.? Speech was monotone in quality, increased spontaneous speech. Mood described as allright. Affect was constricted. ? Thought process:linear but superficial. ? Thought content: Patient denied any suicidal ideation or homicidal ideation. Continued evidence of paranoia noted. She denied auditory or visual hallucinations and she did not appear to be responding to internal stimuli. Attention and concentration was intact. Recent and remote memory appeared at baseline. She is alert and oriented to person place, year, month, day of week but not date. ? Insight and judgment are limited but improving and impulse control is improving. Vitals/I&O/Wt Last Vital Signs Temp 98.6 F 07/31/22 06:00 Pulse 97 07/31/22 06:00 Resp 16 07/31/22 13:54 BP 150/91 07/31/22 06:00 Pulse Ox 97 07/31/22 06:00 O2 Del Method 07/31/22 06:00 Data NPU : 06/24/22 07:35 06/24/22 07:35 A&P Assessment and plan (1) Schizophrenia, chronic condition: (2) Suicidal ideation: (3) Disturbance of sleep: (4) Acute psychosis: Plan 66-year-old white female currently receiving intensive services through [facility] with continued problems with compliance of with medications admitted on a 96-hour hold with active psychotic symptoms. 1. Continue Invega 9mg daily, continue haldol daily, and increase Depakote ER to 1500 mg daily. Continue ambien 5mg at night for sleep. add doxepin 25mg at night to target insomnia, d/c prn trazodone. 2. Encourage individual, group and milieu therapy 3. Continue every 15 minute checks for safety. 4. Recommend sober living treatment at the highest level of care to which the patient is willing to commit. 5.? Guardianship hearing switched to 08/27/2022. Continuing to identify possible residential settings for discharge. 6. Add B6 100 mg bid to target Tardive dyskinesia. Involuntary Hold Information 96 Hour Hold: 96 Hour Involuntary Admission: Yes 96 Hour Hold Ending Date: 06/14/22 96 Hour Hold Ending Time: 15:36 Attestations NPU Medical Necessity Statement*: Inpatient hospitalization is medically necessary and the clinically appropriate intervention at this time. We will evaluate medications and make changes as indicated. Likely length of stay is 28 Days. Need to try to find placement possibly with someone who would take her prior to the date of the hearing, but placement will determine discharge. Coding Level of Care Code Established Pt Acute Cryptographic Machine Operator for Chg Fwd Patient Type Established History Problem Focused Exam Problem Focused Medical Decision Making Straight Forward Diagnoses Schizophrenia, chronic condition F20.9 Suicidal ideation R45.851 Disturbance of sleep G47.9 Acute psychosis F23
[2022-07-31] MEDS: paliperidone ER 3 mg Tablet 9 MG PO (18:10)
[2022-07-31] MEDS: nicotine 4 mg lozenge MUCOUS MEM (19:47)
[2022-07-31] MEDS: zolpidem 5 mg Tablet PO (20:38)
[2022-07-31] MEDS: doxepin 25 mg Capsule PO (20:38)
--- NOTE | 2022-07-31 20:40 | PC.NURSE ---
Patient c/o feeling anxious. Noted to be paranoid. Stated she thinks peers are talking about her. Assured her nobody was talking about her. Patient then stated she was feeling like she her heart was beating fast. Noted to be pacing halls. PRN Vistaril and Geodon po given as ordered. Spoke with patient about positive coping skills. Suggested returning to room to read newspaper. Patient voiced understanding and returned to room.
--- NOTE | 2022-07-31 21:00 | PC.NURSE ---
Patient noted to be in room reading newspaper. No further agitated/anxious behavior noted. Pleasant when speaking with staff. Encouraged patient to come speak with staff if feeling anxious or starting to get agitated. Voiced understanding.
[2022-07-31 22:00] VITALS: BP 135/84; PULSE 96; RESP 18; TEMP 36.9; O2SAT 98
[2022-08-01] MEDS: divalproex ER 500 mg Tablet (24H) 1500 MG PO (05:00)
[2022-08-01] MEDS: nicotine 4 mg lozenge MUCOUS MEM (05:20)
[2022-08-01 06:00] VITALS: BP 136/88; PULSE 93; RESP 18; TEMP 36.3; O2SAT 98
[2022-08-01] MEDS: hyDROXYzine 25 mg Capsule 50 MG PO (07:41)
[2022-08-01] MEDS: OLANZapine 5 mg ODT PO (07:41)
[2022-08-01] MEDS: guaiFENesin-codeine UDC 10 mL 5 ML PO ×2 (07:41→20:31)
[2022-08-01] MEDS: cetylpyridinium Lozenge 1 EACH MUCOUS MEM ×2 (07:41→10:08)
[2022-08-01] MEDS: atenolol 50 mg Tablet PO (07:42)
[2022-08-01] MEDS: pyridoxine 50 mg Tablet 100 MG PO ×2 (07:42→18:17)
[2022-08-01] MEDS: lisinopril 10 mg Tablet PO (07:42)
[2022-08-01] MEDS: ziprasidone hcl 40 mg Capsule PO ×2 (08:49→18:17)
[2022-08-01] MEDS: haloperidol 5 mg Tablet PO ×2 (11:01→20:32)
[2022-08-01] MEDS: diphenhydrAMINE 50 mg Capsule PO (11:01)
[2022-08-01] MEDS: LORazepam 2 mg Tablet PO (11:01)
--- NOTE | 2022-08-01 11:04 | PC.NURSE ---
PT HAS BEEN UP IN THE BEST YELLING AT OTHER PATIENTS. PT RETURNED TO ROOM THEN STORMED OUT AND WENT AT ANOTHER PT. THIS NURSE AND ANOTHER STAFF WERE ABLE TO REDIRECT AND PREVENT ANY INJURIES. PT WAS GIVEN ORAL HALDOL, BENADRYL, AND ATIVAN. PT CONTINUES TO BE IN AND OUT OF PT ROOM AGITATED.
[2022-08-01 14:00] VITALS: BP 151/92; PULSE 103; RESP 18; TEMP 36.9; O2SAT 96
[2022-08-01] MEDS: paliperidone ER 3 mg Tablet 9 MG PO (18:17)
[2022-08-01] MEDS: doxepin 25 mg Capsule PO (20:31)
--- NOTE | 2022-08-01 20:45 | P.NPUPN_ITS ---
Subjective NPU Subjective: Patient 66-year-old white female with schizophrenia admitted and currently involuntarily placed while awaiting a guardianship hearing in August 2022. Patient continues to remain actively psychotic on the milieu. She had been isolating herself throughout much of the day. She had been notably agitated another peer and stated that she she felt like the other peer was invading her privacy and reading her thoughts. She had made threats to harm another peer. She had refused to complete blood work today prior to the initiation of Clozaril. She continued to struggle with completion of activities of daily living. Mental Status Exam MSE Comments: This is a well-nourished, well-developed white female looking older than her stated age with hospital scrubs on with adequate grooming and improving eye contact. There was evidence of abnormal buccal facial movements noted.? Speech was monotone in quality, with incre speech latency.ased Mood described as allright. Affect was blunted. Thought process:linear but superficial. ? Thought content: Patient denied any suicidal ideation or h omicidal ideation. Continued evidence of paranoia noted. She denied auditory or visual hallucinations and she did appear to be responding to internal stimuli. Attention and concentration was poor. . Recent and remote memory appeared at baseline. She is alert and oriented to person place, year, month, day of week but not date. ? Insight and judgment are limited but improving and impulse control was poor. Vitals/I&O/Wt Last Vital Signs Temp 98.5 F 08/01/22 14:00 Pulse 103 H 08/01/22 14:00 Resp 18 08/01/22 14:00 BP 151/92 08/01/22 14:00 Pulse Ox 96 08/01/22 14:00 O2 Del Method 08/01/22 06:00 Data NPU : 06/24/22 07:35 06/24/22 07:35 A&P Assessment and plan (1) Schizophrenia, chronic condition: (2) Suicidal ideation: (3) Disturbance of sleep: (4) Acute psychosis: Plan 66-year-old white female currently receiving intensive services through [facility] with continued problems with compliance of with medications admitted on a 96-hour hold with active psychotic symptoms. 1. Continue Invega 9mg daily, continue haldol daily, and increase Depakote ER to 1500 mg daily. Continue ambien 5mg at night for sleep. add doxepin 25mg at night to target insomnia, d/c prn trazodone. 2. Encourage individual, group and milieu therapy 3. Continue every 15 minute checks for safety. 4. Recommend sober living treatment at the highest level of care to which the patient is willing to commit. 5.? Guardianship hearing switched to 08/27/2022. Continuing to identify possible residential settings for discharge. 6. Add B6 100 mg bid to target Tardive dyskinesia. 7. cbc with diff, register patient to begin clozaril therapy. Involuntary Hold Information 96 Hour Hold: 96 Hour Involuntary Admission: Yes 96 Hour Hold Ending Date: 06/14/22 96 Hour Hold Ending Time: 15:36 Attestations NPU Medical Necessity Statement*: Inpatient hospitalization is medically necessary and the clinically appropriate intervention at this time. We will evaluate medications and make changes as indicated. Likely length of stay is 28 Days. Need to try to find placement possibly with someone who would take her prior to the date of the hearing, but placement will determine discharge. Coding Level of Care Code Established Pt Acute Tomb Maker Helper for hSobha Huynh Patient Type Established History Problem Focused Exam Problem Focused Medical Decision Making Straight Forward Diagnoses Schizophrenia, chronic condition F20.9 Suicidal ideation R45.851 Disturbance of sleep G47.9 Acute psychosis F23
[2022-08-01] MEDS: ziprasidone 20 mg/mL SDV IM (21:28)
[2022-08-01] MEDS: diphenhydrAMINE 50 mg/mL SDV 1mL IM (21:28)
[2022-08-01] MEDS: LORazepam 2 mg/mL INJ 1 mL INJECTION (21:28)
[2022-08-01] MEDS: zolpidem 5 mg Tablet PO (21:35)
--- NOTE | 2022-08-02 01:22 | PC.NURSE ---
PT LIZY GRACIA ASKED TO SEE SECURITY HUA TRAN AND MYSELF IN HER ROOM STATING SHE WANTED TO TALK TO US. WHEN ENTERING THE FOYER OF ROOM 170, PAU MEDEL STATED THAT SHE HAD TO USE THE RESTROOM, SHE TURNED AND WENT INTO HER ROOM, THEN GOING INTO HER BATHROOM AN SLAMMING THE DOOR. AT THAT TIME I SHOWED SECURITY HUA TRAN THE HOLE IN THE FOYER BATHROOM WALL FROM THE LEAKING OF THE COMMODE.WHEN PAU MEDEL CAME OUT OF HER ROOM SHE STARTED WALKING TOWARDS US WE WERE COMING OUT OF THE BATHROOM AN WE WERE MOVING TOWARDS HER. I ASKED PAU MEDEL WHAT IS WRONG WALKED CLOSER TO US AN AT THAT TIME SHE (LIZY) WENT TO RAISE HER ARMS TOWARDS ME AND I, AT THAT TIME GRABBED PAU MEDEL ARMS TO PREVENT HER FROM HITTING ME. PAU MEDEL GRABBED MY UPPER ARMS RAKING HER FINGERNAILS MULTIPLE TIMES INTO MY SKIN WITH THE ATTEMPT TO CAUSE INJURY CALLING ME A WHORE RAG YOU RAG, YOU RAG BITCH. I TOLD LIZY TO STOP MULTIPLE TIMES WHILE SECURITY HUA TRAN FINALLY SUCCEEDED IN REMOVING PAU MEDEL HANDS FROM MY ARMS, AT THAT TIME SECURITY HUA TRAN STEPPED BETWEEN PAU MEDEL AND MYSELF HE AND I BACKED OUT OF THE ROOM. I IMMEDIATELY INFORMED MY ENGINEERING FACULTY MEMBER NURSE YUSEF OF THE INCIDENT.SECURITY TRAN CALLED TONGUER LUC.
[2022-08-02] MEDS: diphenhydrAMINE 50 mg Capsule PO ×2 (03:10→21:55)
[2022-08-02] MEDS: OLANZapine 5 mg ODT PO ×2 (03:10→21:55)
[2022-08-02] MEDS: LORazepam 2 mg Tablet PO ×2 (03:11→21:55)
--- NOTE | 2022-08-02 06:24 | PC.NURSE ---
pt refused AM scheduled depakote. very irritable upon approach at this time.
[2022-08-02] MEDS: atenolol 50 mg Tablet PO (08:16)
[2022-08-02] MEDS: lisinopril 10 mg Tablet PO (08:16)
[2022-08-02] MEDS: pyridoxine 50 mg Tablet 100 MG PO ×2 (10:25→17:28)
[2022-08-02] MEDS: ziprasidone hcl 40 mg Capsule PO ×2 (10:25→18:49)
[2022-08-02] MEDS: nicotine 4 mg lozenge MUCOUS MEM ×2 (13:22→16:18)
[2022-08-02 14:00] VITALS: RESP 16
[2022-08-02 14:52] LABS: Basophils # 0.1 10^3/uL (0.0-0.1); Basophils % 0.8 %; Eosinophils # 0.1 10^3/uL (0.0-0.8); Eosinophils % 1.8 %; Hematocrit 43.3 % (37.0-47.0); Hemoglobin 13.7 g/dL (11.5-15.3); Lymphocytes % 32.5 %; Mean Corpuscular HGB Conc 31.6 g/dL (30.0-36.0); Mean Corpuscular Hemoglobin 26.8 pg (28.0-34.0); Mean Corpuscular Volume 84.6 fl (81-99); Mean Platelet Volume 9.6 fL (7.4-10.4); Monocytes # 0.9 10^3/uL (0.2-0.9); Neutrophils # 3.15 10^3/uL (1.8-7.7); Neutrophils % 50.1 %; Nucleated Red Blood Cells % 0 %; Platelet Count 179 10^3/cmm (130-400); Red Blood Count 5.12 10^6/uL (4.1-5.3); Red Cell Distribution Width 14.2 % (12.1-15.1); White Blood Count 6.3 10^3/uL (4.0-10.0)
[2022-08-02 16:51] LABS: Alanine Aminotransferase 18 U/L (0-33); Albumin Level 4.3 g/dL (3.5-5.2); Alkaline Phosphatase 86 U/L (35-105); Anion Gap 16.1 (5-19); Aspartate Amino Transferase 20 U/L (0-32); Blood Urea Nitrogen 11 mg/dL (8-23); Calcium 9.4 mg/dL (8.5-10.5); Carbon Dioxide 25 mmol/L (22-29); Chloride 93 mmol/L (98-107); Globulin 2.7 g/dL (1.3-4.6); Glomerular Filtration Rate 124.2 mL/min (90-130); Glucose 81 mg/dL (65-115); Osmolality Calculated 268 mOsm/kg (285-295); Potassium 4.1 mmol/L (3.5-5.1); Sodium 130 mmol/L (136-145); Total Bilirubin 0.9 mg/dL (0.15-1.2)
[2022-08-02] MEDS: paliperidone ER 3 mg Tablet 9 MG PO (17:28)
--- NOTE | 2022-08-02 17:51 | P.NPUPN_ITS ---
Subjective NPU Subjective: Patient 66-year-old white female with schizophrenia admitted and currently involuntarily placed while awaiting a guardianship hearing in August 2022. Patient had continued to isolate more on the milieu. She had made it threats to physically assault other patients and staff again. She had some difficulties with falling asleep. She continued to report that others around her had somehow been able to read her thoughts and stated that she needed to cover up her head so that others could not listen to her thoughts. The patient had stolen a Shivam pin on the unit for on unspecified reasons but reported that it was a barrera to protecting herself. She had continued to struggle with complet ion of activities of daily living including brushing and showering. Mental Status Exam MSE Comments: She is a disheveled white female looking older than her stated age with hospital scrubs on with poor grooming and poor eye contact. There was evidence of diminished abnormal buccal facial movements noted.? Speech was monotone in quality, withincreased speech latency noted. Mood described as okay. Her affect was blunted. Thought process:linear but superficial. ? Thought content: Patient denied any suicidal ideation or homicidal ideation. Continued evidence of paranoia noted. She denied auditory or visual hallucinations and she did appear to be responding to internal stimuli. Attention and concentration was poor. . Recent and remote memory appeared at baseline. She is alert and oriented to person place, year, month, day of week but not date. ? Insight and judgment are limited but improving and impulse control was poor. Vitals/I&O/Wt Last Vital Signs Temp 98.5 F 08/01/22 14:00 Pulse 103 H 08/01/22 14:00 Resp 16 08/02/22 14:00 BP 151/92 08/01/22 14:00 Pulse Ox 96 08/01/22 14:00 O2 Del Method 08/01/22 06:00 Data NPU : 08/02/22 14:43 08/02/22 14:43 A&P Assessment and plan (1) Schizophrenia, chronic condition: (2) Suicidal ideation: (3) Disturbance of sleep: (4) Acute psychosis: Plan 66-year-old white female currently receiving intensive services through [facility] with continued problems with compliance of with medications admitted on a 96-hour hold with active psychotic symptoms. 1. Continue Invega 9mg daily, continue haldol daily, and increase Depakote ER to 1500 mg daily. Continue ambien 5mg at night for sleep. add doxepin 25mg at night to target insomnia, d/c prn trazodone. 2. Encourage individual, group and milieu therapy 3. Continue every 15 minute checks for safety. 4. Recommend sober living treatment at the highest level of care to which the patient is willing to commit. 5.? Guardianship hearing switched to 08/27/2022. Continuing to identify pos sible residential settings for discharge. 6. Increase B6 100 mg tid to target Tardive dyskinesia. 7. cbc with diff, register patient to begin clozaril therapy. Involuntary Hold Information 96 Hour Hold: 96 Hour Involuntary Admission: Yes 96 Hour Hold Ending Date: 06/14/22 96 Hour Hold Ending Time: 15:36 Attestations NPU Medical Necessity Statement*: Inpatient hospitalization is medically necessary and the clinically appropriate intervention at this time. We will evaluate medications and make changes as indicated. Likely length of stay is 28 Days. Need to try to find placement possibly with someone who would take her prior to the date of the hearing, but placement will determine discharge. Coding Level of Care Code Acute Benefits Consulting Analyst for Shobha Fwd Diagnoses Schizophrenia, chronic condition F20.9 Suicidal ideation R45.851 Disturbance of sleep G47.9 Acute psychosis F23
[2022-08-02 20:09] VITALS: RESP 19
[2022-08-02] MEDS: doxepin 25 mg Capsule PO (21:34)
[2022-08-02] MEDS: haloperidol 5 mg Tablet PO (21:34)
[2022-08-02] MEDS: zolpidem 5 mg Tablet PO (21:34)
[2022-08-03 06:00] VITALS: RESP 18
[2022-08-03 07:06] LABS: Valproic Acid Level 5.5 ug/mL (50-100)
[2022-08-03] MEDS: atenolol 50 mg Tablet PO (09:19)
[2022-08-03] MEDS: pyridoxine 50 mg Tablet 100 MG PO ×3 (09:19→20:24)
[2022-08-03] MEDS: lisinopril 10 mg Tablet PO (09:20)
[2022-08-03] MEDS: divalproex ER 500 mg Tablet (24H) 1500 MG PO (09:20)
[2022-08-03] MEDS: guaiFENesin-codeine UDC 10 mL PO ×2 (10:18→21:39)
[2022-08-03] MEDS: cetylpyridinium Lozenge 1 EACH MUCOUS MEM (10:19)
[2022-08-03] MEDS: haloperidol 5 mg Tablet PO ×2 (10:57→20:25)
[2022-08-03] MEDS: diphenhydrAMINE 50 mg Capsule PO (10:57)
[2022-08-03] MEDS: LORazepam 2 mg Tablet PO (10:57)
--- NOTE | 2022-08-03 11:14 | PC.NURSE ---
PRN MEDS Patient becoming increasingly agitated. She believes he is talking about her and taking things from her room to spite her. Patient stated, he needs to leave and stay out of my room. He just keeps talking about me all the time. Patient given 50mg of benadryl, 5 mg of haldol, and 2 mg of ativan. Patient is now drawing in the dayroom.
[2022-08-03 13:40] VITALS: RESP 15
--- NOTE | 2022-08-03 14:37 | W.PM.NPUPNS ---
Subjective NPU Subjective: Patient 66-year-old white female with schizophrenia admitted and currently involuntarily placed while awaiting a guardianship hearing in August 2022. Patient had continued to isolate more on the milieu. Patient had been reporting having repeated thoughts that the police were accusing her of being a big it and they were planning something fishy for her. She reported that she had a difficult day yesterday and felt like staff and peer were somehow able to invade her mind. She reported that she needed to stay by herself so that others could not hear her thoughts. Patient reported no thoughts of hurting herself and states that she would try to keep her hands to herself. The patient reported continued confusion and stated that she was spending time on the unit trying to engage in art such as drying rather than focusing on her thoughts. Mental Status Exam MSE Comments: She is a disheveled white female looking older than her stated age with hospital scrubs on with poor grooming and poor eye contact. There was evidence of diminished abnormal buccofacial movements noted.? Speech was monotone in quality, with some increase in speech latency noted. Mood described as allright. Her affect was blunted. Thought process:linear but superficial. ? Thought content: Patient denied any suicidal ideation or homicidal ideation. Continued evidence of paranoia noted. She denied auditory or visual hallucinations and she did appear to be responding to internal stimuli. Attention and concentration was poor. . Recent and remote memory appeared at baseline. She is alert and oriented to person place, year, month, day of week but not date. ? Insight and judgment are limited but improving and impulse control was poor. Vitals/I&O/Wt Last Vital Signs Temp 98.5 F 08/01/22 14:00 Pulse 103 H 08/01/22 14:00 Resp 15 08/03/22 13:40 BP 151/92 08/01/22 14:00 Pulse Ox 96 08/01/22 14:00 O2 Del Method 08/01/22 06:00 Data NPU : 08/02/22 14:43 08/02/22 14:43 A&P Assessment and plan (1) Schizophrenia, chronic condition: (2) Suicidal ideation: (3) Disturbance of sleep: (4) Acute psychosis: Plan 66-year-old white female currently receiving intensive services through [facility] with continued problems with compliance of with medications admitted on a 96-hour hold with active psychotic symptoms. 1. Continue Invega 9mg daily, continue haldol daily, and increase Depakote ER to 1500 mg daily. Continue ambien 5mg at night for sleep. add doxepin 25mg at night to target insomnia, d/c prn trazodone. 2. Encourage individual, group and milieu therapy 3. Continue every 15 minute checks for safety. 4. Recommend sober living treatment at the highest level of care to which the patient is willing to commit. 5.? Guardianship hearing switched to 08/27/2022. Continuing to identify possible residential settings for discharge. 6. Continue B6 100 mg tid to target Tardive dyskinesia. 7. cbc with diff, register patient to begin clozaril therapy. ANC completed. Involuntary Hold Information 96 Hour Hold: 96 Hour Involuntary Admission: Yes 96 Hour Hold Ending Date: 06/14/22 96 Hour Hold Ending Time: 15:36 Attestations NPU Medical Necessity Statement*: Inpatient hospitalization is medically necessary and the clinically appropriate intervention at this time. We will evaluate medications and make changes as indicated. Likely length of stay is 28 Days. Need to try to find placement possibly with someone who would take her prior to the date of the hearing, but placement will determine discharge. Coding Level of Care Code Established Pt Acute Curriculum Specialist for Germang Fwd Patient Type Established History Problem Focused Exam Problem Focused Medical Decision Making Straight Forward Diagnoses Schizophrenia, chronic condition F20.9 Suicidal ideation R45.851 Disturbance of sleep G47.9 Acute psychosis F23
[2022-08-03] MEDS: paliperidone ER 3 mg Tablet 9 MG PO (17:42)
[2022-08-03] MEDS: nicotine 4 mg lozenge MUCOUS MEM ×2 (17:43→20:51)
[2022-08-03 20:09] VITALS: RESP 18
[2022-08-03] MEDS: zolpidem 5 mg Tablet PO (20:25)
[2022-08-03] MEDS: doxepin 25 mg Capsule PO (20:25)
[2022-08-04] MEDS: OLANZapine 5 mg ODT PO (01:44)
[2022-08-04] MEDS: diphenhydrAMINE 50 mg Capsule PO (02:34)
[2022-08-04] MEDS: haloperidol 5 mg Tablet PO ×4 (05:00→19:57)
[2022-08-04 06:00] VITALS: RESP 18
[2022-08-04] MEDS: nicotine 2 mg Gum BUCCAL (07:15)
[2022-08-04] MEDS: divalproex ER 500 mg Tablet (24H) 1500 MG PO (08:56)
[2022-08-04] MEDS: lisinopril 10 mg Tablet PO (08:57)
[2022-08-04] MEDS: pyridoxine 50 mg Tablet 100 MG PO ×3 (08:57→19:50)
[2022-08-04] MEDS: atenolol 50 mg Tablet PO (08:57)
[2022-08-04] MEDS: cetylpyridinium Lozenge 1 EACH MUCOUS MEM (10:37)
[2022-08-04] MEDS: guaiFENesin-codeine UDC 10 mL PO ×2 (10:37→19:49)
--- NOTE | 2022-08-04 12:59 | P.NPUPN_ITS ---
Subjective NPU Subjective: Patient 66-year-old white female with schizophrenia admitted and currently involuntarily placed while awaiting a guardianship hearing in August 2022. Patient had endorsed having recurring thoughts about being tasered by police and states that she has been a bad place. She had continued appear hostile on the unit with periods of explosive verbal outbursts and considerable anger noted. The patient had not been sleeping well at night having woken up frequently and appeared to be calm but pacing. She had reported having a great deal of anxiety. She reports continued belief that she needed to leave here but understood that she would need to be in a placement as she was unable to care for herself. Mental Status Exam MSE Comments: She is a disheveled white female looking older than her stated age with hospital scrubs on with poor grooming and poor eye contact. There was evidence of diminished abnormal buccofacial movements noted.? There was psychomotor slowing noted. Speech was monotone in quality, with some increase in speech latency noted. Mood described as allright. Her affect was blunted. Thought process:linear but superficial. ? Thought content: Patient denied any suicidal ideation or homicidal ideation. Continued evidence of paranoia noted. She denied auditory or visual hallucinations. She did appear to be preoccupied by internal stimuli. Attention and concentration was poor. . Recent and remote memory appeared at baseline. She is alert and oriented to p erson place, year, month, day of week but not date. ? Insight and judgment are limited but improving and impulse control was poor. Vitals/I&O/Wt Last Vital Signs Temp 98.5 F 08/01/22 14:00 Pulse 103 H 08/01/22 14:00 Resp 18 08/04/22 06:00 BP 151/92 08/01/22 14:00 Pulse Ox 96 08/01/22 14:00 O2 Del Method 08/01/22 06:00 Weight last 48 hrs Weight 92.442 kg Data NPU : 08/02/22 14:43 08/02/22 14:43 A&P Assessment and plan (1) Schizophrenia, chronic condition: (2) Suicidal ideation: (3) Disturbance of sleep: (4) Acute psychosis: Plan 66-year-old white female currently receiving intensive services through [facility] with continued problems with compliance of with medications admitted on a 96-hour hold with active psychotic symptoms. 1. Increase Invega 12mg daily, discontinue haldol, and increase Depakote ER to 1500 mg daily. Increase ambien 10mg at night for sleep. discontinue doxepin. 2. Encourage individual, group and milieu therapy 3. Continue every 15 minute checks for safety. 4. Recommend sober living treatment at the highest level of care to which the patient is willing to commit. 5.? Guardianship hearing switched to 08/27/2022. Continuing to identify possible residential settings for discharge. 6. Continue B6 100 mg tid to target Tardive dyskinesia. 7. cbc with diff, register patient to begin clozaril therapy. ANC completed. Involuntary Hold Information 96 Hour Hold: 96 Hour Involuntary Admission: Yes 96 Hour Hold Ending Date: 06/14/22 96 Hour Hold Ending Time: 15:36 Attestations NPU Medical Necessity Statement*: Inpatient hospitalization is medically necessary and the clinically appropriate intervention at this time. We will evaluate medications and make changes as indicated. Likely length of stay is 28 Days. Need to try to find placement possibly with someone who would take her prior to the date of the hearing, but placement will determine discharge. Coding Level of Care Code Established Pt Acute Inspection Engineer for Chg Fwd Patient Type Established History Problem Focused Exam Problem Focused Medical Decision Making Straight Forward Diagnoses Schizophrenia, chronic condition F20.9 Suicidal ideation R45.851 Disturbance of sleep G47.9 Acute psychosis F23
[2022-08-04 14:00] VITALS: BP 150/88; PULSE 113; RESP 17; TEMP 36.8; O2SAT 96
[2022-08-04] MEDS: LORazepam 2 mg Tablet PO (16:53)
[2022-08-04] MEDS: paliperidone ER 6 mg Tablet 12 MG PO (17:41)
[2022-08-04] MEDS: zolpidem 5 mg Tablet 10 MG PO (19:50)
[2022-08-04] MEDS: ibuprofen 600 mg Tablet PO (19:50)
[2022-08-04 22:00] VITALS: BP 148/99; PULSE 112; RESP 18; TEMP 36.3; O2SAT 96
[2022-08-04] MEDS: calcium carbonate 500 mg Chew Tablet PO (22:08)
[2022-08-05] MEDS: ziprasidone hcl 40 mg Capsule PO (00:10)
--- NOTE | 2022-08-05 00:15 | PC.NURSE ---
Patient was noted to be yelling out in room. This speech writer approached patient to see what was going on. When asked if she was ok, patient responded These men in here are trying to hurt me. Make them stop! Reorientated patient to reality at that time. Also offered several interventions to help patient calm down. Offered a snack and also asked if patient needed any medications to help her with her thoughts. Patient stated she would like both a snack and a medication. PRN Rajendradon po given as ordered. Patient also had a snack. She then asked if she could take a bath. Gathered supplies for patient and allowed her to take a bath.
--- NOTE | 2022-08-05 01:24 | PC.NURSE ---
Patient took a bath after PRN medication. Stated after bath that she was feeling somewhat better. Patient returned to room and is currently resting in bed with eyes closed at this time. No signs of distress and no further behaviors.
[2022-08-05] MEDS: calcium carbonate 500 mg Chew Tablet PO (02:23)
[2022-08-05] MEDS: OLANZapine 5 mg ODT PO ×3 (05:35→22:08)
[2022-08-05] MEDS: haloperidol 5 mg Tablet PO ×2 (05:35→14:52)
--- NOTE | 2022-08-05 05:35 | PC.NURSE ---
Patient came to this data analyst report writer stating she could hear people talking to her and calling her rag . Stated she kept hearing it and it's making her heart beat hard and making her mad. Reorientated patient and assured her nobody was talking about her. Offered several interventions including medication. Patient stated Just give me some medicine so I can feel better and it will stop. PRN zyprexa po and haldol po given as ordered. Patient went back to room to lay down.
[2022-08-05 05:58] VITALS: BP 149/97; PULSE 117; RESP 18; TEMP 36.4; O2SAT 95
--- NOTE | 2022-08-05 06:11 | PC.NURSE ---
Patient is currently resting in room. No further behaviors noted.
[2022-08-05] MEDS: nicotine 4 mg lozenge MUCOUS MEM (06:51)
[2022-08-05] MEDS: divalproex ER 500 mg Tablet (24H) 1500 MG PO (09:02)
[2022-08-05] MEDS: pyridoxine 50 mg Tablet 100 MG PO ×3 (09:02→20:09)
[2022-08-05] MEDS: atenolol 50 mg Tablet PO (09:02)
[2022-08-05] MEDS: lisinopril 10 mg Tablet PO (09:02)
[2022-08-05 14:00] VITALS: RESP 16
[2022-08-05 16:14] VITALS: BP 134/90; PULSE 130; RESP 17; TEMP 36.4; O2SAT 95
--- NOTE | 2022-08-05 17:36 | W.PM.NPUPNS ---
Subjective NPU Subjective: Patient 66-year-old white female with schizophrenia admitted and currently involuntarily placed while awaiting a guardianship hearing in August 2022. Patient continued to isolate herself in her room. She continued appear confused and stated that she felt horrible. She reported being anxious and states that she continues to feel persecuted by the police. She also reports that her peers were somehow trying to influence her to act a certain way. She required significant prompting for self-care. Mental Status Exam MSE Comments: She is a disheveled white female looking older than her stated age with hospital scrubs on with poor grooming and poor eye contact. There was evidence of diminished abnormal buccofacial movements noted.? There was psychomotor slowing noted. NO parkinsonian symptoms noted. Speech was monotone in quality, with some increase in speech latency noted. Mood described as terrible. Her affect was blunted, and subdued. Thought process:linear but superficial. ? Thought content: Patient denied any suicidal ideation or homicidal ideation. Continued evidence of paranoia noted. She denied auditory or visual hallucinations. She did appear to be preoccupied by internal stimuli. Attention and concentration was poor. . Recent and remote memory appeared at baseline. She is alert and oriented to person place, year, month, day of week but not date. ? Insight and judgment are limited but improving and impulse control was poor. Vitals/I&O/Wt Last Vital Signs Temp 97.6 F 08/05/22 16:14 Pulse 130 H 08/05/22 16:14 Resp 17 08/05/22 16:14 BP 134/90 08/05/22 16:14 Pulse Ox 95 08/05/22 16:14 O2 Del Method 08/01/22 06:00 Weight last 48 hrs Weight 92.442 kg Data NPU : 08/02/22 14:43 08/02/22 14:43 A&P Assessment and plan (1) Schizophrenia, chronic condition: (2) Suicidal ideation: (3) Disturbance of sleep: (4) Acute psychosis: Plan 66-year-old white female currently receiving intensive services through [facility] with continued problems with compliance of with medications admitted on a 96-hour hold with active psychotic symptoms. 1. Continue Invega 12mg daily and increase Depakote ER to 1500 mg daily. Continue ambien 10mg at night for sleep. 2. Encourage individual, group and milieu therapy 3. Continue every 15 minute checks for safety. 4. Recommend sober living treatment at the highest level of care to which the patient is willing to commit. 5.? Guardianship hearing switched to 08/27/2022. Continuing to identify possible residential settings for discharge. 6. Continue B6 100 mg tid to target Tardive dyskinesia. 7. cbc with diff, register patient to begin clozaril therapy. ANC completed. Involuntary Hold Information 96 Hour Hold: 96 Hour Involuntary Admission: Yes 96 Hour Hold Ending Date: 06/14/22 96 Hour Hold Ending Time: 15:36 Attestations NPU Medical Necessity Statement*: Inpatient hospitalization is medically necessary and the clinically appropriate intervention at this time. We will evaluate medications and make changes as indicated. Likely length of stay is 28 Days. Need to try to find placement possibly with someone who would take her prior to the date of the hearing, but placement will determine discharge. Coding Level of Care Code Established Pt Acute Embedded Software Development Engineer for Chg Fwd Patient Type Established History Problem Focused Exam Problem Focused Medical Decision Making Straight Forward Diagnoses Schizophrenia, chronic condition F20.9 Suicidal ideation R45.851 Disturbance of sleep G47.9 Acute psychosis F23
[2022-08-05] MEDS: paliperidone ER 6 mg Tablet 12 MG PO (17:49)
[2022-08-05] MEDS: hyDROXYzine 25 mg Capsule 50 MG PO (20:10)
[2022-08-05] MEDS: zolpidem 5 mg Tablet 10 MG PO (20:10)
[2022-08-05 20:31] VITALS: BP 145/99; PULSE 126; RESP 18; TEMP 36.6; O2SAT 96
[2022-08-05] MEDS: guaiFENesin-codeine UDC 10 mL PO (22:08)
[2022-08-06] MEDS: calcium carbonate 500 mg Chew Tablet PO ×3 (05:47→18:10)
[2022-08-06 06:00] VITALS: BP 132/72; PULSE 131; RESP 18; TEMP 36.4; O2SAT 96
[2022-08-06] MEDS: haloperidol 5 mg Tablet PO (09:06)
[2022-08-06] MEDS: lisinopril 10 mg Tablet PO (09:06)
[2022-08-06] MEDS: divalproex ER 500 mg Tablet (24H) 1500 MG PO (09:06)
[2022-08-06] MEDS: atenolol 50 mg Tablet PO (09:07)
[2022-08-06] MEDS: nicotine 4 mg lozenge MUCOUS MEM ×2 (09:35→20:34)
[2022-08-06] MEDS: cloZAPine 25 mg Tablet 12.5 MG PO ×2 (09:35→18:10)
[2022-08-06] MEDS: pyridoxine 50 mg Tablet 100 MG PO ×3 (09:52→20:34)
[2022-08-06] MEDS: fluticasone nasal spray 16gm Btl 1 SPRAY NASAL (09:53)
[2022-08-06 14:00] VITALS: BP 161/88; PULSE 113; RESP 17; TEMP 36.8; O2SAT 97
--- NOTE | 2022-08-06 17:32 | P.NPUPN_ITS ---
Subjective NPU Subjective: Patient 66-year-old white female with schizophrenia admitted and currently involuntarily placed while awaiting a guardianship hearing in August 2022. Patient continued to isolate herself in her room. Patient had reported that she continued to be accused of being a whore . She reported that she felt that others here were persecuting her as well. She continued to wander around the hallway stating that she wished to return to live with Mr. Ruiz, the man that had previously taken care of her. She had reported some continued feelings of hopelessness. She reported no side effects from her medication. She reported no improvement in regards to energy. She continued her report feeling confused by her thoughts. Mental Status Exam MSE Comments: She is a disheveled white female looking older than her stated age with hospital scrubs on with poor grooming and poor eye contact. There was evidence of diminished abnormal buccofacial movements noted.? There was psychomotor slowing noted. NO parkinsonian symptoms noted. Speech was monotone in quality, with some increase in speech latency noted. Mood described as terrible. Her affect was blunted, and subdued. Thought process :linear but superficial. ? Thought content: Patient denied any suicidal ideation or homicidal ideation. Continued evidence of paranoia noted. She denied auditory or visual hallucinations. She did appear to be preoccupied by internal stimuli. There was continue presence of bizarre delusions. Attention and concentration was poor. . Recent and remote memory appeared at baseline. She is alert and oriented to person place, year, month, day of week but not date. ? Insight and judgment are limited but improving and impulse control was poor. Vitals/I&O/Wt Last Vital Signs Temp 97.5 F L 08/06/22 06:00 Pulse 131 H 08/06/22 06:00 Resp 18 08/06/22 06:00 BP 132/72 08/06/22 06:00 Pulse Ox 96 08/06/22 06:00 O2 Del Method 08/01/22 06:00 Data NPU : 08/02/22 14:43 08/02/22 14:43 A&P Assessment and plan (1) Schizophrenia, chronic condition: (2) Suicidal ideation: (3) Disturbance of sleep: (4) Acute psychosis: Plan 66-year-old white female currently receiving intensive services through [facility] with continued problems with compliance of with medications admitted on a 96-hour hold with active psychotic symptoms. 1. Continue Invega 12mg daily and increase Depakote ER to 1500 mg daily. Continue ambien 10mg at night for sleep. Started Clozaril 25mg/day, ANC completed. 2. Encourage individual, group and milieu therapy 3. Continue every 15 minute checks for safety. 4. Recommend sober living treatment at the highest level of care to which the patient is willing to commit. 5.? Guardianship hearing switched to 08/27/2022. Continuing to identify possible residential settings for discharge. 6. Continue B6 100 mg tid to target Tardive dyskinesia. . Involuntary Hold Information 96 Hour Hold: 96 Hour Involuntary Admission: Yes 96 Hour Hold Ending Date: 06/14/22 96 Hour Hold Ending Time: 15:36 Attestations NPU Medical Necessity Statement*: Inpatient hospitalization is medically necessary and the clinically appropriate intervention at this time. We will evaluate medications and make changes as indicated with likely length of stay is 28 Days. Need to try to find placement possibly with someone who would take her prior to the date of the hearing, but placement will determine discharge. Coding Level of Care Code Established Pt Acute Office Administration Instructor for Chg Fwd Patient Type Established History Problem Focused Exam Problem Focused Medical Decision Making Straight Forward Diagnoses Schizophrenia, chronic condition F20.9 Suicidal ideation R45.851 Disturbance of sleep G47.9 Acute psychosis F23
[2022-08-06] MEDS: paliperidone ER 6 mg Tablet 12 MG PO (18:10)
[2022-08-06 20:08] VITALS: BP 152/90; PULSE 120; RESP 18; TEMP 36.5; O2SAT 96
[2022-08-06] MEDS: OLANZapine 5 mg ODT PO (20:34)
[2022-08-06] MEDS: zolpidem 5 mg Tablet 10 MG PO (20:34)
[2022-08-07 06:00] VITALS: BP 164/108; PULSE 127; RESP 18; TEMP 36.3; O2SAT 97
[2022-08-07] MEDS: cetylpyridinium Lozenge 1 EACH MUCOUS MEM ×2 (08:33→17:16)
[2022-08-07] MEDS: pyridoxine 50 mg Tablet 100 MG PO ×2 (08:33→14:45)
[2022-08-07] MEDS: lisinopril 10 mg Tablet PO (08:33)
[2022-08-07] MEDS: hyDROXYzine 25 mg Capsule 50 MG PO (08:33)
[2022-08-07] MEDS: cloZAPine 25 mg Tablet 12.5 MG PO (08:33)
[2022-08-07] MEDS: atenolol 50 mg Tablet PO (08:33)
[2022-08-07] MEDS: divalproex ER 500 mg Tablet (24H) 1500 MG PO (08:33)
[2022-08-07] MEDS: OLANZapine 5 mg ODT PO (08:33)
[2022-08-07] MEDS: acetaminophen 325 mg Tablet PO (13:39)
[2022-08-07 14:00] VITALS: BP 159/89; PULSE 122; RESP 20; TEMP 36.7; O2SAT 98
[2022-08-07] MEDS: nicotine 4 mg lozenge MUCOUS MEM (15:59)
--- NOTE | 2022-08-07 16:33 | W.PM.NPUPNS ---
Subjective NPU Subjective: Patient 66-year-old white female with schizophrenia admitted and currently involuntarily placed while awaiting a guardianship hearing in August 2022. Patient continued to endorse that people were talking about her. She reports that she is ugly and feels that everyone is looking at her and making fun of her. She continued to report that she is tired. She reports that she feels like her thoughts are brought being broadcasted to everyone around her. She also reported at times that people could listen in on her thoughts and states that they knew what she was thinking at all times. Patient did not appear aggressive and had been less isolative on the milieu today as she was seen on the unit and was more pleasant today. She reported no side effects from her Clozaril. Mental Status Exam MSE Comments: She is a disheveled white female looking older than her stated age with hospital scrubs on with improved grooming and improved eye contact. There was evidence of diminished abnormal buccofacial movements noted.? There was psychomotor slowing noted. NO parkinsonian symptoms noted. Speech was monotone in quality, with some increase in speech latency noted. Mood described as not good. . Her affect was blunted, and subdued. Thought process:linear but superficial. ? Thought content: Patient denied any suicidal ideation or homicidal ideation. Continued evidence of paranoia noted. She denied auditory or visual hallucinations. She did appear to be preoccupied by internal stimuli. There was continue presence of bizarre delusions. She endorsed thought broadcasting. Attention and concentration was poor. . Recent and remote memory appeared at baseline. She is alert and oriented to person place, year, month, day of week but not date. ? Insight and judgment are limited but improving and impulse control was poor. Vitals/I&O/Wt Last Vital Signs Temp 98.1 F 08/07/22 14:00 Pulse 122 H 08/07/22 14:00 Resp 20 H 08/07/22 14:00 BP 159/89 08/07/22 14:00 Pulse Ox 98 08/07/22 14:00 O2 Del Method 08/01/22 06:00 Data NPU : 08/02/22 14:43 08/02/22 14:43 A&P Assessment and plan (1) Schizophrenia, chronic condition: (2) Suicidal ideation: (3) Disturbance of sleep: (4) Acute psychosis: Plan 66-year-old white female currently receiving intensive services through [facility] with continued problems with compliance of with medications admitted on a 96-hour hold with active psychotic symptoms. 1. Continue Invega 12mg daily and increase Depakote ER to 1500 mg daily. Continue ambien 10mg at night for sleep. Increase Clozaril 25mg bid, ANC due on 08/11/22. 2. Encourage individual, group and milieu therapy 3. Continue every 15 minute checks for safety. 4. Recommend sober living treatment at the highest level of care to which the patient is willing to commit. 5.? Guardianship hearing switched to 08/27/2022. Continuing to identify possible residential settings for discharge. 6. Continue B6 100 mg tid to target Tardive dyskinesia. . Involuntary Hold Information 96 Hour Hold: 96 Hour Involuntary Admission: Yes 96 Hour Hold Ending Date: 06/14/22 96 Hour Hold Ending Time: 15:36 Attestations NPU Medical Necessity Statement*: Inpatient hospitalization is medically necessary and the clinically appropriate intervention at this time. We will evaluate medications and make changes as indicated with likely length of stay is 28 Days. Need to try to find placement possibly with someone who would take her prior to the date of the hearing, but placement will determine discharge. Coding Level of Care Code Established Pt Acute Metal Slitter for Shobha Fwd Patient Type Established History Problem Focused Exam Problem Focused Medical Decision Making Straight Forward Diagnoses Schizophrenia, chronic condition F20.9 Suicidal ideation R45.851 Disturbance of sleep G47.9 Acute psychosis F23
[2022-08-07] MEDS: guaiFENesin-codeine UDC 10 mL PO (17:16)
[2022-08-07] MEDS: paliperidone ER 3 mg Tablet 9 MG PO (17:16)
[2022-08-07] MEDS: cloZAPine 25 mg Tablet PO (17:16)
[2022-08-07 20:14] VITALS: RESP 18
[2022-08-07] MEDS: zolpidem 5 mg Tablet 10 MG PO (20:40)
[2022-08-08] MEDS: ibuprofen 600 mg Tablet PO (04:33)
[2022-08-08] MEDS: cetylpyridinium Lozenge 1 EACH MUCOUS MEM ×3 (05:00→22:04)
[2022-08-08 06:00] VITALS: RESP 18
[2022-08-08 10:10] VITALS: BP 131/77; PULSE 124
[2022-08-08] MEDS: divalproex ER 500 mg Tablet (24H) 1500 MG PO (10:15)
[2022-08-08] MEDS: fluoxetine 20 mg Capsule PO (10:16)
[2022-08-08] MEDS: cloZAPine 25 mg Tablet PO ×2 (10:16→19:05)
[2022-08-08] MEDS: pyridoxine 50 mg Tablet 100 MG PO ×3 (10:16→20:38)
[2022-08-08] MEDS: atenolol 50 mg Tablet PO (10:17)
[2022-08-08] MEDS: lisinopril 10 mg Tablet PO (10:17)
[2022-08-08] MEDS: fluticasone nasal spray 16gm Btl 1 SPRAY NASAL ×2 (10:17→19:07)
[2022-08-08 14:00] VITALS: BP 148/97; PULSE 114; RESP 18; TEMP 36.5; O2SAT 97
--- NOTE | 2022-08-08 16:57 | W.PM.NPUPNS ---
Subjective NPU Subjective: Patient presents today continuing to focus on discharge and where she will go. Today she was quite scattered talking about no one wanting her and that placement will be impossible. She was again asking about who will be at the hearing. I once again reviewed the process and the purpose and eventually she was identifying that what we were trying to accomplish was reasonable. She denied any problems of medication and we discussed the fact that we will continue to titrate the Clozaril to effect. Mental Status Exam MSE Comments: She is a disheveled white female looking older than her stated age with hospital scrubs on with improved grooming and improved eye contact. There was evidence of diminished abnormal buccofacial movements noted, but otherwise no other abnormal movements. NO parkinsonian symptoms noted. Speech slightly increased rate with normal volume. Mood described as frustrated. Her affect was irritable. Thought process:linear but superficial. ? Thought content: Patient denied any suicidal ideation or homicidal ideation. Continued evidence of paranoia noted. She denied auditory or visual hallucinations. There was continue presence of bizarre delusions. She endorsed thought broadcasting. Attention and concentration was poor. . Recent and remote memory appeared at baseline. She is alert and oriented x3. ? Insight and judgment are limited but improving and impulse control was limited. Vitals/I&O/Wt Last Vital Signs Temp 98.2 F 08/08/22 20:18 Pulse 126 H 08/08/22 20:18 Resp 20 H 08/08/22 20:18 BP 144/89 08/08/22 20:18 Pulse Ox 95 08/08/22 20:18 O2 Del Method 08/08/22 20:18 Data NPU : 08/02/22 14:43 08/02/22 14:43 A&P Assessment and plan (1) Schizophrenia, chronic condition: (2) Suicidal ideation: (3) Disturbance of sleep: (4) Acute psychosis: Plan 66-year-old white female currently receiving intensive services through [facility] with continued problems with compliance of with medications admitted on a 96-hour hold with active psychotic symptoms. 1. Continue Invega 12mg daily and increase Depakote ER to 1500 mg daily. Continue ambien 10mg at night for sleep. Increased Clozaril 25mg bid, ANC due on 08/11/22. 2. Encourage individual, group and milieu therapy 3. Continue every 15 minute checks for safety. 4. Recommend sober living treatment at the highest level of care to which the patient is willing to commit. 5.? Guardianship hearing switched to 08/27/2022. Continuing to identify possible residential settings for discharge. 6. Continue B6 100 mg tid to target Tardive dyskinesia. . Involuntary Hold Information 96 Hour Hold: 96 Hour Involuntary Admission: Yes 96 Hour Hold Ending Date: 06/14/22 96 Hour Hold Ending Time: 15:36 Attestations NPU Medical Necessity Statement*: Inpatient hospitalization is medically necessary and the clinically appropriate intervention at this time. We will evaluate medications and make changes as indicated with likely length of stay is 19 days. Need to try to find placement possibly with someone who would take her prior to the date of the hearing, but placement will determine discharge. Coding Level of Care Code Acute Assistant Prosecuting Attorney for Shobha Huynh Diagnoses Schizophrenia, chronic condition F20.9 Suicidal ideation R45.851 Disturbance of sleep G47.9 Acute psychosis F23
[2022-08-08] MEDS: guaiFENesin-codeine UDC 10 mL PO ×2 (19:04→22:04)
[2022-08-08] MEDS: paliperidone ER 3 mg Tablet 9 MG PO (19:05)
[2022-08-08 20:18] VITALS: BP 144/89; PULSE 126; RESP 20; TEMP 36.8; O2SAT 95
[2022-08-08] MEDS: zolpidem 5 mg Tablet 10 MG PO (20:37)
[2022-08-08] MEDS: ziprasidone hcl 40 mg Capsule PO (20:38)
[2022-08-08] MEDS: haloperidol 5 mg Tablet PO (20:39)
[2022-08-08] MEDS: acetaminophen 325 mg Tablet PO (22:41)
[2022-08-09] MEDS: LORazepam 2 mg Tablet PO ×3 (04:09→20:59)
[2022-08-09] MEDS: OLANZapine 5 mg ODT PO ×2 (04:09→13:23)
[2022-08-09] MEDS: cloZAPine 25 mg Tablet PO ×2 (08:09→16:58)
[2022-08-09] MEDS: atenolol 50 mg Tablet PO (08:09)
[2022-08-09] MEDS: divalproex ER 500 mg Tablet (24H) 1500 MG PO (08:09)
[2022-08-09] MEDS: nicotine 4 mg lozenge MUCOUS MEM ×2 (08:09→16:42)
[2022-08-09] MEDS: hyDROXYzine 25 mg Capsule 50 MG PO (08:09)
[2022-08-09] MEDS: magnesium hydroxide 30 mL UDC PO (08:10)
[2022-08-09] MEDS: fluoxetine 20 mg Capsule PO (08:10)
[2022-08-09] MEDS: pyridoxine 50 mg Tablet 100 MG PO ×3 (08:10→20:58)
[2022-08-09] MEDS: lisinopril 10 mg Tablet PO (08:10)
--- NOTE | 2022-08-09 12:50 | W.PM.NPUPNS ---
Subjective NPU Subjective: Patient presents today reporting that she is doing okay. She is less perseverative about the hearing today and was more focused on past mistakes and the continued theme of wishing she was not retarded. We discussed importance of her focusing on what she can control and taking her medication as prescribed. She endorsed eating okay and sleeping fine. Mental Status Exam MSE Comments: She is a disheveled white female looking older than her stated age with hospital scrubs on with improved grooming and improved eye contact. There was evidence of diminished abnormal buccofacial movements noted, but otherwise no other abnormal movements. NO parkinsonian symptoms noted. Speech slightly increased rate with normal volume. Mood described as sad. Her affect was congruent. Thought process:linear . ? Thought content: Patient denied any suicidal ideation or homicidal ideation. Continued evidence of paranoia noted. She denied auditory or visual hallucinations. There was continue presence of bizarre delusions. She endorsed thought broadcasting. Attention and concentration was poor. . Recent and remote memory appeared at baseline. She is alert and oriented x3. ? Insight and judgment are limited but improving and impulse control was limited. Vitals/I&O/Wt Last Vital Signs Temp 98.2 F 08/08/22 20:18 Pulse 126 H 08/08/22 20:18 Resp 20 H 08/08/22 20:18 BP 144/89 08/08/22 20:18 Pulse Ox 95 08/08/22 20:18 O2 Del Method 08/08/22 20:18 Data NPU : 08/02/22 14:43 08/02/22 14:43 A&P Assessment and plan (1) Schizophrenia, chronic condition: (2) Suicidal ideation: (3) Disturbance of sleep: (4) Acute psychosis: Plan 66-year-old white female currently receiving intensive services through [facility] with continued problems with compliance of with medications admitted on a 96-hour hold with active psychotic symptoms. 1. Continue Invega 12mg daily and increase Depakote ER to 1500 mg daily. Continue ambien 10mg at night for sleep. Increased Clozaril 25mg bid, ANC due on 08/11/22. 2. Encourage individual, group and milieu therapy 3. Continue every 15 minute checks for safety. 4. Recommend sober living treatment at the highest level of care to which the patient is willing to commit. 5.? Guardianship hearing switched to 08/27/2022. Continuing to identify possible residential settings for discharge. 6. Continue B6 100 mg tid to target Tardive dyskinesia. . Involuntary Hold Information 96 Hour Hold: 96 Hour Involuntary Admission: Yes 96 Hour Hold Ending Date: 06/14/22 96 Hour Hold Ending Time: 15:36 Attestations NPU Medical Necessity Statement*: Inpatient hospitalization is medically necessary and the clinically appropriate intervention at this time. We will evaluate medications and make changes as indicated with likely length of stay is 18 days. Need to try to find placement possibly with someone who would take her prior to the date of the hearing, but placement will determine discharge. Coding Level of Care Code Acute Compensation Director for Shobha Fwd Diagnoses Schizophrenia, chronic condition F20.9 Suicidal ideation R45.851 Disturbance of sleep G47.9 Acute psychosis F23
[2022-08-09] MEDS: cetylpyridinium Lozenge 1 EACH MUCOUS MEM (13:22)
[2022-08-09] MEDS: ziprasidone hcl 40 mg Capsule PO ×2 (13:22→21:34)
[2022-08-09] MEDS: guaiFENesin-codeine UDC 10 mL PO (13:22)
[2022-08-09 14:00] VITALS: BP 139/92; PULSE 124; RESP 18; TEMP 36.5; O2SAT 95
[2022-08-09] MEDS: diphenhydrAMINE 50 mg Capsule PO ×2 (16:58→20:59)
[2022-08-09] MEDS: haloperidol 5 mg Tablet PO ×2 (16:58→20:59)
[2022-08-09] MEDS: paliperidone ER 3 mg Tablet 9 MG PO (16:58)
[2022-08-09] MEDS: benztropine 1 mg Tablet PO (16:58)
[2022-08-09] MEDS: zolpidem 5 mg Tablet 10 MG PO (20:59)
[2022-08-10 06:00] VITALS: BP 141/94; PULSE 110; RESP 17; TEMP 37; O2SAT 94
[2022-08-10] MEDS: divalproex ER 500 mg Tablet (24H) 1500 MG PO (08:03)
[2022-08-10] MEDS: sennosides-docusate Tablet 2 TAB PO (08:03)
[2022-08-10] MEDS: ziprasidone hcl 40 mg Capsule PO (08:04)
[2022-08-10] MEDS: cloZAPine 25 mg Tablet PO (08:04)
[2022-08-10] MEDS: LORazepam 2 mg Tablet PO ×2 (08:04→20:10)
[2022-08-10] MEDS: fluoxetine 20 mg Capsule PO (08:04)
[2022-08-10] MEDS: atenolol 50 mg Tablet PO (08:05)
[2022-08-10] MEDS: lisinopril 10 mg Tablet PO (09:24)
[2022-08-10] MEDS: pyridoxine 50 mg Tablet 100 MG PO ×2 (09:25→20:10)
--- NOTE | 2022-08-10 11:31 | P.NPUPN_ITS ---
Subjective NPU Subjective: Patient presented today reporting that she is doing a little better. She was less anxious and worrisome today. She was not perseverating about her hearing and we talked about continuing to increase her Clozaril. She denies any specific side effects from medication. Mental Status Exam MSE Comments: She is a disheveled white female looking older than her stated age with hospital scrubs on with improved grooming and improved eye contact. There was evidence of diminished abnormal buccofacial movements noted, but otherwise no other abnormal movements. NO parkinsonian symptoms noted. Speech slightly increased rate with normal volume. Mood described as all right. Her affect was congruent. Thought process:linear . ? Thought content: Patient denied any suicidal ideation or homicidal ideation. Continued evidence of paranoia noted. She denied auditory or visual hallucinations. There was continue presence of bizarre delusions. She endorsed thought broadcasting. Attention and concentration was poor. . Recent and remote memory appeared at baseline. She is alert and oriented x3. ? Insight and judgment are limited but improving and impulse control was limited. Vitals/I&O/Wt Last Vital Signs Temp 98.6 F 08/10/22 06:00 Pulse 110 H 08/10/22 06:00 Resp 17 08/10/22 06:00 BP 141/94 08/10/22 06:00 Pulse Ox 94 08/10/22 06:00 O2 Del Method 08/10/22 06:00 Data NPU : 08/02/22 14:43 08/02/22 14:43 A&P Assessment and plan (1) Schizophrenia, chronic condition: (2) Suicidal ideation: (3) Disturbance of sleep: (4) Acute psychosis: Plan 66-year-old white female currently receiving intensive services through [facility] with continued problems with compliance of with medications admitted on a 96-hour hold with active psychotic symptoms. 1. Continue Invega 12mg daily and increase Depakote ER to 1500 mg daily. Continue ambien 10mg at night for sleep. Increase Clozaril to 50 mg bid, ANC due on 08/11/22. We will start decreasing her Invega. 2. Encourage individual, group and milieu therapy 3. Continue every 15 minute checks for safety. 4. Recommend sober living treatment at the highest level of care to which the patient is willing to commit. 5.? Guardianship hearing switched to 08/27/2022. Continuing to identify possible residential settings for discharge. 6. Continue B6 100 mg tid to target Tardive dyskinesia. . Involuntary Hold Information 96 Hour Hold: 96 Hour Involuntary Admission: Yes 96 Hour Hold Ending Date: 06/14/22 96 Hour Hold Ending Time: 15:36 Attestations NPU Medical Necessity Statement*: Inpatient hospitalization is medically necessary and the clinically appropriate intervention at this time. We will evaluate medications and make changes as indicated with likely length of stay is 17 days. Need to try to find placement possibly with someone who would take her prior to the date of the hearing, but placement will determine discharge. Coding Level of Care Code Acute Retail Center Receptionist for Shobha Fwd Diagnoses Schizophrenia, chronic condition F20.9 Suicidal ideation R45.851 Disturbance of sleep G47.9 Acute psychosis F23
[2022-08-10 14:00] VITALS: BP 117/80; PULSE 103; RESP 18; TEMP 36.3; O2SAT 95
[2022-08-10] MEDS: paliperidone ER 3 mg Tablet 9 MG PO (18:00)
[2022-08-10] MEDS: cloZAPine 25 mg Tablet 50 MG PO (18:00)
[2022-08-10] MEDS: nicotine 4 mg lozenge MUCOUS MEM (18:16)
[2022-08-10] MEDS: fluticasone nasal spray 16gm Btl 1 SPRAY NASAL (18:17)
[2022-08-10] MEDS: guaiFENesin-codeine UDC 10 mL PO (19:09)
[2022-08-10 19:42] VITALS: BP 122/78; PULSE 107; RESP 18; TEMP 36.4; O2SAT 96
[2022-08-10] MEDS: OLANZapine 5 mg ODT PO (20:10)
[2022-08-10] MEDS: haloperidol 5 mg Tablet PO (20:10)
[2022-08-10] MEDS: zolpidem 5 mg Tablet 10 MG PO (20:11)
[2022-08-11] MEDS: nicotine 4 mg lozenge MUCOUS MEM (00:47)
--- NOTE | 2022-08-11 00:48 | PC.NURSE ---
pt approached nurses desk and requested... i need a lozenge, a chocolate milk and a toilet papper. how long will it take...how long will it take to get a pair of socks? pt was provided with each item in less than a couple of minutes.
[2022-08-11] MEDS: OLANZapine 5 mg ODT PO (01:02)
[2022-08-11] MEDS: cetylpyridinium Lozenge 1 EACH MUCOUS MEM ×2 (01:19→15:03)
[2022-08-11] MEDS: guaiFENesin-codeine UDC 10 mL PO ×2 (01:19→15:03)
[2022-08-11 06:00] VITALS: RESP 18
[2022-08-11] MEDS: divalproex ER 500 mg Tablet (24H) 1500 MG PO (08:04)
[2022-08-11] MEDS: lisinopril 10 mg Tablet PO (08:04)
[2022-08-11] MEDS: ziprasidone hcl 40 mg Capsule PO (08:04)
[2022-08-11] MEDS: pyridoxine 50 mg Tablet 100 MG PO ×3 (08:04→19:32)
[2022-08-11] MEDS: cloZAPine 25 mg Tablet 50 MG PO ×2 (08:04→17:45)
[2022-08-11] MEDS: fluoxetine 20 mg Capsule PO (08:04)
[2022-08-11] MEDS: atenolol 50 mg Tablet PO (08:04)
[2022-08-11] MEDS: acetaminophen 325 mg Tablet PO ×2 (11:36→19:31)
[2022-08-11] MEDS: calcium carbonate 500 mg Chew Tablet PO ×3 (11:36→19:31)
[2022-08-11 14:00] VITALS: BP 148/78; PULSE 118; RESP 16; TEMP 36.5; O2SAT 93
[2022-08-11] MEDS: saline nasal spray 44mL Btl 1 SPRAY NASAL (14:29)
[2022-08-11] MEDS: paliperidone ER 3 mg Tablet 9 MG PO (17:46)
--- NOTE | 2022-08-11 18:15 | W.PM.NPUPNS ---
Subjective NPU Subjective: Patient presents today reporting that she will feel like talking. She reports she does not have a great mood but reports that there is nothing particularly wrong. No reports of problems with the increase in the Clozaril. No perseveration about the hearing date. CBC with differential needed for weekly ANC. Mental Status Exam MSE Comments: She is a disheveled white female looking older than her stated age with hospital scrubs on with improved grooming and improved eye contact. There was evidence of diminished abnormal buccofacial movements noted, but otherwise no other abnormal movements. NO parkinsonian symptoms noted. Speech was very limited but slightly decreased rate with normal volume. Mood described as not good today. Her affect was congruent. Thought process:linear . ? Thought content: Patient denied any suicidal ideation or homicidal ideation. Continued evidence of paranoia noted. She denied auditory or visual hallucinations. There was continue presence of bizarre delusions. She endorsed thought broadcasting. Attention and concentration was poor. . Recent and remote memory appeared at baseline. She is alert and oriented x3. ? Insight and judgment are limited but improving and impulse control was limited. Vitals/I&O/Wt Last Vital Signs Temp 97.7 F 08/11/22 14:00 Pulse 135 H 08/11/22 20:29 Resp 19 H 08/12/22 06:00 BP 143/97 08/11/22 20:29 Pulse Ox 97 08/11/22 20:29 O2 Del Method 08/10/22 06:00 Weight last 48 hrs Weight 93.349 kg Data NPU : 08/02/22 14:43 08/02/22 14:43 A&P Assessment and plan (1) Schizophrenia, chronic condition: (2) Suicidal ideation: (3) Disturbance of sleep: (4) Acute psychosis: Plan 66-year-old white female currently receiving intensive services through [facility] with continued problems with compliance of with medications admitted on a 96-hour hold with active psychotic symptoms. 1. Continue Invega 12mg daily and increase Depakote ER to 1500 mg daily. Continue ambien 10mg at night for sleep. Increased Clozaril to 50 mg bid, get CBC with dif. We will start decreasing her Invega. 2. Encourage individual, group and milieu therapy 3. Continue every 15 minute checks for safety. 4. Recommend sober living treatment at the highest level of care to which the patient is willing to commit. 5.? Guardianship hearing switched to 08/27/2022. Continuing to identify possible residential settings for discharge. 6. Continue B6 100 mg tid to target Tardive dyskinesia. . Involuntary Hold Information 96 Hour Hold: 96 Hour Involuntary Admission: Yes 96 Hour Hold Ending Date: 06/14/22 96 Hour Hold Ending Time: 15:36 Attestations NPU Medical Necessity Statement*: Inpatient hospitalization is medically necessary and the clinically appropriate intervention at this time. We will evaluate medications and make changes as indicated with likely length of stay is 16 days. Need to try to find placement possibly with someone who would take her prior to the date of the hearing, but placement will determine discharge. Coding Level of Care Code Acute Transportation Security Screener for Shobha Huynh Diagnoses Schizophrenia, chronic condition F20.9 Suicidal ideation R45.851 Disturbance of sleep G47.9 Acute psychosis F23
[2022-08-11] MEDS: zolpidem 5 mg Tablet 10 MG PO (19:32)
[2022-08-11 20:29] VITALS: BP 143/97; PULSE 135; RESP 20; O2SAT 97
--- NOTE | 2022-08-12 02:15 | PC.NURSE ---
Patient came to nurse's station agitated and paranoid. Stated another patient was talking about her and said she was ugly. Assured patient nobody was talking about her but patient insisted she heard other patient say it to her. Attempted to redirect and offer interventions to assist with agitation. Patient continued to be angry. PRN Paige singh offered to patient and explained it would help her feel better. Geodon po given as ordered. Snack and drinks offered to patient also. Patient currently sitting in dayroom eating.
[2022-08-12] MEDS: ziprasidone hcl 40 mg Capsule PO (02:19)
--- NOTE | 2022-08-12 03:31 | PC.NURSE ---
Patient resting in room with eyes closed at this time. No further behaviors noted since PRN administration earlier. No signs of distress present.
[2022-08-12 06:00] VITALS: RESP 19
[2022-08-12] MEDS: calcium carbonate 500 mg Chew Tablet PO (06:19)
[2022-08-12] MEDS: acetaminophen 325 mg Tablet PO (06:20)
[2022-08-12] MEDS: cetylpyridinium Lozenge 1 EACH MUCOUS MEM (07:05)
[2022-08-12] MEDS: guaiFENesin-codeine UDC 10 mL PO (07:06)
[2022-08-12 08:14] LABS: Basophils # 0.1 10^3/uL (0.0-0.1); Basophils % 0.9 %; Eosinophils # 0.1 10^3/uL (0.0-0.8); Hematocrit 48.7 % (37.0-47.0); Hemoglobin 14.2 g/dL (11.5-15.3); Lymphocytes # 1.7 10^3/uL (0.8-4.8); Lymphocytes % 24.2 %; Mean Corpuscular HGB Conc 29.2 g/dL (30.0-36.0); Mean Corpuscular Hemoglobin 26.8 pg (28.0-34.0); Mean Corpuscular Volume 91.9 fl (81-99); Mean Platelet Volume 10.2 fL (7.4-10.4); Monocytes # 0.7 10^3/uL (0.2-0.9); Monocytes % 10.4 %; Neutrophils % 61.8 %; Nucleated Red Blood Cells % 0 %; Platelet Count 191 10^3/cmm (130-400); Red Cell Distribution Width 14.3 % (12.1-15.1)
--- NOTE | 2022-08-12 08:39 | PC.NURSE ---
PT GIVEN AM SCHEDULED MEDS AND PRN MEDS FOR AGITATION, PT WALKED WITH THIS NURSE DOWN BEST AND I NOTICED PILLS IN PT MOUTH. PT THEN SAID IT WAS HER GUM, THEN STATES I HAVE TO GO PEE, THEN RAN TO RESTROOM IN BEST AND SPIT OUT ALL MEDS. PT YELLS AT THIS NURSE AND STATES ALL THOSE PILLS WERE POISONING MY STOMACH. WHO IS IN CHARGE OF GETTING ME ANOTHER DOCTOR OTHER THEN DR SHAWANDA MAYBERRY NOTIFIED OF PT REFUSAL TO TAKE MEDS
[2022-08-12] MEDS: LORazepam 2 mg Tablet PO (10:26)
[2022-08-12] MEDS: diphenhydrAMINE 50 mg Capsule PO ×2 (10:26→19:41)
[2022-08-12] MEDS: haloperidol 5 mg Tablet PO ×2 (10:26→19:42)
--- NOTE | 2022-08-12 10:35 | P.NPUPN_ITS ---
Subjective NPU Subjective: Patient presents today seeming to be in a very reflective state. She talked about regrets about ways she has lived her life. We discussed the fact that he had finally found her a place to go and that it had seen like she has struggled last several days and we are trying to decide whether to continue on his Clozaril journey or not. Otherwise we discussed a continued plan for hearing in 15 days. Mental Status Exam MSE Comments: She is a disheveled white female looking older than her stated age with hospital scrubs on with improved grooming and improved eye contact. There was evidence of diminished abnormal buccofacial movements noted, but otherwise no other abnormal movements. NO parkinsonian symptoms noted. Speech was slightly decreased rate with normal volume. Mood described as okay, but a little down. Her affect was congruent. Thought process:linear . ? Thought content: Patient denied any suicidal ideation or homicidal ideation. Continued evidence of paranoia noted. She denied auditory or visual hallucinations. There was continue presence of bizarre delusions. She endorsed thought broadcasting. Attention and concentration was poor. . Recent and remote memory appeared at baseline. She is alert and oriented x3. ? Insight and judgment are limited but improving and impulse control was limited. Vitals/I&O/Wt Last Vital Signs Temp 97.7 F 08/11/22 14:00 Pulse 135 H 08/11/22 20:29 Resp 19 H 08/12/22 06:00 BP 143/97 08/11/22 20:29 Pulse Ox 97 08/11/22 20:29 O2 Del Method 08/10/22 06:00 Weight last 48 hrs Weight 93.349 kg Data NPU : 08/12/22 07:34 08/02/22 14:43 A&P Assessment and plan (1) Schizophrenia, chronic condition: (2) Suicidal ideation: (3) Disturbance of sleep: (4) Acute psychosis: Plan 66-year-old white female currently receiving intensive services through [facility] with continued problems with compliance of with medications admitted on a 96-hour hold with active psychotic symptoms. 1. Continue Invega 12mg daily and increase Depakote ER to 1500 mg daily. Continue ambien 10mg at night for sleep. Increased Clozaril to 50 mg bid, get CBC with dif. We will start decreasing her Invega. 2. Encourage individual, group and milieu therapy 3. Continue every 15 minute checks for safety. 4. Recommend sober living treatment at the highest level of care to which the patient is willing to commit. 5.? Guardianship hearing switched to 08/27/2022. He has been accepted to residential care facility contingent on guardianship approval. 6. Continue B6 100 mg tid to target Tardive dyskinesia. . Involuntary Hold Information 96 Hour Hold: 96 Hour Involuntary Admission: Yes 96 Hour Hold Ending Date: 06/14/22 96 Hour Hold Ending Time: 15:36 Attestations NPU Medical Necessity Statement*: Inpatient hospitalization is medically necessary and the clinically appropriate intervention at this time. We will evaluate medications and make changes as indicated with likely length of stay is 15 days. We will plan to make discharge on or the day after guardianship hearing. Coding Level of Care Code Acute Hogshead Salvage for Shobha Huynh Diagnoses Schizophrenia, chronic condition F20.9 Suicidal ideation R45.851 Disturbance of sleep G47.9 Acute psychosis F23
[2022-08-12 13:22] VITALS: BP 143/97; PULSE 135; RESP 19; TEMP 36.5; O2SAT 97
[2022-08-12 14:00] VITALS: BP 116/79; PULSE 120; RESP 18; TEMP 36.3; O2SAT 94
[2022-08-12] MEDS: zolpidem 5 mg Tablet 10 MG PO (19:42)
[2022-08-12] MEDS: ibuprofen 600 mg Tablet PO (19:42)
[2022-08-12] MEDS: paliperidone ER 6 mg Tablet 12 MG PO (19:44)
[2022-08-12] MEDS: cloZAPine 25 mg Tablet 50 MG PO (19:44)
[2022-08-12] MEDS: pyridoxine 50 mg Tablet 100 MG PO (19:45)
[2022-08-12 20:58] VITALS: BP 151/93; PULSE 121; RESP 16; TEMP 36.7; O2SAT 97
[2022-08-13] MEDS: saline nasal spray 44mL Btl 1 SPRAY NASAL (04:11)
[2022-08-13 05:59] VITALS: BP 139/93; PULSE 125; RESP 18; TEMP 36.6; O2SAT 97
[2022-08-13] MEDS: cloZAPine 25 mg Tablet 50 MG PO ×2 (08:33→18:29)
[2022-08-13] MEDS: pyridoxine 50 mg Tablet 100 MG PO ×3 (08:34→21:03)
[2022-08-13] MEDS: divalproex ER 500 mg Tablet (24H) 1500 MG PO (08:34)
[2022-08-13] MEDS: atenolol 50 mg Tablet PO (08:34)
[2022-08-13] MEDS: lisinopril 10 mg Tablet PO (08:34)
[2022-08-13] MEDS: fluoxetine 20 mg Capsule PO (08:34)
[2022-08-13] MEDS: guaiFENesin-codeine UDC 10 mL PO ×2 (08:42→13:13)
[2022-08-13] MEDS: calcium carbonate 500 mg Chew Tablet PO (08:42)
--- NOTE | 2022-08-13 11:08 | W.PM.NPUPNS ---
Subjective NPU Subjective: Patient presented today reporting that she is feeling okay. We continue to discuss her current which will be in 14 days now. We discussed that she now has a place to go with a hearing is over and she seemed much less flustered. We discussed trying to decide whether we should leave medications alone and let future doctors make changes or try to tighten things up a little more. Otherwise she denies any side effects to medications. Mental Status Exam MSE Comments: She is a disheveled white female looking older than her stated age with hospital scrubs on with improved grooming and improved eye contact. There was evidence of diminished abnormal buccofacial movements noted, but otherwise no other abnormal movements. NO parkinsonian symptoms noted. Speech was slightly decreased rate with normal volume. Mood described as okay. Her affect was congruent. Thought process:linear . ? Thought content: Patient denied any suicidal ideation or homicidal ideation. Continued evidence of paranoia noted. She denied auditory or visual hallucinations. There was continue presence of bizarre delusions. She endorsed thought broadcasting. Attention and concentration was poor. . Recent and remote memory appeared at baseline. She is alert and oriented x3. ? Insight and judgment are limited but improving and impulse control was limited. Vitals/I&O/Wt Last Vital Signs Temp 97.9 F 08/13/22 05:59 Pulse 125 H 08/13/22 05:59 Resp 18 08/13/22 05:59 BP 139/93 08/13/22 05:59 Pulse Ox 97 08/13/22 05:59 O2 Del Method 08/10/22 06:00 Data NPU : 08/12/22 07:34 08/02/22 14:43 A&P Assessment and plan (1) Schizophrenia, chronic condition: (2) Suicidal ideation: (3) Disturbance of sleep: (4) Acute psychosis: Plan 66-year-old white female currently receiving intensive services through [facility] with continued problems with compliance of with medications admitted on a 96-hour hold with active psychotic symptoms. 1. Continue Invega 12mg daily and increase Depakote ER to 1500 mg daily. Continue ambien 10mg at night for sleep. Increased Clozaril to 50 mg bid, get CBC with dif. We will start decreasing her Invega. 2. Encourage individual, group and milieu therapy 3. Continue every 15 minute checks for safety. 4. Recommend sober living treatment at the highest level of care to which the patient is willing to commit. 5.? Guardianship hearing switched to 08/27/2022. She has been accepted to residential care facility contingent on guardianship approval. 6. Continue B6 100 mg tid to target Tardive dyskinesia. . Involuntary Hold Information 96 Hour Hold: 96 Hour Involuntary Admission: Yes 96 Hour Hold Ending Date: 06/14/22 96 Hour Hold Ending Time: 15:36 Attestations NPU Medical Necessity Statement*: Inpatient hospitalization is medically necessary and the clinically appropriate intervention at this time. We will evaluate medications and make changes as indicated with likely length of stay is 14 days. We will plan to make discharge on or the day after guardianship hearing. Coding Level of Care Code Acute Limited Radiology Technician for Shobha Huynh Diagnoses Schizophrenia, chronic condition F20.9 Suicidal ideation R45.851 Disturbance of sleep G47.9 Acute psychosis F23
[2022-08-13] MEDS: cetylpyridinium Lozenge 1 EACH MUCOUS MEM ×2 (11:14→13:13)
[2022-08-13 14:00] VITALS: BP 138/75; PULSE 104; RESP 18; TEMP 36.4; O2SAT 96
[2022-08-13] MEDS: nicotine 4 mg lozenge MUCOUS MEM (16:05)
[2022-08-13] MEDS: paliperidone ER 6 mg Tablet 12 MG PO (18:29)
--- NOTE | 2022-08-13 21:00 | PC.NURSE ---
Patient came up near nurse's station and began to yell and posture towards this health underwriter and another patient. Patient accused us of talking about her. She stated Quit talking about me! I know you are and I don't like it. You better stop or else. Patient took steps toward this health underwriter. At this point this health underwriter stepped in front of other patient to protect from harm. Explained to patient that nobody was talking about her. Patient continued to be agitated and was not redirectable. Asked patient to return to room until she could calm down. She continued to verbalize paranoid delusions for several minutes. PRN benadryl po and ativan po given as ordered. Patient took medication without difficulty and returned to her room.
[2022-08-13] MEDS: LORazepam 2 mg Tablet PO (21:03)
[2022-08-13] MEDS: zolpidem 5 mg Tablet 10 MG PO (21:03)
[2022-08-13] MEDS: haloperidol 5 mg Tablet PO (21:03)
[2022-08-13] MEDS: diphenhydrAMINE 50 mg Capsule PO (21:03)
[2022-08-13 22:00] VITALS: BP 122/76; PULSE 113; RESP 17; TEMP 36.6; O2SAT 94
--- NOTE | 2022-08-13 22:00 | PC.NURSE ---
Patient is currently resting with eyes closed at this time. No further behavior after PRN's given earlier in shift.
--- NOTE | 2022-08-14 01:00 | PC.NURSE ---
Patient approached nurse's station agitated. Stated Those men won't leave me alone. They are out to get me. Assured patient she was safe. She responded I don't trust anyone. The doctor is trying to poison me and hurt my stomach. Again reassured patient that she was safe and the doctor was not trying to hurt her. Patient started pacing halls and staring intensely at staff. Approached patient to see if she needed anything. Offered snacks. Patient agreed and stated she thought she may need some medicine to help her with her thoughts. PRN zyprexa po and haldo po given as ordered. Walked to dayroom with patient and carried her snacks. Patient sat at table and ate snack. This commercial insurance underwriter stayed with patient for several minutes and reinforced to her she was safe and nobody was here to hurt her. Offered patient a bath after she was finished eating her snack. Patient did take a bath with staff present to assist.
[2022-08-14] MEDS: haloperidol 5 mg Tablet PO (01:04)
[2022-08-14] MEDS: OLANZapine 5 mg ODT PO (01:04)
[2022-08-14] MEDS: guaiFENesin-codeine UDC 10 mL PO ×2 (01:04→20:13)
[2022-08-14] MEDS: nicotine 4 mg lozenge MUCOUS MEM ×2 (01:46→18:24)
--- NOTE | 2022-08-14 02:32 | PC.NURSE ---
Patient currently in bed with eyes closed at this time. No signs of distress. No further behaviors noted.
[2022-08-14] MEDS: magnesium hydroxide 30 mL UDC PO (03:41)
[2022-08-14 06:00] VITALS: BP 120/80; PULSE 116; RESP 17; TEMP 36.8; O2SAT 96
[2022-08-14] MEDS: atenolol 50 mg Tablet PO (08:10)
[2022-08-14] MEDS: fluoxetine 20 mg Capsule PO (08:10)
[2022-08-14] MEDS: pyridoxine 50 mg Tablet 100 MG PO ×2 (08:10→13:49)
[2022-08-14] MEDS: cloZAPine 25 mg Tablet 50 MG PO (08:10)
[2022-08-14] MEDS: divalproex ER 500 mg Tablet (24H) 1500 MG PO (08:10)
[2022-08-14] MEDS: lisinopril 10 mg Tablet PO (08:10)
--- NOTE | 2022-08-14 11:42 | P.NPUPN_ITS ---
Subjective NPU Subjective: Patient presented today reporting that things were going okay. We discussed the plan to increase her Clozaril this evening. Increasing it from 50 to 100 mg. After discussion of the risks, benefits and alternatives. We discussed our continuing focus on her hopefully discharging in 13 days if we can get things organized in a way that she could discharge on the day of her hearing. Otherwise we would be helpful for the next day. She is starting to feel positive about discharge not being that far away. We also discussed transitioning her to the Invega Sustenna and she understood the plan. Mental Status Exam MSE Comments: She is a disheveled white female looking older than her stated age with hospital scrubs on with improved grooming and improved eye contact. There was evidence of diminished abnormal buccofacial movements, but otherwise no other abnormal movements. NO parkinsonian symptoms noted. Speech was slightly decreased rate with normal volume. Mood described as tired. Her affect was congruent. Thought process:linear . ? Thought content: Patient denied any suicidal ideation or homicidal ideation. Continued evidence of paranoia noted. She denied auditory or visual hallucinations. There was continue presence of bizarre delusions. She endorsed thought broadcasting. Attention and concentration was poor. . Recent and remote memory appeared at baseline. She is alert and oriented x3. ? Insight and judgment are limited but improving and impulse control was limited. Vitals/I&O/Wt Last Vital Signs Temp 98.3 F 08/14/22 06:00 Pulse 116 H 08/14/22 06:00 Resp 17 08/14/22 06:00 BP 120/80 08/14/22 06:00 Pulse Ox 96 08/14/22 06:00 O2 Del Method 08/14/22 06:00 Data NPU : 08/12/22 07:34 08/02/22 14:43 A&P Assessment and plan (1) Schizophrenia, chronic condition: (2) Suicidal ideation: (3) Disturbance of sleep: (4) Acute psychosis: Plan 66-year-old white female currently receiving intensive services through [facility] with continued problems with compliance of with medications admitted on a 96-hour hold with active psychotic symptoms. 1. Continue Invega 12mg daily and increase Depakote ER to 1500 mg daily. Continue ambien 10mg at night for sleep. Increase Clozaril to 50 mg in the morning and 100 mg at night, get CBC with dif. We will transition her to Invega Sustenna. We will discontinue oral Invega prior to discharge. 2. Encourage individual, group and milieu therapy 3. Continue every 15 minute checks for safety. 4. Recommend sober living treatment at the highest level of care to which the patient is willing to commit. 5.? Guardianship hearing switched to 08/27/2022. She has been accepted to residential care facility contingent on guardianship approval. 6. Continue B6 100 mg tid to target Tardive dyskinesia. . Involuntary Hold Information 96 Hour Hold: 96 Hour Involuntary Admission: Yes 96 Hour Hold Ending Date: 06/14/22 96 Hour Hold Ending Time: 15:36 Attestations NPU Medical Necessity Statement*: Inpatient hospitalization is medically necessary and the clinically appropriate intervention at this time. We will evaluate medications and make changes as indicated with likely length of stay is 13 days. We will plan to make discharge on or the day after guardianship hearing. Coding Level of Care Code Acute Market Stall Vendor for Shobha Huynh Diagnoses Schizophrenia, chronic condition F20.9 Suicidal ideation R45.851 Disturbance of sleep G47.9 Acute psychosis F23
[2022-08-14] MEDS: docusate sodium 100 mg Capsule PO (13:49)
[2022-08-14 14:00] VITALS: BP 115/84; PULSE 95; RESP 18; TEMP 36.8; O2SAT 96
[2022-08-14] MEDS: paliperidone palmitate 234 mg Syringe IM (17:25)
[2022-08-14] MEDS: paliperidone ER 6 mg Tablet 12 MG PO (17:59)
[2022-08-14] MEDS: cloZAPine 100 mg Tablet PO (20:13)
[2022-08-14] MEDS: zolpidem 5 mg Tablet 10 MG PO (20:13)
[2022-08-15 06:00] VITALS: BP 115/84; PULSE 95; RESP 18; TEMP 36.8; O2SAT 96
[2022-08-15 06:38] VITALS: BP 122/82; PULSE 107; RESP 18; TEMP 36.8; O2SAT 94
[2022-08-15] MEDS: divalproex ER 500 mg Tablet (24H) 1500 MG PO (08:21)
[2022-08-15] MEDS: atenolol 50 mg Tablet PO (08:21)
[2022-08-15] MEDS: pyridoxine 50 mg Tablet 100 MG PO ×3 (08:21→21:50)
[2022-08-15] MEDS: fluoxetine 20 mg Capsule PO (08:21)
[2022-08-15] MEDS: lisinopril 10 mg Tablet PO (08:21)
[2022-08-15] MEDS: cloZAPine 100 mg Tablet PO ×2 (08:22→18:31)
[2022-08-15] MEDS: cloZAPine 25 mg Tablet 50 MG PO (08:22)
[2022-08-15] MEDS: fluticasone nasal spray 16gm Btl 1 SPRAY NASAL ×2 (08:22→18:35)
--- NOTE | 2022-08-15 08:44 | W.PM.NPUPNS ---
Subjective NPU Subjective: Patient presented today reporting that she wants to get her stuff before she goes to the placement. She was somewhat flustered with this data analyst report writer as she is concerned that people will not like her and that it will be like previous placements that she has had. We continued to reinforce the fact that she will have a hearing in 12 days and at that hearing we will determine whether or not she gets a guardian and then that guardian will work with us to find placement and at this point we have a placement identified but they will not accept her until the guardianship is rendered. She continued to be upset about her lack of control but whenever we have an extended conversation she understands why this is the process she is just upset that she has intellectual disability and cannot manage things for herself. Mental Status Exam MSE Comments: She is a disheveled white female looking older than her stated age with hospital scrubs on with improved grooming and improved eye contact. There was evidence of diminished abnormal buccofacial movements, but otherwise no other abnormal movements. NO parkinsonian symptoms noted. Speech was slightly decreased rate with normal volume. Mood described as tired of being here and her affect was congruent. Thought process:linear . ? Thought content: Patient denied any suicidal ideation or homicidal ideation. Continued evidence of paranoia noted. She denied auditory or visual hallucinations. There was continue presence of bizarre delusions. She endorsed thought broadcasting. Attention and concentration was poor. . Recent and remote memory appeared at baseline. She is alert and oriented x3. ? Insight and judgment are limited but improving and impulse control was limited. Vitals/I&O/Wt Last Vital Signs Temp 98.3 F 08/15/22 06:38 Pulse 107 H 08/15/22 06:38 Resp 18 08/15/22 06:38 BP 122/82 08/15/22 06:38 Pulse Ox 94 08/15/22 06:38 O2 Del Method 08/15/22 06:38 Data NPU : 08/12/22 07:34 08/02/22 14:43 A&P Assessment and plan (1) Schizophrenia, chronic condition: (2) Suicidal ideation: (3) Disturbance of sleep: (4) Acute psychosis: Plan 66-year-old white female currently receiving intensive services through [facility] with continued problems with compliance of with medications admitted on a 96-hour hold with active psychotic symptoms. 1. Continue Depakote ER to 1500 mg daily. Continue ambien 10mg at night for sleep. Increase Clozaril to 50 mg in the morning and 100 mg at night, get CBC with dif again 08/19/2022. She received her first loading dose 234 mg of Invega Sustenna 08/14/2022. We will discontinue oral Invega prior to discharge but reduced it to 6 mg p.o. Daily. 2. Encourage individual, group and milieu therapy 3. Continue every 15 minute checks for safety. 4. Recommend sober living treatment at the highest level of care to which the patient is willing to commit. 5.? Guardianship hearing switched to 08/27/2022. She has been accepted to residential care facility contingent on guardianship approval. 6. Continue B6 100 mg tid to target Tardive dyskinesia. . Involuntary Hold Information 96 Hour Hold: 96 Hour Involuntary Admission: Yes 96 Hour Hold Ending Date: 06/14/22 96 Hour Hold Ending Time: 15:36 Attestations NPU Medical Necessity Statement*: Inpatient hospitalization is medically necessary and the clinically appropriate intervention at this time. We will evaluate medications and make changes as indicated with likely length of stay is 12 days. We will plan to make discharge on or the day after guardianship hearing. Coding Level of Care Code Acute Barrel Washer Machine for Shobha Huynh Diagnoses Schizophrenia, chronic condition F20.9 Suicidal ideation R45.851 Disturbance of sleep G47.9 Acute psychosis F23
--- NOTE | 2022-08-15 09:59 | PC.NURSE ---
patient denies si/hi and avh. Patient stated she knows people think she's retarded and that she's very lonely. When patient was redirected we focused on the positive things she has accomplished since arriving at the facility. Patient began smiling and stated, I have done good, haven't I? Patient calm and cooperative.
[2022-08-15] MEDS: nicotine 4 mg lozenge MUCOUS MEM (13:55)
[2022-08-15 14:00] VITALS: BP 122/82; PULSE 107; RESP 18; TEMP 36.8; O2SAT 94
[2022-08-15] MEDS: cetylpyridinium Lozenge 1 EACH MUCOUS MEM (15:44)
[2022-08-15] MEDS: guaiFENesin-codeine UDC 10 mL PO (15:44)
[2022-08-15] MEDS: bismuth subsalicylate 240 mL Btl 15 ML PO (16:24)
[2022-08-15] MEDS: calcium carbonate 500 mg Chew Tablet PO ×2 (16:27→18:34)
[2022-08-15] MEDS: artificial tears Op Soln 15 mL Btl 1 DROP EYE-BOTH (16:27)
[2022-08-15] MEDS: paliperidone ER 6 mg Tablet 12 MG PO (18:32)
[2022-08-15] MEDS: ziprasidone hcl 40 mg Capsule PO (18:32)
[2022-08-15 22:00] VITALS: BP 129/85; PULSE 95; RESP 16; TEMP 36.7; O2SAT 97
[2022-08-15] MEDS: haloperidol 5 mg Tablet PO (23:18)
[2022-08-15] MEDS: LORazepam 2 mg Tablet PO (23:18)
[2022-08-16] MEDS: cetylpyridinium Lozenge 1 EACH MUCOUS MEM (05:39)
[2022-08-16] MEDS: guaiFENesin-codeine UDC 10 mL PO (05:39)
[2022-08-16 06:00] VITALS: BP 109/76; PULSE 102; RESP 18; TEMP 36.5; O2SAT 94
[2022-08-16] MEDS: pyridoxine 50 mg Tablet 100 MG PO ×2 (09:41→15:10)
[2022-08-16] MEDS: fluoxetine 20 mg Capsule PO (09:41)
[2022-08-16] MEDS: cloZAPine 100 mg Tablet PO ×2 (09:42→18:28)
[2022-08-16] MEDS: cloZAPine 25 mg Tablet 50 MG PO (09:42)
[2022-08-16] MEDS: divalproex ER 500 mg Tablet (24H) 1500 MG PO (09:42)
[2022-08-16] MEDS: lisinopril 10 mg Tablet PO (09:42)
[2022-08-16] MEDS: atenolol 50 mg Tablet PO (09:42)
[2022-08-16] MEDS: nicotine 4 mg lozenge MUCOUS MEM (11:31)
[2022-08-16] MEDS: haloperidol 5 mg Tablet PO (13:01)
[2022-08-16 14:00] VITALS: BP 134/81; PULSE 110; RESP 20; TEMP 36.7; O2SAT 95
[2022-08-16] MEDS: calcium carbonate 500 mg Chew Tablet PO (16:12)
[2022-08-16] MEDS: fluticasone nasal spray 16gm Btl 1 SPRAY NASAL (18:20)
[2022-08-16] MEDS: paliperidone ER 6 mg Tablet PO (18:28)
--- NOTE | 2022-08-16 19:47 | W.PM.NPUPNS ---
Subjective NPU Subjective: Patient presents today reporting that things are going okay. She was very focused again on her hearing and how she was going to get there and whether or not she would be able to scrap picker some of her stuff. She continues to have some worries that the people at her placement will not like her and therefore will be mean to her. We discussed keeping an open mind and understanding how the process works. Otherwise she denied any issues. Mental Status Exam MSE Comments: She is a disheveled white female looking older than her stated age with hospital scrubs on with improved grooming and improved eye contact. There was evidence of diminished abnormal buccofacial movements, but otherwise no other abnormal movements. NO parkinsonian symptoms noted. Speech was slightly decreased rate with normal volume. Mood described as Okay and her affect was congruent. Thought process:linear . ? Thought content: Patient denied any suicidal ideation or homicidal ideation. Continued evidence of paranoia noted. She denied auditory or visual hallucinations. Attention and concentration was poor. Recent and remote memory appeared at baseline. She is alert and oriented x3. ? Insight and judgment are limited but improving and impulse control was limited. Vitals/I&O/Wt Last Vital Signs Temp 98.0 F 08/16/22 14:00 Pulse 115 H 08/16/22 20:25 Resp 18 08/16/22 20:25 BP 128/83 08/16/22 20:25 Pulse Ox 95 08/16/22 20:25 O2 Del Method 08/16/22 06:00 Data NPU : 08/12/22 07:34 08/02/22 14:43 A&P Assessment and plan (1) Schizophrenia, chronic condition: (2) Suicidal ideation: (3) Disturbance of sleep: (4) Acute psychosis: Plan 66-year-old white female currently receiving intensive services through [facility] with continued problems with compliance of with medications admitted on a 96-hour hold with active psychotic symptoms. 1. Continue Depakote ER to 1500 mg daily. Continue ambien 10mg at night for sleep. Increase Clozaril to 50 mg in the morning and 100 mg at night, get CBC with dif again 08/19/2022. She received her first loading dose 234 mg of Invega Sustenna 08/14/2022. We will discontinue oral Invega prior to discharge but reduced it to 6 mg p.o. daily. 2. Encourage individual, group and milieu therapy 3. Continue every 15 minute checks for safety. 4. Recommend sober living treatment at the highest level of care to which the patient is willing to commit. 5.? Guardianship hearing switched to 08/27/2022. She has been accepted to residential care facility contingent on guardianship approval. 6. Continue B6 100 mg tid to target Tardive dyskinesia. . Involuntary Hold Information 96 Hour Hold: 96 Hour Involuntary Admission: Yes 96 Hour Hold Ending Date: 06/14/22 96 Hour Hold Ending Time: 15:36 Attestations NPU Medical Necessity Statement*: Inpatient hospitalization is medically necessary and the clinically appropriate intervention at this time. We will evaluate medications and make changes as indicated with likely length of stay is 11 days. We will plan to make discharge on or the day after guardianship hearing. Coding Level of Care Code Acute Substation Supervisor for Shobha Huynh Diagnoses Schizophrenia, chronic condition F20.9 Suicidal ideation R45.851 Disturbance of sleep G47.9 Acute psychosis F23
[2022-08-16 20:25] VITALS: BP 128/83; PULSE 115; RESP 18; O2SAT 95
[2022-08-17] MEDS: bismuth subsalicylate 240 mL Btl 15 ML PO (02:32)
[2022-08-17] MEDS: saline nasal spray 44mL Btl 1 SPRAY NASAL (04:37)
[2022-08-17] MEDS: atenolol 50 mg Tablet PO (08:04)
[2022-08-17] MEDS: lisinopril 10 mg Tablet PO (08:04)
[2022-08-17] MEDS: divalproex ER 500 mg Tablet (24H) 1500 MG PO (08:04)
[2022-08-17] MEDS: pyridoxine 50 mg Tablet 100 MG PO ×3 (08:04→20:37)
[2022-08-17] MEDS: cloZAPine 100 mg Tablet PO ×2 (08:04→17:53)
[2022-08-17] MEDS: fluoxetine 20 mg Capsule PO (08:04)
[2022-08-17] MEDS: cloZAPine 25 mg Tablet 50 MG PO (08:04)
[2022-08-17] MEDS: nicotine 4 mg lozenge MUCOUS MEM (08:29)
--- NOTE | 2022-08-17 08:53 | W.PM.NPUPNS ---
Subjective NPU Subjective: Patient returns today reporting that she is a little hopeful for her hearing and possible placement. She continues to report that she feels the medication was too much and we did discuss the possibility of putting her Clozaril on the shelf on a hold and see how she does. Otherwise there are no changes and she continues to be likely stable at baseline Mental Status Exam MSE Comments: She is a disheveled white female looking older than her stated age with hospital scrubs on with improved grooming and improved eye contact. There was evidence of diminished abnormal buccofacial movements, but otherwise no other abnormal movements. NO parkinsonian symptoms noted. Speech was slightly decreased rate with normal volume. Mood described as Okay and her affect was congruent. Thought process:linear . ? Thought content: Patient denied any suicidal ideation or homicidal ideation. Continued evidence of paranoia noted. She denied auditory or visual hallucinations. Attention and concentration was poor. Recent and remote memory appeared at baseline. She is alert and oriented x3. ? Insight and judgment are limited but improving and impulse control was limited. Vitals/I&O/Wt Last Vital Signs Temp 98.0 F 08/16/22 14:00 Pulse 115 H 08/16/22 20:25 Resp 18 08/16/22 20:25 BP 128/83 08/16/22 20:25 Pulse Ox 95 08/16/22 20:25 O2 Del Method 08/16/22 06:00 Data NPU : 08/12/22 07:34 08/02/22 14:43 A&P Assessment and plan (1) Schizophrenia, chronic condition: (2) Suicidal ideation: (3) Disturbance of sleep: (4) Acute psychosis: Plan 66-year-old white female currently receiving intensive services through [facility] with continued problems with compliance of with medications admitted on a 96-hour hold with active psychotic symptoms. 1. Continue Depakote ER to 1500 mg daily. Continue ambien 10mg at night for sleep. Increased Clozaril to 50 mg in the morning and 100 mg at night, get CBC with dif again 08/19/2022. We discussed the possibility of putting the Clozaril on hold. She received her first loading dose 234 mg of Invega Sustenna 08/14/2022. We will discontinue oral Invega prior to discharge but reduced it to 6 mg p.o. daily. 2. Encourage individual, group and milieu therapy 3. Continue every 15 minute checks for safety. 4. Recommend sober living treatment at the highest level of care to which the patient is willing to commit. 5.? Guardianship hearing switched to 08/27/2022. She has been accepted to residential care facility contingent on guardianship approval. 6. Continue B6 100 mg tid to target Tardive dyskinesia. . Involuntary Hold Information 96 Hour Hold: 96 Hour Involuntary Admission: Yes 96 Hour Hold Ending Date: 06/14/22 96 Hour Hold Ending Time: 15:36 Attestations NPU Medical Necessity Statement*: Inpatient hospitalization is medically necessary and the clinically appropriate intervention at this time. We will evaluate medications and make changes as indicated with likely length of stay is 10 days. We will plan to make discharge on or the day after guardianship hearing. Coding Level of Care Code Acute Merchandising Execution Manager for Shobha Huynh Diagnoses Schizophrenia, chronic condition F20.9 Suicidal ideation R45.851 Disturbance of sleep G47.9 Acute psychosis F23
[2022-08-17] MEDS: cetylpyridinium Lozenge 1 EACH MUCOUS MEM (09:45)
[2022-08-17] MEDS: guaiFENesin-codeine UDC 10 mL PO (09:45)
--- NOTE | 2022-08-17 10:24 | PC.NURSE ---
Patient denies si/hi this morning but believes the sitter on the other side of the unit is staring at her purposefully and wants to harm her and is talking about her. Patient is convinced she doesn't need to be on the medications she is currently on and is frowning a lot and demanding the sitter to be removed. Patient redirected and went to her room.
[2022-08-17 14:00] VITALS: BP 164/99; PULSE 124; RESP 20; TEMP 36.6; O2SAT 97
[2022-08-17] MEDS: paliperidone ER 6 mg Tablet PO (17:53)
[2022-08-17 20:13] VITALS: BP 130/76; PULSE 127; RESP 18; TEMP 36.2; O2SAT 97
[2022-08-17] MEDS: diphenhydrAMINE 50 mg Capsule PO (20:37)
[2022-08-17] MEDS: LORazepam 2 mg Tablet PO (20:37)
[2022-08-17] MEDS: zolpidem 5 mg Tablet 10 MG PO (20:37)
[2022-08-17] MEDS: haloperidol 5 mg Tablet PO (20:37)
[2022-08-18] MEDS: magnesium hydroxide 30 mL UDC PO (04:25)
[2022-08-18] MEDS: calcium carbonate 500 mg Chew Tablet PO ×3 (04:33→23:30)
[2022-08-18 06:00] VITALS: RESP 18
[2022-08-18] MEDS: lisinopril 10 mg Tablet PO (08:32)
[2022-08-18] MEDS: cloZAPine 25 mg Tablet 50 MG PO (08:32)
[2022-08-18] MEDS: fluoxetine 20 mg Capsule PO (08:32)
[2022-08-18] MEDS: pyridoxine 50 mg Tablet 100 MG PO ×3 (08:32→20:22)
[2022-08-18] MEDS: divalproex ER 500 mg Tablet (24H) 1500 MG PO (08:32)
[2022-08-18] MEDS: atenolol 50 mg Tablet PO (08:32)
[2022-08-18] MEDS: cloZAPine 100 mg Tablet PO ×2 (08:33→17:54)
[2022-08-18] MEDS: fluticasone nasal spray 16gm Btl 1 SPRAY NASAL ×2 (08:48→17:54)
[2022-08-18] MEDS: guaiFENesin-codeine UDC 10 mL PO (11:46)
[2022-08-18] MEDS: cetylpyridinium Lozenge 1 EACH MUCOUS MEM ×2 (11:46→17:54)
[2022-08-18 14:00] VITALS: BP 113/77; PULSE 102; RESP 18; TEMP 36.5
[2022-08-18] MEDS: docusate sodium 100 mg Capsule PO (14:00)
[2022-08-18] MEDS: benztropine 1 mg Tablet PO (14:21)
--- NOTE | 2022-08-18 15:04 | W.PM.NPUPNS ---
Subjective NPU Subjective: Patient presented today reporting that she likes understand with going to happen at the hearing. We spoke about and then I broke down notes on her piece of paper about what will happen at the hearing. She continues to see more positive about placement and asking more questions about where it is at and what it is like. Mental Status Exam MSE Comments: She is a disheveled white female looking older than her stated age with hospital scrubs on with improved grooming and improved eye contact. There was evidence of diminished abnormal buccofacial movements, but otherwise no other abnormal movements. NO parkinsonian symptoms noted. Speech was slightly decreased rate with normal volume. Mood described as fine and her affect was congruent. Thought process:linear . ? Thought content: Patient denied any suicidal ideation or homicidal ideation. Continued evidence of paranoia noted. She denied auditory or visual hallucinations. Attention and concentration was poor. Recent and remote memory appeared at baseline. She is alert and oriented x3. ? Insight and judgment are limited but improving and impulse control was limited. Vitals/I&O/Wt Last Vital Signs Temp 97.7 F 08/18/22 14:00 Pulse 102 H 08/18/22 14:00 Resp 18 08/18/22 14:00 BP 113/77 08/18/22 14:00 Pulse Ox 97 08/17/22 20:13 O2 Del Method 08/18/22 14:00 Weight last 48 hrs Weight 93.077 kg Data NPU : 08/12/22 07:34 08/02/22 14:43 A&P Assessment and plan (1) Schizophrenia, chronic condition: (2) Suicidal ideation: (3) Disturbance of sleep: (4) Acute psychosis: Plan 66-year-old white female currently receiving intensive services through [facility] with continued problems with compliance of with medications admitted on a 96-hour hold with active psychotic symptoms. 1. Continue Depakote ER to 1500 mg daily. Continue ambien 10mg at night for sleep. Increased Clozaril to 50 mg in the morning and 100 mg at night, get CBC with dif again 08/19/2022. We discussed the possibility of putting the Clozaril on hold. She received her first loading dose 234 mg of Invega Sustenna 08/14/2022. We will discontinue oral Invega prior to discharge but reduced it to 6 mg p.o. daily. 2. Encourage individual, group and milieu therapy 3. Continue every 15 minute checks for safety. 4. Recommend sober living treatment at the highest level of care to which the patient is willing to commit. 5.? Guardianship hearing switched to 08/27/2022. She has been accepted to residential care facility contingent on guardianship approval. 6. Continue B6 100 mg tid to target Tardive dyskinesia. . Involuntary Hold Information 96 Hour Hold: 96 Hour Involuntary Admission: Yes 96 Hour Hold Ending Date: 06/14/22 96 Hour Hold Ending Time: 15:36 Attestations NPU Medical Necessity Statement*: Inpatient hospitalization is medically necessary and the clinically appropriate intervention at this time. We will evaluate medications and make changes as indicated with likely length of stay is 9 days. We will plan to make discharge on or the day after guardianship hearing. Coding Level of Care Code Acute Strength And Conditioning Coach for Shobha Huynh Diagnoses Schizophrenia, chronic condition F20.9 Suicidal ideation R45.851 Disturbance of sleep G47.9 Acute psychosis F23
[2022-08-18] MEDS: paliperidone ER 6 mg Tablet PO (17:54)
[2022-08-18 20:07] VITALS: RESP 18
[2022-08-18] MEDS: zolpidem 5 mg Tablet 10 MG PO (20:22)
[2022-08-18] MEDS: haloperidol 5 mg Tablet PO (20:26)
[2022-08-18] MEDS: LORazepam 2 mg Tablet PO (20:26)
[2022-08-18] MEDS: diphenhydrAMINE 50 mg Capsule PO (20:26)
[2022-08-19] MEDS: guaiFENesin-codeine UDC 10 mL PO (03:28)
[2022-08-19] MEDS: cetylpyridinium Lozenge 1 EACH MUCOUS MEM (03:28)
[2022-08-19 06:00] VITALS: BP 123/78; PULSE 109; RESP 18; O2SAT 96
[2022-08-19] MEDS: atenolol 50 mg Tablet PO (07:40)
[2022-08-19] MEDS: pyridoxine 50 mg Tablet 100 MG PO ×3 (07:40→20:34)
[2022-08-19] MEDS: divalproex ER 500 mg Tablet (24H) 1500 MG PO (07:40)
[2022-08-19] MEDS: fluoxetine 20 mg Capsule PO (07:40)
[2022-08-19] MEDS: cloZAPine 25 mg Tablet 50 MG PO (07:40)
[2022-08-19] MEDS: cloZAPine 100 mg Tablet PO ×2 (07:41→19:09)
[2022-08-19] MEDS: lisinopril 10 mg Tablet PO (07:41)
--- NOTE | 2022-08-19 13:38 | W.PM.NPUPNS ---
Subjective NPU Subjective: Patient presented today focusing on the pending court date. As she is getting closer she is clearly getting anxious about what exactly is going to happen. We continued to reassure her that the court with take in all information and do what they feel is best in her interest. We discussed [facility] and the fact that they would be very capable and managing her needs. She had no aggressive issues and continues to show slow improvement. Mental Status Exam MSE Comments: She is a disheveled white female looking older than her stated age with hospital scrubs on with improved grooming and improved eye contact. There was evidence of diminished abnormal buccofacial movements, but otherwise no other abnormal movements. NO parkinsonian symptoms noted. Speech was slightly decreased rate with normal volume. Mood described as okay but I want to know what is going to happen at the hearing and her affect was congruent. Thought process:linear . ? Thought content: Patient denied any suicidal ideation or homicidal ideation. Continued evidence of paranoia noted. She denied auditory or visual hallucinations. Attention and concentration was poor. Recent and remote memory appeared at baseline. She is alert and oriented x3. ? Insight and judgment are limited but improving and impulse control was limited. Vitals/I&O/Wt Last Vital Signs Temp 97.7 F 08/18/22 14:00 Pulse 109 H 08/19/22 06:00 Resp 18 08/19/22 06:00 BP 123/78 08/19/22 06:00 Pulse Ox 96 08/19/22 06:00 O2 Del Method 08/18/22 14:00 Weight last 48 hrs Weight 93.077 kg Data NPU : 08/12/22 07:34 08/02/22 14:43 A&P Assessment and plan (1) Schizophrenia, chronic condition: (2) Suicidal ideation: (3) Disturbance of sleep: (4) Acute psychosis: Plan 66-year-old white female currently receiving intensive services through [facility] with continued problems with compliance of with medications admitted on a 96-hour hold with active psychotic symptoms. 1. Continue Depakote ER to 1500 mg daily. Continue ambien 10mg at night for sleep. Increased Clozaril to 50 mg in the morning and 100 mg at night, get CBC with dif again 08/19/2022. We discussed the possibility of putting the Clozaril on hold. She received her first loading dose 234 mg of Invega Sustenna 08/14/2022. We will discontinue oral Invega prior to discharge but reduced it to 6 mg p.o. daily. 2. Encourage individual, group and milieu therapy 3. Continue every 15 minute checks for safety. 4. Recommend sober living treatment at the highest level of care to which the patient is willing to commit. 5.? Guardianship hearing switched to 08/27/2022. She has been accepted to residential care facility contingent on guardianship approval. 6. Continue B6 100 mg tid to target Tardive dyskinesia. . Involuntary Hold Information 96 Hour Hold: 96 Hour Involuntary Admission: Yes 96 Hour Hold Ending Date: 06/14/22 96 Hour Hold Ending Time: 15:36 Attestations NPU Medical Necessity Statement*: Inpatient hospitalization is medically necessary and the clinically appropriate intervention at this time. We will evaluate medications and make changes as indicated with likely length of stay is 8 days. We will plan to make discharge on or the day after guardianship hearing. Coding Level of Care Code Acute Quality Control Systems Manager for Shobha Huynh Diagnoses Schizophrenia, chronic condition F20.9 Suicidal ideation R45.851 Disturbance of sleep G47.9 Acute psychosis F23
[2022-08-19 14:00] VITALS: BP 113/75; PULSE 89; RESP 20; TEMP 36.6; O2SAT 98
[2022-08-19] MEDS: paliperidone ER 6 mg Tablet PO (19:09)
[2022-08-19 20:07] VITALS: RESP 16
[2022-08-19] MEDS: zolpidem 5 mg Tablet 10 MG PO (20:34)
[2022-08-19] MEDS: ibuprofen 600 mg Tablet PO (20:35)
[2022-08-19] MEDS: diphenhydrAMINE 50 mg Capsule PO (20:36)
[2022-08-19] MEDS: haloperidol 5 mg Tablet PO (20:36)
[2022-08-19] MEDS: LORazepam 2 mg Tablet PO (20:36)
[2022-08-20 06:00] VITALS: BP 122/78; PULSE 85; RESP 18; TEMP 36.7; O2SAT 96
[2022-08-20] MEDS: fluticasone nasal spray 16gm Btl 1 SPRAY NASAL ×2 (08:26→18:18)
[2022-08-20] MEDS: fluoxetine 20 mg Capsule PO (08:26)
[2022-08-20] MEDS: atenolol 50 mg Tablet PO (08:26)
[2022-08-20] MEDS: cloZAPine 25 mg Tablet 50 MG PO (08:26)
[2022-08-20] MEDS: cloZAPine 100 mg Tablet PO ×2 (08:26→18:18)
[2022-08-20] MEDS: lisinopril 10 mg Tablet PO (08:26)
[2022-08-20] MEDS: divalproex ER 500 mg Tablet (24H) 1500 MG PO (08:26)
[2022-08-20] MEDS: pyridoxine 50 mg Tablet 100 MG PO ×2 (08:26→15:33)
--- NOTE | 2022-08-20 13:42 | P.NPUPN_ITS ---
Subjective NPU Subjective: Patient returns today continuing to be focused on specifics of her hearing and placement. Wondering if she would be able to go pharmacy picking tech her things and who would be in charge of transportation. We reviewed that information again and continue to support her in her mild but understandable anxiety about this transition. No issues of aggression and reports of side effects to the medication. Mental Status Exam MSE Comments: She is a disheveled white female looking older than her stated age with hospital scrubs on with improved grooming and improved eye contact. There was evidence of diminished abnormal buccofacial movements, but otherwise no other abnormal movements. NO parkinsonian symptoms noted. Speech was slightly decreased rate with normal volume. Mood described as fine, affect was congruent and slightly anxious. Thought process:linear and mostly organized. ? Thought content: Patient denied any suicidal ideation or homicidal ideation. Continued evidence of paranoia noted. She denied auditory or visual hallucinations. Attention and concentration was poor. Recent and remote memory appeared at baseline. She is alert and oriented x3. ? Insight and judgment are limited but improving and impulse control was limited. Vitals/I&O/Wt Last Vital Signs Temp 98.1 F 08/20/22 06:00 Pulse 85 08/20/22 06:00 Resp 18 08/20/22 06:00 BP 122/78 08/20/22 06:00 Pulse Ox 96 08/20/22 06:00 O2 Del Method 08/19/22 14:00 Data NPU : 08/12/22 07:34 08/02/22 14:43 A&P Assessment and plan (1) Schizophrenia, chronic condition: (2) Suicidal ideation: (3) Disturbance of sleep: (4) Acute psychosis: Plan 66-year-old white female currently receiving intensive services through [facility] with continued problems with compliance of with medications admitted on a 96-hour hold with active psychotic symptoms. 1. Continue Depakote ER to 1500 mg daily. Continue ambien 10mg at night for sleep. Increased Clozaril to 50 mg in the morning and 100 mg at night, get CBC with dif again 08/21/2022. We discussed the possibility of putting the Clozaril on hold. She received her first loading dose 234 mg of Invega Sustenna 08/14/2022. We will discontinue oral Invega prior to discharge but reduced it to 6 mg p.o. daily. 2. Encourage individual, group and milieu therapy 3. Continue every 15 minute checks for safety. 4. Recommend sober living treatment at the highest level of care to which the p atient is willing to commit. 5.? Guardianship hearing switched to 08/27/2022. She has been accepted to residential care facility contingent on guardianship approval. 6. Continue B6 100 mg tid to target Tardive dyskinesia. . Involuntary Hold Information 96 Hour Hold: 96 Hour Involuntary Admission: Yes 96 Hour Hold Ending Date: 06/14/22 96 Hour Hold Ending Time: 15:36 Attestations NPU Medical Necessity Statement*: Inpatient hospitalization is medically necessary and the clinically appropriate intervention at this time. We will evaluate medications and make changes as indicated with likely length of stay is 7 days. We will plan to make discharge on or the day after guardianship hearing. Coding Level of Care Code Acute Manager Credit Risk for Shobha Huynh Diagnoses Schizophrenia, chronic condition F20.9 Suicidal ideation R45.851 Disturbance of sleep G47.9 Acute psychosis F23
[2022-08-20 14:00] VITALS: BP 117/76; PULSE 98; RESP 20; TEMP 36.6; O2SAT 95
[2022-08-20] MEDS: paliperidone ER 6 mg Tablet PO (18:18)
[2022-08-20] MEDS: cetylpyridinium Lozenge 1 EACH MUCOUS MEM (18:18)
[2022-08-20] MEDS: guaiFENesin-codeine UDC 10 mL PO (18:18)
[2022-08-20 20:21] VITALS: BP 122/83; PULSE 101; RESP 18; TEMP 36.6; O2SAT 96
[2022-08-21 06:00] VITALS: BP 118/80; PULSE 102; RESP 16; TEMP 36.6; O2SAT 96
[2022-08-21] MEDS: fluticasone nasal spray 16gm Btl 1 SPRAY NASAL ×2 (07:50→18:20)
[2022-08-21] MEDS: cloZAPine 100 mg Tablet PO ×2 (07:51→18:20)
[2022-08-21] MEDS: pyridoxine 50 mg Tablet 100 MG PO ×2 (07:51→14:51)
[2022-08-21] MEDS: cloZAPine 25 mg Tablet 50 MG PO (07:51)
[2022-08-21] MEDS: atenolol 50 mg Tablet PO (07:51)
[2022-08-21] MEDS: lisinopril 10 mg Tablet PO (07:51)
[2022-08-21] MEDS: fluoxetine 20 mg Capsule PO (07:51)
[2022-08-21] MEDS: divalproex ER 500 mg Tablet (24H) 1500 MG PO (07:52)
[2022-08-21] MEDS: paliperidone palmitate 156 mg Syringe IM (07:52)
[2022-08-21 09:17] LABS: Basophils % 0.7 %; Eosinophils # 0.1 10^3/uL (0.0-0.8); Eosinophils % 1.5 %; Hematocrit 46.8 % (37.0-47.0); Hemoglobin 14.1 g/dL (11.5-15.3); Lymphocytes # 1.6 10^3/uL (0.8-4.8); Lymphocytes % 25.7 %; Mean Corpuscular HGB Conc 30.1 g/dL (30.0-36.0); Mean Corpuscular Volume 89.5 fl (81-99); Mean Platelet Volume 10.9 fL (7.4-10.4); Monocytes # 0.7 10^3/uL (0.2-0.9); Monocytes % 11.1 %; Neutrophils # 3.65 10^3/uL (1.8-7.7); Neutrophils % 59.7 %; Nucleated Red Blood Cells % 0 %; Platelet Count 171 10^3/cmm (130-400); Red Blood Count 5.23 10^6/uL (4.1-5.3); Red Cell Distribution Width 14.4 % (12.1-15.1); White Blood Count 6.1 10^3/uL (4.0-10.0)
[2022-08-21 09:39] LABS: Slide Review Slide Review Perform
--- NOTE | 2022-08-21 12:27 | P.NPUPN_ITS ---
Subjective NPU Subjective: Patient presents today managing anxiety from her court hearing for guardianship edging closer. She continues to inquire about the logistics of her going to the hearing versus not, her getting her stuff before going to [facility] or not as well as concerns regarding who will be making that decision etc. we continue to reassure her and explain the process. Mental Status Exam MSE Comments: She is a disheveled white female looking older than her stated age with hospital scrubs on with improved grooming and improved eye contact. There was evidence of diminished abnormal buccofacial movements, but otherwise no other abnormal movements. NO parkinsonian symptoms noted. Speech was slightly decreased rate with normal volume. Mood described as okay, affect was congruent and slightly anxious. Thought process:linear and mostly organized. ? Thought content: Patient denied any suicidal ideation or homicidal ideation. Continued evidence of paranoia noted. She denied auditory or visual hallucina tions. Attention and concentration was poor. Recent and remote memory appeared at baseline. She is alert and oriented x3. ? Insight and judgment are limited but improving and impulse control was limited. Vitals/I&O/Wt Last Vital Signs Temp 97.8 F 08/21/22 06:00 Pulse 102 H 08/21/22 06:00 Resp 16 08/21/22 06:00 BP 118/80 08/21/22 06:00 Pulse Ox 96 08/21/22 06:00 O2 Del Method 08/20/22 14:00 Data NPU 08/21/22 08:48 08/02/22 14:43 A&P Assessment and plan (1) Schizophrenia, chronic condition: (2) Suicidal ideation: (3) Disturbance of sleep: (4) Acute psychosis: Plan 66-year-old white female currently receiving intensive services through [facility] with continued problems with compliance of with medications admitted on a 96-hour hold with active psychotic symptoms. 1. Continue Depakote ER to 1500 mg daily. Continue ambien 10mg at night for sleep. Increased Clozaril to 50 mg in the morning and 100 mg at night, get CBC with dif again 08/21/2022. We discussed the possibility of putting the Clozaril on hold. She received her first loading dose 234 mg of Invega Sustenna 08/14/2022 will be receiving second dose of 156 mg IM to deltoid today. We will discontinue oral Invega. 2. Encourage individual, group and milieu therapy 3. Continue every 15 minute checks for safety. 4. Recommend sober living treatment at the highest level of care to which the patient is willing to commit. 5.? Guardianship hearing switched to 08/27/2022. She has been accepted to residential care facility contingent on guardianship approval. 6. Continue B6 100 mg tid to target Tardive dyskinesia. . Involuntary Hold Information 96 Hour Hold: 96 Hour Involuntary Admission: Yes 96 Hour Hold Ending Date: 06/14/22 96 Hour Hold Ending Time: 15:36 Attestations NPU Medical Necessity Statement*: Inpatient hospitalization is medically necessary and the clinically appropriate intervention at this time. We will evaluate medications and make changes as indicated with likely length of stay is 6 days. We will plan to make discharge on or the day after guardianship hearing. Coding Level of Care Code Acute Mva Reactor Operator Head for Shobha Huynh Diagnoses Schizophrenia, chronic condition F20.9 Suicidal ideation R45.851 Disturbance of sleep G47.9 Acute psychosis F23
[2022-08-21 14:00] VITALS: RESP 16
[2022-08-21] MEDS: cetylpyridinium Lozenge 1 EACH MUCOUS MEM (18:20)
[2022-08-21] MEDS: guaiFENesin-codeine UDC 10 mL PO (18:20)
[2022-08-21] MEDS: paliperidone ER 6 mg Tablet PO (18:20)
[2022-08-21] MEDS: bismuth subsalicylate 240 mL Btl 15 ML PO (20:32)
[2022-08-21] MEDS: calcium carbonate 500 mg Chew Tablet PO (20:32)
[2022-08-21 22:00] VITALS: BP 128/82; PULSE 118; RESP 17; TEMP 36.8; O2SAT 93
[2022-08-21] MEDS: nicotine 4 mg lozenge MUCOUS MEM (22:40)
[2022-08-22 06:00] VITALS: RESP 17
[2022-08-22] MEDS: cloZAPine 100 mg Tablet PO ×2 (07:34→18:23)
[2022-08-22] MEDS: cloZAPine 25 mg Tablet 50 MG PO (07:35)
[2022-08-22] MEDS: divalproex ER 500 mg Tablet (24H) 1500 MG PO (07:36)
[2022-08-22] MEDS: atenolol 50 mg Tablet PO (07:36)
[2022-08-22] MEDS: lisinopril 10 mg Tablet PO (07:36)
[2022-08-22] MEDS: pyridoxine 50 mg Tablet 100 MG PO ×3 (07:36→22:02)
[2022-08-22] MEDS: fluoxetine 20 mg Capsule PO (07:36)
[2022-08-22] MEDS: fluticasone nasal spray 16gm Btl 1 SPRAY NASAL ×2 (07:37→18:23)
--- NOTE | 2022-08-22 13:19 | W.PM.NPUPNS ---
Subjective NPU Subjective: Patient presents today continuing to wonder and worry about what her hearing today will look like and her access to her belongings. We continued to explain to her the process and she was feeling anxiety as she told her finish painter she did not want to go but now she thinks she wants to go. We discussed the fact that this was a temporary guardianship and that she should just work with her finish painter to find out what the surgery scheduling coordinator is expecting. She is tolerating the medication without any challenges. Mental Status Exam MSE Comments: She is a disheveled white female looking older than her stated age with hospital scrubs on with improved grooming and improved eye contact. There was evidence of diminished abnormal buccofacial movements, but otherwise no other abnormal movements. NO parkinsonian symptoms noted. Speech was slightly decreased rate with normal volume. Mood described as okay, affect was congruent and slightly anxious. Thought process:linear and mostly organized. ? Thought content: Patient denied any suicidal ideation or homicidal ideation. Continued evidence of paranoia noted. She denied auditory or visual hallucinations. Attention and concentration was poor. Recent and remote memory appeared at baseline. She is alert and oriented x3. ? Insight and judgment are limited but improving and impulse control was limited. Vitals/I&O/Wt Last Vital Signs Temp 98.3 F 08/21/22 22:00 Pulse 118 H 08/21/22 22:00 Resp 17 08/22/22 06:00 BP 128/82 08/21/22 22:00 Pulse Ox 93 08/21/22 22:00 O2 Del Method 08/21/22 22:00 Data NPU 08/21/22 08:48 08/02/22 14:43 A&P Assessment and plan (1) Schizophrenia, chronic condition: (2) Suicidal ideation: (3) Disturbance of sleep: (4) Acute psychosis: Plan 66-year-old white female currently receiving intensive services through [facility] with continued problems with compliance of with medications admitted on a 96-hour hold with active psychotic symptoms. 1. Continue Depakote ER to 1500 mg daily. Continue ambien 10mg at night for sleep. Increased Clozaril to 150 mg in the morning and 100 mg at night, get CBC with dif again 08/28/2022. She received her first loading dose 234 mg of Invega Sustenna 08/14/2022 received second loading dose of 156 mg IM to deltoid 08/21/2022. We discontinued oral Invega. 2. Encourage individual, group and milieu therapy 3. Continue every 15 minute checks for safety. 4. Recommend sober living treatment at the highest level of care to which the patient is willing to commit. 5.? Guardianship hearing switched to 08/27/2022. She has been accepted to residential care facility contingent on guardianship approval. 6. Continue B6 100 mg tid to target Tardive dyskinesia. . Involuntary Hold Information 96 Hour Hold: 96 Hour Involuntary Admission: Yes 96 Hour Hold Ending Date: 06/14/22 96 Hour Hold Ending Time: 15:36 Attestations NPU Medical Necessity Statement*: Inpatient hospitalization is medically necessary and the clinically appropriate intervention at this time. We will evaluate medications and make changes as indicated with likely length of stay is 5 days. We will plan to make discharge on or the day after guardianship hearing. Coding Level of Care Code Acute Pipe Bowls Paint Trimmer for Shobha Fwd Diagnoses Schizophrenia, chronic condition F20.9 Suicidal ideation R45.851 Disturbance of sleep G47.9 Acute psychosis F23
[2022-08-22 14:00] VITALS: BP 132/85; PULSE 122; RESP 20; TEMP 36.9; O2SAT 98
[2022-08-22] MEDS: cetylpyridinium Lozenge 1 EACH MUCOUS MEM (18:23)
[2022-08-22] MEDS: guaiFENesin-codeine UDC 10 mL PO (18:23)
[2022-08-22] MEDS: zolpidem 5 mg Tablet 10 MG PO (22:02)
[2022-08-23 06:00] VITALS: BP 110/76; PULSE 106; RESP 17; TEMP 36.6; O2SAT 95
[2022-08-23] MEDS: atenolol 50 mg Tablet PO (09:25)
[2022-08-23] MEDS: divalproex ER 500 mg Tablet (24H) 1500 MG PO (09:25)
[2022-08-23] MEDS: cloZAPine 25 mg Tablet 50 MG PO (09:25)
[2022-08-23] MEDS: cloZAPine 100 mg Tablet PO ×2 (09:25→17:42)
[2022-08-23] MEDS: lisinopril 10 mg Tablet PO (09:25)
[2022-08-23] MEDS: pyridoxine 50 mg Tablet 100 MG PO ×2 (09:25→17:42)
[2022-08-23] MEDS: fluoxetine 20 mg Capsule PO (09:25)
[2022-08-23] MEDS: fluticasone nasal spray 16gm Btl 1 SPRAY NASAL ×2 (09:26→17:42)
--- NOTE | 2022-08-23 12:41 | P.NPUPN_ITS ---
Subjective NPU Subjective: Patient presented today reporting that she is doing okay. She continues to take her medication as prescribed without any difficulty. She is managing anxiety surrounding the upcoming court case, but continues to occasionally ask questions about the process. Otherwise he is eating and sleeping well and is presenting with no new or acute problems. Mental Status Exam MSE Comments: She is a disheveled white female looking older than her stated age with hospital scrubs on with improved grooming and improved eye contact. There was evidence of diminished abnormal buccofacial movements, but otherwise no other abnormal movements. NO parkinsonian symptoms noted. Speech was slightly decreased rate with normal volume. Mood described as okay, affect was congruent and slightly anxious. Thought process:linear and mostly organized. ? Thought content: Patient denied any suicidal ideation or homicidal ideation. Continued evidence of paranoia noted. She denied auditory or visual hallucinations. Attention and concentration was poor. Recent and remote memory appeared at baseline. She is alert and oriented x3. ? Insight and judgment are limited but improving and impulse control was limited. Vitals/I&O/Wt Last Vital Signs Temp 97.8 F 08/23/22 06:00 Pulse 106 H 08/23/22 06:00 Resp 17 08/23/22 06:00 BP 110/76 08/23/22 06:00 Pulse Ox 95 08/23/22 06:00 O2 Del Method 08/23/22 06:00 Data NPU 08/21/22 08:48 08/02/22 14:43 A&P Assessment and plan (1) Schizophrenia, chronic condition: (2) Suicidal ideation: (3) Disturbance of sleep: (4) Acute psychosis: Plan 66-year-old white female currently receiving intensive services through [facility] with continued problems with compliance of with medications admitted on a 96-hour hold with active psychotic symptoms. 1. Continue Depakote ER to 1500 mg daily. Continue ambien 10mg at night for sleep. Increased Clozaril to 150 mg in the morning and 100 mg at night, get CBC with dif again 08/28/2022. She received her first loading dose 234 mg of Invega Sustenna 08/14/2022 received second loading dose of 156 mg IM to deltoid 08/21/2022. We discontinued oral Invega. 2. Encourage individual, group and milieu therapy 3. Continue every 15 minute checks for safety. 4. Recommend sober living treatment at the highest level of care to which the patient is willing to commit. 5.? Guardianship hearing switched to 08/27/2022. She has been accepted to residential care facility contingent on guardianship approval. 6. Continue B6 100 mg tid to target Tardive dyskinesia. . Involuntary Hold Information 96 Hour Hold: 96 Hour Involuntary Admission: Yes 96 Hour Hold Ending Date: 06/14/22 96 Hour Hold Ending Time: 15:36 Attestations NPU Medical Necessity Statement*: Inpatient hospitalization is medically necessary and the clinically appropriate intervention at this time. We will evaluate medications and make changes as indicated with likely length of stay is 4 days. We will plan to make discharge on or the day after guardianship hearing. Coding Level of Care Code Acute Manager Educational for Shobha Huynh Diagnoses Schizophrenia, chronic condition F20.9 Suicidal ideation R45.851 Disturbance of sleep G47.9 Acute psychosis F23
[2022-08-23 14:00] VITALS: BP 128/64; PULSE 86; RESP 16; TEMP 36.6; O2SAT 99
[2022-08-23] MEDS: cetylpyridinium Lozenge 1 EACH MUCOUS MEM (17:42)
[2022-08-23] MEDS: guaiFENesin-codeine UDC 10 mL PO (17:42)
[2022-08-23] MEDS: zolpidem 5 mg Tablet 10 MG PO (20:55)
[2022-08-23] MEDS: calcium carbonate 500 mg Chew Tablet PO (21:25)
[2022-08-23] MEDS: bismuth subsalicylate 240 mL Btl 15 ML PO (21:25)
[2022-08-24 06:00] VITALS: BP 134/86; PULSE 106; RESP 18; TEMP 36.5; O2SAT 95
[2022-08-24] MEDS: pyridoxine 50 mg Tablet 100 MG PO ×3 (08:27→21:01)
[2022-08-24] MEDS: fluoxetine 20 mg Capsule PO (08:27)
[2022-08-24] MEDS: divalproex ER 500 mg Tablet (24H) 1500 MG PO (08:28)
[2022-08-24] MEDS: cloZAPine 100 mg Tablet PO ×2 (08:29→18:17)
[2022-08-24] MEDS: atenolol 50 mg Tablet PO (08:29)
[2022-08-24] MEDS: cloZAPine 25 mg Tablet 50 MG PO (08:30)
[2022-08-24] MEDS: lisinopril 10 mg Tablet PO (08:30)
[2022-08-24] MEDS: calcium carbonate 500 mg Chew Tablet PO (11:49)
--- NOTE | 2022-08-24 12:29 | P.NPUPN_ITS ---
Subjective NPU Subjective: Patient presented today reporting that she was doing okay. She was on some crossword puzzles and was showing how many she had done in the book. She was essentially going to the back and getting the answers and she put them in the correct spot in the front we talked about her going to placement likely Friday or Friday depending on [facility] will receive her admitted to [facility]. Mental Status Exam MSE Comments: She is a disheveled white female looking older than her stated age with hospital scrubs on with improved grooming and improved eye contact. There was evidence of diminished abnormal buccofacial movements, but otherwise no other abnormal movements. NO parkinsonian symptoms noted. Speech was slightly decreased rate with normal volume. Mood described as good, affect was brighter. Thought process:linear and mostly organized. ? Thought content: Patient denied any suicidal ideation or homicidal ideation. Continued evidence of paranoia noted and ideas of reference with thought broadcasting. She denied auditory or visual hallucinations. Attention and concentration was poor. Recent and remote memory appeared at baseline. She is alert and oriented x3. ? Insight and judgment are limited but improving and impulse control was limited. Vitals/I&O/Wt Last Vital Signs Temp 97.7 F 08/24/22 06:00 Pulse 106 H 08/24/22 06:00 Resp 18 08/24/22 06:00 BP 134/86 08/24/22 06:00 Pulse Ox 95 08/24/22 06:00 O2 Del Method 08/24/22 06:00 Data NPU 08/21/22 08:48 08/02/22 14:43 A&P Assessment and plan (1) Schizophrenia, chronic condition: (2) Suicidal ideation: (3) Disturbance of sleep: (4) Acute psychosis: Plan 66-year-old white female currently receiving intensive services through [facility] with continued problems with compliance of with medications admitted on a 96-hour hold with active psychotic symptoms. 1. Continue Depakote ER to 1500 mg daily. Continue ambien 10mg at night for sleep. Continue Clozaril to 150 mg in the morning and 100 mg at night, get CBC with dif again 08/28/2022. She received her first loading dose 234 mg of Invega Sustenna 08/14/2022 received second loading dose of 156 mg IM to deltoid 08/21/2022. 2. Encourage individual, group and milieu therapy 3. Continue every 15 minute checks for safety. 4. Recommend sober living treatment at the highest level of care to which the patient is willing to commit. 5.? Guardianship hearing switched to 08/27/2022. She has been accepted to residential care facility contingent on guardianship approval. 6. Continue B6 100 mg tid to target Tardive dyskinesia. . Involuntary Hold Information 96 Hour Hold: 96 Hour Involuntary Admission: Yes 96 Hour Hold Ending Date: 06/14/22 96 Hour Hold Ending Time: 15:36 Attestations NPU Medical Necessity Statement*: Inpatient hospitalization is medically necessary and the clinically appropriate intervention at this time. We will evaluate medications and make changes as indicated with likely length of stay is 3 days. We will plan to make discharge on or the day after guardianship hearing. Coding Level of Care Code Acute Pipe Threading Machine Operator for Shobha Huynh Diagnoses Schizophrenia, chronic condition F20.9 Suicidal ideation R45.851 Disturbance of sleep G47.9 Acute psychosis F23
[2022-08-24 14:00] VITALS: BP 139/78; PULSE 119; RESP 20; TEMP 36.4; O2SAT 99
[2022-08-24] MEDS: nicotine 2 mg Gum BUCCAL (19:02)
[2022-08-24] MEDS: zolpidem 5 mg Tablet 10 MG PO (21:01)
[2022-08-24 21:40] VITALS: BP 110/66; PULSE 123; RESP 18; TEMP 36.3; O2SAT 95
[2022-08-25 06:00] VITALS: BMI 34.1
[2022-08-25] MEDS: pyridoxine 50 mg Tablet 100 MG PO ×2 (08:26→14:53)
[2022-08-25] MEDS: cloZAPine 100 mg Tablet PO ×2 (08:27→16:56)
[2022-08-25] MEDS: fluoxetine 20 mg Capsule PO (08:27)
[2022-08-25] MEDS: OLANZapine 5 mg ODT PO ×2 (08:27→20:05)
[2022-08-25] MEDS: atenolol 50 mg Tablet PO (08:27)
[2022-08-25] MEDS: divalproex ER 500 mg Tablet (24H) 1500 MG PO (08:27)
[2022-08-25] MEDS: lisinopril 10 mg Tablet PO (08:27)
[2022-08-25] MEDS: cloZAPine 25 mg Tablet 50 MG PO (08:27)
[2022-08-25] MEDS: fluticasone nasal spray 16gm Btl 1 SPRAY NASAL (08:28)
--- NOTE | 2022-08-25 10:50 | PC.NURSE ---
PRN MEDICATION PT RECEIVED ZYDIS 5 MG ORDERED FOR INCREASED ANXIETY. MEDICATION WAS EFFECTIVE.
[2022-08-25] MEDS: calcium carbonate 500 mg Chew Tablet PO ×2 (13:08→16:57)
[2022-08-25 14:00] VITALS: BP 126/80; PULSE 117; RESP 18; TEMP 36.6; O2SAT 95
[2022-08-25] MEDS: hyDROXYzine 25 mg Capsule 50 MG PO (14:52)
--- NOTE | 2022-08-25 15:02 | PC.NURSE ---
MEDICATION ADMINISTRATION PT INFOMED DR. COLLINS TODAY SHE HAS BEEN CHEEKING HER MEDS DUE TO NOT LIKING THE WAY IT TASTE AND FEELING LIKE SHE'S BEEN POISONED. THIS AM WHEN PT TOOK MEDS SHE DID REQUEST APPLESAUCE DUE TO NOT LIKING THE TASTE OF HER MEDICATIONS. PT TOOK MEDS ATE APPLESAUCE THEN LEFT NURSES STATION. INFORMED OTHER NURSING STAFF OF ABOVE AND TO CHECK PTS MOUTH AFTER TAKING MEDICATIONS. PT TOOK AFTERNOON MEDS THEN ATE APPLESAUCE. MOUTH CHECKED AND MEDICATIONS WERE GONE.
[2022-08-25] MEDS: artificial tears Op Soln 15 mL Btl 1 DROP EYE-BOTH (15:20)
[2022-08-25] MEDS: ziprasidone hcl 40 mg Capsule PO (16:56)
--- NOTE | 2022-08-25 17:00 | PC.NURSE ---
prn meds PT ANXIOUS AND AGITATED CALLING NAMES. VERBALLY REDIRECTED. GEODON GIVEN ORDERED. SEE MAR
--- NOTE | 2022-08-25 17:47 | W.PM.NPUPNS ---
Subjective NPU Subjective: Patient is a 66-year-old female with schizophrenia currently on Clozaril and Invega along with Depakote and Prozac. Patient had reported that she had been spitting out her medications stating that she felt that she was being tortured here. Patient had continue to report that she was feeling better but continued to report feeling as if others around her had somehow been able to suck the thoughts out of her . Patient had been on the milieu completing word searches with noted improvement in her ability to attend to a task on a regular basis. She had reported some difficulties with sleep continuity disruption otherwise she had reported improved appetite. She had also reported that she was worried about her court case. Mental Status Exam MSE Comments: She is a disheveled white female looking older than her stated age with hospital scrubs on with improved grooming and improved eye contact. There was evidence of diminished abnormal buccofacial movements, but otherwise no other abnormal movements. NO parkinsonian symptoms noted. Speech was slightly decreased rate with normal volume. Mood described as good, affect remained blunted. Thought process:linear and mostly organized. ? Thought content: Patient denied any suicidal ideation or homicidal ideation. Continued evidence of paranoia noted and ideas of reference with thought broadcasting. She denied auditory or visual hallucinations. Attention and concentration was poor. Recent and remote memory appeared at baseline. She is alert and oriented x3. ? Insight and judgment are limited but improving and impulse control was limited. Vitals/I&O/Wt Last Vital Signs Temp 98 F 08/25/22 14:00 Pulse 117 H 08/25/22 14:00 Resp 18 08/25/22 14:00 BP 126/80 08/25/22 14:00 Pulse Ox 95 08/25/22 14:00 O2 Del Method 08/24/22 06:00 Weight last 48 hrs Weight 93.077 kg Data NPU 08/21/22 08:48 08/02/22 14:43 A&P Assessment and plan (1) Schizophrenia, chronic condition: (2) Suicidal ideation: (3) Disturbance of sleep: (4) Acute psychosis: Plan 66-year-old white female currently receiving intensive services through [facility] with continued problems with compliance of with medications admitted on a 96-hour hold with active psychotic symptoms. 1. Continue Depakote ER to 1500 mg daily. Continue ambien 10mg at night for sleep. Continue Clozaril to 150 mg in the morning and 100 mg at night, get CBC with dif again 08/28/2022. She received her first loading dose 234 mg of Invega Sustenna 08/14/2022 received second loading dose of 156 mg IM to deltoid 08/21/2022. 2. Encourage individual, group and milieu therapy 3. Continue every 15 minute checks for safety. 4. Recommend sober living treatment at the highest level of care to which the patient is willing to commit. 5.? Guardianship hearing switched to 08/27/2022. She has been accepted to residential care facility contingent on guardianship approval. 6. Continue B6 100 mg tid to target Tardive dyskinesia. . Involuntary Hold Information 96 Hour Hold: 96 Hour Involuntary Admission: Yes 96 Hour Hold Ending Date: 06/14/22 96 Hour Hold Ending Time: 15:36 Attestations NPU Medical Necessity Statement*: Inpatient hospitalization is medically necessary and the clinically appropriate intervention at this time. We will evaluate medications and make changes as indicated with likely length of stay is 4 days. We will plan to make discharge on or the day after guardianship hearing. Coding Level of Care Code Established Pt Acute Patient Placement Coordinator for Chg Fwd Patient Type Established History Problem Focused Exam Problem Focused Medical Decision Making Straight Forward Diagnoses Schizophrenia, chronic condition F20.9 Suicidal ideation R45.851 Disturbance of sleep G47.9 Acute psychosis F23
[2022-08-25 19:45] VITALS: RESP 18
--- NOTE | 2022-08-25 20:00 | PC.NURSE ---
Patient became agitated with a female peer at nurse's station. Patient noted to be loud and verbally aggressive using profanity towards peer. Stated Why do you have to be up here when I'm here you stupid bitch? You smell like shit and are always trying to start something when I'm in the hallway. This contract writer approached patient to attempt to redirect. Patient continued to be verbally aggressive towards peer and then towards staff. Patient called this contract writer a stupid bitch. Attempted again to redirect patient away from peer. Patient continued to be agitated. Asked patient to step away from nurse's station and go to dayroom or her room. Patient continued to use profanity and postured towards peer. At that time patient was again asked to leave the area. Patient stomped down tsang and continued to use profanity loudly. PRN offered to patient do to agitation. PRN Benadryl po, ativan po and haldol po given to patient. Patient was cooperative with administration. Patient's mouth checked for cheeking after administration. Patient returned to room.
[2022-08-25] MEDS: LORazepam 2 mg Tablet PO (20:04)
[2022-08-25] MEDS: diphenhydrAMINE 50 mg Capsule PO (20:05)
[2022-08-25] MEDS: haloperidol 5 mg Tablet PO (20:05)
[2022-08-25] MEDS: zolpidem 5 mg Tablet 10 MG PO (20:05)
--- NOTE | 2022-08-25 22:00 | PC.NURSE ---
Patient resting quietly in bed with eyes closed at this time. No further behavior after prn's earlier in shift.
[2022-08-26 06:00] VITALS: BP 135/84; PULSE 109; RESP 18; O2SAT 94
[2022-08-26] MEDS: acetaminophen 325 mg Tablet PO (06:17)
[2022-08-26] MEDS: pyridoxine 50 mg Tablet 100 MG PO ×3 (10:11→20:39)
[2022-08-26] MEDS: fluoxetine 20 mg Capsule PO (10:12)
[2022-08-26] MEDS: divalproex ER 500 mg Tablet (24H) 1500 MG PO (10:12)
[2022-08-26] MEDS: lisinopril 10 mg Tablet PO (10:13)
[2022-08-26] MEDS: cloZAPine 100 mg Tablet PO ×2 (10:13→17:13)
[2022-08-26] MEDS: cloZAPine 25 mg Tablet 50 MG PO (10:13)
[2022-08-26] MEDS: atenolol 50 mg Tablet PO (10:13)
[2022-08-26 14:00] VITALS: BP 122/78; PULSE 101; RESP 18; O2SAT 97
--- NOTE | 2022-08-26 17:27 | W.PM.NPUPNS ---
Subjective NPU Subjective: Patient is a 66-year-old female with schizophrenia currently on Clozaril and Invega along with Depakote and Prozac. The patient had continue to show evidence of improvement here as she had expressed some trepidation about the guardianship hearing scheduled this week. She reports that she has been more compliant with her medications and had not been spitting out her medications. She reported having some abdominal discomfort at times from her medication but states that it has been better. She has reported that she had concerns about her weight. She continued to report having a feeling that others could somehow read her thoughts although she seemed less preoccupied by this today. Patient had been engaged in some level of completion of word searches [place] due to today for which she appeared to be concentrating well and did not appear overly agitated. Mental Status Exam MSE Comments: She is a white female looking older than her stated age with hospital scrubs on with improved grooming and improved eye contact. There was evidence of diminished abnormal buccofacial movements, but otherwise no other abnormal movements. NO parkinsonian symptoms noted. Speech was slightly decreased rate with normal volume. Mood described as okay, affect remained blunted. Thought process:linear and mostly organized. ? Thought content: Patient denied any suicidal ideation or homicidal ideation. Continued evidence of paranoia noted and ideas of reference with thought broadcasting. She denied auditory or visual hallucinations. Attention and concentration was poor. Recent and remote memory appeared at baseline. She is alert and oriented x3. ? Insight and judgment are limited but improving and impulse control was limited. Vitals/I&O/Wt Last Vital Signs Temp 98 F 08/25/22 14:00 Pulse 101 H 08/26/22 14:00 Resp 18 08/26/22 14:00 BP 122/78 08/26/22 14:00 Pulse Ox 97 08/26/22 14:00 O2 Del Method 08/24/22 06:00 Weight last 48 hrs Weight 93.077 kg Data NPU 08/21/22 08:48 08/02/22 14:43 A&P Assessment and plan (1) Schizophrenia, chronic condition: (2) Suicidal ideation: (3) Disturbance of sleep: (4) Acute psychosis: Plan 66-year-old white female currently receiving intensive services through [facility] with continued problems with compliance of with medications admitted on a 96-hour hold with active psychotic symptoms. 1. Continue Depakote ER to 1500 mg daily. Continue ambien 10mg at night for sleep. Continue Clozaril to 150 mg in the morning and 100 mg at night, get CBC with dif again 08/28/2022. She received her first loading dose 234 mg of Invega Sustenna 08/14/2022 received second loading dose of 156 mg IM to deltoid 08/21/2022. 2. Encourage individual, group and milieu therapy 3. Continue every 15 minute checks for safety. 4. Recommend sober living treatment at the highest level of care to which the patient is willing to commit. 5.? Guardianship hearing switched to 08/27/2022. She has been accepted to residential care facility contingent on guardianship approval. 6. Continue B6 100 mg tid to target Tardive dyskinesia. . Involuntary Hold Information 96 Hour Hold: 96 Hour Involuntary Admission: Yes 96 Hour Hold Ending Date: 06/14/22 96 Hour Hold Ending Time: 15:36 Attestations NPU Medical Necessity Statement*: Inpatient hospitalization is medically necessary and the clinically appropriate intervention at this time. We will evaluate medications and make changes as indicated with likely length of stay is 4 days. We will plan to make discharge on or the day after guardianship hearing. Coding Level of Care Code Established Pt Acute Commercial Lending Assistant for Shobha Fwd Patient Type Established History Problem Focused Exam Problem Focused Medical Decision Making Straight Forward Diagnoses Schizophrenia, chronic condition F20.9 Suicidal ideation R45.851 Disturbance of sleep G47.9 Acute psychosis F23
[2022-08-26] MEDS: cetylpyridinium Lozenge 1 EACH MUCOUS MEM (18:55)
[2022-08-26] MEDS: zolpidem 5 mg Tablet 10 MG PO (20:39)
[2022-08-26] MEDS: calcium carbonate 500 mg Chew Tablet PO (20:46)
[2022-08-27] MEDS: cetylpyridinium Lozenge 1 EACH MUCOUS MEM (04:04)
[2022-08-27] MEDS: cloZAPine 25 mg Tablet 50 MG PO (09:15)
[2022-08-27] MEDS: cloZAPine 100 mg Tablet PO ×2 (09:15→18:05)
[2022-08-27] MEDS: divalproex ER 500 mg Tablet (24H) 1500 MG PO (09:15)
[2022-08-27] MEDS: fluoxetine 20 mg Capsule PO (09:15)
[2022-08-27] MEDS: atenolol 50 mg Tablet PO (09:15)
[2022-08-27] MEDS: hyDROXYzine 25 mg Capsule 50 MG PO ×2 (09:16→18:05)
[2022-08-27] MEDS: pyridoxine 50 mg Tablet 100 MG PO ×3 (09:16→20:23)
[2022-08-27] MEDS: lisinopril 10 mg Tablet PO (09:16)
[2022-08-27] MEDS: fluticasone nasal spray 16gm Btl 1 SPRAY NASAL (09:17)
[2022-08-27 14:00] VITALS: BP 119/62; PULSE 103; RESP 18; TEMP 36.6; O2SAT 95
[2022-08-27] MEDS: nicotine 2 mg Gum BUCCAL (18:05)
--- NOTE | 2022-08-27 18:05 | P.NPUPN_ITS ---
Subjective NPU Subjective: Patient is a 66-year-old female with schizophrenia currently on Clozaril and Invega along with Depakote and Prozac. The patient was informed that she would be under the guardianship of the state after today's hearing. She had been again pleasant but somewhat isolative in her room. She had asked some details about where she was going to be going. She has been eating and engaging in some activities of daily living with some prompting. She reported adequate sleep. She denied any feelings of hopelessness and reported that her mood is okay. Mental Status Exam MSE Comments: She is a white female looking older than her stated age with hospital scrubs on with improved grooming and improved eye contact. There was evidence of diminished abnormal buccofacial movements, but otherwise no other abnormal movements. NO parkinsonian symptoms noted. Speech was slightly decreased rate with normal volume. Mood described as okay, affect remained blunted. Thought process:linear and mostly organized. ? Thought content: Patient denied any suicidal ideation or homicidal ideation. Continued evidence of paranoia noted and ideas of reference with thought broadcasting. She denied auditory or visual hallucinations. Attention and concentration was poor. Recent and remote memory appeared at baseline. She is alert and oriented x3. ? Insight and judgment are limited but improving and impulse control was limited. Vitals/I&O/Wt Last Vital Signs Temp 97.8 F 08/27/22 14:00 Pulse 103 H 08/27/22 14:00 Resp 18 08/27/22 14:00 BP 119/62 08/27/22 14:00 Pulse Ox 95 08/27/22 14:00 O2 Del Method 08/27/22 14:00 Data NPU 08/21/22 08:48 08/02/22 14:43 A&P Assessment and plan (1) Schizophrenia, chronic condition: (2) Suicidal ideation: (3) Disturbance of sleep: (4) Acute psychosis: Plan 66-year-old white female currently receiving intensive services through [facility] with continued problems with compliance of with medications admitted on a 96-hour hold with active psychotic symptoms. 1. Continue Depakote ER to 1500 mg daily. Continue ambien 10mg at night for sleep. Continue Clozaril to 150 mg in the morning and 100 mg at night, get CBC with dif again 08/28/2022. She received her first loading dose 234 mg of Invega Sustenna 08/14/2022 received second loading dose of 156 mg IM to deltoid 08/21/2022. 2. Encourage individual, group and milieu therapy 3. Continue every 15 minute checks for safety. 4. Recommend sober living treatment at the highest level of care to which the patient is willing to commit. 5.? Guardianship granted today. She has been accepted to residential care facility contingent on guardianship approval with discharge planned tommorow. Will check depakote level. 6. Continue B6 100 mg tid to target Tardive dyskinesia. . Involuntary Hold Information 96 Hour Hold: 96 Hour Involuntary Admission: Yes 96 Hour Hold Ending Date: 06/14/22 96 Hour Hold Ending Time: 15:36 Attestations NPU Medical Necessity Statement*: Inpatient hospitalization is medically necessary and the clinically appropriate intervention at this time. We will evaluate medications and make changes as indicated with likely length of stay is 1-2 days. We will plan to make discharge on or the day after guardianship hearing. Coding Level of Care Code Established Pt Acute Data Control Assistant for Shobha Fwconnor Patient Type Established History Problem Focused Exam Problem Focused Medical Decision Making Straight Forward Diagnoses Schizophrenia, chronic condition F20.9 Suicidal ideation R45.851 Disturbance of sleep G47.9 Acute psychosis F23
[2022-08-27 20:15] VITALS: RESP 18
[2022-08-27] MEDS: zolpidem 5 mg Tablet 10 MG PO (20:23)
[2022-08-28 06:00] VITALS: RESP 16
[2022-08-28] MEDS: divalproex ER 500 mg Tablet (24H) 1500 MG PO (08:47)
[2022-08-28] MEDS: cloZAPine 25 mg Tablet 50 MG PO (08:48)
[2022-08-28] MEDS: lisinopril 10 mg Tablet PO (08:48)
[2022-08-28] MEDS: fluoxetine 20 mg Capsule PO (08:48)
[2022-08-28] MEDS: cloZAPine 100 mg Tablet PO (08:48)
[2022-08-28] MEDS: pyridoxine 50 mg Tablet 100 MG PO ×2 (08:48→15:53)
[2022-08-28] MEDS: atenolol 50 mg Tablet PO (08:48)
[2022-08-28 08:57] LABS: Basophils % 0.6 %; Eosinophils # 0.1 10^3/uL (0.0-0.8); Eosinophils % 1.7 %; Hematocrit 41.9 % (37.0-47.0); Hemoglobin 13.4 g/dL (11.5-15.3); Lymphocytes # 1.9 10^3/uL (0.8-4.8); Mean Corpuscular Hemoglobin 27.3 pg (28.0-34.0); Mean Corpuscular Volume 85.5 fl (81-99); Mean Platelet Volume 10.3 fL (7.4-10.4); Monocytes # 0.7 10^3/uL (0.2-0.9); Monocytes % 10.5 %; Neutrophils # 3.46 10^3/uL (1.8-7.7); Neutrophils % 54.5 %; Nucleated Red Blood Cells % 0 %; Platelet Count 211 10^3/cmm (130-400); Red Cell Distribution Width 14.4 % (12.1-15.1); White Blood Count 6.4 10^3/uL (4.0-10.0)
[2022-08-28 09:15] LABS: Valproic Acid Level 58.2 ug/mL (50-100)
[2022-08-28 12:27] VITALS: BP 119/62; PULSE 103; RESP 16; TEMP 36.6; O2SAT 95
[2022-08-28 14:00] VITALS: BP 122/64; PULSE 113; RESP 20; TEMP 36.6; O2SAT 95
--- NOTE | 2022-08-28 15:32 | DCPLANNER ---
IMM completed on 08/28/22 @ [id number] and a copy was sent to guardian, Elaine Jeong
[2022-08-28 16:14] LABS: SARS Covid-2 Antigen Negative (Negative)
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
== END 2022-08-28 16:30 | disposition skilled nursing facility (03) | DRG 885 ==
LOC: ER 14:41 → NP 19:53
PROVIDERS: Psychiatry & Neurology Psychiatry; Admitting Provider Psychiatry & Neurology Psychiatry; Emergency Provider Emergency Medicine; PCP Family Medicine; Visit Provider Psychiatry & Neurology Psychiatry
DX: F20.9 Schizophrenia, unspecified (principal); R45.851 Suicidal ideations; Z91.128 Patient's intentional underdosing of medication regimen for other reason
CPT/HCPCS: 36415; 80053; 80164; 80178; 80306; 80307; 81003; 82248; 84443; 85025; 87426; 87635; 90471; 90686; 90732; 96372; 96376; 97150; 97165; 99285; J1200; J1630; J2060; J3486; Q0162; Q0163

== ENCOUNTER 2022-12-30 12:10 | Inpatient (IN) | payer MEDICARE, MEDICAID, SELFPAY ==
[2022-12-30] VITALS (68 sets, daily range): BP systolic 71–136; BP diastolic 45–89; PULSE 60–112; RESP 15–38; TEMP 36.9–38.2; O2SAT 80–100; BMI 35.6
--- NOTE | 2022-12-30 12:18 | W.ED.GENADLT ---
HPI - General Adult General: Chief complaint: Altered Mental Status Stated complaint: POSSIBLE SEPSIS/ LOW BP/ AMS Time Seen by Provider: 12/30/22 12:18 Source: patient Mode of arrival: ambulatory History of Present Illness: 67-year-old female brought in by EMS poorly responsive came from senior living states this began overnight and this morning. Patient will follow simple commands but is hypoxic and tachycardic. When I came in the room she satting in the low 80s she was laying on the right arm which is where the oximeter was. We repositioned her to her back and put her on the mask her sats were proved to the upper 90s she remains tachycardic and mildly hypotensive. She is not really able to tell me any specific history. Nursing reports she had a low blood pressure there as well. Onset (ago): minute(s) Relieving factors: none Exacerbating factors: none Associated symptoms: Reports confusion, dyspnea and malaise; Deny chest pain, cough, diaphoresis, decreased appetite, fevers/chills, headache(s), nausea, rash, palpitations, seizures, short of breath, syncope, vomiting or weakness Treatments prior to arrival: none Review of Systems Const: Reports: fever(s) and malaise; Denies: diaphoresis ENMT: Denies: throat pain, ear or mastoid pain, nasal discharge or nasal congestion Card: Denies: chest pain, palpitations or syncope Resp: Reports: dyspnea GI: Reports: abdominal pain; Denies: nausea or vomiting : Denies: flank pain, difficulty voiding, dysuria, urinary frequency or urinary urgency Skin/Breast: Denies: rash or pruritus Neuro: Reports: confusion; Denies: headache(s) PFSH ED PFSH: Medical History 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 Psychiatric care Schizophrenia, chronic condition Violent behavior Family History Denies family history of Colon cancer Ovarian cancer Diabetes Heart disease Hypercholesteremia Breast cancer Hypertension Uterine cancer Thyroid disease Stroke Physical Exam Const: ORIENTATION/CONSCIOUSNESS: Yes confused HENMT: COMMON NORMALS: normocephalic, atraumatic and hearing grossly normal bilaterally HEAD & SCALP: normocephalic and atraumatic Resp: EFFORT & INSPECTION: Yes tachypneic AUSCULTATION: rhonchi and wheezes Cardio: COMMON NORMALS: regular rhythm and No murmurs present (Cardio) RATE: tachycardic RHYTHM: regular rhythm GI: COMMON NORMALS: Soft to palpation and No hepatosplenomegaly present INSPECTION: Yes abdominal distension AUSCULTATION: Yes Hypoactive bowel sounds present PALPATION: Yes Soft to palpation, No Tenderness to palpation present (GI), No Guarding due to palpation present (GI) and Yes No hepatosplenomegaly present PERCUSSION: tympanic to percussion Extremity: COMMON NORMALS: normal to inspection, capillary refill normal, no clubbing, cyanosis or edema, no calf tenderness and no pedal edema Skin: COMMON NORMALS: no rashes or lesions noted GENERAL SKIN EXAM: no rashes or lesions noted Procedures Central Line Placement Right IJ: Time Out Performed: Yes Patient Placed on Monitor/Pulse Ox: Yes MD Prep: mask, gown and gloves Central Line Prep: Chlorhexidine scrub Local Anesthetic: lidocaine 1% Amount of anesthesia used (mL): 5 Ultrasound Used for Placement: Yes Post Procedure: sutured in place, good blood return, all ports aspirated, flushed, capped and sterile dressing applied Post Procedure X-Ray: tip of catheter in good position and no pneumothorax seen Patient Tolerated Procedure: well Complications: none Course Vital Signs: Vital signs: Vital Signs Temperature 100.7 F H 12/30/22 12:13 Pulse Rate 103 H 12/30/22 14:55 Respiratory Rate 38 H 12/30/22 14:55 Blood Pressure 84/56 12/30/22 14:55 Pulse Oximetry 93 12/30/22 14:55 Oxygen Delivery Al thod 12/30/22 13:04 Oxygen Flow Rate 15 12/30/22 13:04 [facility] - General Adult Medical Decision Making Patient acutely septic. Central line placed to start pressors. We are having difficulty with maintaining peripheral IVs. White count elevated she is requiring significant amount oxygen. She has a fever also white count of 11.8. CPK was 938 and delta troponin was +94. male 89-year-old male CTA chest abdomen pelvis is pending and discussed with Dr. Schultz orders written patient was also started on epinephrine drip in addition to the nor epi for pressure support this was after fluid given. Medical Records I reviewed the patient's medical records. Lab Data I reviewed the patient's lab results. 12/30/22 12:18 12/30/22 12:18 Radiology Impressions Chest X-Ray 12/30/22 12:19 IMPRESSION: 1. New right perihilar infiltrate noted. Areas of plaque atelectasis in the left base. 2. Right-sided IJ catheter extending into the right atrium. Head CT 12/30/22 12:23 IMPRESSION: No acute intracranial abnormality. Laboratory Results WBC 11.8 10^3/uL (4.0-10.0) H 12/30/22 12:18 RBC 4.41 10^6/uL (4.1-5.3) 12/30/22 12:18 Hgb 12.1 g/dL (11.5-15.3) 12/30/22 12:18 Hct 39.4 % (37.0-47.0) 12/30/22 12:18 MCV 89.3 fl (81-99) 12/30/22 12:18 MCH 27.4 pg (28.0-34.0) L 12/30/22 12:18 MCHC 30.7 g/dL (30.0-36.0) 12/30/22 12:18 RDW 15.9 % (12.1-15.1) H 12/30/22 12:18 Plt Count 141 10^3/cmm (130-400) 12/30/22 12:18 MPV 10.5 fL (7.4-10.4) H 12/30/22 12:18 Neut % (Auto) 72.7 % 12/30/22 12:18 Lymph % (Auto) 8.3 % 12/30/22 12:18 [place] % (Auto) 17.3 % 12/30/22 12:18 Eos % (Auto) 0.0 % 12/30/22 12:18 Baso % (Auto) 0.3 % 12/30/22 12:18 Neut # (Auto) 8.57 10^3/uL (1.8-7.7) H 12/30/22 12:18 Lymph # (Auto) 1.0 10^3/uL (0.8-4.8) 12/30/22 12:18 [place] # (Auto) 2.0 10^3/uL (0.2-0.9) H 12/30/22 12:18 Eos # (Auto) 0.0 10^3/uL (0.0-0.8) 12/30/22 12:18 Baso # (Auto) 0.0 10^3/uL (0.0-0.1) 12/30/22 12:18 Nucleated RBC % (auto) 0 % 12/30/22 12:18 Nucleated RBCs # 0.0 /100WBC 12/30/22 12:18 Specimen Type Arterial 12/30/22 12:18 Sample Site Radial, right 12/30/22 12:18 ABG pH 7.37 (7.35-7.45) 12/30/22 12:18 ABG pCO2 39.6 mmHg (35-45) 12/30/22 12:18 ABG pO2 86.6 mmHg (80.0-100.0) 12/30/22 12:18 ABG HCO3 22.8 mmol/L (22-26) 12/30/22 12:18 ABG O2 Saturation 97.5 12/30/22 12:18 ABG Base Excess -2.4 mmol/L (-2.0-2.0) L 12/30/22 12:18 Jerome Test Pos 12/30/22 12:18 A-a O2 Gradient 1.8 mmHg (5-10) L 12/30/22 12:18 Hematocrit 35.0 % (37-47) L 12/30/22 12:18 Hgb O2 Saturation 96.6 % (95-100) 12/30/22 12:18 Carboxyhemoglobin 1.4 %THgb (0.4-20.1) 12/30/22 12:18 Methemoglobin < 0.0 % (0.4-1.5) L 12/30/22 12:18 Total Hemoglobin 11.4 g/dL (12-16) L 12/30/22 12:18 Sodium 140.0 mmol/L (131-143) 12/30/22 12:18 Potassium 4.0 mmol/L (3.5-5.0) 12/30/22 12:18 Glucose 180.0 mg/dL (70-115) H 12/30/22 12:18 Ionized Calcium 1.1 mmol/L (1.1-1.4) 12/30/22 12:18 O2 Delivery Device Nrb 12/30/22 12:18 O2 Liters/Min 15.0 % 12/30/22 12:18 Dewatering Filtering Supervisor ID Walcii 12/30/22 12:18 Sodium 139 mmol/L (136-145) 12/30/22 12:18 Potassium 4.3 mmol/L (3.5-5.1) 12/30/22 12:18 Chloride 97 mmol/L (98-107) L 12/30/22 12:18 Carbon Dioxide 22 mmol/L (22-29) 12/30/22 12:18 Anion Gap 24.3 (5-19) H 12/30/22 12:18 BUN 29 mg/dL (8-23) H 12/30/22 12:18 Creatinine 1.5 mg/dL (0.5-0.9) H 12/30/22 12:18 GFR Calculation 34.9 mL/min (90-130) L 12/30/22 12:18 Glucose 170 mg/dL (65-115) H 12/30/22 12:18 Calculated Osmolality 298 mOsm/kg (285-295) H 12/30/22 12:18 Lactic Acid 2.9 mmol/L (0.5-2.2) H 12/30/22 13:35 Calcium 8.1 mg/dL (8.5-10.5) L 12/30/22 12:18 Magnesium 1.4 mg/dL (1.7-2.3) L 12/30/22 12:18 Total Bilirubin 0.7 mg/dL (0.15-1.2) 12/30/22 12:18 AST 57 U/L (0-32) H 12/30/22 12:18 ALT 36 U/L (0-33) H 12/30/22 12:18 Alkaline Phosphatase 79 U/L (35-105) 12/30/22 12:18 Creatine Kinase 958 U/L (26-192) H* 12/30/22 12:18 Troponin T Baseline 19 ng/L (0-10) H 12/30/22 12:18 Troponin T 120 Minute 113.2 ng/L (0-10) H 12/30/22 13:35 Delta Troponin T 94.2 ABS# (0-10) H* 12/30/22 13:35 Total Protein 5.9 g/dL (6.6-8.7) L 12/30/22 12:18 Albumin 3.8 g/dL (3.5-5.2) 12/30/22 12:18 Globulin 2.1 g/dL (1.3-4.6) 12/30/22 12:18 Lipase 11 U/L (13-60) L 12/30/22 12:18 Urine Color Dark yellow (Yellow) 12/30/22 12:48 Urine Appearance Clear (CLEAR) 12/30/22 12:48 Urine pH 5 (5-7) 12/30/22 12:48 Ur Specific [place] 1.025 (1.005-1.030) 12/30/22 12:48 Urine Protein Trace (Negative) 12/30/22 12:48 Urine Glucose (UA) Norm (Normal) 12/30/22 12:48 Urine Ketones 1+ (Negative) H 12/30/22 12:48 Urine Blood Neg (Negative) 12/30/22 12:48 Urine Nitrate Negative (Negative) 12/30/22 12:48 Urine Bilirubin 1+ (Negative) H 12/30/22 12:48 Urine Urobilinogen Norm mg/dL (Negative) 12/30/22 12:48 Ur Leukocyte Esterase Negative (Negative) 12/30/22 12:48 Urine RBC None /hpf (0-2) 12/30/22 12:48 Urine WBC 5-10 /hpf (0-5) H 12/30/22 12:48 Ur Squamous Epith Cells 5-10 /hpf (0-5) H 12/30/22 12:48 Amorphous Sediment Not Reportable 12/30/22 12:48 Urine Bacteria 1+ /hpf (NONE) H 12/30/22 12:48 Hyaline Casts 25-40 /lpf H 12/30/22 12:48 Fine Granular Casts 0-4 /lpf H 12/30/22 12:48 Urine Mucus 1+ /hpf 12/30/22 12:48 Salicylates < 0.3 mg/dL (3-10) L 12/30/22 12:18 Acetaminophen < 5.0 ug/mL (10-30) L 12/30/22 12:18 Valproic Acid 53.1 ug/mL (50-100) 12/30/22 12:18 Ethyl Alcohol < 10 mg/dL (0-10) 12/30/22 12:18 Critical Care Time Critical Care Time: Critical Care Time: Yes Total Critical Care Time: 45 Attestation: The high probability of a clinically significant, sudden or life threatening deterioration of the patient's cardiovascular respiratory system(s) required my full and direct attention, intervention and personal management. The critical care time is as shown. This time is in addition to time spent performing any reported procedures but includes the following: [x] Data and vital sign review and interpretation [x] Patient assessment, examination and intervention [x] Documentation [x] Medication orders and management Discharge Plan Discharge Patient Disposition: Admitted As Inpatient Admit Provider: Michael Fox Clinical Impression: Pneumonia, Sepsis, Rhabdomyolysis, Elevated troponin Condition: Stable Coding Level of Care Code ED Director Medical Affairs for Shobha Huynh
--- NOTE | 2022-12-30 12:19 | XR_ITS ---
WS: [id number] Exam: XR chest 1V portable [id number] Date/Time of Exam: 12/30/2022 12:21 PM Reason For Exam: dyspnea/cough Comparison 12/25/2021. Interval development of right perihilar infiltrate since the last study. Left lung remains clear. Are as of plaque atelectasis in the left lower lung zone. Normal cardiomediastinal silhouette. A right-si ded IJ central line noted ending in the right atrium. Bony structures are intact. XR/XR chest 1V portable [id number] IMPRESSION: 1. New right perihilar infiltrate noted. Areas of plaque atelectasis in the lef t base. 2. Right-sided IJ catheter extending into the right atrium.
--- NOTE | 2022-12-30 12:23 | CTR_ITS ---
PROCEDURE INFORMATION: Exam: CT Head Without Contrast Exam date and time: 12/30/2022 3:16 PM Age: 67 years old Clinical indication: Altered mental status/memory loss; Additional info: AMS TECHNIQUE: Imaging protocol: Computed tomography of the head without contrast. Radiation optimization: All CT scans at this facility use at least one of these dose optimization techniques: automated exposure control; mA and/or kV adjustment per patient size (includes targeted exams where dose is matched to clinical indication); or iterative reconstruction. REPORTING DATA: Count of CT and Cardiac NM exams in prior 12 months: This patient has received [address] and 0 known cardiac nuclear medicine studies in the 12 months prior to the current study. COMPARISON: CT head wo con* [id number] 11/12/2020 10:56 AM RADIATION DOSE METRICS: Total DLP (mGy-cm): 1212 FINDINGS: Brain: No hemorrhage. No edema. Moderate diffuse cerebral atrophy and mild sequela of chronic small vessel ischemic disease. No mass effect. Cerebral ventricles: No ventriculomegaly. Paranasal sinuses: Fluid levels noted in the maxillary sinuses. The rest of the paranasal sinuses are well pneumatized. Mastoid air cells: Visualized mastoid air cells are well aerated. Bones/joints: Unremarkable. No acute fracture. Soft tissues: Unremarkable. CT/CT head wo con* [id number] IMPRESSION: No acute intracranial abnormality.
[2022-12-30 12:29] LABS: ABG PCO2 39.6 mmHg (35-45); ABG PH Result 7.37 (7.35-7.45); Alveolar-Arterial Oxygen Gradi 1.8 mmHg (5-10); Base Excess ABG -2.4 mmol/L (-2.0-2.0); Blood Gas Allen Test Pos; Blood Gas Operator Identificat WALCII; Blood Gas Sample Site Radial, right; Blood Gas Sample Type Arterial; Carboxyhemoglobin 1.4 %THgb (0.4-20.1); HCO3 ABG 22.8 mmol/L (22-26); HGB O2 Sat 96.6 % (95-100); Ionized Calcium Level - ABG 1.1 mmol/L (1.1-1.4); Methemoglobin < 0.0 % (0.4-1.5); Oxygen Device NRB; Oxygen Saturation ABG 97.5; PO2 ABG 86.6 mmHg (80.0-100.0); Total Hemoglobin 11.4 g/dL (12-16)
[2022-12-30 12:47] LABS: Basophils % 0.3 %; Hematocrit 39.4 % (37.0-47.0); Hemoglobin 12.1 g/dL (11.5-15.3); Lymphocytes % 8.3 %; Mean Corpuscular HGB Conc 30.7 g/dL (30.0-36.0); Mean Corpuscular Hemoglobin 27.4 pg (28.0-34.0); Mean Corpuscular Volume 89.3 fl (81-99); Mean Platelet Volume 10.5 fL (7.4-10.4); Monocytes % 17.3 %; Neutrophils # 8.57 10^3/uL (1.8-7.7); Neutrophils % 72.7 %; Nucleated Red Blood Cells % 0 %; Platelet Count 141 10^3/cmm (130-400); Red Blood Count 4.41 10^6/uL (4.1-5.3); Red Cell Distribution Width 15.9 % (12.1-15.1); White Blood Count 11.8 10^3/uL (4.0-10.0)
[2022-12-30] MEDS: sodium chloride 0.9% 1,000 ML 999 ML IV (12:57)
[2022-12-30] MEDS: ondansetron 2 mg/ML SDV 2 mL 4 MG IVP (12:57)
[2022-12-30 13:10] LABS: Alanine Aminotransferase 36 U/L (0-33); Albumin Level 3.8 g/dL (3.5-5.2); Alkaline Phosphatase 79 U/L (35-105); Anion Gap 24.3 (5-19); Aspartate Amino Transferase 57 U/L (0-32); Blood Urea Nitrogen 29 mg/dL (8-23); Calcium 8.1 mg/dL (8.5-10.5); Carbon Dioxide 22 mmol/L (22-29); Chloride 97 mmol/L (98-107); Globulin 2.1 g/dL (1.3-4.6); Glomerular Filtration Rate 34.9 mL/min (90-130); Glucose 170 mg/dL (65-115); Lipase 11 U/L (13-60); Magnesium 1.4 mg/dL (1.7-2.3); Osmolality Calculated 298 mOsm/kg (285-295); Potassium 4.3 mmol/L (3.5-5.1); Sodium 139 mmol/L (136-145); Total Bilirubin 0.7 mg/dL (0.15-1.2); Total Protein 5.9 g/dL (6.6-8.7)
[2022-12-30 13:11] LABS: Troponin(5th) Baseline 19 ng/L (0-10)
[2022-12-30 13:15] LABS: Creatine Phosphokinase 958 U/L (26-192)
--- NOTE | 2022-12-30 13:41 | CTR_ITS ---
PROCEDURE INFORMATION: Exam: CTA Chest With Contrast Exam date and time: 12/30/2022 3:19 PM Age: 67 years old Clinical indication: Abdominal tenderness; Shortness of breath; Additional info: Sepsis TECHNIQUE: Imaging protocol: Computed tomographic angiography of the chest with contrast. 3D rendering (Not supervised by radiologist): MIP and/or 3D reconstructed images were created by the technologist. Radiation optimization: All CT scans at this facility use at least one of these dose optimization techniques: automated exposure control; mA and/or kV adjustment per patient size (includes targeted exams where dose is matched to clinical indication); or iterative reconstruction. Contrast material: OMNI 350; Contrast volume: 100 ml; Contrast route: INTRAVENOUS (IV); REPORTING DATA: Count of CT and Cardiac NM exams in prior 12 months: This patient has received [address] and 0 known cardiac nuclear medicine studies in the 12 months prior to the current study. COMPARISON: CR XR chest 1V portable [id number] 12/30/2022 1:40 PM RADIATION DOSE METRICS: Total DLP (mGy-cm): 1560.18 FINDINGS: Pulmonary arteries: No evidence of pulmonary artery emboli. Aorta: No evidence of thoracic aortic aneurysm. Lungs: There is extensive focal consolidation of the superior segment of the right lower lobe. There are small areas of consolidation in the upper lobes bilaterally. The trachea and proximal bronchi are very small in caliber. No focal obstructive lesion. Pleural spaces: Unremarkable. No pneumothorax. No pleural effusion. Heart: Unremarkable. No cardiomegaly. No pericardial effusion. Lymph nodes: There are small nonspecific mediastinal lymph nodes. No grossly enlarged lymph nodes. Bones/joints: Unremarkable. No acute fracture. Soft tissues: Unremarkable. PROCEDURE INFORMATION: Exam: CT Abdomen And Pelvis With Contrast Exam date and time: 12/30/2022 3:19 PM Age: 67 years old Clinical indication: Abdominal tenderness; Shortness of breath; Additional info: Sepsis TECHNIQUE: Imaging protocol: Computed tomography of the abdomen and pelvis with contrast. Radiation optimization: All CT scans at this facility use at least one of these dose optimization techniques: automated exposure control; mA and/or kV adjustment per patient size (includes targeted exams where dose is matched to clinical indication); or iterative reconstruction. Contrast material: OMNI 350; Contrast volume: 100 ml; Contrast route: INTRAVENOUS (IV); REPORTING DATA: Count of CT and Cardiac NM exams in prior 12 months: This patient has received [address] and 0 known cardiac nuclear medicine studies in the 12 months prior to the current study. COMPARISON: CR XR chest 1V portable [id number] 12/30/2022 1:40 PM RADIATION DOSE METRICS: Total DLP (mGy-cm): 1560.18 FINDINGS: Liver: There is diffuse hepatic steatosis. No focal hepatic lesion. Gallbladder and bile ducts: The gallbladder is normal.No calcified calculi. Normal bile ducts. Pancreas: The pancreas is normal. Spleen: The spleen is normal. Adrenal glands: The adrenals are normal. Kidneys and ureters: The kidneys are normal.No hydronephrosis. Stomach and bowel: Unremarkable. No obstruction. No mucosal thickening. Appendix: The appendix is well visualized and is normal. Intraperitoneal space: There is no free fluid or fluid collection. There is no free air. Vasculature: There is calcified aortic plaque. No aneurysm. Lymph nodes: Unremarkable. No enlarged lymph nodes. Urinary bladder: There is a [place] catheter in the bladder which is decompressed. No abnormality. Reproductive: Unremarkable as visualized. Bones/joints: Unremarkable. No acute fracture. Soft tissues: Unremarkable. CT/CT angio chest w abd pel w con IMPRESSION: 1. Extensive consolidation of the superior segment of the right lower lobe consistent with pneumonia. Smaller areas of pneumonia in the upper lobes bilaterally. 2. The diameter of the trachea and proximal bronchi is very small, this is evidence of tracheomalacia. It is usually transient due to some degree of expiration. There are multiple possible etiologies, most often COPD. IMPRESSION: No acute findings
[2022-12-30 13:43] LABS: Glucose Urine UA Norm (Normal); Protein Urine Trace (Negative); Specific Gravity, Urine 1.025 (1.005-1.030); Urine Appearance Clear (CLEAR); Urine Color Dark Yellow (Yellow); pH Urine 5 (5-7)
[2022-12-30 13:44] LABS: Add Urine Microscopic? YES; Bacteria Urine 1+ /hpf; Bilirubin Urine 1+ (Negative); Blood Urine Neg (Negative); Ketones Urine 1+ (Negative); Leukocyte Esterase Urine Negative (Negative); Mucus Urine 1+ /hpf; Nitrate Urine Negative (Negative); Urobilinogen Urine Norm (Negative)
[2022-12-30 13:45] LABS: Add Urine Culture? No; Fine Granular Casts Urine 0-4 /lpf; Hyaline Casts Urine 25-40 /lpf
[2022-12-30 14:13] LABS: Lactic Sepsis W/Reflex 2.9 mmol/L (0.5-2.2); Troponin 5 2HR 113.2 ng/L (0-10); Troponin 5 2HR Delta 94.2 ABS# (0-10)
--- NOTE | 2022-12-30 14:20 | ECG_ITS ---
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 Measurements Intervals [place] Rate: 104 P: 64 PA: 180 QRS: 86 QRSD: 101 T: 88 QT: 319 QTc: 420 Interpretive Statements SINUS TACHYCARDIA NONSPECIFIC T-WAVE ABNORMALITY Compared to ECG 12/25/2021 13:07:54 Sinus rhythm no longer present Possible ischemia no longer present T-wave abnormality still present Electronically Signed On 12-30-2022 19:30:08 CDT by Sascha Vaughan M.D. [id number]
--- NOTE | 2022-12-30 14:27 | ECG_ITS ---
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 Measurements Intervals [place] Rate: 103 P: 61 VT: 184 QRS: 85 QRSD: 102 T: 88 QT: 322 QTc: 423 Interpretive Statements SINUS TACHYCARDIA NONSPECIFIC T-WAVE ABNORMALITY ABNORMAL RHYTHM ECG Compared to ECG 12/30/2022 14:12:00 No significant changes Electronically Signed On 12-30-2022 19:29:01 CDT by Sascha Vaughan M.D. [id number]
[2022-12-30] MEDS: piperacillin-tazobactam 3.375 GM in sodium chloride 0.9% (plus) 50 ML IV ×2 (14:28→20:24)
[2022-12-30] MEDS: enoxaparin 100 mg/mL Syringe SUBCUT (14:28)
--- NOTE | 2022-12-30 14:49 | PC.NURSE ---
Report jeniffer Rosales in ICU
[2022-12-30 14:53] LABS: Acetaminophen < 5.0 ug/mL (10-30); Alcohol Level < 10 mg/dL (0-10); Salicylate < 0.3 mg/dL (3-10)
[2022-12-30] MEDS: vancomycin 1,000 MG in sodium chloride 0.9% 250 ML 250 MG IV (15:05)
[2022-12-30] MEDS: iohexol 350 mg/mL 500 mL Btl (per mL) IV (15:23)
[2022-12-30 15:29] LABS: Reflex Lactate Order REFLEX LACTIC ORDERD
[2022-12-30 15:31] LABS: Valproic Acid Level 53.1 ug/mL (50-100)
--- NOTE | 2022-12-30 15:35 | PC.NURSE ---
Pt arrives to ICU from Ed. Non-breather at 15lpm, o2 sats 90%. Coarse wheezy breath sounds noted. Pt able to follow commands. Sclera edema noted. Central line: Levophed infusing at 18 mcg/min.. Vancomycin started. B
--- NOTE | 2022-12-30 15:40 | P.HP_ITS ---
Providers/Chief Complaint Admitting Physician: Michael Fox MD Primary Care Provider: Harman Salgado MD Chief Complaint: POSSIBLE SEPSIS/ LOW BP/ AMS History of Present Illness Erica Buckner is a 67 year old female with history of schizophrenia, her last visit was at [facility] from assisted for management of low blood pressure and altered mental status. Patient was diagnosed with septic shock right IJ was placed in the ER she was given septic bolus vancomycin and Zosyn cultures were taken, her O2 sats were in 80s, she was put on 15 L nonrebreather mask, she has been put on Levophed as well. Patient is not a good historian.Chest x-ray shows right-sided infiltrate, CTA chest abdomen pelvis is pending. Patient is not able to provide any history, requested another ABG which showed worsening of hypercapnia, requested RT to put her on BiPAP, most of the information has been taken from the collaterals, according to the [place] [facility] documentation she is full code she was incontinent and last well-known time was last night this morning she was hypoxic, altered and incontinent Septic criteria met with low blood pressure high lactic acid fever leukocytosis Review of Systems General: Reports: ROS unobtainable due to mental status Medications/Allergies Home Medications Medication Instructions Recorded Confirmed Last Taken Type atenolol 50 mg tablet 50 mg PO DAILY 30 days #30 tabs 08/27/22 12/30/22 12/30/22 Rx fluoxetine 20 mg capsule 20 mg PO DAILY 30 days #30 caps 08/27/22 12/30/22 Unknown Rx lisinopril 10 mg tablet 10 mg PO DAILY 30 days #30 tabs 08/27/22 12/30/22 Unknown Rx DM-GG/juway-YM-hhcvjmutaqet 10-200 1 ea PO Q6H PRN Cough 12/30/22 12/30/22 Unknown History mg(dy)/2-15-500mg(nt)tablet,capsule (Coricidin HBP Day-Night) acetaminophen 325 mg tablet 650 mg PO Q6H PRN Pain 12/30/22 12/30/22 Unknown History albuterol sulfate 90 mcg/actuation 2 puff inhalation Q6H PRN 12/30/22 12/30/22 Unknown History aerosol inhaler Shortness Of Breath Or Wheezing aluminum-mag hydroxide-simethicone 10 ml PO Q6H PRN Cough 12/30/22 12/30/22 Unknown History 200 mg-200 mg-20 mg/5 mL oral susp (Ciara-Lanta) clozapine 100 mg tablet 100 mg PO DAILY 12/30/22 12/30/22 Unknown History clozapine 50 mg tablet 50 mg PO DAILY 12/30/22 12/30/22 Unknown History divalproex 500 mg tablet,delayed 1,000 mg PO BEDTIME 12/30/22 12/30/22 12/29/22 History release (Depakote) divalproex 500 mg tablet,extended 500 mg PO QAM 12/30/22 12/30/22 12/30/22 History release 24 hr fluticasone propionate 50 1 spray intranasal QPM 12/30/22 12/30/22 Unknown History mcg/actuation nasal spray,suspension naloxone 2 mg/2 mL syringe kit 2 mg IM Q3M PRN Opioid Overdose 12/30/22 12/30/22 Unknown History paliperidone palmitate 234 mg/1.5 234 mg IM Q180D 12/30/22 12/30/22 Unknown History mL intramuscular syringe (Invega Sustenna) Allergies Allergy/AdvReac Type Severity Reaction Status Date / Time No Known Allergies Allergy Verified 12/30/22 13:16 PFSH Acute PFSH: Medical History 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 Psychiatric care Schizophrenia, chronic condition Violent behavior Family History Denies family history of Colon cancer Ovarian cancer Diabetes Heart disease Hypercholesteremia Breast cancer Hypertension Uterine cancer Thyroid disease Stroke Vitals/I&O/Wt Last Vital Signs Temp 100.7 F H 12/30/22 12:13 Pulse 103 H 12/30/22 14:55 Resp 38 H 12/30/22 14:55 BP 84/56 12/30/22 14:55 Pulse Ox 93 12/30/22 14:55 O2 Del Method 12/30/22 13:04 O2 Flow Rate 15 12/30/22 13:04 12/30/22 12/30/22 12/30/22 06:59 14:59 22:59 Intake Total 1085.814 / 1085.814 Balance 1085.814 / 1085.814 Weight last 48 hrs Weight 97.069 kg Physical Exam 2 Narrative: Patient is very fatigued and lethargic Open eyes to painful stimuli Currently on 15 L nonrebreather mask Will be transition to BiPAP soon Currently on Levophed at 20 mics Febrile No signs of meningitis Clinically patient looks slightly fluid overloaded Crackles positive Coarse rhonchi present Audible crackles Abdomen distended but soft Lower extremity trace edema Urinary Catheter Management: Matute: Cath Placed During This Visit: yes Urinary Catheter Date of Insertion: 12/30/22 Urinary Catheter Time of Insertion: 12:57 Data 12/30/22 12:18 12/30/22 12:18 Micro: Microbiology 12/30/22 13:35 Blood Culture - Preliminary Blood SPECIMEN COLLECTED 12/30/22 12:50 Blood Culture - Preliminary Blood SPECIMEN COLLECTED A&P Assessment and plan (1) Schizophrenia: (2) Other long-term (current) drug therapy: (3) Neurocognitive deficits: (4) Depressive disorder: (5) Septic shock: (6) CHELITA (acute kidney injury): (7) NSTEMI (non-ST elevated myocardial infarction): Plan Sepsis shock related to pneumonia Start broad-spectrum antibiotics MRSA PCR Bacterial and Legionella antigen Admit to ICU Start BiPAP for hypercapnia Patient is full code She has been given septic bolus lactic acid is high Repeat lactic acid within 6 hours Repeat ABG within an hour Blood culture, sputum culture requested Patient might need a Matute catheter because of her mental condition Patient clinically looks fluid overloaded Positive crackles, I would keep her on gentle fluid hydration watch for any signs of fluid overload worsening, she is fluid responsive, Continue IV steroids and DuoNeb Metabolic encephalopathy related to sepsis Patient will require ICU management patient is full code, low threshold for intubation if she gets worse History of schizophrenia No acute exacerbation currently patient is encephalopathic, I will continue Depakote once she is able to swallow NSTEMI Delta troponin significant, she has been given therapeutic Lovenox I will keep her on once daily regimen CHELITA related to sepsis and hypotension Renally dose antibiotics Monitor urine output Repeat labs in the morning Avoid nephrotoxic agents Avoid lisinopril Full code Clear liquid diet until she is more awake and alert High risk for intubation Admit to ICU Most of the information has been taken from the collaterals Patient not able to provide history interpretation of data: Chest x-ray showing pneumonia, EKG showing T wave inversion, previous EKGs are showing T wave inversion lead the changes are not new requested echo Attestations Medical Necessity Statement*: More than 2 midnights anticipated Diagnoses Schizophrenia F20.9 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
--- NOTE | 2022-12-30 16:02 | USCV_ITS ---
Erica Buckner Age: 67 Gender: F : 1955 Exam Date: 12/30/2022 18:27 Ordering Phys: Michael Fox MD Technologist: ABDIAS Exam Location: [facility] Indication: NSTEI, hypoxia. Patient on BIPAP in ICU-2, confused, cannot cooperate. BP: 112 / 68 HR: 64 Rhythm: Sinus Technical Quality: Adequate MEASUREMENTS (Male / Female) Normal Values 2D ECHO LV Diastolic Diameter PLAX 4.4 cm 4.2 - 5.9 / 3.9 - 5.3 cm LV Systolic Diameter PLAX 2.6 cm IVS Diastolic Thickness 1.0 cm 0.6 - 1.0 / 0.6 - 0.9 cm IVS Systolic Thickness 1.5 cm LVPW Diastolic Thickness 0.9 cm 0.6 - 1.0 / 0.6 - 0.9 cm LVPW Systolic Thickness 1.5 cm LVOT Diameter 2.1 cm LV Ejection Fraction 2D Teich 72.6 % LV Ejection Fraction MOD 2C 51.0 % LV Ejection Fraction 2C AL 53.6 % LA Diameter 3.2 cm LA Width 3.6 cm LA Height 4.0 cm RA Width 3.4 cm RA Height 4.0 cm Aorta at Sinotubular Diameter 3.4 cm IVC Diameter 1.8 cm M-MODE Aortic Annulus Diameter 3.5 cm LA Ao Ratio MM 1.0 MV E Point Septal Separation 0.5 cm DOPPLER AV Peak Velocity 85.0 cm/s LVOT Peak Velocity 53.0 cm/s AV Area Cont Eq vti 2.1 cm squared AV Area Cont Eq pk 2.2 cm squared MV Area PHT 4.5 cm squared Mitral E to A Ratio 1.1 MV E' Velocity 41.0 cm/s Mitral E to MV E' Ratio 9.5 Mitral E to LV E' Lateral Ratio 10.3 Mitral E to LV E' Septal Ratio 8.8 TV Peak E Velocity 42.0 cm/s PV Peak Velocity 66.0 cm/s RV Acceleration Time 0.1 s RV Ejection Time 0.4 s RV AcT/ET 0.2 FINDINGS Left Ventricle Normal left ventricular size wi an EF 54%. Relative hypokinesia of the apical lateral wall segment Right Ventricle The right ventricle is normal in size and function. Right Atrium The right atrium is normal in size. Left Atrium The left atrium is normal in size. Mitral Valve Trace mitral valve regurgitation. Aortic Valve No gross abnormalities noted Tricuspid Valve No gross abnormalities noted Pulmonic Valve No gross abnormalities noted Pericardium No pericardial effusion. Aorta Normal aortic annulus size. IVC Inferior vena cava not visualized. CONCLUSIONS Normal left ventricular size wi an EF 54%. Relative hypokinesia of the apical lateral wall segment. Trace mitral valve regurgitation. There is no pericardial effusion. There are no intracardiac masses. Technically somewhat limited study because the patient is inability to cooperate Dr Emeterio Rich MD FACC (Electronically Signed) Final Date: 01 January 2023 09:14 S
[2022-12-30 16:06] LABS: D Dimer 1.15 ug/mIFEU (0-0.59)
[2022-12-30 16:15] LABS: Lactic Acid level (Lactate) 3.1 mmol/L (0.5-2.2)
[2022-12-30 16:17] LABS: Procalcitonin 26.22 ng/mL (0-0.5)
[2022-12-30 16:54] LABS: Thyroid Stimulating Hormone 0.82 uIU/mL (0.27-4.20); Vitamin B12 453 pg/mL (232-1245)
[2022-12-30 16:55] LABS: ABG PCO2 48.3 mmHg (35-45); ABG PH Result 7.28 (7.35-7.45); Arterial Blood Gas Hematocrit 35.4 % (37-47); Base Excess ABG -4.3 mmol/L (-2.0-2.0); Blood Gas Allen Test Pos; Blood Gas Sample Type Arterial; HCO3 ABG 22.6 mmol/L (22-26); PO2 ABG 91.9 mmHg (80.0-100.0)
[2022-12-30 16:56] LABS: Blood Gas Operator Identificat MONRO; Blood Gas Sample Site Radial, left; Oxygen Device NRB
[2022-12-30] MEDS: pantoprazole 40 mg SDV IVP (17:05)
[2022-12-30] MEDS: levofloxacin-dextrose 5 % 750 MG/150 ML PREMIX 100 MG IV (17:05)
--- NOTE | 2022-12-30 17:30 | PC.NURSE ---
[facility] dynamic assessment for fluid responsiveness completed. HR 95, SVI 34 CI 3.2. With only 2.5 min of assessment time completed fluid responsiveness of 19.[address] Fox notified via telephone.
[2022-12-30] MEDS: scopolamine 1.5 Patch 1 PATCH TRANSDERMA (17:54)
[2022-12-30 17:57] LABS: Amphetamines Screen Urine Negative (Negative); Barbiturates Screen Urine Negative (Negative); Benzodiazepines Screen Urine Negative (Negative); Cocaine Screen Urine Negative (Negative); Opiate Screen Urine Negative (Negative); PCP Screen Urine Negative (Negative); THC Screen Urine Negative (Negative)
[2022-12-30] MEDS: sodium chloride 0.9% 1,000 ML 75 ML IV (17:58)
[2022-12-30] MEDS: sodium bicarbonate 8.4% 1 mEq/mL 50mL Syr 50 MEQ IVP (18:00)
[2022-12-30] MEDS: FUROsemide 10 mg/mL SDV 2mL 20 MG IVP (18:05)
--- NOTE | 2022-12-30 18:22 | ECG_ITS ---
[facility] Test Date: 2022-12-30 Pat Name: Erica Buckner Department: Room: [facility] Gender: Female Hot Man: : 1955 Requested By: Ernesto Owens Order Number: [id number] Reading MD: Sascha Vaughan M.D. Measurements Intervals [place] Rate: 90 P: 62 MD: 192 QRS: 79 QRSD: 102 T: 91 QT: 368 QTc: 451 Interpretive Statements SINUS RHYTHM NONSPECIFIC T-WAVE ABNORMALITY Compared to ECG 12/30/2022 14:27:06 Sinus tachycardia no longer present T-wave abnormality still present Electronically Signed On 12-30-2022 19:29:40 CDT by Sascha Vaughan M.D. [id number]
[2022-12-30 18:24] LABS: ABG PCO2 45.9 mmHg (35-45); ABG PH Result 7.33 (7.35-7.45); Base Excess ABG -2.3 mmol/L (-2.0-2.0); Blood Gas Allen Test Pos; Blood Gas Operator Identificat MONRO; Blood Gas Sample Site Radial, left; Blood Gas Sample Type Arterial; HCO3 ABG 23.9 mmol/L (22-26); Oxygen Device BIPAP
--- NOTE | 2022-12-30 19:09 | PC.PHAR ---
Pharmacy to dose consult - Patient has a current CrCl >20 so the extended infusion time of 3.375gm every 8 hours was scheduled for 1929. Will continue to monitor the patient' kidney function and adjust doses as required. Thanks, Donnie Pino, Pharm.D
--- NOTE | 2022-12-30 19:10 | PC.NURSE ---
Dejon, pt's significant other per himself and Munden here at bedside. No items brought in by him. Brief update provided. He wanted to know if she would be able to make a court appointment on . Explained that was something nurse could not predict but staff was doing everything they could to help her heal.
[2022-12-30 19:32] LABS: Troponin 5 6HR 27.82 ng/L (0-10)
[2022-12-30 19:36] LABS: Troponin 5 6HR Delta 8.82 ng/L (0-12)
[2022-12-30 19:37] LABS: Lactic Sepsis W/Reflex 4.2 mmol/L (0.5-2.2)
--- NOTE | 2022-12-30 20:50 | PC.NURSE ---
Around 2049, Dr. Rodriguez called after reviewing patient chart. Order to start vasopressin and attempt to wean down levophed. Discontinue Epi order. Order obtained for VBG and CMP to be collected NOW. Repeat lactic acid with AM labs. While talking to Dr. Rodriguez, informed that patient has Depakote tablets in to take, but patient not able to swallow tablets. Order to change PO route to IV route if available.
[2022-12-30 20:55] LABS: Reflex Lactate Order REFLEX LACTIC ORDERD
[2022-12-30 21:16] LABS: Base Excess VBG -2.9 mmol/L (-3.0-3.0); Blood Gas Sample Site Not specified; Blood Gas Sample Type Venous; HCO3 VBG 21.9 mmol/L (24-28); Oxygen Device BIPAP; PCO2 VBG 37.2 mmHg (41-51); PO2 VBG 59.4 mmHg (25-40); Venous Blood Gas Hematocrit 35.3 % (37-47); pH VBG 7.38 (7.32-7.42)
[2022-12-30] MEDS: valproic acid 250 mg/5 mL UDC 1000 MG PO (21:47)
[2022-12-30 22:00] LABS: Alanine Aminotransferase 34 U/L (0-33); Albumin Level 3.1 g/dL (3.5-5.2); Alkaline Phosphatase 57 U/L (35-105); Anion Gap 19.3 (5-19); Aspartate Amino Transferase 47 U/L (0-32); Blood Urea Nitrogen 30 mg/dL (8-23); Calcium 7.5 mg/dL (8.5-10.5); Carbon Dioxide 22 mmol/L (22-29); Chloride 100 mmol/L (98-107); Globulin 2.7 g/dL (1.3-4.6); Glomerular Filtration Rate 55.6 mL/min (90-130); Glucose 300 mg/dL (65-115); Osmolality Calculated 301 mOsm/kg (285-295); Potassium 4.3 mmol/L (3.5-5.1); Sodium 137 mmol/L (136-145); Total Bilirubin 0.6 mg/dL (0.15-1.2); Total Protein 5.8 g/dL (6.6-8.7)
[2022-12-30 22:06] LABS: Lactic Acid level (Lactate) 4.3 mmol/L (0.5-2.2)
[2022-12-31] VITALS (79 sets, daily range): BP systolic 86–148; BP diastolic 49–93; PULSE 0–120; RESP 6–30; TEMP 35.8–36.9; O2SAT 80–100; BMI 34.7
[2022-12-31] MEDS: hydrocortisone 100 mg/2 mL SDV IVP ×2 (01:51→09:19)
[2022-12-31 02:50] LABS: ABG PCO2 44.4 mmHg (35-45); ABG PH Result 7.35 (7.35-7.45); Base Excess ABG -1.6 mmol/L (-2.0-2.0); Blood Gas Allen Test Pos; Blood Gas Sample Site Radial, right; Blood Gas Sample Type Arterial; HCO3 ABG 24.2 mmol/L (22-26); Oxygen Device BIPAP
[2022-12-31] MEDS: piperacillin-tazobactam 3.375 GM in sodium chloride 0.9% (plus) 50 ML IV ×3 (03:12→20:30)
[2022-12-31 03:54] LABS: Hematocrit 34.3 % (37.0-47.0); Hemoglobin 10.7 g/dL (11.5-15.3); Mean Corpuscular HGB Conc 31.2 g/dL (30.0-36.0); Mean Corpuscular Hemoglobin 28.5 pg (28.0-34.0); Mean Corpuscular Volume 91.5 fl (81-99); Mean Platelet Volume 10.9 fL (7.4-10.4); Platelet Count 115 10^3/cmm (130-400); Red Blood Count 3.75 10^6/uL (4.1-5.3); Red Cell Distribution Width 15.7 % (12.1-15.1); White Blood Count 13.4 10^3/uL (4.0-10.0)
[2022-12-31 04:12] LABS: Anion Gap 16.2 (5-19); Blood Urea Nitrogen 32 mg/dL (8-23); C Reactive Protein 304.5 mg/L (0.0-4.9); Calcium 7.3 mg/dL (8.5-10.5); Carbon Dioxide 24 mmol/L (22-29); Chloride 102 mmol/L (98-107); Glomerular Filtration Rate 62.8 mL/min (90-130); Glucose 326 mg/dL (65-115); Magnesium 1.7 mg/dL (1.7-2.3); Osmolality Calculated 306 mOsm/kg (285-295); Potassium 4.2 mmol/L (3.5-5.1); Sodium 138 mmol/L (136-145)
[2022-12-31 04:36] LABS: Lactate (Lactic Acid level) 4.5 mmol/L (0.5-2.2)
[2022-12-31 04:44] LABS: Slide Review Slide Review Perform
[2022-12-31 04:45] LABS: Absolute Neutrophil 10.3 10^3/cmm (1.4-6.5); Absolute Segmented Neutrophil 6.4 10/cmm (1.6-7.1); Band Neutrophils Absolute 3.9 10^3/cmm (0.0-1.2); Eosinophils 0 %; Lymphocytes 7 %; Lymphocytes Absolute 1.1 10^3/cmm (1.2-3.4); Monocytes Absolute 0.4 10^3/cmm (0.1-0.6); Platelet Estimate Decreased (Normal); Segmented Neutrophils 48 %; Total Cells Counted 100 (0-100)
[2022-12-31] MEDS: valproic acid 250 mg/5 mL UDC 500 MG PO (06:03)
[2022-12-31] MEDS: fluoxetine 20 mg Capsule PO (09:10)
[2022-12-31] MEDS: sennosides-docusate Tablet 1 TAB PO (09:10)
[2022-12-31] MEDS: pantoprazole 40 mg SDV IVP ×2 (09:19→18:31)
[2022-12-31] MEDS: cefepime 2,000 MG in sodium chloride 0.9% (plus) 50 ML 100 MG IV ×2 (09:21→20:30)
--- NOTE | 2022-12-31 10:56 | P.PN_ITS ---
Subjective Subjective: No signs of PE Patient is awake and alert Coughing a lot Leukocytosis most likely due to use of steroids Lactic acid persistently high MAP 70 last ICU nurse to wean her off vasopressin and keep her on Levophed and titrate off gradually currently on Levophed 4 Adequate urine output Repeat lactic acid today Continue normal saline at 75 mill per hour Creatinine improved Vitals/I&O/Wt Last Vital Signs Temp 96.4 F L 12/31/22 04:00 Pulse 80 12/31/22 08:42 Resp 20 H 12/31/22 08:42 BP 118/88 12/31/22 06:15 Pulse Ox 96 12/31/22 08:42 O2 Del Method 12/31/22 04:00 O2 Flow Rate 40 12/31/22 08:42 FiO2 60 12/31/22 08:42 12/30/22 12/31/22 12/31/22 22:59 06:59 14:59 Intake Total 1010.413 / 2096.227 987.367 / 3083.594 532.71 / 532.71 Output Total 1450 / 1450 Balance 1010.413 / 2096.227 -462.633 / 1633.594 532.71 / 532.71 Weight last 48 hrs Weight 94.5 kg Weight 97.069 kg Physical Exam Narrative: Awake and alert GCS 15 Bilateral basilar crackles and rhonchi Currently on heated high flow On 2 pressors Abdomen soft Matute catheter draining dilute colored urine No signs of fluid overload Able to answer my questions appropriately , PERRLA Nonfocal neuro exam Urinary Catheter Management: Matute: Cath Placed During This Visit: yes Reason for Continuing Indwelling Catheter: Accurate Measurement of Urinary Output in Critically Ill Patients Urinary Catheter Date of Insertion: 12/30/22 Urinary Catheter Time of Insertion: 12:57 Data 12/31/22 02:58 12/31/22 02:58 Micro: Microbiology 12/30/22 17:10 Bacterial Antigens - Final Urine,Clean Catch 12/30/22 17:10 Legionella Urinary Antigen - Final Urine Catheterized 12/30/22 13:35 Blood Culture - Preliminary Blood SPECIMEN COLLECTED 12/30/22 12:50 Blood Culture - Preliminary Blood SPECIMEN COLLECTED A&P Assessment and plan (1) Pneumonia: (2) Sepsis: (3) Rhabdomyolysis: (4) NSTEMI (non-ST elevated myocardial infarction): (5) CHELITA (acute kidney injury): (6) Septic shock: (7) Schizophrenia: (8) Depressive disorder: (9) Neurocognitive deficits: Plan Septic shock: Lactic acid is still high I will repeat lactic acid today Blood pressure is stable On 2 vasopressors, discontinue vasopressin titrated off Levophed No skin mottling Good capillary refill Adequate urine output Community-acquired pneumonia No signs of PE Continue normal saline at 75 mill per hour Continue IV antibiotic Added Mucomyst with DuoNeb scheduled CHELITA related to sepsis, dehydration: Improved creatinine is normal NSTEMI: Follow-up with echo, continue Lovenox we will switch to every 12 hours creatinine has improved significantly Upper airway secretions: Remove scopolamine patch Stress dose steroids: Given, de-escalate by tomorrow Leukocytosis likely related to steroids patient has been afebrile Hypoxic hypercapnic respiratory failure: Resolved currently patient is on heated high flow Metabolic encephalopathy related to sepsis: Improving Hypomagnesemia: Replenish magnesium with p.o. regimen Full code We will give her a break from BiPAP later have heated high flow she can have GI soft diet history of schizophrenia no acute exacerbation Attestations Medical Necessity Statement*: Continue ICU management Diagnoses Pneumonia J18.9 Sepsis A41.9 Rhabdomyolysis M62.82 NSTEMI (non-ST elevated myocardial infarction) I21.4 CHELITA (acute kidney injury) N17.9 Septic shock A41.9; R65.21 Schizophrenia F20.9 Depressive disorder F32.9 Neurocognitive deficits R29.818; R41.89
[2022-12-31] MEDS: sodium chloride 0.9% 1,000 ML 75 ML IV (11:56)
[2022-12-31 12:03] LABS: Lactic Sepsis W/Reflex 5.4 mmol/L (0.5-2.2)
[2022-12-31] MEDS: acetylcysteine 200 mg/mL MDV 10 mL 100 MG INHALATION (12:05)
[2022-12-31] MEDS: ipratropium-albuterol 3 mL Neb INHALATION (12:05)
[2022-12-31] MEDS: enoxaparin 100 mg/mL Syringe SUBCUT ×2 (12:50→22:34)
[2022-12-31 13:09] LABS: Reflex Lactate Order REFLEX LACTIC ORDERD
[2022-12-31 17:38] LABS: Valproic Acid Level 40.5 ug/mL (50-100)
--- NOTE | 2022-12-31 18:04 | PC.NURSE ---
Pt has been restless today , flopping around in her bed. So much so, it has been difficult to keeping monitoring wires on. She finished the shift on High flow nasal cannula at 9/10. Her Lungs sounds are still very coarse. At times her inspiratory effort sounds 'croupy /stridor like. Pt shows no signs of distress at these times. She has been afebrile. She has picked at her meals. he has complained of headache once this shift, Acetaminophen admin for that. It helped. Clear dark yellow Urine ouput of 1450 ml this shift.
[2022-12-31] MEDS: acetaminophen 325 mg Tablet 650 MG PO (18:32)
[2023-01-01] VITALS (33 sets, daily range): BP systolic 82–141; BP diastolic 52–102; PULSE 70–129; RESP 15–33; TEMP 36.7–36.9; O2SAT 85–98; BMI 34.7
[2023-01-01] MEDS: piperacillin-tazobactam 3.375 GM in sodium chloride 0.9% (plus) 50 ML IV ×3 (02:32→20:32)
[2023-01-01] MEDS: sodium chloride 0.9% 1,000 ML 75 ML IV (02:32)
[2023-01-01 03:39] LABS: Basophils % 0.1 %; Eosinophils % 0.1 %; Hematocrit 32.7 % (37.0-47.0); Hemoglobin 9.7 g/dL (11.5-15.3); Lymphocytes # 1.1 10^3/uL (0.8-4.8); Lymphocytes % 13.5 %; Mean Corpuscular HGB Conc 29.7 g/dL (30.0-36.0); Mean Corpuscular Hemoglobin 27.2 pg (28.0-34.0); Mean Corpuscular Volume 91.9 fl (81-99); Mean Platelet Volume 10.8 fL (7.4-10.4); Monocytes # 0.6 10^3/uL (0.2-0.9); Monocytes % 6.6 %; Neutrophils # 6.56 10^3/uL (1.8-7.7); Neutrophils % 77.5 %; Nucleated Red Blood Cells % 0 %; Platelet Count 104 10^3/cmm (130-400); Red Blood Count 3.56 10^6/uL (4.1-5.3); Red Cell Distribution Width 15.6 % (12.1-15.1); White Blood Count 8.5 10^3/uL (4.0-10.0)
[2023-01-01 04:04] LABS: Anion Gap 12.2 (5-19); Blood Urea Nitrogen 25 mg/dL (8-23); Carbon Dioxide 27 mmol/L (22-29); Chloride 109 mmol/L (98-107); Glucose 141 mg/dL (65-115); Lactate Dehydrogenase 316 U/L (135-214); Osmolality Calculated 305 mOsm/kg (285-295); Potassium 4.2 mmol/L (3.5-5.1); Sodium 144 mmol/L (136-145)
[2023-01-01] MEDS: valproic acid 250 mg/5 mL UDC 500 MG PO (05:53)
[2023-01-01] MEDS: fluoxetine 20 mg Capsule PO (08:46)
[2023-01-01] MEDS: pantoprazole 40 mg SDV IVP ×2 (08:47→17:35)
[2023-01-01] MEDS: acetaminophen 325 mg Tablet 650 MG PO ×2 (08:48→17:42)
[2023-01-01] MEDS: cefepime 2,000 MG in sodium chloride 0.9% (plus) 50 ML 100 MG IV ×2 (08:50→20:32)
[2023-01-01] MEDS: acetylcysteine 200 mg/mL MDV 10 mL 100 MG INHALATION ×3 (08:52→20:06)
[2023-01-01] MEDS: levalbuterol 0.63 mg/3 mL Neb INHALATION ×3 (08:52→20:06)
--- NOTE | 2023-01-01 11:10 | P.PN_ITS ---
Subjective Subjective: This morning patient is in good spirits Off pressors She is having diarrhea Matute catheter discontinued She is on 7L nasal cannula I have requested PCP sputum sample because of her high LDH White count 8.5 Hemoglobin stable Lactic acid has improved Vitals/I&O/Wt Last Vital Signs Temp 98.5 F 01/01/23 04:00 Pulse 113 H 01/01/23 08:15 Resp 25 H 01/01/23 08:00 BP 99/52 01/01/23 06:00 Pulse Ox 92 01/01/23 08:00 O2 Del Method 01/01/23 08:00 O2 Flow Rate 4 01/01/23 08:00 FiO2 10 12/31/22 17:30 12/31/22 01/01/23 01/01/23 22:59 06:59 14:59 Intake Total 310.379 / 1768.490 0346 / 3043.454 50 / 50 Output Total 600 / 600 200 / 200 Balance 310.379 / 6776.860 4511 / 2443.454 -150 / -150 Weight last 48 hrs Weight 94.5 kg Weight 94.5 kg Weight 97.069 kg Physical Exam Narrative: Patient looks euvolemic No skin mottling Awake and alert GCS 15 Poor attention span Crackles and rhonchi present Abdomen soft however distended Awake and alert Nonfocal neuro exam 7 L high flow nasal cannula Urinary Catheter Management: Matute: Cath Placed During This Visit: yes, but has since been removed by the nurse Reason for Continuing Indwelling Catheter: Decision to DC Catheter Urinary Catheter Date of Insertion: 12/30/22 Urinary Catheter Time of Insertion: 12:57 Date Urinary Catheter Removed: 01/01/23 Time Urinary Catheter Discontinued: 09:00 Data 01/01/23 02:45 01/01/23 02:45 Micro: Microbiology 12/30/22 17:10 MRSA Culture - Final Nose 12/30/22 13:35 Blood Culture - Preliminary Blood NEGATIVE TO DATE 12/30/22 12:50 Blood Culture - Preliminary Blood NEGATIVE TO DATE 12/30/22 17:10 Bacterial Antigens - Final Urine,Clean Catch A&P Assessment and plan (1) Pneumonia: (2) Sepsis: (3) Septic shock: (4) CHELITA (acute kidney injury): (5) NSTEMI (non-ST elevated myocardial infarction): (6) Neurocognitive deficits: (7) Depressive disorder: (8) Schizophrenia, chronic condition: Plan Septic shock: Resolved Both pressors are off, lactic acid improved which is most likely secondary to use of albuterol type II lactic acidemia Encephalopathy related to sepsis and pneumonia: Improving patient seems to be at baseline NSTEMI Echo showing hypokinesia, preserved action fraction, We will request stress test tomorrow morning Diarrhea requested celiac High LDH requested PCP PCR Schizophrenia Continue antidepressants Community-acquired pneumonia MRSA PCR negative Currently patient is Zosyn and cefepime which I will continue Wean off oxygen gradually at home uses 2 L Patient will go back to her assisted living [place] [facility] once stable Full code GI soft diet CHELITA related to sepsis: Resolved Attestations Medical Necessity Statement*: I will watch her in ICU for 1 more day, blood pressure is still soft Diagnoses Pneumonia J18.9 Sepsis A41.9 Septic shock A41.9; R65.21 CHELITA (acute kidney injury) N17.9 NSTEMI (non-ST elevated myocardial infarction) I21.4 Neurocognitive deficits R29.818; R41.89 Depressive disorder F32.9 Schizophrenia, chronic condition F20.9
[2023-01-01] MEDS: enoxaparin 100 mg/mL Syringe SUBCUT ×2 (11:37→23:27)
--- NOTE | 2023-01-01 16:04 | PC.NURSE ---
Central LIne: pt has flpped around in bed so hard and much CVL dressing off and one stitch broke. Second stitch still intact. CVL intact and flushes and draws blood easily. Sterile dressing change and line secured with extra tape. Pt cautioned about pulling it and needing to pay attention to CVL when rolling around in the bed.
--- NOTE | 2023-01-01 18:12 | PC.NURSE ---
Pt much more alert today. She has been out of bed to chair and working with PT today. She remains on high flow nasal cannula at 3lpm. Lung sounds improved. She still has that inspiratory noise that sounds stridor/croup like, it goes away with pursed lip breathing. She has ate part of her meals. She has drank plenty of fluid. She has been incontinent of BM, diarrhea. Sent to lab, C-diff negative. Matute cath removed. Pt has been continent of urine.
--- NOTE | 2023-01-01 21:27 | XRR_ITS ---
PROCEDURE INFORMATION: Exam: XR Chest Exam date and time: 01/01/2023 8:38 PM Age: 67 years old Clinical indication: Device placement; Other: Central line placement TECHNIQUE: Imaging protocol: Radiologic exam of the chest. Views: 1 view. COMPARISON: CR XR chest 1V portable [id number] 12/30/2022 1:40 PM FINDINGS: Tubes, catheters and devices: The right internal jugular central line has been pulled back, the tip is now in the right internal jugular vein. Lungs: Diffuse, bilateral interstitial and alveolar opacities have mildly increased. Findings are concerning for worsening pneumonia Pleural spaces: No pleural effusion. No pneumothorax. Heart/Mediastinum: Stable mild enlargement of the cardiac silhouette. Mediastinal contours are unremarkable. Vasculature: Stable vascular calcifications in the aorta. Bones/joints: Unremarkable for age. XR/XR chest 1V portable [id number] IMPRESSION: 1. Diffuse, bilateral interstitial and alveolar opacities have mildly increased. Findings are concerning for worsening pneumonia Recommend followup chest imaging to insure resolution of these findings. 2. The right internal jugular central line has been pulled back, the tip is now in the right internal jugular vein. 3. Incidental/nonacute findings are listed in the report.
[2023-01-02] VITALS (25 sets, daily range): BP systolic 108–164; BP diastolic 59–90; PULSE 53–107; RESP 12–30; TEMP 36.9–37.7; O2SAT 84–97; BMI 35.2
[2023-01-02] MEDS: acetylcysteine 200 mg/mL MDV 10 mL 100 MG INHALATION ×2 (02:44→14:19)
[2023-01-02] MEDS: levalbuterol 0.63 mg/3 mL Neb INHALATION ×3 (02:44→21:04)
[2023-01-02] MEDS: piperacillin-tazobactam 3.375 GM in sodium chloride 0.9% (plus) 50 ML IV ×3 (03:39→22:43)
[2023-01-02 03:52] LABS: Basophils % 0.5 %; Eosinophils % 0.6 %; Hematocrit 32.8 % (37.0-47.0); Hemoglobin 10.1 g/dL (11.5-15.3); Lymphocytes % 15.7 %; Mean Corpuscular HGB Conc 30.8 g/dL (30.0-36.0); Mean Corpuscular Hemoglobin 28.3 pg (28.0-34.0); Mean Corpuscular Volume 91.9 fl (81-99); Mean Platelet Volume 12.5 fL (7.4-10.4); Monocytes # 0.6 10^3/uL (0.2-0.9); Monocytes % 9.6 %; Neutrophils # 4.38 10^3/uL (1.8-7.7); Nucleated Red Blood Cells % 0 %; Platelet Count 116 10^3/cmm (130-400); Red Blood Count 3.57 10^6/uL (4.1-5.3); Red Cell Distribution Width 15.7 % (12.1-15.1); White Blood Count 6.4 10^3/uL (4.0-10.0)
[2023-01-02 04:08] LABS: Blood Urea Nitrogen 16 mg/dL (8-23); Calcium 7.9 mg/dL (8.5-10.5); Carbon Dioxide 31 mmol/L (22-29); Chloride 102 mmol/L (98-107); Glomerular Filtration Rate 123.8 mL/min (90-130); Glucose 126 mg/dL (65-115); Osmolality Calculated 293 mOsm/kg (285-295); Sodium 140 mmol/L (136-145)
[2023-01-02 04:13] LABS: Anion Gap 10.9 (5-19); Potassium 3.9 mmol/L (3.5-5.1)
[2023-01-02 04:24] LABS: Slide Review Slide Review Perform
[2023-01-02] MEDS: cefepime 2,000 MG in sodium chloride 0.9% (plus) 50 ML 100 MG IV ×2 (08:45→22:10)
[2023-01-02] MEDS: sennosides-docusate Tablet 1 TAB PO (08:45)
--- NOTE | 2023-01-02 09:57 | P.PN_ITS ---
Subjective Subjective: Patient had 1 bowel movement today Resting comfortably Currently on 5 L high flow nasal cannula Patient is stating that she is feeling slightly better N.p.o. for stress test Hemoglobin 10.1 Matute catheter has been removed BMP unremarkable Blood pressure has improved C. difficile negative Vitals/I&O/Wt Last Vital Signs Temp 98.7 F 01/02/23 04:00 Pulse 94 01/02/23 08:00 Resp 16 01/02/23 08:00 BP 148/72 01/02/23 06:00 Pulse Ox 94 01/02/23 08:00 O2 Del Method 01/01/23 20:00 O2 Flow Rate 4 01/02/23 08:00 FiO2 10 12/31/22 17:30 01/01/23 01/02/23 01/02/23 22:59 06:59 14:59 Intake Total 860 / 1310 50 / 1360 Balance 860 / 1109 50 / 1159 Weight last 48 hrs Weight 96 kg Weight 94.5 kg Physical Exam Narrative: Patient is resting comfortably Rhonchi and crackles positive Positive fluid balance does not look fluid overloaded Abdomen soft High flow nasal cannula 5 L GCS 15 Awake and alert S1, S2 Blood pressure stable Pleasant and cooperative Nonfocal neuro exam Cognitive impairment Urinary Catheter Management: Matute: Cath Placed During This Visit: yes, but has since been removed by the nurse Reason for Continuing Indwelling Catheter: Decision to DC Catheter Urinary Catheter Date of Insertion: 12/30/22 Urinary Catheter Time of Insertion: 12:57 Date Urinary Catheter Removed: 01/01/23 Time Urinary Catheter Discontinued: 09:00 Data 01/02/23 02:50 01/02/23 02:50 Micro: Microbiology 01/01/23 08:15 C.difficile Toxin B Gene (PCR) - Final Stool - Stool Aspirate A&P Assessment and plan (1) Pneumonia: (2) Sepsis: (3) Septic shock: (4) CHELITA (acute kidney injury): (5) NSTEMI (non-ST elevated myocardial infarction): (6) Schizophrenia: (7) Schizophrenia, chronic condition: (8) Neurocognitive deficits: (9) Depressive disorder: Plan Septic shock: Resolved Community-acquired pneumonia currently patient is on antibiotics, she has remained afebrile, leukocytosis improved PCP PCR has been requested yesterday Lactic acid improved We will plan to de-escalate to p.o. antibiotics by tomorrow if she remains stable for now continue cefepime and Zosyn Acute hypoxia requiring 5 L high flow nasal cannula Off BiPAP Cultures remain negative Diarrhea: C. difficile negative NSTEMI: Regional wall motion abnormality on echo, requested stress test today Status post ACS 48-hour anticoagulation No chest pain History of schizophrenia, Patient had court appearance on which will be postponed She will go back to [place] once stable We will can transfer out of ICU today Wean her oxygen off gradually Continue Mucomyst, ipratropium and Xopenex Chronic thrombocytopenia and anemia Full code Start cardiac diet after her stress test DVT prophylaxis Lovenox switched from therapeutic regimen to DVT prophylactic dose Attestations Medical Necessity Statement*: Transfer out of ICU Diagnoses Pneumonia J18.9 Sepsis A41.9 Septic shock A41.9; R65.21 CHELITA (acute kidney injury) N17.9 NSTEMI (non-ST elevated myocardial infarction) I21.4 Schizophrenia F20.9 Schizophrenia, chronic condition F20.9 Neurocognitive deficits R29.818; R41.89 Depressive disorder F32.9
--- NOTE | 2023-01-02 10:03 | PC.SOCIAL ---
IMM update IMM updated with patient's guardian Elaine Jean-Paul. Verbalized an understanding. Initialled, dated, timed, and placed in chart.
[2023-01-02] MEDS: fluoxetine 20 mg Capsule PO (10:37)
[2023-01-02] MEDS: FUROsemide 10 mg/mL SDV 2mL 20 MG IVP (22:10)
--- NOTE | 2023-01-02 22:34 | PC.NURSE ---
Patient set off bed alarm attempting to use restroom unaccompanied. Nursing staff arrived and found patient sitting on side of bed. Patient was ambulated to the restroom without any disturbance, unsteady gait noted. Patient now resting back in bed on left side. Expiratory wheezing noted in patient upon exertion.
[2023-01-03] VITALS (10 sets, daily range): BP systolic 110–163; BP diastolic 69–93; PULSE 53–111; RESP 18–28; TEMP 36.5–37.3; O2SAT 91–95
--- NOTE | 2023-01-03 01:13 | PC.NURSE ---
O2 saturations noted to be in low 90s. Patient was changed from 3L nasal cannula to 3.5 nasal cannula.
[2023-01-03] MEDS: levalbuterol 0.63 mg/3 mL Neb INHALATION ×3 (02:56→14:57)
[2023-01-03] MEDS: piperacillin-tazobactam 3.375 GM in sodium chloride 0.9% (plus) 50 ML IV (03:50)
--- NOTE | 2023-01-03 04:18 | PC.NURSE ---
Patient had small, watery brown bowel movement.
[2023-01-03 05:11] LABS: Hematocrit 35.7 % (37.0-47.0); Hemoglobin 10.9 g/dL (11.5-15.3); Mean Corpuscular HGB Conc 30.5 g/dL (30.0-36.0); Mean Corpuscular Hemoglobin 27.4 pg (28.0-34.0); Mean Corpuscular Volume 89.7 fl (81-99); Mean Platelet Volume 10.1 fL (7.4-10.4); Platelet Count 156 10^3/cmm (130-400); Red Blood Count 3.98 10^6/uL (4.1-5.3); Red Cell Distribution Width 14.8 % (12.1-15.1); White Blood Count 6.5 10^3/uL (4.0-10.0)
[2023-01-03 05:27] LABS: Slide Review Slide Review Perform
[2023-01-03] MEDS: valproic acid 250 mg/5 mL UDC 500 MG PO (05:29)
[2023-01-03] MEDS: acetaminophen 325 mg Tablet 650 MG PO ×2 (05:29→23:38)
[2023-01-03 05:34] LABS: Anion Gap 11.5 (5-19); Blood Urea Nitrogen 16 mg/dL (8-23); Calcium 8.1 mg/dL (8.5-10.5); Carbon Dioxide 33 mmol/L (22-29); Chloride 106 mmol/L (98-107); Glomerular Filtration Rate 123.8 mL/min (90-130); Glucose 131 mg/dL (65-115); Osmolality Calculated 307 mOsm/kg (285-295); Potassium 3.5 mmol/L (3.5-5.1); Sodium 147 mmol/L (136-145)
[2023-01-03 05:39] LABS: Absolute Segmented Neutrophil 3.5 10/cmm (1.6-7.1); Band Neutrophils Absolute 0.4 10^3/cmm (0.0-1.2); Lymphocytes 15 %; Segmented Neutrophils 54 %; Total Cells Counted 100 (0-100)
[2023-01-03 05:40] LABS: Eosinophils 0 %; Monocytes Absolute 0.6 10^3/cmm (0.1-0.6)
[2023-01-03 05:41] LABS: Absolute Neutrophil 3.9 10^3/cmm (1.4-6.5); Platelet Estimate Normal (Normal); Polychromasia Trace
--- NOTE | 2023-01-03 05:57 | PC.NURSE ---
SHIFT SUMMARY Patient has remained unaggressive during this nurse's shift, however does yell out frequently for nursing staff if she has a need or want. Patient has slept most of shift, and only wakes up occasionally to ambulate to the restroom to urinate. Patient has had adequate urine output during shift, and during ambulation unsteady gait was noted. O2 saturations have been in the low 90s, and patient has remained on nasal cannula. Patient did request pain medication toward end of shift, and Tylenol was administered.
[2023-01-03] MEDS: cefepime 2,000 MG in sodium chloride 0.9% (plus) 50 ML 100 MG IV (08:48)
[2023-01-03] MEDS: fluoxetine 20 mg Capsule PO (08:49)
[2023-01-03] MEDS: sennosides-docusate Tablet 1 TAB PO (08:49)
[2023-01-03] MEDS: enoxaparin 100 mg/mL Syringe 40 MG SUBCUT (08:49)
--- NOTE | 2023-01-03 11:14 | PM.PN ---
Subjective Subjective: Patient is stating that she is feeling better Currently on 3.5 L nasal cannula Laying supine right lateral position Bowel movement today Vitals/I&O/Wt Last Vital Signs Temp 98.7 F 01/03/23 04:00 Pulse 101 H 01/03/23 08:37 Resp 22 H 01/03/23 08:37 BP 163/92 01/03/23 04:00 Pulse Ox 94 01/03/23 08:37 O2 Del Method 01/03/23 08:37 O2 Flow Rate 3.5 01/03/23 08:37 FiO2 10 12/31/22 17:30 01/02/23 01/03/23 01/03/23 22:59 06:59 14:59 Intake Total 100 / 200 50 / 250 100 / 100 Output Total 250 / 1651 Balance -150 / -1451 50 / -1401 100 / 100 Weight last 48 hrs Weight 96 kg Physical Exam Narrative: Patient laying supine right lateral position Currently on 3.5 L Looks euvolemic Crackles noted on lung auscultation Abdomen soft Nonfocal neuro exam Intellectual challenges Cognitive impairment S1, S2 variable Urinary Catheter Management: Matute: Cath Placed During This Visit: yes, but has since been removed by the nurse Reason for Continuing Indwelling Catheter: Decision to DC Catheter Urinary Catheter Date of Insertion: 12/30/22 Urinary Catheter Time of Insertion: 12:57 Date Urinary Catheter Removed: 01/01/23 Time Urinary Catheter Discontinued: 09:00 Data 01/03/23 04:56 01/03/23 04:56 A&P Assessment and plan (1) Pneumonia: (2) Sepsis: (3) Septic shock: (4) CHELITA (acute kidney injury): (5) NSTEMI (non-ST elevated myocardial infarction): (6) Schizophrenia: (7) Schizophrenia, chronic condition: (8) Neurocognitive deficits: (9) Depressive disorder: Plan Patient came from [facility] with chief complaint of shortness of breath and confusion, she was diagnosed with septic shock she remained in ICU for 2 to 3 days required vasopressors which we were able to wean off gradually, she remained on broad-spectrum antibiotics, cultures negative so far, she got a lot of fluids initially remained in positive fluid balance I gave her Lasix and now she is in contraction alkalosis with sodium 147, she has cognitive/intellectual challenges, has court appearance which has been postponed because of her hypoxia, she also had significant delta troponin, ACS was started initially, echo did not show wall motion abnormality, she was not able to lay still in order to finish Lexiscan stress test 01/02, EF 54% relative apical hypokinesia, nonspecific, patient remained chest pain-free Septic shock: Resolved Community-acquired pneumonia: Leukocyte 6.5, afebrile, cultures negative de-escalate antibiotics to Augmentin Discontinue cefepime and Zosyn Acute hypoxia requiring 3.5 L, Initially patient was on BiPAP with hypoxic hypercarbic respiratory failure Currently doing well on 3.5 L Positive crackles Continue Mucomyst along breathing regimen Diastolic CHF exacerbation due to fluid overload which were given for septic shock Currently she is in contraction alkalosis We will give her 1 dose of acetazolamide Holding Lasix for today Poor p.o. intake Diarrhea: Resolved C. difficile ruled out NSTEMI: Hypokinesia of lateral and apical wall, could not finish stress test, We will touch base with cardiology to see if any intervention is needed If there is no plan for any coronary intervention then patient might be able to go back to her facility once her respiratory status improves which I think would be around the weekend Spoke with Dr. 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
[2023-01-03] MEDS: lisinopril 10 mg Tablet PO (11:57)
[2023-01-03] MEDS: acetaZOLAMIDE 250 mg Tablet PO (11:57)
[2023-01-03] MEDS: amoxicillin-clav 875-125 mg Tablet 1 TAB PO (17:48)
[2023-01-03] MEDS: benzonatate 100 mg Capsule PO (23:38)
--- NOTE | 2023-01-03 23:40 | PC.NURSE ---
Nurse rounded on patient and patient stated I pooped. Patient had a liquidy, brown bowel movement in bed. Kayley care was performed, linen and brief change, and patient now resting in bed comfortably. Patient did request tylenol for headache, and Tessalon pearls were also given for patient's cough.
[2023-01-04] VITALS (11 sets, daily range): BP systolic 98–162; BP diastolic 63–90; PULSE 66–116; RESP 18–23; TEMP 36.6–37.1; O2SAT 92–97
[2023-01-04] MEDS: valproic acid 250 mg/5 mL UDC 500 MG PO (05:00)
[2023-01-04 05:13] LABS: Basophils % 0.2 %; Eosinophils # 0.1 10^3/uL (0.0-0.8); Eosinophils % 0.5 %; Hematocrit 36.6 % (37.0-47.0); Hemoglobin 11.2 g/dL (11.5-15.3); Lymphocytes % 11.2 %; Mean Corpuscular HGB Conc 30.6 g/dL (30.0-36.0); Mean Corpuscular Hemoglobin 27.5 pg (28.0-34.0); Mean Corpuscular Volume 89.9 fl (81-99); Mean Platelet Volume 10.4 fL (7.4-10.4); Neutrophils # 5.45 10^3/uL (1.8-7.7); Neutrophils % 59.2 %; Nucleated Red Blood Cells % 0.2 %; Platelet Count 197 10^3/cmm (130-400); Red Blood Count 4.07 10^6/uL (4.1-5.3); Red Cell Distribution Width 14.8 % (12.1-15.1); White Blood Count 9.2 10^3/uL (4.0-10.0)
[2023-01-04 05:34] LABS: Anion Gap 17.3 (5-19); Blood Urea Nitrogen 16 mg/dL (8-23); Calcium 8.5 mg/dL (8.5-10.5); Carbon Dioxide 22 mmol/L (22-29); Chloride 106 mmol/L (98-107); Glomerular Filtration Rate 123.8 mL/min (90-130); Glucose 122 mg/dL (65-115); Osmolality Calculated 296 mOsm/kg (285-295); Potassium 3.3 mmol/L (3.5-5.1); Sodium 142 mmol/L (136-145)
[2023-01-04 05:39] LABS: Slide Review Slide Review Perform
[2023-01-04] MEDS: levalbuterol 0.63 mg/3 mL Neb INHALATION ×3 (08:59→19:48)
[2023-01-04] MEDS: amoxicillin-clav 875-125 mg Tablet 1 TAB PO ×2 (09:24→17:24)
[2023-01-04] MEDS: lisinopril 10 mg Tablet PO (09:25)
[2023-01-04] MEDS: enoxaparin 100 mg/mL Syringe 40 MG SUBCUT (09:25)
[2023-01-04] MEDS: fluoxetine 20 mg Capsule PO (09:25)
[2023-01-04] MEDS: sennosides-docusate Tablet 1 TAB PO (09:25)
[2023-01-04] MEDS: potassium chloride ER 20 mEq Tablet 40 MEQ PO (11:48)
[2023-01-04] MEDS: levoFLOXacin 750 mg Tablet PO (11:48)
[2023-01-04] MEDS: metoprolol tartrate 50 mg Tablet PO ×2 (11:48→20:32)
[2023-01-04] MEDS: budesonide 0.5 mg/2 mL Neb INHALATION ×2 (11:51→19:48)
--- NOTE | 2023-01-04 12:01 | PC.SOCIAL ---
IMM update IMM updated with patient's guardian Elaine Escamillat. Verbalized an understanding. Copy in chart initialed, dated and timed.
[2023-01-04 12:04] LABS: Troponin T (5th) Once 20 ng/L (0-10)
[2023-01-04 12:12] LABS: Iron 28 ug/dL (37-145); Percent Saturation 13.6 % (20-50); Total Iron Binding Capacity 205 mcg/dl; Unsaturated Iron Binding 177 ug/dL (112-347)
[2023-01-04 12:31] LABS: C Reactive Protein 40.5 mg/L (0.0-4.9); Chol HDL Ratio 6.96 mg/dL (0.0-4.40); Cholesterol 188 mg/dL (0-200); HDL Cholesterol 27 mg/dL (60-100); LDL Cholesterol Calculated 109 mg/dL (50-129); Triglycerides 262 mg/dL (0-150); VLDL Cholestrol Calculation 52 mg/dL (0-30)
[2023-01-04 12:46] LABS: Procalcitonin 2.68 ng/mL (0-0.5); Vitamin B12 540 pg/mL (232-1245)
[2023-01-04] MEDS: FUROsemide 10 mg/mL SDV 4mL 40 MG IVP (12:55)
[2023-01-04] MEDS: cloZAPine 25 mg Tablet 50 MG PO (14:01)
[2023-01-04 14:03] LABS: Estmated Average Glucose 140; Hemoglobin A1C 6.5 % (4.0-6.0)
[2023-01-04] MEDS: acetylcysteine 200 mg/mL MDV 10 mL 100 MG INHALATION (14:24)
[2023-01-04] MEDS: ipratropium 0.5 mg/2.5 mL Neb INHALATION ×2 (14:24→19:48)
--- NOTE | 2023-01-04 16:05 | PC.RESP ---
patient refusing mucomyst treatment and vest therapy. 1400 documentation should have been pt refused mucomyst and xopenex given to pt.
--- NOTE | 2023-01-04 17:09 | P.PN_ITS ---
Subjective Subjective: Hospital course, labs appreciated. On examination patient laying comfortably in bed with no signsof episode bedside. Patient is complaining of occasional chest pains especially on drinking water or liquids. Denies any headache, dizziness, nausea or vomiting. Currently on 2 L of oxygen suppleme ntation. Shows mild tachycardia along with elevated blood pressures. Nurse is concerned that patient is not eating much. Patient does drink water. States food is not tasting well. Vitals/I&O/Wt Last Vital Signs Temp 98 F 01/04/23 11:20 Pulse 95 01/04/23 14:00 Resp 20 H 01/04/23 14:00 BP 162/87 01/04/23 11:20 Pulse Ox 95 01/04/23 14:00 O2 Del Method 01/04/23 14:00 O2 Flow Rate 2 01/04/23 14:00 FiO2 10 12/31/22 17:30 01/04/23 01/04/23 01/04/23 06:59 14:59 22:59 Intake Total 0 / 440 60 / 60 Balance 0 / -1710 60 / 60 Physical Exam Narrative: General: No acute distress, AO x3, anxious HEENT: PERRLA, pupils bilaterally equal and reactive Chest: Normal vesicular breath sounds, coarse crackles present all over lung aden, conducted breath sounds, rhonchi all over lung aden, equal good air entry bilaterally CVS: S1-S2 regular, no murmurs, tachycardia, no gallops, no rubs Abdomen: Soft, nontender, no organomegaly, bowel sounds present Neuro: No focal deficits, no facial deformity, AO x3, power 5/5 in all limbs Urinary Catheter Management: Matute: Cath Placed During This Visit: yes, but has since been removed by the nurse Reason for Continuing Indwelling Catheter: Decision to DC Catheter Urinary Catheter Date of Insertion: 12/30/22 Urinary Catheter Time of Insertion: 12:57 Date Urinary Catheter Removed: 01/01/23 Time Urinary Catheter Discontinued: 09:00 Data 01/04/23 03:45 01/04/23 03:45 Micro: Microbiology 12/30/22 13:35 Blood Culture - Final Blood NO GROWTH AFTER 5 DAYS 12/30/22 12:50 Blood Culture - Final Blood NO GROWTH AFTER 5 DAYS A&P Assessment and plan (1) Hypoxia: (2) Pneumonia: (3) Sepsis: (4) CHELITA (acute kidney injury): (5) NSTEMI (non-ST elevated myocardial infarction): (6) Schizophrenia, chronic condition: (7) Neurocognitive deficits: (8) Depressive disorder: (9) Septic shock: Resolved. Plan Hypoxia: In setting of fluid overload pneumonia and congestive diastolic heart failure. Septic shock is resolved. Community-acquired pneumonia: MRSA negative, sputum culture still uncollected. Continue with Augmentin and add Levaquin. Continue antibiotics to finish a 7- day course overall. Oxygen supplementation keeping saturation over 90%. DuoNebs every 6 hour. Add Pulmicort twice daily. Stop acetylcysteine. IV Lasix 40 mg one-time. Replace potassium 40 mEq one-time. Monitor potassium. Echocardiogram done shows an EF 54%, relative hypokinesia of apical lateral wall segments along with trace MR. Strict input output charting, daily weights. Elevated troponins: NSTEMI versus type II SD. Patient could not do stress test as she was moving a lot. Patient denies any chest pain for now. Troponin cycled admission negative. Troponin to today's lab. Depending on troponin levels we will proceed with further cardiac work-up. Check lipid panel and A1c. Aspirin 81 mg daily, statin 40 mg nightly. Start on metoprolol 50 mg twice daily. Hypertension: Goal blood pressure less than 140/90 mmHg. Continue with home dose of lisinopril. Starting on metoprolol. Will uptitrate as for goal blood pressures. Restart home medications including Prozac, clozapine. Full code. Cardiac diet. Lovenox for DVT prophylaxis Famotidine for PUD prophylaxis Discharge planning: Plan to discharge back to [facility]/SNF once patient is medically stable. Most likely patient need to be discharged home oxygen supplementation for short while. Attestations Medical Necessity Statement*: Requires further hospitalization for management of hypoxia secondary community-acquired pneumonia along with congestive heart failure while ACS is ruled out Diagnoses Hypoxia R09.02 Pneumonia J18.9 Sepsis A41.9 CHELITA (acute kidney injury) N17.9 NSTEMI (non-ST elevated myocardial infarction) I21.4 Schizophrenia, chronic condition F20.9 Neurocognitive deficits R29.818; R41.89 Depressive disorder F32.9 Septic shock A41.9; R65.21
[2023-01-04] MEDS: acetaminophen 325 mg Tablet 650 MG PO (17:23)
[2023-01-04] MEDS: ferrous gluconate 324 mg Tablet PO (17:25)
[2023-01-04] MEDS: famotidine 20 mg/2 mL INJ IVP (18:14)
[2023-01-04 23:04] LABS: Folate Level > 20.0 ng/mL (4.8-37.3)
[2023-01-05] VITALS (9 sets, daily range): BP systolic 98–118; BP diastolic 62–75; PULSE 56–96; RESP 15–18; TEMP 36.6–37.2; O2SAT 91–97
[2023-01-05] MEDS: levoFLOXacin 750 mg Tablet PO (04:41)
[2023-01-05] MEDS: valproic acid 250 mg/5 mL UDC 500 MG PO (04:41)
[2023-01-05 05:36] LABS: Basophils # 0.1 10^3/uL (0.0-0.1); Basophils % 0.8 %; Eosinophils # 0.1 10^3/uL (0.0-0.8); Eosinophils % 1.4 %; Hematocrit 37.5 % (37.0-47.0); Hemoglobin 11.5 g/dL (11.5-15.3); Lymphocytes # 1.3 10^3/uL (0.8-4.8); Lymphocytes % 13.6 %; Mean Corpuscular HGB Conc 30.7 g/dL (30.0-36.0); Mean Corpuscular Hemoglobin 27.7 pg (28.0-34.0); Mean Corpuscular Volume 90.4 fl (81-99); Mean Platelet Volume 10.3 fL (7.4-10.4); Monocytes # 1.5 10^3/uL (0.2-0.9); Monocytes % 15.1 %; Neutrophils # 4.83 10^3/uL (1.8-7.7); Neutrophils % 50.4 %; Nucleated Red Blood Cells % 0 %; Platelet Count 234 10^3/cmm (130-400); Red Blood Count 4.15 10^6/uL (4.1-5.3); Red Cell Distribution Width 15.2 % (12.1-15.1); White Blood Count 9.6 10^3/uL (4.0-10.0)
[2023-01-05 06:04] LABS: Slide Review Slide Review Perform
[2023-01-05 06:11] LABS: Alanine Aminotransferase 32 U/L (0-33); Albumin Level 3.3 g/dL (3.5-5.2); Alkaline Phosphatase 60 U/L (35-105); Aspartate Amino Transferase 23 U/L (0-32); Blood Urea Nitrogen 23 mg/dL (8-23); Calcium 8.9 mg/dL (8.5-10.5); Carbon Dioxide 25 mmol/L (22-29); Globulin 2.8 g/dL (1.3-4.6); Glomerular Filtration Rate 123.8 mL/min (90-130); Glucose 115 mg/dL (65-115); Total Bilirubin 0.6 mg/dL (0.15-1.2); Total Protein 6.1 g/dL (6.6-8.7)
[2023-01-05] MEDS: fluoxetine 20 mg Capsule PO (08:57)
[2023-01-05] MEDS: amoxicillin-clav 875-125 mg Tablet 1 TAB PO ×2 (08:57→18:34)
[2023-01-05] MEDS: acetaminophen 325 mg Tablet 650 MG PO (08:57)
[2023-01-05] MEDS: lisinopril 10 mg Tablet PO (08:58)
[2023-01-05] MEDS: famotidine 20 mg/2 mL INJ IVP ×2 (08:58→21:01)
[2023-01-05] MEDS: ferrous gluconate 324 mg Tablet PO ×2 (08:58→18:34)
[2023-01-05] MEDS: cloZAPine 25 mg Tablet 50 MG PO (08:58)
[2023-01-05] MEDS: sennosides-docusate Tablet 1 TAB PO (08:58)
[2023-01-05] MEDS: enoxaparin 40 mg/0.4 mL Syringe SUBCUT (08:59)
[2023-01-05 09:21] LABS: Osmolality Calculated 293 mOsm/kg (285-295); Potassium 3.9 mmol/L (3.5-5.1); Sodium 139 mmol/L (136-145)
[2023-01-05 09:22] LABS: Anion Gap 12.9 (5-19); Chloride 105 mmol/L (98-107)
[2023-01-05] MEDS: metoprolol tartrate 50 mg Tablet PO ×2 (10:29→21:54)
[2023-01-05] MEDS: cetylpyridinium Lozenge 1 EACH MUCOUS MEM (11:33)
[2023-01-05] MEDS: FUROsemide 40 mg Tablet PO (11:33)
--- NOTE | 2023-01-05 14:42 | P.PN_ITS ---
Subjective Subjective: No acute events overnight. Today morning on examination patient seen laying comfortably in bed, sleeping. Patient is able to sleep flat well. On 2 to 3 L of oxygen supplementation saturating more than 90%. Patient has been more sleepy today since starting clozapine yesterday. Otherwise has re mained hemodynamically stable and afebrile. Vitals/I&O/Wt Last Vital Signs Temp 98.3 F 01/05/23 11:54 Pulse 80 01/05/23 11:54 Resp 15 01/05/23 11:54 BP 98/63 01/05/23 11:54 Pulse Ox 92 01/05/23 11:54 O2 Del Method 01/05/23 04:00 O2 Flow Rate 3 01/05/23 04:00 FiO2 10 12/31/22 17:30 01/04/23 01/05/23 01/05/23 22:59 06:59 14:59 Intake Total 360 / 420 240 / 240 Output Total 300 / 300 650 / 650 Balance 360 / 420 -300 / 120 -410 / -410 Physical Exam Narrative: General: No acute distress, AO x3, less anxious, not drowsy but sleeping more HEENT: PERRLA, pupils bilaterally equal and reactive Chest: Normal vesicular breath sounds, coarse crackles present all over lung aden, conducted breath sounds, rhonchi all over lung aden, equal good air entry bilaterally CVS: S1-S2 regular, no murmurs, tachycardia, no gallops, no rubs Abdomen: Soft, nontender, no organomegaly, bowel sounds present Neuro: No focal deficits, no facial deformity, AO x3, power 5/5 in all limbs Urinary Catheter Management: Matute: Cath Placed During This Visit: yes, but has since been removed by the nurse Reason for Continuing Indwelling Catheter: Decision to DC Catheter Urinary Catheter Date of Insertion: 12/30/22 Urinary Catheter Time of Insertion: 12:57 Date Urinary Catheter Removed: 01/01/23 Time Urinary Catheter Discontinued: 09:00 Data 01/05/23 04:56 01/05/23 04:56 Micro: Microbiology 12/30/22 13:35 Blood Culture - Final Blood NO GROWTH AFTER 5 DAYS 12/30/22 12:50 Blood Culture - Final Blood NO GROWTH AFTER 5 DAYS A&P Assessment and plan (1) Hypoxia: (2) Pneumonia: (3) Sepsis: (4) CHELITA (acute kidney injury): (5) NSTEMI (non-ST elevated myocardial infarction): (6) Schizophrenia, chronic condition: (7) Neurocognitive deficits: (8) Depressive disorder: (9) Septic shock: Resolved. Plan Hypoxia: In setting of fluid overload pneumonia and congestive diastolic heart failure. Septic shock is resolved. Community-acquired pneumonia: MRSA negative, sputum culture still uncollected. Continue with Augmentin and add Levaquin. Continue antibiotics to finish a 7- day course overall. Oxygen supplementation keeping saturation over 90%. DuoNebs every 6 hour, Pulmicort twice daily. Stop acetylcysteine. Switch to oral Lasix 20 mg daily. Monitor potassium. Echocardiogram done shows an EF 54%, relative hypokinesia of apical lateral wall segments along with trace MR. Strict input output charting, daily weights. Elevated troponins: NSTEMI versus type II TN. Patient could not do stress test as she was moving a lot. Patient denies any chest pain for now. Troponin cycled admission negative. Troponin done yesterday negative. We will hold off on any further cardiac work-up for now. Appreciate lipid panel, A1c. Continue with aspirin 81 mg, statin 40 mg, metoprolol 50 mg twice daily. Hypertension: Goal blood pressure less than 140/90 mmHg. Continue with home dose of lisinopril. Starting on metoprolol. Will uptitrate as for goal blood pressures. Patient more drowsy today. Stop home dose of clozapine. Full code. Cardiac diet. Lovenox for DVT prophylaxis Famotidine for PUD prophylaxis Discharge planning: Plan to discharge back to [place] once patient is medically stable. Most likely within next 24 hours if patient remains hemodynamically stable. Plan for home O2 evaluation prior to discharge Most likely patient need to be discharged home oxygen supplementation for short while. Attestations Medical Necessity Statement*: Requires further hospitalization for management of hypoxia in setting of community-acquired pneumonia, mild congestive diastolic heart failure in setting of type II TN Diagnoses Hypoxia R09.02 Pneumonia J18.9 Sepsis A41.9 CHELITA (acute kidney injury) N17.9 NSTEMI (non-ST elevated myocardial infarction) I21.4 Schizophrenia, chronic condition F20.9 Neurocognitive deficits R29.818; R41.89 Depressive disorder F32.9 Septic shock A41.9; R65.21
[2023-01-05] MEDS: budesonide 0.5 mg/2 mL Neb INHALATION (19:44)
[2023-01-05] MEDS: ipratropium 0.5 mg/2.5 mL Neb INHALATION (19:44)
[2023-01-05] MEDS: levalbuterol 0.63 mg/3 mL Neb INHALATION (19:44)
[2023-01-06 04:00] VITALS: BP 99/65; PULSE 69; RESP 17; TEMP 36.5; O2SAT 94
[2023-01-06] MEDS: levoFLOXacin 750 mg Tablet PO (06:42)
[2023-01-06] MEDS: valproic acid 250 mg/5 mL UDC 500 MG PO (06:42)
[2023-01-06 07:34] VITALS: PULSE 83; RESP 18; O2SAT 94
[2023-01-06 08:00] VITALS: BP 106/70; PULSE 84; RESP 17; TEMP 36.7
[2023-01-06] MEDS: ferrous gluconate 324 mg Tablet PO (08:59)
[2023-01-06] MEDS: fluoxetine 20 mg Capsule PO (08:59)
[2023-01-06] MEDS: lisinopril 10 mg Tablet PO (08:59)
[2023-01-06] MEDS: amoxicillin-clav 875-125 mg Tablet 1 TAB PO (08:59)
[2023-01-06] MEDS: sennosides-docusate Tablet 1 TAB PO (09:00)
[2023-01-06] MEDS: FUROsemide 40 mg Tablet 20 MG PO (09:00)
[2023-01-06] MEDS: metoprolol tartrate 50 mg Tablet PO (09:00)
[2023-01-06] MEDS: enoxaparin 40 mg/0.4 mL Syringe SUBCUT (09:00)
[2023-01-06] MEDS: famotidine 20 mg/2 mL INJ IVP (09:44)
[2023-01-06 10:31] LABS: SARS Covid-2 Antigen negative (Negative)
--- NOTE | 2023-01-06 11:13 | PC.SOCIAL ---
IMM Update pg 2 of IMM updated and reviewed w/ patients guardian Elaine Jeong via phone. Copy left @ bedside and copy in chart dated, and initialed.
--- NOTE | 2023-01-06 12:15 | PM.DCS ---
Discharge Providers Date of Admission: 12/30/22 16:02 Date of Discharge: January 06, 2023 Attending Provider at Admission: Michael Fox MD Attending Provider at Discharge: Chuckie Crisostomo MD Primary Care Provider: Harman Salgado MD Diagnoses at Discharge Discharge Diagnosis (1) Hypoxia: Status: Acute (2) Pneumonia: Status: Acute (3) Sepsis: Status: Acute (4) CHELITA (acute kidney injury): Status: Acute (5) NSTEMI (non-ST elevated myocardial infarction): Status: Acute (6) Schizophrenia, chronic condition: Status: Chronic (7) Neurocognitive deficits: Status: Acute (8) Depressive disorder: Status: Acute (9) Septic shock: Status: Acute Reason for Visit Reason for Visit: POSSIBLE SEPSIS/ LOW BP/ AMS Brief History: History as per HPI: Erica Buckner is a 67 year old female with history of schizophrenia, her last visit was at [facility] from [facility] living for management of low blood pressure and altered mental status.? Patient was diagnosed with septic shock right IJ was placed in the ER she was given septic bolus vancomycin and Zosyn cultures were taken, her O2 sats were in 80s, she was put on 15 L nonrebreather mask, she has been put on Levophed as well.? Patient is not a good historian.Chest x-ray shows right-sided infiltrate, CTA chest abdomen pelvis is pending. Patient is not able to provide any history, requested another ABG which showed worsening of hypercapnia, requested RT to put her on BiPAP, most of the information has been taken from the collaterals, according to the [facility] documentation she is full code she was incontinent and last well-known time was last night this morning she was hypoxic, altered and incontinent Septic criteria met with low blood pressure high lactic acid fever leukocytosis Hospital Course Hospital Course Patient was admitted to the ICU for further evaluation and management of septic shock leading to metabolic encephalopathy with possibility of non-ST elevation MS in setting of pneumonia. At first she was started on broad-spectrum antibiotics and pressors. She also started on IV fluid resuscitation. She responded well to the treatment and pressors were weaned off. Eventually she was transferred to the floors. During hospitalization her blood culture, sputum culture remain negative. For concerns for non-ST elevation MS versus type II MS echocardiogram was done which showed a normal EF of 54% with possible late of hypokinesia of apical lateral wall. Stress test was attempted but could not be completed as patient was restless and could not lay down still. Patient did not have any further chest pain during hospitalization and troponin continue to trend down. Her oxygen supplementation requirement continued to trend down. She required nebulization treatment along with completion of oral antibiotic course and diuretic therapy. She has been discharged in hemodynamically stable condition back to senior living on oral Augmentin and Levaquin for 3 more days. She was started on baby aspirin and statins along with beta-blockers for medical optimization along with oral Lasix 20 mg daily. She is to have a repeat BMP with her primary care provider within next 1 week. Physical Exam Narrative: General: No acute distress, AO x3, less anxious, not drowsy but sleeping more HEENT: PERRLA, pupils bilaterally equal and reactive Chest: Normal vesicular breath sounds, coarse crackles present all over lung aden, conducted breath sounds, rhonchi all over lung aden, equal good air entry bilaterally CVS: S1-S2 regular, no murmurs, tachycardia, no gallops, no rubs Abdomen: Soft, nontender, no organomegaly, bowel sounds present Neuro: No focal deficits, no facial deformity, AO x3, power 5/5 in all limbs Urinary Catheter Management: Matute: Cath Placed During This Visit: yes, but has since been removed by the nurse Reason for Continuing Indwelling Catheter: Decision to DC Catheter Urinary Catheter Date of Insertion: 12/30/22 Urinary Catheter Time of Insertion: 12:57 Date Urinary Catheter Removed: 01/01/23 Time Urinary Catheter Discontinued: 09:00 Discharge Data Studies Completed and Pending Completed Studies During Hospitalization Category Date Time Status CT head wo con* [id number] Stat Cat Scan 12/30/22 12:[address] abdomen pelvis [CT angio chest w abd pel w Cat Scan 12/30/22 13:41 Completed con] Stat XR chest 1V portable [id number] Routine Exams 01/01/23 21:27 Completed XR chest 1V portable [id number] Stat Exams 12/30/22 12:19 Completed CV. echo complete* [id number] Routine Ultrasound 12/30/22 16:02 Completed Pending at discharge Category Date Time Status Sestamibi Stress Test Request Routine Exams 01/01/23 11:16 Stop Req Sestamibi Stress Test Request Routine Exams 01/02/23 06:50 Ordered Sputum Culture and Gram Stain Stat Lab 12/30/22 15:49 Uncollected Radiology Impressions Head CT 12/30/22 12:23 IMPRESSION: No acute intracranial abnormality. Chest/Abdomen/Pelvis CT 12/30/22 13:41 IMPRESSION: 1. Extensive consolidation of the superior segment of the right lower lobe consistent with pneumonia. Smaller areas of pneumonia in the upper lobes bilaterally. 2. The diameter of the trachea and proximal bronchi is very small, this is evidence of tracheomalacia. It is usually transient due to some degree of expiration. There are multiple possible etiologies, most often COPD. IMPRESSION: No acute findings Chest X-Ray 01/01/23 21:27 IMPRESSION: 1. Diffuse, bilateral interstitial and alveolar opacities have mildly increased. Findings are concerning for worsening pneumonia Recommend followup chest imaging to insure resolution of these findings. 2. The right internal jugular central line has been pulled back, the tip is now in the right internal jugular vein. 3. Incidental/nonacute findings are listed in the report. Echocardiogram: ?CONCLUSIONS ?Normal left ventricular size? wi an? EF 54%.? ?Relative hypokinesia of the apical lateral wall segment. ?Trace mitral valve regurgitation. ?There is no pericardial effusion. ?There are no intracardiac masses. ?Technically somewhat limited study because the patient is ?inability to cooperate ?Dr Emeterio Rich MD [facility] ?(Electronically Signed) ?Final Date:? ? ? 01 January 2023 ? 09:14 Microbiology 12/30/22 13:35 Blood Blood Culture - Final NO GROWTH AFTER 5 DAYS 12/30/22 12:50 Blood Blood Culture - Final NO GROWTH AFTER 5 DAYS 01/01/23 08:15 Stool - Stool Aspirate C.difficile Toxin B Gene (PCR) - Final 12/30/22 17:10 Nose MRSA Culture - Final 12/30/22 17:10 Urine,Clean Catch Bacterial Antigens - Final 12/30/22 17:10 Urine Catheterized Legionella Urinary Antigen - Final Laboratory Results WBC 9.6 10^3/uL (4.0-10.0) 01/05/23 04:56 RBC 4.15 10^6/uL (4.1-5.3) 01/05/23 04:56 Hgb 11.5 g/dL (11.5-15.3) 01/05/23 04:56 Hct 37.5 % (37.0-47.0) 01/05/23 04:56 MCV 90.4 fl (81-99) 01/05/23 04:56 MCH 27.7 pg (28.0-34.0) L 01/05/23 04:56 MCHC 30.7 g/dL (30.0-36.0) 01/05/23 04:56 RDW 15.2 % (12.1-15.1) H 01/05/23 04:56 Plt Count 234 10^3/cmm (130-400) 01/05/23 04:56 MPV 10.3 fL (7.4-10.4) 01/05/23 04:56 Neut % (Auto) 50.4 % 01/05/23 04:56 Lymph % (Auto) 13.6 % 01/05/23 04:56 [place] % (Auto) 15.1 % 01/05/23 04:56 Eos % (Auto) 1.4 % 01/05/23 04:56 Baso % (Auto) 0.8 % 01/05/23 04:56 Neut # (Auto) 4.83 10^3/uL (1.8-7.7) 01/05/23 04:56 Lymph # (Auto) 1.3 10^3/uL (0.8-4.8) 01/05/23 04:56 [place] # (Auto) 1.5 10^3/uL (0.2-0.9) H 01/05/23 04:56 Eos # (Auto) 0.1 10^3/uL (0.0-0.8) 01/05/23 04:56 Baso # (Auto) 0.1 10^3/uL (0.0-0.1) 01/05/23 04:56 Nucleated RBC % (auto) 0 % 01/05/23 04:56 Total Counted 100 (0-100) 01/03/23 04:56 Atypical Lymphs % 0.0 % (0-5) 01/03/23 04:56 Absolute Neutrophils 3.9 10^3/cmm (1.4-6.5) 01/03/23 04:56 Segmented Neutrophils 54 % 01/03/23 04:56 Abs Segm Neuts (Man) 3.5 10/cmm (1.6-7.1) 01/03/23 04:56 Band Neutrophils 6.0 % 01/03/23 04:56 Abs Band Neuts (Man) 0.4 10^3/cmm (0.0-1.2) 01/03/23 04:56 Absolute Lymphocytes 1.0 10^3/cmm (1.2-3.4) L 01/03/23 04:56 Lymphocytes (Manual) 15 % 01/03/23 04:56 Monocytes (Manual) 9.0 % 01/03/23 04:56 Absolute Monocytes 0.6 10^3/cmm (0.1-0.6) 01/03/23 04:56 Eosinophils (Manual) 0 % 01/03/23 04:56 Absolute Eosinophils 0.0 10^3/cmm (0.0-0.7) 01/03/23 04:56 Basophils (Manual) 0.0 % 01/03/23 04:56 Absolute Basophils 0.0 10^3/cmm (0.0-0.2) 01/03/23 04:56 Metamyelocytes 5.0 % 01/03/23 04:56 Myelocytes 11.0 % 01/03/23 04:56 Nucleated RBCs # 0.0 /100WBC 01/05/23 04:56 Platelet Estimate Normal (Normal) 01/03/23 04:56 Polychromasia Trace 01/03/23 04:56 D-Dimer 1.15 ug/mIFEU (0-0.59) H 12/30/22 12:18 Specimen Type Arterial 12/31/22 04:00 Sample Site Radial, right 12/31/22 04:00 ABG pH 7.35 (7.35-7.45) 12/31/22 04:00 ABG pCO2 44.4 mmHg (35-45) 12/31/22 04:00 ABG pO2 105.0 mmHg (80.0-100.0) H 12/31/22 04:00 ABG HCO3 24.2 mmol/L (22-26) 12/31/22 04:00 ABG O2 Saturation 97.5 12/30/22 12:18 ABG Base Excess -1.6 mmol/L (-2.0-2.0) 12/31/22 04:00 Jerome Test Pos 12/31/22 04:00 VBG pH 7.38 (7.32-7.42) 12/30/22 20:56 VBG pCO2 37.2 mmHg (41-51) L 12/30/22 20:56 VBG pO2 59.4 mmHg (25-40) H 12/30/22 20:56 VBG HCO3 21.9 mmol/L (24-28) L 12/30/22 20:56 VBG Base Excess -2.9 mmol/L (-3.0-3.0) 12/30/22 20:56 VBG Hematocrit 35.3 % (37-47) L 12/30/22 20:56 A-a O2 Gradient 1.8 mmHg (5-10) L 12/30/22 12:18 Hematocrit 37.0 % (37-47) 12/31/22 04:00 Hgb O2 Saturation 96.6 % (95-100) 12/30/22 12:18 Carboxyhemoglobin 1.4 %THgb (0.4-20.1) 12/30/22 12:18 Methemoglobin < 0.0 % (0.4-1.5) L 12/30/22 12:18 Total Hemoglobin 11.4 g/dL (12-16) L 12/30/22 12:18 Sodium 140.0 mmol/L (131-143) 12/30/22 12:18 Potassium 4.0 mmol/L (3.5-5.0) 12/30/22 12:18 Glucose 180.0 mg/dL (70-115) H 12/30/22 12:18 Ionized Calcium 1.1 mmol/L (1.1-1.4) 12/30/22 12:18 O2 Delivery Device Bipap 12/31/22 04:00 O2 Liters/Min 15.0 % 12/30/22 16:43 FiO2 55.0 % 12/31/22 04:00 Integration Aide ID ellpe 12/31/22 04:00 Sodium 139 mmol/L (136-145) 01/05/23 04:56 Potassium 3.9 mmol/L (3.5-5.1) 01/05/23 04:56 Chloride 105 mmol/L (98-107) 01/05/23 04:56 Carbon Dioxide 25 mmol/L (22-29) 01/05/23 04:56 Anion Gap 12.9 (5-19) 01/05/23 04:56 BUN 23 mg/dL (8-23) 01/05/23 04:56 Creatinine 0.5 mg/dL (0.5-0.9) 01/05/23 04:56 GFR Calculation 123.8 mL/min (90-130) 01/05/23 04:56 Glucose 115 mg/dL (65-115) 01/05/23 04:56 Estimat Average Glucose 140 01/04/23 09:56 Hemoglobin A1c 6.5 % (4.0-6.0) H 01/04/23 09:56 Calculated Osmolality 293 mOsm/kg (285-295) 01/05/23 04:56 Lactic Acid 5.4 mmol/L (0.5-2.2) H* 12/31/22 11:16 Lactic Acid (Sepsis) 6.0 mmol/L (0.5-2.2) H* 12/31/22 14:20 Lactate 2.0 mmol/L (0.5-2.2) 01/01/23 05:28 Calcium 8.9 mg/dL (8.5-10.5) 01/05/23 04:56 Phosphorus 3.0 mg/dL (2.5-4.5) 12/31/22 02:58 Magnesium 1.7 mg/dL (1.7-2.3) 12/31/22 02:58 Iron 28 ug/dL (37-145) L 01/04/23 03:45 TIBC 205 mcg/dl 01/04/23 03:45 % Saturation 13.6 % (20-50) L 01/04/23 03:45 Unsat Iron Binding 177 ug/dL (112-347) 01/04/23 03:45 Total Bilirubin 0.6 mg/dL (0.15-1.2) 01/05/23 04:56 AST 23 U/L (0-32) 01/05/23 04:56 ALT 32 U/L (0-33) 01/05/23 04:56 Alkaline Phosphatase 60 U/L (35-105) 01/05/23 04:56 Lactate Dehydrogenase 316 U/L (135-214) H 01/01/23 02:45 Creatine Kinase 958 U/L (26-192) H* 12/30/22 12:18 Troponin T Gen 5 ng/L 20 ng/L (0-10) H 01/04/23 03:45 Troponin T Baseline 19 ng/L (0-10) H 12/30/22 12:18 Troponin T 120 Minute 113.2 ng/L (0-10) H 12/30/22 13:35 Delta Troponin T 94.2 ABS# (0-10) H* 12/30/22 13:35 Troponin T Hi Sens 6Hr 27.82 ng/L (0-10) H 12/30/22 18:35 Troponin T Hi Sens 6Hr Delta 8.82 ng/L (0-12) 12/30/22 18:35 C-Reactive Protein 40.5 mg/L (0.0-4.9) H 01/04/23 03:45 Total Protein 6.1 g/dL (6.6-8.7) L 01/05/23 04:56 Albumin 3.3 g/dL (3.5-5.2) L 01/05/23 04:56 Globulin 2.8 g/dL (1.3-4.6) 01/05/23 04:56 Triglycerides 262 mg/dL (0-150) H 01/04/23 03:45 Cholesterol 188 mg/dL (0-200) 01/04/23 03:45 LDL Cholesterol, Calc 109 mg/dL (50-129) 01/04/23 03:45 Total VLDL Cholesterol 52 mg/dL (0-30) H 01/04/23 03:45 HDL Cholesterol 27 mg/dL (60-100) L 01/04/23 03:45 Cholesterol/HDL Ratio 6.96 mg/dL (0.0-4.40) H 01/04/23 03:45 Lipase 11 U/L (13-60) L 12/30/22 12:18 Vitamin B12 540 pg/mL (232-1245) 01/04/23 03:45 Folate > 20.0 ng/mL (4.8-37.3) 01/04/23 17:36 Procalcitonin 2.68 ng/mL (0-0.5) H 01/04/23 03:45 TSH 0.82 uIU/mL (0.27-4.20) 12/30/22 13:58 Urine Color Dark yellow (Yellow) 12/30/22 12:48 Urine Appearance Clear (CLEAR) 12/30/22 12:48 Urine pH 5 (5-7) 12/30/22 12:48 Ur Specific [place] 1.025 (1.005-1.030) 12/30/22 12:48 Urine Protein Trace (Negative) 12/30/22 12:48 Urine Glucose (UA) Norm (Normal) 12/30/22 12:48 Urine Ketones 1+ (Negative) H 12/30/22 12:48 Urine Blood Neg (Negative) 12/30/22 12:48 Urine Nitrate Negative (Negative) 12/30/22 12:48 Urine Bilirubin 1+ (Negative) H 12/30/22 12:48 Urine Urobilinogen Norm mg/dL (Negative) 12/30/22 12:48 Ur Leukocyte Esterase Negative (Negative) 12/30/22 12:48 Urine RBC None /hpf (0-2) 12/30/22 12:48 Urine WBC 5-10 /hpf (0-5) H 12/30/22 12:48 Ur Squamous Epith Cells 5-10 /hpf (0-5) H 12/30/22 12:48 Amorphous Sediment Not Reportable 12/30/22 12:48 Urine Bacteria 1+ /hpf (NONE) H 12/30/22 12:48 Hyaline Casts 25-40 /lpf H 12/30/22 12:48 Fine Granular Casts 0-4 /lpf H 12/30/22 12:48 Urine Mucus 1+ /hpf 12/30/22 12:48 Salicylates < 0.3 mg/dL (3-10) L 12/30/22 12:18 Urine Opiates Screen Negative ng/mL (Negative) 12/30/22 17:10 Acetaminophen < 5.0 ug/mL (10-30) L 12/30/22 12:18 Ur Barbiturates Screen Negative ng/mL (Negative) 12/30/22 17:10 Valproic Acid 40.5 ug/mL (50-100) L 12/31/22 02:58 Ur Phencyclidine Scrn Negative ng/mL (Negative) 12/30/22 17:10 Ur Amphetamines Screen Negative ng/mL (Negative) 12/30/22 17:10 U Benzodiazepines Scrn Negative ng/mL (Negative) 12/30/22 17:10 Urine Cocaine Screen Negative ng/mL (Negative) 12/30/22 17:10 U Marijuana (THC) Screen Negative ng/mL (Negative) 12/30/22 17:10 Ethyl Alcohol < 10 mg/dL (0-10) 12/30/22 12:18 SARS-CoV-2 Ag (Rapid) negative (Negative) 01/06/23 09:50 Vitals Last Vital Signs Temp 98.0 F 01/06/23 08:00 Pulse 84 01/06/23 08:00 Resp 17 01/06/23 08:00 BP 106/70 01/06/23 08:00 Pulse Ox 94 01/06/23 07:34 O2 Del Method 01/06/23 07:34 O2 Flow Rate 2 01/06/23 02:00 FiO2 10 12/31/22 17:30 Discharge Plan Discharge Patient Disposition: Xfer SNF Condition: Stable Prescriptions: New amoxicillin-pot clavulanate 875-125 mg Tablet 1 tab PO BID 3 Days Qty: 6 0RF ferrous gluconate 324 mg (37.5 mg iron) Tablet 324 mg PO BIDWM Qty: 60 0RF furosemide 40 mg Tablet 20 mg PO DAILY@0800 30 Days Qty: 15 0RF metoprolol tartrate 50 mg Tablet 50 mg PO BID@0900,2100 Qty: 60 0RF levofloxacin 750 mg Tablet 750 mg PO DAILY@0600 Qty: 5 0RF aspirin 81 mg capsule 81 mg PO DAILY Qty: 30 0RF atorvastatin 40 mg tablet 40 mg PO DAILY Qty: 30 0RF Continued lisinopril 10 mg tablet 10 mg PO DAILY 30 Days Qty: 30 0RF fluoxetine 20 mg capsule 20 mg PO DAILY 30 Days Qty: 30 0RF acetaminophen 325 mg Tablet 650 mg PO Q6H PRN (Reason: Pain) Depakote 500 mg Tablet,Delayed Release (Dr/Ec) 1,000 mg PO BEDTIME divalproex 500 mg tablet extended release 24 hr 500 mg PO QAM [place] 200-200-20 mg/5 mL Suspension 10 ml PO Q6H PRN (Reason: Cough) albuterol sulfate 90 mcg/actuation HFA aerosol inhaler 2 puff INHALATION Q6H PRN (Reason: Shortness Of Breath Or Wheezing) fluticasone propionate 50 mcg/actuation spray,suspension 1 spray INTRANASAL QPM clozapine 50 mg tablet 50 mg PO DAILY Invega Sustenna 234 mg/1.5 mL syringe 234 mg IM Q180D Coricidin HBP Day-Night 10-200 mg(dy)/2 -15-500 mg(nt) Tablet And Capsule, Sequential 1 ea PO Q6H PRN (Reason: Cough) naloxone 2 mg/2 mL Syringe Kit 2 mg IM Q3M PRN (Reason: Opioid Overdose) Rx Instructions: NTExceed 10 mg total dose/episode Discontinued atenolol 50 mg Tablet 50 mg PO DAILY 30 Days Qty: 30 0RF clozapine 100 mg tablet 100 mg PO DAILY Discharge Orders: Discharge Order (Routine); Ordered 01/06/23 Ordered By: Chuckie Crisostomo Referrals: [facility] [Outside] Harman Salgado MD [Primary Care Provider] - 7-10 days Discharge Diet: Cardiac Discharge Activity: Resume usual activity and Increase activity as tolerated Patient Instructions: Furosemide (By mouth), Aspirin (By mouth), Amoxicillin/Clavulanate Potassium (By mouth), Levofloxacin (By mouth), Opioid Safety Activity Restrictions/Additional Instructions: Augmentin and Levaquin are the antibiotics which you should take for next 3 days to finish the course of medication. New medication added are aspirin 81 mg daily, atorvastatin 40 mg daily, metoprolol 50 mg twice daily. Continue taking lisinopril 10 mg daily. He should have repeat BMP with a primary care provider within next 1 week. Atenolol and clozapine has been stopped. Please follow-up with your primary care provider within next 1 week and should follow-up with cardiology within next 1 month. Discharge Attestations Time Spent in Discharge Care*: greater than 30 min Specific Discharge Activities: educating patient, educating and/or supporting family/caregiver, discussing with pcp/other providers, discussing with disease case manager/social workers/dc planners, documenting/other paperwork and evaluating patient/reviewing data Status at Discharge: Cognitive status at discharge: mildly impaired cognition, Behavioral status at discharge: cooperative, Functional status at discharge: uses cane/walker, Overall status at discharge: patient is back to baseline Quality Metrics Clinical Quality Measures [ No reported AMI, CVA or VTE this stay] Coding Level of Care Code 27639 Total time (in minutes) for Discharge: 60 Diagnoses Hypoxia R09.02 Pneumonia J18.9 Sepsis A41.9 CHELITA (acute kidney injury) N17.9 NSTEMI (non-ST elevated myocardial infarction) I21.4 Schizophrenia, chronic condition F20.9 Neurocognitive deficits R29.818; R41.89 Depressive disorder F32.9 Septic shock A41.9; R65.21
[2023-01-06 13:47] VITALS: BP 106/70; PULSE 84; RESP 17; TEMP 36.7; O2SAT 94
== END 2023-01-06 13:49 | disposition skilled nursing facility (03) | DRG 871 ==
LOC: ER 14:09 → ICU 15:47 → MEDSURG 01-02 17:53
PROVIDERS: Internal Medicine; Admitting Provider Internal Medicine; Emergency Provider Family Medicine; PCP Family Medicine; Visit Provider Student in an Organized Health Care Education/Training Program
DX: A41.9 Sepsis, unspecified organism (principal); G93.41 Metabolic encephalopathy; R65.21 Severe sepsis with septic shock; J18.9 Pneumonia, unspecified organism; I21.4 Non-ST elevation (NSTEMI) myocardial infarction; J96.02 Acute respiratory failure with hypercapnia; J96.01 Acute respiratory failure with hypoxia; N17.9 Acute kidney failure, unspecified; M62.82 Rhabdomyolysis; F25.1 Schizoaffective disorder, depressive type; Z79.51 Long term (current) use of inhaled steroids; I95.9 Hypotension, unspecified; E83.42 Hypomagnesemia; I10 Essential (primary) hypertension
CPT/HCPCS: 36415; 36556; 36592; 36600; 51702; 70450; 71045; 71275; 74177; 80048; 80051; 80053; 80061; 80164; 80306; 80307; 81001; 82330; 82550; 82607; 82746; 82803; 82805; 83036; 83540; 83550; 83605; 83615; 83690; 83735; 84100; 84145; 84443; 84484; 85007; 85025; 85378; 86140; 86403; 87040; 87426; 87449; 87493; 87641; 93005; 93306; 94640; 94660; 94669; 96365; 96366; 96367; 96372; 96375; 96376; 97110; 97161; 97530; 99291; 99292; C1751; C9113; J0692; J1650; J1720; J1940; J1956; J2405; J2543; J2920; J3370; J3411; J3490; J7030; J7050; J7060; J7608; J7614; J7626; J7644; Q9967

== ENCOUNTER → 2025-01-26 07:35 | Outpatient (BNVA) | payer MEDICARE, MEDICAID, SELFPAY | PROVIDERS: PCP Family Medicine; Visit Provider Surgery | DX: Z12.11 Encounter for screening for malignant neoplasm of colon (principal) | CPT/HCPCS: 99024; 99204 ==

== ENCOUNTER → 2025-02-02 14:35 | Outpatient (BNVA) | payer MEDICARE, MEDICAID, SELFPAY | PROVIDERS: PCP Family Medicine; Visit Provider Surgery | DX: Z12.11 Encounter for screening for malignant neoplasm of colon (principal) | CPT/HCPCS: 99024; G0463 ==